=== PATIENT | male | born 1955 | race Hispanic/Latino ===

== ENCOUNTER 2016-10-02 07:50 | Inpatient (IN) | payer BC ==
[2016-10-02 08:05] VITALS: BMI 21.2
[2016-10-02] MEDS ORDERED: Vancomycin 1gm in NS 250ml 1 GM/250 ML BAG IVPB STA (08:24)
--- NOTE | 2016-10-02 08:43 | ED PDOC ---
Arrival/HPI - General Chief Complaint: Lower Extremity Problem/Injury Time Seen by Provider: 10/02/16 07:59 Historian: Patient - History of Present Illness Narrative History of Present Illness (Text): 10/02/16 08:13 A 61 year old male presents to the emergency department for evaluation of a non healing ulcer to the right foot. Patient reports the ulcer has been worsening and has become more painful. Patient was seen by customer solutions teammate, who told patient the right foot will need amputation. Patient denies any fever, chest pain, shortness of breath or any other complaints at this time. PMD: Dr. Gonzalez Chemical Production Machine Operator: Dr. Albert Time/Duration: Other Symptom Onset: Gradual Symptom Course: Worsening Quality: Other Activities at Onset: Rest Context: Home Past Medical History - Provider Review Nursing Documentation Reviewed: Yes - Infectious Disease Hx of Infectious Diseases: None - Cardiac Hx Cardiac Disorders: Yes - Pulmonary Hx Respiratory Disorders: Yes (SMOKED CIGARETTES 1/2 PPD X 50 YRS. QUIT) - Neurological Hx Neurological Disorder: No - HEENT Hx HEENT Disorder: Yes Other/Comment: wears glasses - Renal Hx Renal Disorder: No - Endocrine/Metabolic Hx Endocrine Disorders: No - Hematological/Oncological Hx Blood Transfusions: Yes Hx Blood Transfusion Reaction: No - Integumentary Hx Dermatological Disorder: Yes (RIGHT LEG INNER LATERAL BYPASS GRAFT WITH DRYING SKIN.) Other/Comment: 06-11-16 RIGHT KHANNA BONE WITH WORSENING,INCRESILY PAINFU; WOUND WITH SKIN GRAFT FROM SHARK.WAS REMOVED TODAY . AREA WITH SLOUGH. LEFT LEG FOOT DROP,KHANNA BONE WITH BROWNISH SKIN DISCOLORATION,PLAQUES. - Musculoskeletal/Rheumatological Hx Musculoskeletal Disorders: Yes (OSTEOMYELITIS TO RIGHT LEG /TIB/FIB 06-11-16) Hx Falls: Yes Hx Osteomyelitis: Yes (TIB/FIB RIGHT LEG 06-11-16) Hx Unsteady Gait: Yes (L FOOT DROP WHEELCHAIR,SPLINT TO L FOOT) - Gastrointestinal Hx Gastrointestinal Disorders: Yes (CONSTIPATION) - Genitourinary/Gynecological Hx Genitourinary Disorders: No - Psychiatric Hx Psychophysiologic Disorder: Yes (SMOKED CIGARETTES FOR 50 YSR QUIT) Hx Emotional Abuse: No Hx Physical Abuse: No Hx Substance Use: No - Surgical History Hx Amputation: Yes Hx Orthopedic Surgery: Yes Other/Comment: ACHILLES TENDON RELEASE-LEFT FOOT. - Anesthesia Hx Anesthesia Reactions: No Hx Malignant Hyperthermia: No - Suicidal Assessment Feels Threatened In Home Enviroment: No Family/Social History - Physician Review Nursing Documentation Reviewed: Yes Family/Social History: Unknown Family HX Smoking Status: Former Smoker Hx Alcohol Use: No Hx Substance Use: No Allergies/Home Meds Allergies/Adverse Reactions: Allergies No Known Allergies Allergy (Verified 06/11/16 17:45) Home Medications: Home Meds Medication Instructions Recorded Confirmed Apixaban [Eliquis] 5 mg PO BID 03/11/16 10/02/16 Multivit,Iron,Min 5/Folic Acid 1 tab PO DAILY 03/11/16 10/02/16 [Strovite Forte] Atorvastatin [Lipitor] 80 mg PO QPM 04/10/16 10/02/16 Aspirin [Ecotrin] 81 mg PO DAILY 10/02/16 10/02/16 Linezolid 600 mg in D5W 300 ml 1 IV Q12 10/02/16 [Zyvox 600mg/300ml D5W] levoFLOXacin 500 mg in D5W 100 ml IV DAILY 10/02/16 10/02/16 [Levaquin 500MG] Review of Systems - Physician Review All systems were reviewed & negative as marked: Yes - Review of Systems Constitutional: absent: Fevers Respiratory: absent: SOB Cardiovascular: absent: Chest Pain Skin: Ulcer (worsening ulcer to the right foot) Physical Exam Vital Signs Reviewed: Yes Vital Signs Temp Pulse Resp BP Pulse Ox 10/02/16 09:50 79 18 143/68 98 10/02/16 08:04 97.8 F 83 18 145/71 98 Temperature: Afebrile Blood Pressure: Normal Pulse: Regular Respiratory Rate: Normal Appearance: Positive for: Well-Appearing, Non-Toxic, Comfortable Pain Distress: None Mental Status: Positive for: Alert and Oriented X 3 - Systems Exam Head: Present: Atraumatic, Normocephalic Pupils: Present: PERRL Extroacular Muscles: Present: EOMI Conjunctiva: Present: Normal Mouth: Present: Moist Mucous Membranes Neck: Present: Normal Range of Motion Respiratory/Chest: Present: Clear to Auscultation, Good Air Exchange. No: Respiratory Distress, Accessory Muscle Use Cardiovascular: Present: Regular Rate and Rhythm, Normal S1, S2. No: Murmurs Abdomen: Present: Normal Bowel Sounds. No: Tenderness, Distention, Peritoneal Signs Back: Present: Normal Inspection Upper Extremity: Present: Normal Inspection. No: Cyanosis, Edema Lower Extremity: Present: Other (1 cm wound to the left dorsal 2nd toe; 6in by 1in deep wound to the right khanna; 3in by 1in superfical wound to the lateral side of right lower extremity ). No: Edema Neurological: Present: GCS=15, CN II-XII Intact, Speech Normal Skin: Present: Warm, Dry, Normal Color. No: Rashes Psychiatric: Present: Alert, Oriented x 3, Normal Insight, Normal Concentration Medical Decision Making ED Course and Treatment: 10/02/16 08:13 Impression: A 61 year old male with worsening ulcer to the right foot. Differential Diagnosis include but are not limited to: gangrene Plan: -- Labs -- Vancomycin -- Reassess and disposition Prior Visits: Notes and results from previous visits were reviewed. The patient last presented to the emergency department on 06/11/16 for evaluation of a non- healing ulcer. Progress Notes: 10/02/16 09:[address] Tirso Gonzalez, who is aware and agrees with the plan to admit the patient to Med/Surg under his service for gangrene of the right lower extremity. He notes to consult Dr. Moreira and Dr. Albert. I have discussed the results and plan with the patient, who expresses understanding. Patient given the opportunity to ask question, all questions were answered and there is agreement with the plan to be admitted to the hospital. 10/02/16 09:[address] Moreira, who is aware. - Lab Interpretations Lab Results: 10/02/16 08:10 10/02/16 08:10 Lab Results 10/02/16 08:10: Sodium 139, Potassium 4.2, Chloride 103, Carbon Dioxide 22, Anion Gap 18, BUN 18, Creatinine 1.1, Est GFR ( Amer) > 60, Est GFR (Non- Af Amer) > 60, Random Glucose 100, Calcium 9.5, Phosphorus 3.5, Magnesium 1.9, Total Bilirubin 0.7, AST 111 H, ALT 111 H, Alkaline Phosphatase 274 H, Total Protein 7.9, Albumin 3.8, Globulin 4.1, Albumin/Globulin Ratio 0.9 L 10/02/16 08:10: PT 11.4, INR 1.06, APTT 35.5 H 10/02/16 08:10: WBC 12.6 H, RBC 3.60, Hgb 11.7 L, Hct 34.0 L, MCV 94.4, MCH 32.5 , MCHC 34.4, RDW 13.5, Plt Count 258, MPV 10.1, Gran % 56.7, Lymph % (Auto) 19.3 L, Moca % (Auto) 8.4 H, Eos % (Auto) 15.0 H, Baso % (Auto) 0.6, Gran # 7.13 H, Lymph # 2.4, Moca # 1.1 H, Eos # 1.9 H, Baso # 0.08 I have reviewed the lab results: Yes - Medication Orders Current Medication Orders: Atorvastatin Calcium (Lipitor) 80 mg PO DIN [facility] Famotidine (Pepcid) 20 mg PO BID [facility] Last Admin: 10/02/16 10:41 Dose: 20 mg Gabapentin (Neurontin) 400 mg PO TID [facility] PRN Reason: Protocol Last Admin: 10/02/16 15:02 Dose: Not Given Non-Admin Reason: Patient in OR/Vascular Heparin Sodium (Porcine) (Heparin) 5,000 units SC Q8 [facility] PRN Reason: Protocol Last Admin: 10/02/16 15:01 Dose: Not Given Non-Admin Reason: Patient in OR/Vascular Discontinued Medications Fentanyl (Fentanyl) Confirm Administered Dose 100 mcg .ROUTE .STK-MED ONE Stop: 10/02/16 15:14 Vancomycin HCl (Vancomycin 1gm) 1 gm in 250 mls @ 167 mls/hr IVPB STAT STA PRN Reason: Protocol Stop: 10/02/16 09:53 Last Admin: 10/02/16 09:35 Dose: 167 mls/hr Nitroglycerin/Dextrose (Nitroglycerin 50 Mg/250 Ml D5w) Confirm Administered Dose 50 mg in 250 mls @ ud IV .STK-MED ONE Stop: 10/02/16 15:14 Heparin Sodium (Porcine) (Heparin 1000 Units/500 Ml Ns) Confirm Administered Dose 1,500 mls @ ud IV .STK-MED ONE Stop: 10/02/16 15:15 Iodixanol (Visipaque 320 Mg/Ml 100 Ml) Confirm Administered Dose 100 ml IV .STK- MED ONE Stop: 10/02/16 15:14 Iodixanol (Visipaque 320 Mg/Ml 200 Ml) Confirm Administered Dose 200 ml IV .STK- MED ONE Stop: 10/02/16 15:14 Lidocaine HCl (Lidocaine 2% 20ml Vial) Confirm Administered Dose 20 ml .ROUTE .STK-MED ONE Stop: 10/02/16 15:13 Midazolam HCl (Versed Inj) Confirm Administered Dose 2 mg .ROUTE .STK-MED ONE Stop: 10/02/16 15:14 - Scribe Statement The provider has reviewed the documentation as recorded by the Benny Mae Provider Scribe Attestation: All medical record entries made by the Scribkaya were at my direction and personally dictated by me. I have reviewed the chart and agree that the record accurately reflects my personal performance of the history, physical exam, medical decision making, and the department course for this patient. I have also personally directed, reviewed, and agree with the discharge instructions and disposition. Disposition/Present on Arrival - Present on Arrival Any Indicators Present on Arrival: No History of DVT/PE: No History of Uncontrolled Diabetes: No Urinary Catheter: No History of Decub. Ulcer: No History Surgical Site Infection Following: Orthopedic Procedures, None - Disposition Have Diagnosis and Disposition been Completed?: Yes Diagnosis: Gangrene Disposition: HOSPITALIZED Disposition Time: 09:16 Patient Plan: Admission Condition: GOOD
[2016-10-02 08:50] LABS: ADD MANUAL DIFF? NO
[2016-10-02 08:56] LABS: BASO # 0.08 K/mm3 (0.0-2.0); BASO % 0.6 % (0.0-3.0); EOS # 1.9 (0.0-0.7); GRAN # 7.13 (1.4-6.5); GRAN % 56.7 % (50.0-68.0); LYMPH # 2.4 (1.2-3.4); LYMPH % 19.3 % (22.0-35.0); MEAN CELL VOLUME 94.4 fL (80.0-105.0); MEAN CORPUSCULAR HEMOGLOBIN 32.5 pg (25.0-35.0); MEAN CORPUSCULAR HGB CONC 34.4 g/dl (31.0-37.0); MEAN PLATELET VOLUME 10.1 fl (7.0-11.0); MONO # 1.1 (0.1-0.6); MONO % 8.4 % (1.0-6.0); PLATELET COUNT 258 10^3/uL (120.0-450.0); RED CELL DISTRIBUTION WIDTH 13.5 % (11.5-14.5); WHITE BLOOD COUNT 12.6 10^3/ul (4.5-11.0)
[2016-10-02 09:06] LABS: ALB/GLOB RATIO 0.9 (1.1-1.8); ALKALINE PHOSPHATASE 274 U/L (38-133); ALT/SGPT 111 U/L (7-56); AST/SGOT 111 U/L (15-59); BILIRUBIN,TOTAL 0.7 mg/dL (0.2-1.3); BLOOD UREA NITROGEN 18 mg/dL (7-21); CALCIUM 9.5 mg/dL (8.4-10.5); CARBON DIOXIDE 22 mmol/L (21-33); CHLORIDE 103 mmol/L (98-107); GFR AFRICAN-AMERICAN > 60; GLUCOSE,RANDOM 100 mg/dL (70-110); MAGNESIUM 1.9 mg/dL (1.7-2.2); PHOSPHOROUS 3.5 mg/dL (2.5-4.5); POTASSIUM 4.2 mmol/L (3.6-5.0); SODIUM 139 mmol/L (132-148); TOTAL PROTEIN 7.9 g/dL (5.8-8.3)
--- NOTE | 2016-10-02 09:15 | CP.PCM.CON ---
History of Present Illness - History of Present Illness History of Present Illness: Dr. Chidi Shrestha Consult Note for Dr. Nicholson This patient is a 61yo M w/ an extensive PAD/PVD history known to Dr. 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 This patient has a non-healing ulcer on this right foot that will likely need amputation, for which he is on long Linezolid for as treatment. He has had multiple stents and bypass operations in the past. The patient has no current complaints; denies any fevers/chills, PRUITT, CP, SOB, abdominal pain, N/V/D, dysuria/freq/urg, or lower extremity pain that is out of proportion to his normal "vein" pain. 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 Ambulates with wheelchair. ADL and IADL's on own, other than visiting nurse for bandage changes. Former smoker, 1-2 packs per day for 50 years; 50-100pack year history The current plan is for CTA of the LLE as per Dr. Ramin Snowden, and for Surgery on Friday 10/[address] Nicholson. The patient should be NPO until after the CTA. Review of Systems - Constitutional Constitutional: As Per HPI Past Patient History - Infectious Disease Hx of Infectious Diseases: None - Past Social History Smoking Status: Former Smoker - CARDIAC Hx Cardiac Disorders: Yes - PULMONARY Hx Respiratory Disorders: Yes (SMOKED CIGARETTES 1/2 PPD X 50 YRS. QUIT) - NEUROLOGICAL Hx Neurological Disorder: No - HEENT Hx HEENT Problems: Yes Other/Comment: wears glasses - RENAL Hx Chronic Kidney Disease: No - ENDOCRINE/METABOLIC Hx Endocrine Disorders: No - HEMATOLOGICAL/ONCOLOGICAL Hx Blood Transfusions: Yes Hx Blood Transfusion Reaction: No - INTEGUMENTARY Hx Dermatological Problems: Yes (RIGHT LEG INNER LATERAL BYPASS GRAFT WITH DRYING SKIN.) Other/Comment: 06-11-16 RIGHT PAGE BONE WITH WORSENING,INCRESILY PAINFU; WOUND WITH SKIN GRAFT FROM SHARK.WAS REMOVED TODAY . AREA WITH SLOUGH. LEFT LEG FOOT DROP,PAGE BONE WITH BROWNISH SKIN DISCOLORATION,PLAQUES. - MUSCULOSKELETAL/RHEUMATOLOGICAL Hx Musculoskeletal Disorders: Yes (OSTEOMYELITIS TO RIGHT LEG /TIB/FIB 06-11-16) Hx Falls: Yes Hx Osteomyelitis: Yes (TIB/FIB RIGHT LEG 06-11-16) Hx Unsteady Gait: Yes (L FOOT DROP WHEELCHAIR,SPLINT TO L FOOT) - GASTROINTESTINAL Hx Gastrointestinal Disorders: Yes (CONSTIPATION) - GENITOURINARY/GYNECOLOGICAL Hx Genitourinary Disorders: No - PSYCHIATRIC Hx Psychophysiologic Disorder: Yes (SMOKED CIGARETTES FOR 50 YSR QUIT) Hx Emotional Abuse: No Hx Physical Abuse: No Hx Substance Use: No - SURGICAL HISTORY Hx Amputation: Yes Hx Orthopedic Surgery: Yes Other/Comment: ACHILLES TENDON RELEASE-LEFT FOOT. - ANESTHESIA Hx Anesthesia Reactions: No Hx Malignant Hyperthermia: No Meds Allergies/Adverse Reactions: Allergies Allergy/AdvReac Type Severity Reaction Status Date / Time No Known Allergies Allergy Verified 06/11/16 17:45 - Medications Medications: Current Medications Vancomycin HCl (Vancomycin 1gm) 1 gm in 250 mls @ 167 mls/hr IVPB STAT STA PRN Reason: Protocol Stop: 10/02/16 09:53 Physical Exam - Constitutional Appears: Well, Non-toxic - Head Exam Head Exam: ATRAUMATIC - Eye Exam Eye Exam: EOMI, Normal appearance Additional comments: wearing glasses - ENT Exam ENT Exam: Mucous Membranes Moist - Neck Exam Neck exam: Positive for: Full Rom. Negative for: Lymphadenopathy - Respiratory Exam Respiratory Exam: Clear to Auscultation Bilateral, NORMAL BREATHING PATTERN. absent: Rales, Rhonchi, Wheezes - Cardiovascular Exam Cardiovascular Exam: REGULAR RHYTHM - GI/Abdominal Exam GI & Abdominal Exam: Normal Bowel Sounds, Soft. absent: Tenderness - Rectal Exam Rectal Exam: Deferred - Extremities Exam Extremities exam: Negative for: calf tenderness Additional comments: RLE covered in bandage that has just been changed Patient has intact sensation on both lower extrem b/l Patient cannot move toes on either b/l extrem; poor foot hygiene and onchomycosis noted on LLE nails Pulses on LLE palpable Pulses non-palpable on RLE - Back Exam Back exam: NORMAL INSPECTION. absent: CVA tenderness (L), CVA tenderness (R) - Neurological Exam Neurological exam: Alert, CN II-XII Intact, Oriented x3 - Psychiatric Exam Psychiatric exam: Normal Affect - Skin Skin Exam: Warm Results - Vital Signs Recent Vital Signs: Last Vital Signs Temp 97.8 F 10/02/16 08:04 Pulse 83 10/02/16 08:04 Resp 18 10/02/16 08:04 BP 145/71 10/02/16 08:04 Pulse Ox 98 10/02/16 08:04 - Labs Result Diagrams: 10/02/16 08:10 Labs: Laboratory Results - last 24 hr 10/02/16 08:10 Sodium 139 Potassium 4.2 Chloride 103 Carbon Dioxide 22 Anion Gap 18 BUN 18 Creatinine 1.1 Est GFR ( Amer) > 60 Est GFR (Non-Af Amer) > 60 Random Glucose 100 Calcium 9.5 Phosphorus 3.5 Magnesium 1.9 Total Bilirubin 0.7 AST 111 H ALT 111 H Alkaline Phosphatase 274 H Total Protein 7.9 Albumin 3.8 Globulin 4.1 Albumin/Globulin Ratio 0.9 L Assessment & Plan - Assessment and Plan (Free Text) Assessment: 61yo M coming in for PAD/PVD -Will order routine pre-op labs -CTA today as per Dr. Snowden; NPO until after procedure; heart healthy diet after procedure -pain control -Surgery planned for Friday 10/[address] Nicholson -Will continue with home meds for now Will discuss with Dr. Bharat Shrestha PGY1 Surgery Note for Dr. Nicholson
[2016-10-02 09:16] LABS: INR 1.06 (0.93-1.08); PARTIAL THROMBOPLASTIN TIME 35.5 Seconds (23.7-30.8)
[2016-10-02 11:04] LABS: VENOUS BLOOD GAS BASE EXCESS -1.1 mmol/L (0.0-2.0); VENOUS BLOOD PH 7.37 (7.32-7.43)
--- NOTE | 2016-10-02 11:44 | HP ---
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 Albert) for evaluation for possible BKA. The patient denies fevers, chills or rigors, but does endorse fatigue. Otherwise, he states he feels okay and is looking forward to undergoing the BKA to finally resolve his ongoing issues with his right lower extremity. PAST MEDICAL HISTORY: As per HPI. PAST SURGICAL HISTORY: As per HPI. MEDICATIONS: Lipitor 80 mg p.o. daily, aspirin 81 mg p.o. daily, Eliquis 5 mg p.o. b.i.d., Pepcid 20 mg p.o. b.i.d., gabapentin 400 mg p.o. t.i.d., Percocet 5 /325 mg 2 tabs p.o. q. 6 hours p.r.n. pain, Colace 100 mg p.o. b.i.d. ALLERGIES: No known drug allergies. FAMILY HISTORY: Noncontributory. SOCIAL HISTORY: The patient reports a former [id number] smoking history, but quit approximately 2 years ago. He reports social alcohol use and denies illicit drug abuse. REVIEW OF SYSTEMS: A 14-point is negative except as per HPI. PHYSICAL EXAMINATION: VITAL SIGNS: Temperature 97.8, pulse 79, blood pressure 143/68, respiratory rate 18, oxygen saturation 98% on room air. GENERAL: Frail, cachectic man, appearing his stated age, lying in bed, in no apparent distress. HEENT: PERRL. EOMI. No scleral icterus, no conjunctival pallor. NECK: No JVD, no bruits. LUNGS: Clear to auscultation. CARDIOVASCULAR: Regular rate and rhythm. Normal S1 and S2. ABDOMEN: Normoactive bowel sounds, soft, nontender, nondistended. EXTREMITIES: No edema. NEUROLOGIC: Awake, alert and oriented x 3. No focal motor deficits. LABORATORY DATA: WBC 12.6 with 57% neutrophils, hemoglobin 11.7, hematocrit 34 , platelets 258. Chemistry reviewed and unremarkable. AST 111, ALT 111. ASSESSMENT: The patient is a 61-year-old man with past medical history of severe peripheral vascular disease/peripheral arterial disease, status post interventional radiology revascularization, status post endovascular catheter- directed tissue plasminogen activator, status post amputation of the right foot digits with multiple prior admissions for cellulitis, dry gangrene and osteomyelitis, who presented to [facility] for evaluation for right below knee amputation. PLAN: 1. Chronic nonhealing ulcer of the right lower extremity. Input from Dr. Albert noted and appreciated. Input from Dr. Nicholson also noted and appreciated. The patient is to be evaluated for right below knee amputation. Dr. Moreira of infectious disease has also been consulted for perioperative antimicrobial management. Dr. Snowden has also been consulted for preoperative angiogram. The patient is otherwise medically optimized for his surgical procedure and may proceed without any further cardiac workup. He is a moderate risk patient for a moderate risk procedure. 2. Severe peripheral vascular disease/peripheral arterial disease. Continue with Lipitor 80 mg p.o. daily. Will hold aspirin 81 mg p.o. daily and Eliquis 5 mg p.o. b.i.d. given increased risk of bleed in anticipation of right below knee amputation. As above, Dr. Snowden has been consulted for preoperative angiogram. 3. Transaminitis, etiology secondary to fatty liver infiltration as well as concurrent statin use. LFTs remain stable. Will continue to monitor daily. 4. Prophylaxis. Continue with Pepcid for gastrointestinal prophylaxis and heparin 5000 units subQ q. 8 hours for deep venous thrombosis prophylaxis. CODE STATUS: Full code. Gume Gonzalez MD cc: [id number] TT: 10/02/2016 11:44:24 en MTDD
[2016-10-02] MEDS ORDERED: Lidocaine 2% Inj (20ml) ONE (15:12)
[2016-10-02] MEDS ORDERED: Nitroglycerin 50mg in D5W 50 MG/250 ML BOTTLE IV ONE (15:13)
[2016-10-02] MEDS ORDERED: Iodixanol 320 MG/ML 200 ML BOTTLE IV ONE (15:13)
[2016-10-02] MEDS ORDERED: Iodixanol 320 MG/ML 100 ML BOTTLE IV ONE (15:13)
[2016-10-02] MEDS ORDERED: Midazolam 2 MG/2 ML VIAL ONE ×2 (15:13→16:08)
[2016-10-02] MEDS ORDERED: Oxycodone/Acetaminophen 5/325 mg Tab ONE (17:20)
[2016-10-02] MEDS: Oxycodone/Acetaminophen 10/325 mg Tab PO PRN ×2 (17:20→21:51)
--- NOTE | 2016-10-02 18:42 | CON ---
DATE: 10/02/2016 The patient seen in room 373, bed 1. CHIEF COMPLAINT: Leg infection times months. HISTORY OF PRESENT ILLNESS: This is a 61-year-old male with peripheral vascular disease, long time s moker, acute kidney injury, history of right foot gangrene, history of debridement and multiple surge crys and history of fem-pop bypass with history of grafting which failed, now admitted for right belo w-the-knee amputation. Infectious consultation requested. REVIEW OF SYSTEMS: Reveals the patient has no fevers, no chills, no nausea, no vomiting and no chest pain. PAST MEDICAL HISTORY: Significant for severe peripheral vascular disease, renal failure, osteomyelit is, and longtime smoker. PAST SURGICAL HISTORY: Significant for left leg surgery bypass, patient also had grafting which fail ed. ALLERGIES: The patient has no known allergies. MEDICATIONS AT HOME: Reviewed. PHYSICAL EXAMINATION: GENERAL: The patient is in bed with a temperature of 97, blood pressure is 130/70, respiratory rate of 18, heart rate of 80. HEENT: Unremarkable. NECK: Supple. LUNGS: Have decreased breath sounds. HEART: Normal S1, S2. ABDOMEN: Soft, nontender. EXTREMITIES: Examination of the right leg reveals the patient has a right leg with open wound and mu ltiple open ulcers and exposed bone and gangrene. LABORATORY EXAMINATION: Reveals a white count of 12,600, hemoglobin is 11 and platelets of 258. Coa gulation is noted. Chemistries reveal the BUN of 18, creatinine of 1.1. LFTs are elevated, alk phos phatase is elevated. Microbiology not available from the past. The patient did have coag negative s taph from the left foot and had Wendy albicans and right leg corynebacterium. The patient was given a dose of vancomycin and Dr. Gume Gonzalez's history and physical examinatio n is noted. ASSESSMENT AND PLAN: This is a 61-year-old male with no known allergies, severe peripheral vascular disease, extensive peripheral artery disease, long time smoker, who has had multiple surgeries on his leg and has gangrene and now admitted for right [id number] amputation for Thursday. His leg has c hronic changes, no indication for antibiotic choice at this point, although patient does have leukocy tosis. Examination of leg is consistent with chronic changes and would recommend standard perioperat corby antibiotics. We will follow with you. The patient does have leukocytosis with a white count of 12,600. Chidi Moreira MD cc: [id number] TT: 10/02/2016 18:41:12 Confirmation # [id number] Dictation # [id number] jn
--- NOTE | 2016-10-02 18:48 | VASCULAR ---
PROCEDURE: Abdominal aortogram and bilateral lower extremity runoff. HISTORY: Severe peripheral vascular disease. Scheduled for left femoral - bypass. Left foot ischemia. Nonhealing right tibial ulceration. Previous iliac stents with thrombosis. PHYSICIAN(S): Ramin Snowden MD. TECHNIQUE: The relative risks and indications of the procedure were explained to the patient and consent obtained. The patient was hydrated prior to the procedure and the appropriate labs drawn. The patient was placed supine on the arteriogram table and the left groin prepped and draped in the usual sterile fashion. Conscious sedation and monitoring were provided throughout the procedure by a nurse. Via a left common femoral artery approach, a 5 Palestinian sheath was placed in the right groin. Through the sheath and over a guidewire, a 5 Palestinian flush catheter was placed in the abdominal aorta at the level of the renal arteries and a PA DSA abdominal aortogram performed. The catheter was pulled down to the aortic bifurcation and bilateral oblique DSA pelvic arteriograms performed. Overlapping bilateral lower extremity DSA arteriograms were obtained from the inguinal ligaments to the ankles. The sheath was removed and hemostasis obtained. The patient tolerated the procedure well. FINDINGS: There are single renal arteries bilaterally which are widely patent and normal in appearance. The nephrograms are symmetric in appearance. The infrarenal abdominal aorta is diffusely disease. There is an aneurysm of the distal abdominal aorta related to the kissing aortic bifurcation stents.. The kissing aortic bifurcation stents are patent. No thrombus is seen. The internal iliac arteries are occluded bilaterally. The external iliac arteries are patent bilaterally. Right lower extremity: The right common femoral artery is patent. The right profunda femoral artery is occluded. There is a right femoral - below knee vein bypass. A critical stenosis of the proximal anastomosis is seen. A severe stenosis of the distal anastomosis is present. There is two-vessel continuous runoff on the right via the posterior tibial and peroneal arteries. The right anterior tibial artery is occluded. Left lower extremity: The left common femoral artery is calcified and patent. The left profunda femoral artery is calcified and hypertrophied. The left SFA is occluded. There is reconstitution of the terminal left SFA. The left popliteal artery is patent and continuous. The left trifurcation is intact. There is 3 vessel tibial runoff on the left. IMPRESSION: 1. Long segment left SFA occlusion. 2. Threatened right femoral- graft. Severe stenoses are noted proximally and distally. 3. Occluded right profunda femoral artery. 4. Patent kissing iliac stents. 5. Distal abdominal aortic aneurysm. This could be sized with ultrasound or CT if clinically indicated.
[2016-10-03 08:35] LABS: ADD MANUAL DIFF? NO
[2016-10-03 08:40] LABS: BASO # 0.05 K/mm3 (0.0-2.0); BASO % 0.5 % (0.0-3.0); EOS # 1.3 (0.0-0.7); EOS % 12.7 % (1.5-5.0); GRAN # 5.67 (1.4-6.5); GRAN % 57.5 % (50.0-68.0); HEMATOCRIT 33.3 % (42.0-52.0); LYMPH # 1.9 (1.2-3.4); LYMPH % 18.9 % (22.0-35.0); MEAN CELL VOLUME 93.3 fL (80.0-105.0); MEAN CORPUSCULAR HEMOGLOBIN 32.5 pg (25.0-35.0); MEAN CORPUSCULAR HGB CONC 34.8 g/dl (31.0-37.0); MEAN PLATELET VOLUME 10.2 fl (7.0-11.0); MONO % 10.4 % (1.0-6.0); PLATELET COUNT 219 10^3/uL (120.0-450.0); RED CELL DISTRIBUTION WIDTH 13.5 % (11.5-14.5); WHITE BLOOD COUNT 9.9 10^3/ul (4.5-11.0)
[2016-10-03] MEDS: Oxycodone/Acetaminophen 10/325 mg Tab PO PRN ×4 (08:50→21:53)
[2016-10-03 08:54] LABS: ALKALINE PHOSPHATASE 255 U/L (38-133); ALT/SGPT 85 U/L (7-56); AST/SGOT 79 U/L (15-59); BILIRUBIN,TOTAL 0.8 mg/dL (0.2-1.3); BLOOD UREA NITROGEN 15 mg/dL (7-21); CALCIUM 9.4 mg/dL (8.4-10.5); CARBON DIOXIDE 27 mmol/L (21-33); CHLORIDE 103 mmol/L (98-107); GFR AFRICAN-AMERICAN > 60; GLUCOSE,RANDOM 89 mg/dL (70-110); POTASSIUM 4.6 mmol/L (3.6-5.0); SODIUM 139 mmol/L (132-148); TOTAL PROTEIN 8.1 g/dL (5.8-8.3)
--- NOTE | 2016-10-03 09:13 | CP.PCM.PN ---
Subjective - Date & Time of Evaluation Date of Evaluation: 10/03/16 Time of Evaluation: 07:15 - Subjective Subjective: Vascular Surgery: Dr Nicholson Pt S&E. No acute complaints overnight. 24 hours events: S/P peripheral angiogram yesterday with Dr Snowden. Found to have long left SFA occlusion as well as threatened right femoral graft. Incidental AAA noted. Cardiology consulted for pre-operative risk assessment. Objective - Vital Signs/Intake and Output Vital Signs (last 24 hours): Temp Pulse Resp BP Pulse Ox 98.4 F 72 20 119/70 100 10/03/16 06:00 10/03/16 06:00 10/03/16 06:00 10/03/16 06:00 10/03/16 06:00 Intake and Output: 10/03/16 10/03/16 06:59 18:59 Intake Total 0 Output Total 300 Balance -300 - Medications Medications: Current Medications Atorvastatin Calcium (Lipitor) 80 mg PO DIN [facility] Last Admin: 10/02/16 18:30 Dose: Not Given Famotidine (Pepcid) 20 mg PO BID [facility] Last Admin: 10/02/16 18:30 Dose: Not Given Gabapentin (Neurontin) 400 mg PO TID [facility] PRN Reason: Protocol Last Admin: 10/02/16 18:30 Dose: Not Given Heparin Sodium (Porcine) (Heparin) 5,000 units SC Q8 [facility] PRN Reason: Protocol Last Admin: 10/03/16 06:45 Dose: 5,000 units Oxycodone/Acetaminophen (Percocet 10/325 Mg Tab) 1 tab PO Q4H PRN PRN Reason: Pain, moderate (4-7) Last Admin: 10/03/16 08:50 Dose: 1 tab - Labs Labs: 10/03/16 07:30 10/03/16 07:30 PT 11.4 Seconds (9.9-11.8) 10/02/16 08:10 INR 1.06 (0.93-1.08) 10/02/16 08:10 APTT 35.5 Seconds (23.7-30.8) H 10/02/16 08:10 - Constitutional Appears: Non-toxic, No Acute Distress - Respiratory Exam Respiratory Exam: absent: Accessory Muscle Use, Respiratory Distress - GI/Abdominal Exam GI & Abdominal Exam: Soft. absent: Tenderness - Extremities Exam Extremities Exam: absent: Calf Tenderness, Pedal Edema Additional comments: Left Extremity Dopplerable pulse on DP, no PT. Unable to palpate. - Neurological Exam Neurological Exam: Alert, Awake, Oriented x3 - Psychiatric Exam Psychiatric exam: Normal Affect, Normal Mood - Skin Skin Exam: Normal Color, Warm Assessment and Plan - Assessment and Plan (Free Text) Assessment: 61M with right leg gangrene 2/2 graft occlusion and left leg ischemia requiring revascularization Plan: Pt needs both left and right leg addressed. Pt would benefit from left leg treatment first as right BKA will be difficult rehab if pt cannot weight bear on left leg Right leg may also possible be revascularized endoscopically plan for angio thursday of right leg left fem-pop bypass on thursday will need pre-operative risk assessment blood cultures x 2 case d/w Dr Nicholson who was present for pt evaluation Jose Mazariegos DO, PGY2
[2016-10-03 09:30] LABS: INR 1.03 (0.93-1.08)
--- NOTE | 2016-10-03 10:12 | PN ---
DATE: 10/03/2016 SUBJECTIVE: The patient seen and examined at bedside on the general medical cramer. No acute events o vernight. He remains afebrile and hemodynamically stable. The patient is status post left lower ext remity aortogram which demonstrated long segment of the left SFA occlusion and severe stenosis to the right femoral graft. Otherwise this morning, the patient states he feels okay, but does report some confusion in terms of the procedure he is scheduled for as initially he was told he was being admitt ed for a right BKA and now he is being told he is going for a left femoral-popliteal bypass. Apart f rom this, however, he states he feels okay and offers no complaints. OBJECTIVE: VITAL SIGNS: Temperature 98.4, pulse 72, blood pressure 119/70, respiratory rate 20, oxygen saturati on 100% on room air. GENERAL: A frail, cachectic man appearing his stated age, lying in bed in no apparent distress. HEENT: PERRL, EOMI. No scleral icterus. No conjunctival pallor. NECK: No JVD, no bruits. LUNGS: Clear to auscultation. CARDIOVASCULAR: Regular rate and rhythm. Normal S1 and S2. ABDOMEN: Normoactive bowel sounds, soft, nontender, nondistended. EXTREMITIES: No edema. NEUROLOGIC: Awake, alert and oriented x 3. No focal motor deficits. LABORATORY DATA: WBC 9.9 with 57% neutrophils, hemoglobin 11.6, hematocrit 33, platelets 219. Chemi stry reviewed and unremarkable. AST 79, ALT 85, alk phos 255. ASSESSMENT: The patient is a 61-year-old man with past medical history of severe peripheral vascular disease/peripheral arterial disease, status post interventional radiology revascularizations, status post endovascular catheter-directed tissue plasminogen activator, status post amputation of the righ t foot digits with multiple prior admissions for cellulitis, dry gangrene and osteomyelitis, who pres ented to [facility] for evaluation for right below-knee amputation and is now scheduled f or possible left femoral-popliteal bypass. PLAN: 1. Chronic nonhealing ulcer of the right lower extremity. Input from Dr. Albert noted and davida cinthya. Input from Dr. Snowden noted and findings of his abdominal aortogram reviewed. The patient is te ntatively scheduled for right BKA with Dr. Albert. 2. Severe PVD/PAD. As above, the aortogram is reviewed and input from Dr. Snowden is noted. The tegan ent is reportedly scheduled for a left fem-pop bypass and Dr. Mayers has been consulted by the surgical team for cardiac clearance. In the interim, we will continue with Lipitor 80 mg p.o. daily, aspirin 81 mg p.o. daily and Eliquis 5 mg p.o. b.i.d. 3. Transaminitis, etiology likely secondary to fatty liver infiltration as well as concurrent statin use. LFTs remain stable. We will continue to monitor daily. 4. Prophylaxis. Continue with Pepcid for GI prophylaxis and heparin 5000 units SC q. 8 hours for DV T prophylaxis. CODE STATUS: Full code. Gume Gonzalez MD cc: [id number] TT: 10/03/2016 10:12:13 Confirmation # [id number] Dictation # [id number] tn
--- NOTE | 2016-10-03 10:25 | CT ---
PROCEDURE: CT Abdomen and Pelvis without intravenous contrast HISTORY: evaluate AAA COMPARISON: None. TECHNIQUE: Without contrast.. Contrast Dose: Radiation dose: Total exam DLP = 575 mGy-cm. This CT exam was performed using one or more of the following dose reduction techniques: Automated exposure control, adjustment of the mA and/or kV according to patient size, and/or use of iterative reconstruction technique. FINDINGS: LOWER THORAX: Unremarkable. LIVER: Unremarkable. No gross lesion or ductal dilatation. GALLBLADDER AND BILE DUCTS: Unremarkable. PANCREAS: Unremarkable. No gross lesion or ductal dilatation. SPLEEN: Unremarkable. ADRENALS: Unremarkable. No mass. KIDNEYS AND URETERS: There is some residual contrast material in the renal collecting systems bilaterally. The patient had a recent angiographic procedure VASCULATURE: The infrarenal abdominal aorta measures 3 cm in diameter. Stents can be seen within the distal portion of the aorta extending into the common iliac arteries. The aorta is heavily calcified. BOWEL: Unremarkable. No obstruction. No gross mural thickening. APPENDIX: Unremarkable. Normal appendix. PERITONEUM: Unremarkable. No free fluid. No free air. LYMPH NODES: Unremarkable. No enlarged lymph nodes. BLADDER: Unremarkable. REPRODUCTIVE: Unremarkable. BONES: No acute fracture. OTHER FINDINGS: None. IMPRESSION: 3 cm infrarenal aortic aneurysm with iliac stents. No acute findings
--- NOTE | 2016-10-03 11:00 | PN ---
DATE: 10/03/2016 The patient is in bed, in no acute distress, nontoxic. No fevers, no chills. PHYSICAL EXAMINATION: VITAL SIGNS: Temperature is 98, blood pressure is 119/70, respiratory rate of 16. HEENT: Unremarkable. NECK: Supple. LUNGS: Have decreased breath sounds. HEART: Normal S1, S2. ABDOMEN: Soft, nontender. LABORATORY DATA: Reveals a white count of 9.9, hemoglobin of 11, platelets of 219. Chemistries reve al the BUN of 15, creatinine of 1.0, alkaline phosphatase is 255. MICROBIOLOGY: Reveals the blood cultures are negative. Foot cultures are ____ pending. CURRENT REVIEW OF MEDICATIONS: Reveals the patient to be off of antibiotics. ASSESSMENT AND PLAN: This is a 61-year-old male seen earlier this morning in ____, bed 1, status per ipheral angiogram yesterday done by Dr. Ramin Snowden; found to have a long left ____ occlusion as well as the threatened right femoral graft and an incidental abdominal aortic aneurysm, with multiple adm issions and surgeries, now with a right ____ gangrene. The patient is scheduled for a below-knee amp utation of the right leg on Thursday morning. Currently off of antibiotics. White count is down to 9. 9. Afebrile. Will continue to keep the patient off of antibiotics. Chidi Moreira MD cc: [id number] TT: 10/03/2016 10:25:30 Confirmation # [id number] Dictation # [id number] mn
--- NOTE | 2016-10-03 12:38 | CON ---
DATE: 10/03/2016 REASON FOR CONSULTATION: Right khanna nonhealing ulcer, left foot ulcer. HISTORY OF PRESENT ILLNESS: The patient is a 61-year-old man who has a long and complicated vascular disease history. He started out with a left foot ulcer in 2016. He was treated with left iliac occ lusion and right iliac stenosis that was diagnosed on the angiogram and also bilateral SFA occlusion. He was treated by Dr. Ramin Snowden with bilateral kissing stents. Shortly after that, he returned w ith bilateral lower extremity ischemia with acute thrombosis of his aorta and iliac. Due to the reilly y in presentation, patient has suffered bilateral footdrop. His thrombosed aorta was treated with th rombolysis successfully. The kissing stent was extended. After this, he developed a right foot ulce r. A right leg angioplasty of his superficial femoral artery and popliteal artery was performed, and the proximal SFA was stented. Shortly after that, he thrombosed his right SFA leading to acute isch emia of his right leg. He was readmitted and the right fem-pop was performed. But due to that ische carmel, he has a khanna ulcer which failed to heal despite hyperbaric, extensive wound care and a cutaneou s muscle flap. He was sent in here for osteomyelitis and possible below-knee amputation. In the cathi ntime, he has also developed a left foot ulcer. SOCIAL HISTORY: The patient was a 5 pack a day smoker until last year when he had his first vascular intervention. 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 REVIEW OF SYSTEMS: Other than stated in the history of present illness, is unremarkable. PHYSICAL EXAMINATION: GENERAL: Showed a well-appearing white male in no acute distress. HEENT: Negative. CHEST: Clear. CARDIAC: Regular rhythm. ABDOMEN: Soft. EXTREMITIES: He has bilateral palpable femoral pulses and no distal pulses. He has a khanna ulcer on his right leg. LABORATORY: He has a hemoglobin of 11.6, WBC of 9.9. Electrolytes are within normal limits. HOSPITAL COURSE: After admission, he underwent an angiogram by Dr. Ramin Snowden which showed patent s tent and infrarenal abdominal aortic aneurysm. On the left side, there is an SFA and popliteal occlu an with reconstitution of the popliteal at above-knee level. On the right side, there is no profun dus artery. There is a high-grade stenosis of the bypass graft, both at its takeoff and at the dista l anastomosis, presumably secondary to intimal hyperplasia. The case was discussed with Dr. Snowden. I felt that the below-knee amputation will not heal with no profundus and a high-grade stenosis in th e bypass graft. The bypass graft must be opened prior to a below-knee amputation. The case was pres ented to the patient and his family. The possibility of wound improvement after the bypass graft is open was also discussed, and this was also discussed with the patient's primary care. We all concurr ed that we should open up the right leg bypass, hold on the below-knee amputation, perform the left f emoral popliteal bypass, and wait a month or 2 to see if the right leg wound will improve. Again, th is was discussed with the patient and his family, and Dr. Gonzalez and Dr. Snowden. He is tentatively scheduled for angiogram and angioplasty on Thursday, and a left femoral popliteal bypass on Thursday. Valencia Nicholson MD cc: [id number] TT: 10/03/2016 12:36:58 Confirmation # [id number] Dictation # [id number] mn
--- NOTE | 2016-10-03 13:40 | CON ---
DATE: 10/03/2016 HISTORY OF PRESENT ILLNESS: The patient is a 61-year-old male who presents with ulcers on the right lower extremity. The patient suffers from severe peripheral vascular disease, is status post amputation of the right l ower extremity. The patient continues to smoke until recently. 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 He denies cardiac issues in the past. He is being treated with Eliquis for questionable reasons. He denies cardiac issues. No chest pain. He is chronically short of breath. SOCIAL HISTORY: He states he recently stopped smoking. REVIEW OF SYSTEMS: A 14-point was reviewed. No cardiac symptomatology is noted. Only pain in the r ight lower extremity. PHYSICAL EXAMINATION: VITAL SIGNS: Blood pressure is 119/70, the heart rate is in 72 and regular. NECK: Negative JVD. LUNGS: Decreased breath sounds bilaterally without rales. HEART: Revealed S1, S2. EXTREMITIES: The right lower extremity is status post amputation. LABORATORY DATA: The EKG is pending. Hemoglobin is 11.6. Chemistries: The LFTs are elevated. His previous echo shows good LV function. IMPRESSION: 1. Severe peripheral vascular disease. 2. Ulcers on the right lower extremity. 3. Status post amputation. 4. Chronic obstructive pulmonary disease. 5. Hypercholesterolemia. Given these findings, we will obtain an EKG today on a stat basis. There are no active cardiac issue s elicited by physical as well as examination. The patient is at increased risk for his surgery of the right lower extremity vasculature primarily f rom his pulmonary status. Ramin Mayers MD cc: [id number] TT: 10/03/2016 13:39:41 Confirmation # [id number] Dictation # [id number] en
[2016-10-03] MEDS: Morphine 2 mg/ml ISec IVP PRN ×2 (15:35→20:36)
--- NOTE | 2016-10-03 16:48 | CARD ---
APPROVED REPORT EKG Measurement Heart [id number] [id number] <Conclusion> Normal sinus rhythm Normal ECG
[2016-10-03] MEDS ORDERED: Iohexol 240 (50 ml) ONE (18:20)
[2016-10-04] MEDS: Morphine 2 mg/ml ISec IVP PRN ×6 (00:43→21:17)
[2016-10-04 06:00] LABS: ADD MANUAL DIFF? NO
[2016-10-04 06:14] LABS: ALB/GLOB RATIO 0.9 (1.1-1.8); ALKALINE PHOSPHATASE 231 U/L (38-133); ALT/SGPT 78 U/L (7-56); AST/SGOT 69 U/L (15-59); BILIRUBIN,TOTAL 0.8 mg/dL (0.2-1.3); BLOOD UREA NITROGEN 18 mg/dL (7-21); CALCIUM 9.3 mg/dL (8.4-10.5); CARBON DIOXIDE 25 mmol/L (21-33); CHLORIDE 102 mmol/L (98-107); GFR AFRICAN-AMERICAN > 60; GLUCOSE,RANDOM 97 mg/dL (70-110); POTASSIUM 4.3 mmol/L (3.6-5.0); SODIUM 137 mmol/L (132-148); TOTAL PROTEIN 7.9 g/dL (5.8-8.3)
[2016-10-04 06:18] LABS: HEMATOCRIT 31.6 % (42.0-52.0); MEAN CELL VOLUME 97.2 fL (80.0-105.0); MEAN CORPUSCULAR HEMOGLOBIN 32.3 pg (25.0-35.0); MEAN CORPUSCULAR HGB CONC 33.2 g/dl (31.0-37.0); WHITE BLOOD COUNT 9.1 10^3/ul (4.5-11.0)
[2016-10-04 06:19] LABS: BASO # 0.07 K/mm3 (0.0-2.0); BASO % 0.8 % (0.0-3.0); EOS # 1.2 (0.0-0.7); EOS % 12.9 % (1.5-5.0); GRAN % 50.4 % (50.0-68.0); LYMPH # 1.9 (1.2-3.4); LYMPH % 21.2 % (22.0-35.0); MEAN PLATELET VOLUME 10.4 fl (7.0-11.0); MONO # 1.3 (0.1-0.6); MONO % 14.7 % (1.0-6.0); PLATELET COUNT 207 10^3/uL (120.0-450.0); RED CELL DISTRIBUTION WIDTH 13.7 % (11.5-14.5)
--- NOTE | 2016-10-04 07:48 | CP.PCM.PN ---
Subjective - Date & Time of Evaluation Date of Evaluation: 10/04/16 Time of Evaluation: 07:15 - Subjective Subjective: Vascular Surgery Dr. Nicholson Pt S&E @bedside. NAEO. pt c/o B/L heel pain since admission. denies F/C, N/C. admits to constipation. tolerating HHD. Objective - Vital Signs/Intake and Output Vital Signs (last 24 hours): Temp Pulse Resp BP Pulse Ox 98.4 F 76 20 114/80 99 10/03/16 16:00 10/03/16 16:00 10/03/16 16:00 10/03/16 16:00 10/03/16 16:00 Intake and Output: 10/04/16 10/04/16 06:59 18:59 Intake Total 120 Output Total 1750 Balance -1630 - Medications Medications: Current Medications Atorvastatin Calcium (Lipitor) 80 mg PO DIN [facility] Last Admin: 10/03/16 17:37 Dose: 80 mg Docusate Sodium (Colace) 100 mg PO BID [facility] Last Admin: 10/03/16 17:37 Dose: 100 mg Famotidine (Pepcid) 20 mg PO BID [facility] Last Admin: 10/03/16 17:37 Dose: 20 mg Gabapentin (Neurontin) 400 mg PO TID [facility] PRN Reason: Protocol Last Admin: 10/03/16 17:37 Dose: 400 mg Heparin Sodium (Porcine) (Heparin) 5,000 units SC Q8 [facility] PRN Reason: Protocol Last Admin: 10/04/16 05:28 Dose: 5,000 units Morphine Sulfate (Morphine) 2 mg IVP Q4H PRN PRN Reason: Pain, severe (8-10) Last Admin: 10/04/16 04:42 Dose: 2 mg - Labs Labs: 10/04/16 05:55 10/04/16 05:55 PT 10.8 Seconds (9.9-11.8) 10/04/16 05:55 INR 1.00 (0.93-1.08) 10/04/16 05:55 APTT 35.5 Seconds (23.7-30.8) H 10/02/16 08:10 - Constitutional Appears: Non-toxic, No Acute Distress - Head Exam Head Exam: NORMAL INSPECTION - Eye Exam Eye Exam: Normal appearance - ENT Exam ENT Exam: Mucous Membranes Moist - Respiratory Exam Respiratory Exam: NORMAL BREATHING PATTERN. absent: Accessory Muscle Use, Respiratory Distress - Cardiovascular Exam Cardiovascular Exam: absent: Bradycardia, Tachycardia - GI/Abdominal Exam GI & Abdominal Exam: Soft. absent: Distended - Extremities Exam Additional comments: transmet of R foot. dressings in place L foot drop - Neurological Exam Neurological Exam: Alert, Awake, Oriented x3 - Psychiatric Exam Psychiatric exam: Normal Affect, Normal Mood - Skin Skin Exam: Dry, Normal Color, Warm Assessment and Plan - Assessment and Plan (Free Text) Assessment: 61 y/o M w/ R leg gangrene 2/2 graft occlusion and left leg ischemia requiring revascularization - cont pain management - cont Colace BID - angio thursday of right leg - left fem-pop bypass on thursday - f/u Cardiac clearance. - Blood Cx negative x 2 Pt discussed w/ Dr Bharat Herat DO PGY1
--- NOTE | 2016-10-04 08:11 | PN ---
DATE: 10/04/2016 SUBJECTIVE: The patient seen and examined at bedside on the general medical cramer. No acute events overnight. He remains afebrile and hemodynamically stable. Yesterday I had an extensive discussion with Dr. Nicholson of vascular surgery regarding the confusion that the patient had in terms of the procedure that he was scheduled for on Thursday (10/06/2016). It was explained that given the patient's severe peripheral vascular disease and the findings noted on his abdominal aortogram demonstrating severe bilateral stenoses, Dr. Nicholson was concerned for poor wound healing should the patient undergo a right BKA. Thus the current plan is to pursue a left-sided femoropopliteal bypass, thereby allowing for a viable left lower extremity that can be weightbearing so that when he does go for his right BKA he will be more mobile and better able to participate in physical therapy. The patient expressed understanding of plan and is in agreement with this plan. Otherwise, this morning, he states he feels okay and reports that his pain is adequately controlled since starting morphine and offers no complaints. OBJECTIVE: VITAL SIGNS: Temperature 98.4, pulse 81, blood pressure 119/75, respiratory rate 20, oxygen saturation 100% on room air. GENERAL: No apparent distress. HEENT: PERRL, EOMI. No scleral icterus. No conjunctival pallor. NECK: No JVD, no bruits. LUNGS: Clear to auscultation. CARDIOVASCULAR: Regular rate and rhythm. Normal S1 and S2. ABDOMEN: Normoactive bowel sounds, soft, nontender, nondistended. EXTREMITIES: No edema. NEUROLOGIC: Awake, alert and oriented x 3. No focal motor deficits. LABORATORY DATA: WBC 9.1 with 50% neutrophils, hemoglobin 10.5, hematocrit 32, platelets 207. Chemistry reviewed and unremarkable. AST 69, ALT 78, alkaline phosphatase 231. Blood cultures with no growth to date. Wound cultures from the right lower extremity demonstrate gram-negative rods with speciation pending. ASSESSMENT: The patient is a 61-year-old man with past medical history of severe peripheral vascular disease/peripheral arterial disease, status post IR revascularization, status post endovascular catheter-directed tissue plasminogen activator, status post amputation of the right foot digits with multiple prior admissions for cellulitis, dry gangrene and osteomyelitis, who presented to [facility] for evaluation of right below knee amputation and is now scheduled for left femoropopliteal bypass. PLAN 1. Severe PVD/PAD. Input from Dr. Ramin Snowden noted and appreciated and aortogram reviewed. As above as per my discussion with Dr. Nicholson the plan is to take the patient for a left-sided femoropopliteal bypass on Thursday (10/06/2016). In the interim, continue with Lipitor 80 mg p.o. daily. Aspirin 81 mg p.o. daily and Eliquis 5 mg p.o. b.i.d. have been placed on hold in anticipation of his OR. 2. Chronic nonhealing right lower extremity ulcer. Input from Dr. Albert noted and appreciated. We will pursue eventual right BKA after the patient undergoes his left-sided bypass. 3. Transaminitis, etiology likely secondary to fatty liver infiltration as well as concurrent statin use. LFTs remain stable. We will continue to monitor CMP daily. 4. Prophylaxis. Continue with Pepcid for GI prophylaxis and heparin 5000 units SC q. 8 hours for DVT prophylaxis. CODE STATUS: Full code. Gume Gonzalez MD cc: [id number] TT: 10/04/2016 08:10:48 Confirmation # [id number] Dictation # [id number] MTDD
--- NOTE | 2016-10-04 08:58 | CP.PCM.PN ---
<MarciGolden H - Last Filed: 10/04/16 09:04> Subjective - Date & Time of Evaluation Date of Evaluation: 10/04/16 Time of Evaluation: 08:00 - Subjective Subjective: 61 y/o male seen bedside with Dr. Olea regarding left foot 2nd digit ulceration and right foot amputation site ulceration. Patient is seen resting in bed in [facility]. Patient is aware of planned procedures next week per vascular surgery. Denies F/C/N/V/SOB. Objective - Vital Signs/Intake and Output Vital Signs (last 24 hours): Temp Pulse Resp BP Pulse Ox 98.4 F 76 20 114/80 99 10/03/16 16:00 10/03/16 16:00 10/03/16 16:00 10/03/16 16:00 10/03/16 16:00 Intake and Output: 10/04/16 10/04/16 06:59 18:59 Intake Total 120 Output Total 1750 Balance -1630 - Medications Medications: Current Medications Atorvastatin Calcium (Lipitor) 80 mg PO DIN [facility] Last Admin: 10/03/16 17:37 Dose: 80 mg Docusate Sodium (Colace) 100 mg PO BID [facility] Last Admin: 10/03/16 17:37 Dose: 100 mg Famotidine (Pepcid) 20 mg PO BID [facility] Last Admin: 10/03/16 17:37 Dose: 20 mg Gabapentin (Neurontin) 400 mg PO TID [facility] PRN Reason: Protocol Last Admin: 10/03/16 17:37 Dose: 400 mg Heparin Sodium (Porcine) (Heparin) 5,000 units SC Q8 [facility] PRN Reason: Protocol Last Admin: 10/04/16 05:28 Dose: 5,000 units Morphine Sulfate (Morphine) 2 mg IVP Q4H PRN PRN Reason: Pain, severe (8-10) Last Admin: 10/04/16 08:31 Dose: 2 mg - Labs Labs: 10/04/16 05:55 10/04/16 05:55 PT 10.8 Seconds (9.9-11.8) 10/04/16 05:55 INR 1.00 (0.93-1.08) 10/04/16 05:55 APTT 35.5 Seconds (23.7-30.8) H 10/02/16 08:10 - Constitutional Appears: No Acute Distress - Extremities Exam Additional comments: LE exam: Derm: Right foot ulceration at amputation site, superficial with granular eschar, no drainage. Left foot ulceration at dorsal aspect of 2nd digit, superficial with granular base, minimal serosanguinous drainage, no purulence. Dressings on leg clean, dry and intact. Vascular: Dp and PT pulses non-palpable, CFT >3sec, temp unremarkable. Neuro: Gross sensation diminished. MSK: Contracted with decreased ROM, strength. - Neurological Exam Neurological Exam: Alert, Awake, Oriented x3 Assessment and Plan - Assessment and Plan (Free Text) Assessment: 61 y/o male with Left foot 2nd digit ulceration, Right foot amputation site ulceration, LE ischemia. Plan: -evaluated and treated bedside with Dr. Olea. -labs, vitals and chart reviewed. -Left foot ulceration cleansed with sterile saline, dressed with optifoam. -Right foot ulceration cleansed with sterile saline, dressed with optifoam. -LE ischemia and gangrene management per vascular surgery, aware of plan for revascularization next week. -will continue to follow while in hospital. <Francisco Olea - Last Filed: 10/07/16 12:05> Objective - Vital Signs/Intake and Output Vital Signs (last 24 hours): Temp Pulse Resp BP Pulse Ox 98.4 F 41 L 18 119/60 100 10/07/16 10:08 10/07/16 10:08 10/07/16 10:08 10/07/16 10:08 10/07/16 10:08 Intake and Output: 10/07/16 10/07/16 06:59 18:59 Intake Total 300 Output Total 1000 Balance -700 - Medications Medications: Current Medications Atorvastatin Calcium (Lipitor) 80 mg PO DIN [facility] Last Admin: 10/06/16 18:10 Dose: 80 mg Docusate Sodium (Colace) 100 mg PO BID [facility] Last Admin: 10/07/16 09:01 Dose: 100 mg Famotidine (Pepcid) 20 mg PO BID [facility] Last Admin: 10/07/16 09:02 Dose: 20 mg Gabapentin (Neurontin) 400 mg PO TID [facility] PRN Reason: Protocol Last Admin: 10/07/16 09:01 Dose: 400 mg Heparin Sodium (Porcine) (Heparin) 5,000 units SC Q8 [facility] PRN Reason: Protocol Last Admin: 10/05/16 13:13 Dose: 5,000 units Sodium Chloride (Sodium Chloride 0.45%) 1,000 mls @ 80 mls/hr IV .[id number] [facility] Last Admin: 10/07/16 09:03 Dose: 80 mls/hr Morphine Sulfate (Morphine) 2 mg IVP Q4H PRN PRN Reason: Pain, severe (8-10) Last Admin: 10/07/16 09:02 Dose: 2 mg Ondansetron HCl (Zofran Inj) 4 mg IVP ONCE PRN PRN Reason: Nausea/Vomiting - Labs Labs: 10/07/16 10:15 10/07/16 10:15 PT 10.7 Seconds (9.9-11.8) 10/05/16 06:00 INR 0.99 (0.93-1.08) 10/05/16 06:00 APTT 35.5 Seconds (23.7-30.8) H 10/02/16 08:10 Attending/Attestation - Attestation I have personally seen and examined this patient.: Yes I have fully participated in the care of the patient.: Yes I have reviewed all pertinent clinical information, including history, physical exam and plan: Yes
--- NOTE | 2016-10-04 11:35 | PN ---
DATE: 10/04/2016 The patient is in bed in no acute distress, nontoxic. PHYSICAL EXAMINATION: VITAL SIGNS: Temperature is 98, blood pressure is 114/80, respiratory rate of 16. HEENT: Unremarkable. NECK: Supple. LUNGS: Have decreased breath sounds. HEART: Normal S1, S2. ABDOMEN: Soft, nontender. No organomegaly, no rebound, no guarding, no masses. LABORATORY DATA: Reveals a white count of 9.1, hemoglobin of 10, platelets of 207. Coagulation is n oted. BUN of 18, creatinine of 1.1. Microbiology is noted. Review of the orders reveals the patien t to be off of antibiotics. ASSESSMENT AND PLAN: This is a 61-year-old male who was seen early this morning with severe peripher al vascular disease secondary to prolonged smoking many years and status post peripheral angiogram th e day before by Dr. Ramin Snowden with occlusion and threatened right femoral graft and central abdomin al aortic aneurysm, multiple admissions, now patient for vascular surgery by Dr. Valencia Nicholson on Thu or Thursday. Awaiting for surgery. Currently off of antibiotics, chronic changes, no evidence of an active infection, necrotic leg. Will follow closely with you. Chidi Moreira MD cc: [id number] TT: 10/04/2016 11:35:13 Confirmation # [id number] Dictation # [id number] [email or web address]
[2016-10-05] MEDS: Morphine 2 mg/ml ISec IVP PRN ×5 (01:07→21:03)
[2016-10-05 06:35] LABS: ALKALINE PHOSPHATASE 239 U/L (38-133); ALT/SGPT 78 U/L (7-56); AST/SGOT 69 U/L (15-59); BILIRUBIN,TOTAL 0.7 mg/dL (0.2-1.3); BLOOD UREA NITROGEN 23 mg/dL (7-21); CALCIUM 9.6 mg/dL (8.4-10.5); CARBON DIOXIDE 27 mmol/L (21-33); CHLORIDE 101 mmol/L (98-107); GFR AFRICAN-AMERICAN > 60; GLUCOSE,RANDOM 111 mg/dL (70-110); POTASSIUM 4.2 mmol/L (3.6-5.0); SODIUM 137 mmol/L (132-148)
[2016-10-05 06:37] LABS: HEMATOCRIT 31.2 % (42.0-52.0); MEAN CELL VOLUME 92.9 fL (80.0-105.0); MEAN CORPUSCULAR HEMOGLOBIN 32.1 pg (25.0-35.0); MEAN CORPUSCULAR HGB CONC 34.6 g/dl (31.0-37.0); MEAN PLATELET VOLUME 9.9 fl (7.0-11.0); PLATELET COUNT 219 10^3/uL (120.0-450.0); RED CELL DISTRIBUTION WIDTH 13.7 % (11.5-14.5); WHITE BLOOD COUNT 10.8 10^3/ul (4.5-11.0)
[2016-10-05 06:42] LABS: ADD MANUAL DIFF? YES
[2016-10-05 07:21] LABS: INR 0.99 (0.93-1.08)
[2016-10-05 09:21] LABS: BASOPHIL 1 % (0.0-1.0); EOSINOPHIL 12 % (0.0-3.0); NEUTROPHIL 42 % (50.0-70.0)
--- NOTE | 2016-10-05 09:35 | PN ---
DATE: 10/05/2016 The patient is in bed, in no acute distress, nontoxic. PHYSICAL EXAMINATION: VITAL SIGNS: Temperature is 97, blood pressure is 112/70, respiratory rate of 16. HEENT: Unremarkable. NECK: Supple. LUNGS: Have decreased breath sounds. HEART: Normal S1, S2. ABDOMEN: Soft, nontender. LABORATORY EXAMINATION: Reveals the white count is 10,000, hemoglobin of 10, platelets of 219. BUN of 23, creatinine of 1.2. LFTs are noted to be improving. Microbiology is noted. The patient has p seudomonas in the right foot culture and patient has negative blood cultures, no growth on blood cult ures. The pseudomonas is a multidrug resistant organism, sensitive to gentamicin and colistin. Currently, the patient is off of antibiotics. ASSESSMENT AND PLAN: A 61-year-old male with severe peripheral vascular disease secondary to many ye ars of smoking, status post peripheral angiogram by Dr. Ramin Snowden with occlusion and a threatened r ight femoral graft and an incidental central abdominal aortic aneurysm and the patient for surgery by Dr. Valencia Nicholson on Thursday or Thursday, possibly amputation, pending on the results of the vascular surgery. Currently, no evidence of an active infection. Would continue to keep the patient in isola tion on multidrug resistant organism, but no active infection of that leg, just chronic changes and i schemia. Chidi Moreira MD cc: [id number] TT: 10/05/2016 09:34:26 Confirmation # [id number] Dictation # [id number] en
--- NOTE | 2016-10-05 10:14 | CP.PCM.PN ---
Subjective - Date & Time of Evaluation Date of Evaluation: 10/05/16 Time of Evaluation: 10:12 - Subjective Subjective: Vascular Surgery Dr. Nicholson Pt S&E @bedside. NAEO. no complaints. heel pain improved. denies F/C. (-) BM. tolerating HHD. Objective - Vital Signs/Intake and Output Vital Signs (last 24 hours): Temp Pulse Resp BP Pulse Ox 98.5 F 87 20 112/75 97 10/04/16 16:22 10/04/16 16:22 10/04/16 16:22 10/04/16 16:22 10/04/16 16:22 Intake and Output: 10/05/16 10/05/16 06:59 18:59 Output Total 850 Balance -850 - Medications Medications: Current Medications Atorvastatin Calcium (Lipitor) 80 mg PO DIN [facility] Last Admin: 10/04/16 17:54 Dose: 80 mg Docusate Sodium (Colace) 100 mg PO BID [facility] Last Admin: 10/05/16 09:50 Dose: 100 mg Famotidine (Pepcid) 20 mg PO BID [facility] Last Admin: 10/05/16 09:50 Dose: 20 mg Gabapentin (Neurontin) 400 mg PO TID [facility] PRN Reason: Protocol Last Admin: 10/05/16 09:50 Dose: 400 mg Heparin Sodium (Porcine) (Heparin) 5,000 units SC Q8 [facility] PRN Reason: Protocol Last Admin: 10/05/16 06:04 Dose: 5,000 units Morphine Sulfate (Morphine) 2 mg IVP Q4H PRN PRN Reason: Pain, severe (8-10) Last Admin: 10/05/16 09:02 Dose: 2 mg - Labs Labs: 10/05/16 06:00 10/05/16 06:00 PT 10.7 Seconds (9.9-11.8) 10/05/16 06:00 INR 0.99 (0.93-1.08) 10/05/16 06:00 APTT 35.5 Seconds (23.7-30.8) H 10/02/16 08:10 - Constitutional Appears: Non-toxic, No Acute Distress - Head Exam Head Exam: NORMAL INSPECTION - Eye Exam Eye Exam: Normal appearance - ENT Exam ENT Exam: Mucous Membranes Moist - Respiratory Exam Respiratory Exam: NORMAL BREATHING PATTERN. absent: Accessory Muscle Use, Respiratory Distress - Cardiovascular Exam Cardiovascular Exam: REGULAR RHYTHM. absent: Bradycardia, Tachycardia - GI/Abdominal Exam GI & Abdominal Exam: Soft. absent: Distended - Extremities Exam Extremities Exam: absent: Pedal Edema, Tenderness Additional comments: R amputation; dressing c/d/i L heel w/ callus and wound L DP palpable - Neurological Exam Neurological Exam: Alert, Awake, Oriented x3 - Psychiatric Exam Psychiatric exam: Normal Affect, Normal Mood - Skin Skin Exam: Dry, Normal Color, Warm Assessment and Plan - Assessment and Plan (Free Text) Assessment: 61 y/o M w/ R leg gangrene 2/2 graft occlusion and left leg ischemia requiring revascularization - NPO@MN except meds - cont pain management - cont Colace BID - Angio Thursday of right leg - left fem-pop bypass on Thursday - Blood Cx negative x 4 Pt discussed w/ Dr Bharat Heart DO PGY1
--- NOTE | 2016-10-05 16:46 | PN ---
DATE: 10/05/2016 SUBJECTIVE: The patient seen and examined at bedside on the general medical cramer. No acute events overnight. He remains afebrile and hemodynamically stable. The patient states that his pain is adequately controlled with his current analgesic regimen. He is presently pending left lower extremity fem- pop bypass with Dr. Nicholson and eventual right-sided BKA with Dr. Albert. This morning again, the patient states he feels okay and denies any specific complaints. OBJECTIVE: VITAL SIGNS: Temperature 97.7, pulse 79, blood pressure 123/73, respiratory rate 18, oxygen saturation 99% on room air. GENERAL: In no apparent distress. HEENT: PERRL, EOMI. No scleral icterus. No conjunctival pallor. NECK: No JVD, no bruits. LUNGS: Clear to auscultation. CARDIOVASCULAR: Regular rate and rhythm, normal S1, S2. ABDOMEN: Normoactive bowel sounds, soft, nontender, nondistended. EXTREMITIES: No edema. NEUROLOGIC: Awake, alert and oriented x 3. No focal motor deficits. LABORATORY DATA: WBC 10.8 with 42% neutrophils, hemoglobin 10.8, hematocrit 31 , platelets 219. Chemistry reviewed and unremarkable. AST 69, ALT 78, alkaline phosphatase 239. ASSESSMENT: The patient is a 61-year-old man with a past medical history of severe peripheral vascular disease/peripheral arterial disease, status post IR revascularization, status post endovascular catheter-directed tissue plasminogen activator, status post amputation of the right foot digits with multiple prior admissions for cellulitis, dry gangrene and osteomyelitis, who presented to [facility] for evaluation of a right below the knee amputation and was now scheduled for a left femoropopliteal bypass. PLAN: 1. Severe PVD/PAD. Input from Dr. Ramin Snowden noted and appreciated and aortogram reviewed. Input from Dr. Nicholson also greatly appreciated. The patient is tentatively scheduled for a left-sided femoropopliteal bypass. In the interim, will continue with Lipitor 80 mg p.o. daily. Will continue to hold aspirin 81 mg p.o. daily and Eliquis 5 mg p.o. b.i.d. in anticipation of OR, given the increased risk of bleeding. 2. Chronic nonhealing right lower extremity ulcer. Input from Dr. Albert noted and appreciated. Will pursue eventual right BKA after the patient undergoes left-sided femoropopliteal bypass. 3. Transaminitis, etiology secondary to fatty liver infiltration as well as concurrent statin use. LFTs remain stable. Continue to monitor CMP daily. 4. Prophylaxis. Continue Pepcid for GI prophylaxis and heparin 5000 units SC q.8 hours for DVT prophylaxis. CODE STATUS: Full code. Gume Gonzalez MD cc: [id number] TT: 10/05/2016 16:46:04 Confirmation # [id number] Dictation # [id number] [email or web address] LEI
[2016-10-06] MEDS: Morphine 2 mg/ml ISec IVP PRN ×4 (00:58→21:31)
[2016-10-06 06:46] LABS: ALB/GLOB RATIO 0.9 (1.1-1.8); ALKALINE PHOSPHATASE 237 U/L (38-133); ALT/SGPT 77 U/L (7-56); AST/SGOT 73 U/L (15-59); BILIRUBIN,TOTAL 0.6 mg/dL (0.2-1.3); BLOOD UREA NITROGEN 27 mg/dL (7-21); CALCIUM 9.7 mg/dL (8.4-10.5); CARBON DIOXIDE 26 mmol/L (21-33); CHLORIDE 101 mmol/L (98-107); GFR AFRICAN-AMERICAN > 60; GLUCOSE,RANDOM 108 mg/dL (70-110); POTASSIUM 4.5 mmol/L (3.6-5.0); SODIUM 138 mmol/L (132-148); TOTAL PROTEIN 8.3 g/dL (5.8-8.3)
[2016-10-06 07:52] LABS: BASO # 0.08 K/mm3 (0.0-2.0); BASO % 0.7 % (0.0-3.0); EOS # 1.5 (0.0-0.7); EOS % 12.5 % (1.5-5.0); GRAN # 5.53 (1.4-6.5); GRAN % 46.2 % (50.0-68.0); HEMATOCRIT 33.2 % (42.0-52.0); LYMPH # 2.6 (1.2-3.4); LYMPH % 21.7 % (22.0-35.0); MEAN CELL VOLUME 97.4 fL (80.0-105.0); MEAN CORPUSCULAR HEMOGLOBIN 32.3 pg (25.0-35.0); MEAN CORPUSCULAR HGB CONC 33.1 g/dl (31.0-37.0); MEAN PLATELET VOLUME 10.9 fl (7.0-11.0); MONO # 2.3 (0.1-0.6); MONO % 18.9 % (1.0-6.0); PLATELET COUNT 254 10^3/uL (120.0-450.0); RED CELL DISTRIBUTION WIDTH 13.9 % (11.5-14.5)
[2016-10-06 07:53] LABS: ADD MANUAL DIFF? NO
--- NOTE | 2016-10-06 08:28 | CON ---
DATE: 10/03/2016 A 61-year-old male well known to the [facility] Wound care team, seen at bedside for cons ultation, evaluation and management of recent ulceration on his left second toe as well as a resolvin g ulceration on his right transmetatarsal amputation site. The patient states that he had agreed to have a right below-knee amputation. However, after consultation with Dr. Nicholson a bypass graft must be opened prior to any below-knee amputation can be performed. He is tentatively scheduled for an jacinto ogram and angioplasty on Thursday followed up by a left fem-pop bypass the following day. PAST MEDICAL HISTORY: Severe peripheral vascular disease, renal failure, osteomyelitis and a lifetim e smoker who quit last year. ALLERGIES: The patient has no known allergies. PAST SURGICAL HISTORY: Includes bilateral leg bypass surgery as well as a right transmetatarsal ampu tation. SOCIAL HISTORY: The patient is , was a former decades long smoker who smoked 5 packs a day an d stopped smoking in 2014. The patient was a heavy drinker, but denies illicit drug use. VITAL SIGNS: Reveal temperature of 98.8, blood pressure of 107/63, pulse rate of 77, respiratory rat e of 20. LABORATORY DATA: Most recent laboratory findings reveal a white count of 9.9, hemoglobin of 11.6, he matocrit of 33.3, platelet count of 219, and ESR of 66. OBJECTIVE: Nonpalpable pedal pulses noted bilaterally and weakly palpable femoral pulses noted bilat erally. The patient has a large full thickness ulceration located on the anterior lateral aspect of his right lower leg. The wound emits serous drainage. There is no purulence. There are no signs of abscess formation. There is a resolving ulceration at the medial aspect of his right transmetatarsa l amputation incision site. There is no drainage. There is no purulence. The area does not probe t o tendon or bone. There is a superficial ulceration located on the left second digit at the dorsal P IPJ that remains granular with no signs of purulence or no probing to bone. ASSESSMENT: The patient's wounds were cleansed with normal sterile saline and dry sterile dressing w as applied. The patient is scheduled for vascular intervention on Thursday followed up for fem-pop byp ass on Thursday in an attempt to provide adequate lower extremity perfusion for below-knee amputation. In the meantime, the patient's wounds will be changed daily. Francisco Olea DPM cc: [id number] TT: 10/03/2016 17:17:46 Confirmation # [id number] Dictation # [id number] cn
--- NOTE | 2016-10-06 09:00 | PN ---
DATE: 10/06/2016 SUBJECTIVE: The patient seen and examined at bedside on the general medical cramer. No acute events o vernight. He remains afebrile and hemodynamically stable. The patient is scheduled for right lower extremity angiogram this morning and tomorrow is scheduled for left lower extremity fem-pop bypass [facility] Dr. Nicholson. Again this morning the patient states he feels well and offers no complaints. OBJECTIVE: VITAL SIGNS: Temperature 97.8, pulse 84, blood pressure 100/68, respiratory rate 20, oxygen saturati on 98% on room air. GENERAL: No apparent distress. HEENT: PERRL. EOMI. No scleral icterus. No conjunctival pallor. NECK: No JVD, no bruits. LUNGS: Clear to auscultation. CARDIOVASCULAR: Regular rate and rhythm. Normal S1 and S2. ABDOMEN: Normoactive bowel sounds, soft, nontender, nondistended. EXTREMITIES: No edema. NEUROLOGIC: Awake, alert and oriented x 3. No focal motor deficits. LABORATORY DATA: WBC 12 with 46% neutrophils, hemoglobin 11, hematocrit 33, platelets 254. Chemistr y reviewed and unremarkable. AST 73, ALT 77, alkaline phosphatase 237. Wound cultures from the righ t foot demonstrate Pseudomonas aeruginosa. Blood cultures with no growth to date. ASSESSMENT: The patient is a 61-year-old man with past medical history of severe peripheral vascular disease/peripheral arterial disease, status post interventional radiology revascularizations, status post endovascular catheter-directed tissue plasminogen activator, status post amputation of the righ t foot digits with multiple prior admissions for cellulitis, dry gangrene and osteomyelitis, who pres ented to for evaluation of right BKA and who is now scheduled for a left femor al popliteal bypass. PLAN: 1. Severe peripheral vascular disease/peripheral arterial disease. Input from Dr. Ramin Snowden noted and appreciated and his aortogram is reviewed. The patient is scheduled for a right lower extremity angiogram/angioplasty this morning, and tomorrow he is scheduled for left-sided femoropopliteal bypas s. In the interim, will continue with Lipitor 80 mg p.o. daily. Will continue to hold aspirin 81 mg p.o. daily and Eliquis 5 mg p.o. b.i.d. in anticipation of OR, given the increased risk of bleeding. 2. Chronic nonhealing right lower extremity ulcer. Input from Dr. Albert noted and appreciated. T he patient is scheduled for right lower extremity angioplasty today prior to pursuing possible right- sided BKA. 3. Transaminitis, etiology secondary to fatty liver infiltration as well as concurrent statin use. LFTs remain stable. Will continue to monitor CMP daily. 4. Prophylaxis. Continue with Pepcid for GI prophylaxis and heparin 5000 units SC q. 8 hours for DV T prophylaxis. CODE STATUS: Full code. Gume Gonzalez MD cc: [id number] TT: 10/06/2016 08:59:41 Confirmation # [id number] Dictation # [id number] mn
[2016-10-06] MEDS ORDERED: Nitroglycerin 50mg in D5W 50 MG/250 ML BOTTLE IV ONE (09:43)
[2016-10-06] MEDS ORDERED: Iodixanol 320 mg/ml 150 ml Bottle IV ONE (09:43)
[2016-10-06] MEDS ORDERED: Iodixanol 320 MG/ML 200 ML BOTTLE IV ONE (09:43)
[2016-10-06] MEDS ORDERED: Lidocaine 2% Inj (20ml) ONE (09:43)
[2016-10-06] MEDS ORDERED: Propofol 10 mg/ml Inj (20 ML) ONE (10:13)
[2016-10-06] MEDS ORDERED: Midazolam 2 MG/2 ML VIAL ONE (10:13)
[2016-10-06] MEDS ORDERED: Phenylephrine 10 mg/ml Inj ONE (10:14)
[2016-10-06] MEDS ORDERED: Vancomycin 500 mg (Oral/Rectal USE) ONE (10:28)
[2016-10-06] MEDS ORDERED: Propofol 10 mg/ml 1,000 MG/100 ML VIAL ONE (11:39)
[2016-10-06] MEDS ORDERED: Protamine 50mg/5mL Inj IV ONE (12:57)
[2016-10-06] MEDS ORDERED: HYDROmorphone 0.5 mg/0.5 ml ISec IVP PRN (13:56)
[2016-10-06] MEDS ORDERED: Sodium Chloride 0.9% 1,000 ML IV SCH (14:00)
--- NOTE | 2016-10-06 14:57 | OP ---
PROCEDURE DATE: 10/06/2016 PREOPERATIVE DIAGNOSES: Bilateral lower extremity ischemia, stenosis right leg femoropopliteal bypas s graft. POSTOPERATIVE DIAGNOSES: Bilateral lower extremity ischemia, stenosis right leg femoropopliteal bypa ss graft. PROCEDURE: Ultrasound left axillary artery, right leg angiogram via left axillary puncture, balloon angioplasty and stenting of the right femoral bypass graft at the femoral anastomosis. SURGEON: Valencia Nicholson MD ANESTHESIA: Local, IV sedation. PROCEDURE NOTE: The patient was brought to the angio suite and placed supine on the angio table. Af ter adequate IV sedation had been accomplished, the left shoulder was extended by placing the left harrison nd under patient's head and the axillary area was prepped with ChloraPrep and draped out as a sterile field. Ultrasound of the axillary artery was performed showing a patent axillary artery. After loc al infiltration with 1% Xylocaine, it was percutaneously punctured with a micropuncture kit and it wa s exchanged to a 5-British sheath. A guidewire was passed down to the right lower quadrant, just dist al to the kissing stent and an Omniflush was passed over the guidewire to that area. Serial angiogra m showed a very tight right femoral anastomotic stenosis and possible stenosis at the distal anastomo sis. After that, the starter wire was exchanged for a stiff angled Glidewire, which was maneuvered with di fficulty across the stenosis into the bypass graft. The patient was then systemically heparinized. The femoral anastomosis stenotic area was serially dilated up to a 6-British balloon. Since the steno tic area measured approximately 1.5 cm, we elected to use an 8 x 40 self-expanded stent that was pass ed over the guidewire and positioned at the stenosis. The stent was opened and ballooned with a 7 mm balloon. There is residual stenosis, however, the area did open up to approximately 5 mm. There is good apposition of the stent, both proximal and distally. After that, an angiogram was performed an d showing there is no stenosis in the distal anastomosis. The ACT was performed and the elevated ACT was corrected with protamine. The axillary artery sheath was pulled when the ACT went below 180. P ressure was held at the axillary puncture site for 20 minutes. There was no further bleeding and the re was a palpable axillary pulse, no hematoma, palpable radial pulse distally. Prior to leaving the angio suite, patient was noted to have good Doppler signal in his dorsalis pedis and posterior tibial area. Valencia Nicholson MD cc: [id number] TT: 10/06/2016 14:56:26 en
--- NOTE | 2016-10-06 15:19 | OP ---
PROCEDURE DATE: 10/06/2016 PREOPERATIVE DIAGNOSES: Peripheral vascular disease, high-grade stenosis, right femoral popliteal bypass graft. POSTOPERATIVE DIAGNOSES: Peripheral vascular disease, high-grade stenosis, right femoral popliteal bypass graft. PROCEDURE: Left axillary artery approach right femoral angiogram, balloon angioplasty of right femoral anastomosis and stenting with an 8 x 40 mm stent. SURGEON: Valencia Nicholson MD ANESTHESIA: Local with IV sedation. COMPLICATIONS: None. ESTIMATED BLOOD LOSS: 100 mL. The patient tolerated the procedure well and was returned to the recovery room in stable condition. Valencia Nicholson MD cc: [id number] TT: 10/06/2016 15:18:01 sn MTDD
--- NOTE | 2016-10-06 18:23 | PN ---
DATE: 10/06/2016 This is a 61-year-old male seen for ulceration to his right lower extremity. The patient is status p ost angioplasty with Dr. Nicholson today. Dr. Nihcolson has opened up a stenosis that caused the patient's byp ass graft, which was then heparinized. She then stated that there was no stenosis in the distal anas tomosis of the bypass graft and she wants to see if the patient's leg will begin to heal now that the stenosis from the bypass graft is open. She stated that she would like to give patient some time be fore doing a BKA on his right lower extremity. She is planning to do a bypass graft to his left lowe r extremity tomorrow morning. VITAL SIGNS: Reviewed. His temperature is 97.7, pulse was 65. His blood pressure is 128/65, respir atory rate is 13 and he is on room air. LABORATORY DATA: The patient's labs were reviewed. White blood cell count is 12 this morning. His H and H is 11 and 33.2 and his platelets showed 254. His ESR is at 66. The patient's chemistry was noted. He has a BUN and creatinine of 27 and 1.0. His liver enzymes are elevated; however, they are decreased since initial presentation. The patient's microbiology shows no growth in his blood cultu res. His wound stain was showing a pseudomonas that was moderate growth and he is presently on IV an tibiotics as per infectious disease receiving ____. The patient did get a dose of vancomycin while h e was in the OR. ID report was reviewed, no evidence of active infection and he would keep the patie nt in isolation on multidrug resistant organism, but no active infection of that leg, just chronic ch anges and ischemia. PHYSICAL EXAMINATION: The patient's leg today shows a foot deformity of the right foot. The TMA wou nd has gone on to heal as has the dorsal foot ulceration which was down to tendon at one point. The anterior leg ulceration; however, it is necrotic. There is some purulent drainage. The whole dorsal aspect of the wound is necrotic tibial bone measuring approximately 10 cm in length. The bone itsel f is necrotic and there is necrotic tissue as well as necrotic muscle in the wound. There is a large ulceration on the posterior calf, which is granular, this is the site of the subcutaneous flap which was done by Dr. Cole. At this point, I am not sure if this leg can be saved with a necrotic tibial bone. I will discuss th e case with Dr. Moreira; is this patient going to need long-term antibiotics for exposed necrotic bone. In the meantime, if the plan is still to trying to save this leg, I will debride it in the OR on Thursday; however, my initial inclination was to do a below knee amputation and at this point, I still think the below knee amputation the patient's best interest. I did speak with the patient and his and I am willing to go along with the rest of the medical team to see what can be done to tr y and save the leg or else a BKA would be warranted. Gabby Albert DPM cc: [id number] TT: 10/06/2016 18:21:46 Confirmation # [id number] Dictation # [id number] jn
--- NOTE | 2016-10-06 22:33 | PN ---
DATE: 10/06/2016 The patient is in bed in no acute distress. PHYSICAL EXAMINATION: VITAL SIGNS: Temperature is 97, blood pressure is 160/70, respiratory rate 16. HEENT: Unremarkable. NECK: Supple. LUNGS: Decreased breath sounds. HEART: Normal S1, S2. ABDOMEN: Soft, nontender. LABORATORY DATA: Reveals a white count of 12,000, hemoglobin of 11, platelets of 254. Chemistries r eveal a BUN of 27, creatinine of 1.1. Microbiology reveals Pseudomonas and Dr. Valencia Nicholson's opera tive note is reviewed. She did axillary artery approach, right femoral angiogram and balloon angiopl asty at the right femoral anastomosis and stenting with an 8 mm x 40 mm stent. ASSESSMENT AND PLAN: A 61-year-old male with severe peripheral vascular disease secondary to many ye ars of smoking, status post peripheral angiogram Dr. Ramin Snowden, right femoral graft and an incidental central abdominal aortic aneurysm. The patient had procedure by Dr. Valencia Nicholson and stenting today and currently off of antibiotics. The patient has chronic changes in the lower extre mity. The case discussed with Dr. Albert. At this point, the patient does have necrotic tissue; ho wever, not infected, but possibility of becoming infected is always . We will follow closely wi th you and follow the patient's leg and reperfusion and will make further recommendations. Chidi Moreira MD cc: [id number] TT: 10/06/2016 22:31:59 Confirmation # [id number] Dictation # [id number] tn
[2016-10-07] MEDS: Morphine 2 mg/ml ISec IVP PRN ×2 (03:22→09:02)
--- NOTE | 2016-10-07 08:25 | PN ---
DATE: 10/07/2016 SUBJECTIVE: The patient seen and examined at bedside on the general medical cramer. No acute events o vernight. He remains afebrile and hemodynamically stable. The patient is pending left lower extremi ty fem-pop bypass with Dr. Nicholson. Otherwise, this morning states he feels well and offers no complain ts. OBJECTIVE: VITAL SIGNS: Temperature 97.8, pulse 74, blood pressure 147/81, respiratory rate 20, oxygen saturati on 99% on room air. GENERAL: No apparent distress. HEENT: PERRL, EOMI. No scleral icterus. No conjunctival pallor. NECK: No JVD, no bruits. LUNGS: Clear to auscultation. CARDIOVASCULAR: Regular rate and rhythm. Normal S1, S2. ABDOMEN: Normoactive bowel sounds, soft, nontender, nondistended. EXTREMITIES: No edema. NEUROLOGIC: Awake, alert and oriented x 3. No focal motor deficits. LABORATORY DATA: Morning labs are pending. ASSESSMENT: The patient is a 61-year-old man with past medical history of severe peripheral vascular disease/peripheral arterial disease, status post interventional radiology revascularization, status post endovascular catheter-directed tissue plasminogen activator, status post amputation of the right foot digits with multiple prior admissions for cellulitis, dry gangrene and osteomyelitis, who prese nted to [facility] for evaluation of right below-knee amputation and who is now scheduled for left femoral popliteal bypass. PLAN: 1. Severe peripheral vascular disease/peripheral arterial disease. Input from Dr. Ramin Snowden noted and appreciated. Input from Dr. Nicholson noted and greatly appreciated. The patient is pending left lo wer extremity fem-pop bypass. Continue with Lipitor 80 mg p.o. daily. Will continue to hold aspirin 81 mg p.o. daily and Eliquis 5 mg p.o. b.i.d. in anticipation of operative procedure. 2. Chronic nonhealing right lower extremity ulcer. Input from Dr. Albert noted and appreciated. T he patient may likely require eventual right-sided BKA. 3. Transaminitis, etiology secondary to fatty liver disease as well as concurrent statin use. LFTs remain stable. Will continue to monitor CMP daily. 4. Prophylaxis. Continue with Pepcid for GI prophylaxis and heparin for DVT prophylaxis. CODE STATUS: Full code. Gume Gonzalez MD cc: [id number] TT: 10/07/2016 08:24:55 Confirmation # [id number] Dictation # [id number] mn
--- NOTE | 2016-10-07 08:25 | RAD ---
HISTORY: pre-op COMPARISON: Comparison is made to the previous study dated 08/06/2016 FINDINGS: LUNGS: No evidence of new infiltrate or consolidation in the lungs. PLEURA: No significant pleural effusion identified, no pneumothorax apparent. CARDIOVASCULAR: Normal. OSSEOUS STRUCTURES: No significant abnormalities. VISUALIZED UPPER ABDOMEN: Normal. OTHER FINDINGS: Left-sided PICC line is seen at appropriate position IMPRESSION: No active disease. No significant interval change.
[2016-10-07] MEDS: Sodium Chloride 0.45% 1,000 ML IV SCH (09:03)
[2016-10-07] MEDS ORDERED: Iohexol 240 (50 ml) ONE (09:06)
[2016-10-07] MEDS ORDERED: Bupivacaine 0.5% Inj(30mL) ONE (09:06)
[2016-10-07] MEDS ORDERED: Heparin 10,000 Units/ml ONE (09:06)
[2016-10-07] MEDS ORDERED: Lidocaine 2% Inj (20ml) ONE (09:33)
[2016-10-07] MEDS ORDERED: Rocuronium 10 mg/ml (5 ml) ONE ×2 (09:33→11:24)
[2016-10-07] MEDS ORDERED: Propofol 10 mg/ml Inj (20 ML) ONE ×3 (09:33→14:53)
[2016-10-07] MEDS ORDERED: Succinylcholine 200 mg/10 ml Inj IV ONE (09:33)
[2016-10-07] MEDS ORDERED: Midazolam 2 MG/2 ML VIAL ONE ×2 (09:33→12:39)
[2016-10-07 10:18] LABS: ADD MANUAL DIFF? NO
[2016-10-07 10:20] LABS: BASO # 0.05 K/mm3 (0.0-2.0); BASO % 0.4 % (0.0-3.0); EOS # 0.7 (0.0-0.7); EOS % 5.8 % (1.5-5.0); GRAN # 7.27 (1.4-6.5); GRAN % 63.2 % (50.0-68.0); HEMATOCRIT 30.4 % (42.0-52.0); LYMPH % 17.7 % (22.0-35.0); MEAN CELL VOLUME 95.3 fL (80.0-105.0); MEAN CORPUSCULAR HEMOGLOBIN 32.3 pg (25.0-35.0); MEAN CORPUSCULAR HGB CONC 33.9 g/dl (31.0-37.0); MEAN PLATELET VOLUME 9.9 fl (7.0-11.0); MONO # 1.5 (0.1-0.6); MONO % 12.9 % (1.0-6.0); PLATELET COUNT 247 10^3/uL (120.0-450.0); RED CELL DISTRIBUTION WIDTH 14.2 % (11.5-14.5); WHITE BLOOD COUNT 11.5 10^3/ul (4.5-11.0)
[2016-10-07 10:31] LABS: ALKALINE PHOSPHATASE 234 U/L (38-133); ALT/SGPT 66 U/L (7-56); AST/SGOT 73 U/L (15-59); BILIRUBIN,TOTAL 0.5 mg/dL (0.2-1.3); BLOOD UREA NITROGEN 18 mg/dL (7-21); CALCIUM 9.2 mg/dL (8.4-10.5); CARBON DIOXIDE 25 mmol/L (21-33); CHLORIDE 105 mmol/L (95-110); GFR AFRICAN-AMERICAN > 60; GLUCOSE,RANDOM 104 mg/dL (70-110); POTASSIUM 4.4 mmol/L (3.6-5.0); SODIUM 139 mmol/L (132-148); TOTAL PROTEIN 7.6 g/dL (5.8-8.3)
[2016-10-07] MEDS ORDERED: Vancomycin 500mg in NS 500 MG/100 ML BAG IVPB ONE (10:33)
[2016-10-07] MEDS ORDERED: Vancomycin 1 g Inj ONE (10:53)
[2016-10-07] MEDS ORDERED: Glycopyrrolate 0.2 mg/ml (2ml vial) ONE (10:55)
[2016-10-07] MEDS ORDERED: Desflurane Inhalation Anesthetic Liq (240 ml) ONE (12:25)
[2016-10-07] MEDS ORDERED: Protamine 50mg/5mL Inj IV ONE (13:15)
--- NOTE | 2016-10-07 13:22 | CP.PCM.PCO ---
<Misty Banuelos - Last Filed: 10/07/16 13:19> Subjective - Physician Review Subjective (Free Text): Patient to OR tomorrow morning at 7:30 am for right leg wound debridement with Dr. Albert. Patient NPO after midnight. Please continue to hold aspirin and eliquis until after procedure tomorrow. 10/07/16 13:22 <Francisco Olea - Last Filed: 10/10/16 11:29> Attending/Attestation - Attestation I have personally seen and examined this patient.: Yes I have fully participated in the care of the patient.: Yes I have reviewed all pertinent clinical information: Yes
[2016-10-07] MEDS ORDERED: Neostigmine Methylsulfate 3mg/3ml Syringe IV ONE (14:29)
[2016-10-07] MEDS ORDERED: HYDROmorphone 0.5 mg/0.5 ml ISec IVP PRN (15:12)
[2016-10-07] MEDS ORDERED: Sodium Chloride 0.9% 1,000 ML IV SCH (15:15)
[2016-10-07] MEDS ORDERED: Morphine 4 mg/ml ISec IVP PRN (15:31)
--- NOTE | 2016-10-07 15:47 | PCM.SURG1 ---
Surgeon's Initial Post Op Note - Surgeon's Notes Surgeon: Bharat Professor Of Music: PGY3 Type of Anesthesia: General Endo Pre-Operative Diagnosis: PVD Operative Findings: dopplerable B/L LE pulses post anastamosis Post-Operative Diagnosis: PVD Operation Performed: L fem-pop bypass with saphenous vein graft Specimen/Specimens Removed: NA Estimated Blood Loss: EBL {In ML}: 50 Blood Products Given: PRBC Drains Used: Yeyo Post-Op Condition: Good Date of Surgery/Procedure: 10/07/16 Time of Surgery/Procedure: 10:00
--- NOTE | 2016-10-07 16:29 | PN ---
DATE: 10/07/2016 Overnight, from his angiogram, the patient has developed a paralytic left arm. Physical examination showed no hematoma at the puncture site. No axillary or arm hematoma. He was u nable to shrug his shoulder, raise his left arm or bend his elbow. In the hand, he has a good grasp but he cannot extend his wrist suggestive of a radial nerve injury. Repeat physical examination is u nchanged. This was discussed with the patient and his . An MRI of his brachial plexus will be o rdered and this was discussed with Dr. Gonzalez, who recommended Dr. Guerrero for neurology consult. PLAN: Physiotherapy and neurology consult. Valencia Nicholson MD cc: [id number] TT: 10/07/2016 16:28:27 Confirmation # [id number] Dictation # [id number] sn
[2016-10-07] MEDS ORDERED: HYDROmorphone 0.5 mg/0.5 ml ISec ONE (16:35)
--- NOTE | 2016-10-07 16:36 | OP ---
PROCEDURE DATE: 10/07/2016 PREOPERATIVE DIAGNOSIS: Left foot ulcer. POSTOPERATIVE DIAGNOSIS: Left foot ulcer. PROCEDURE: Left femoral popliteal bypass graft using reverse greater saphenous vein of the ipsilateral leg. SURGEON: Dr. Valencia Nicholson. SCREEN PRINTING STENCIL PREPARER: Remy Hartmann DO PROCEDURE NOTE: The patient was brought to the OR and placed supine on the OR table. After adequate general anesthesia had been accomplished, the entire left leg and lower abdomen was prepped with ChloraPrep and draped out as a sterile field. An inguinal incision was made over the femoral artery. Incision was taken down through subcutaneous tissue. The inguinal ligament was identified. The femoral artery was dissected out for approximately 1 inch and looped by using vessel loop. The femoral artery has a hard posterior plaque but a soft anterior surface. The saphenofemoral junction was identified. The saphenous vein was dissected out through multiple incisions down to the knee. The branches were ligated with 3-0 silk and divided. The vein was dissected to just below the knee and transected there, reversed and gently dilated with heparinized saline. Next, attention was turned to the popliteal fossa. The vein harvest incision was used to extend downward through the leg fascia. The sartorius muscle was identified and retracted. The popliteal artery was identified and looped by using vessel loop. At that area, the popliteal artery was diffusely calcified and hard to palpation. It was dissected further down to just between the condyle. There, the popliteal artery was softer and a one inch segment of that was dissected out and looped by using vessel loop. The patient was then systemically heparinized. Prior to heparinization, a subsartorial tunnel was created connecting the femoral to the popliteal artery. The reverse greater saphenous vein was used and the saphenous vein to femoral artery anastomosis was performed in an end-to-side fashion using 6-0 Prolene continuous suture. After that was accomplished, the graft was passed via the previously created tunnel to the popliteal artery, which was at the popliteal anastomosis. The vein to popliteal anastomosis was performed in an end-to-side fashion using 6-0 Prolene continuous suture. Upon completion of the anastomosis , all the tourniquet was taken down and there was a palpable pulse in the distal popliteal artery to the anastomosis. On-table angiogram was performed by direct puncture of the vein graft at the femoral side. The graft was patent, not twisted and there is a good distal anastomosis with free flow of contrast into 2 vessels outflow. Good hemostasis was assured. All incisions were closed in layers using 2-0 Monocryl interrupted suture and the 2 groin incisions were closed with 4-0 Monocryl subcuticular suture. All the other incisions were closed with skin aston and the distal thigh incision was closed over a Juve-Cardona drain which was brought out through a separate stab wound. Upon completion of the case, a sterile dressing was placed, the left foot was warm and had a good Doppler signal. Valencia Nicholson MD cc: [id number] TT: 10/07/2016 16:35:27 sn MTDD
[2016-10-07] MEDS ORDERED: HYDROmorphone 0.5 mg/0.5 ml ISec IVP ONE (16:39)
--- NOTE | 2016-10-07 17:14 | CP.PCM.CON ---
<Chuy Weeks - Last Filed: 10/07/16 18:14> History of Present Illness - History of Present Illness History of Present Illness: Chuy Weeks D.O. PGY-1, Internal Medicine Resident, Critical Care Consultation Note 61 year old male with a PMH of PAD/PVD, HLD, and neuropathy currently s/p fem- pop procedure with Dr. Nicholson. After procedure there was an issue with the patient experiencing weakness of the LUE. Patient was seen and examined at bedside in the PACU before coming to the ICU and is currently still somewhat somnolent following his procedure and is unable to provide any history. Currently patient only complains of left lower extremity pain. Unable to obtain more information. PMH: as above PSH: stents in both femoral arteries, fem-pop on RLE SH: former smoker 1-2ppd x 50 years Meds: reviewed Allergies: NKA Review of Systems - Review of Systems Systems not reviewed;Unavailable: Other (somnolent s/p procedure) Past Patient History - Infectious Disease Hx of Infectious Diseases: None - Past Social History Smoking Status: Former Smoker - CARDIAC Hx Cardiac Disorders: Yes - PULMONARY Hx Respiratory Disorders: Yes (SMOKED CIGARETTES 1/2 PPD X 50 YRS. QUIT) - NEUROLOGICAL Hx Neurological Disorder: No - HEENT Hx HEENT Problems: Yes Other/Comment: wears glasses - RENAL Hx Chronic Kidney Disease: No - ENDOCRINE/METABOLIC Hx Endocrine Disorders: No - HEMATOLOGICAL/ONCOLOGICAL Hx Blood Transfusions: Yes Hx Blood Transfusion Reaction: No - INTEGUMENTARY Hx Dermatological Problems: Yes (RIGHT LEG INNER LATERAL BYPASS GRAFT WITH DRYING SKIN.) - MUSCULOSKELETAL/RHEUMATOLOGICAL Hx Musculoskeletal Disorders: Yes (OSTEOMYELITIS TO RIGHT LEG /TIB/FIB 06-11-16) Hx Falls: Yes Hx Osteomyelitis: Yes (TIB/FIB RIGHT LEG 06-11-16) Hx Unsteady Gait: Yes (L FOOT DROP WHEELCHAIR,SPLINT TO L FOOT) - GASTROINTESTINAL Hx Gastrointestinal Disorders: Yes (CONSTIPATION) - GENITOURINARY/GYNECOLOGICAL Hx Genitourinary Disorders: No - PSYCHIATRIC Hx Psychophysiologic Disorder: Yes (SMOKED CIGARETTES FOR 50 YSR QUIT) Hx Emotional Abuse: No Hx Physical Abuse: No Hx Substance Use: No - SURGICAL HISTORY Hx Surgeries: Yes - ANESTHESIA Hx Anesthesia Reactions: No Hx Malignant Hyperthermia: No Meds Allergies/Adverse Reactions: Allergies Allergy/AdvReac Type Severity Reaction Status Date / Time No Known Allergies Allergy Verified 06/11/16 17:45 - Medications Medications: Current Medications Atorvastatin Calcium (Lipitor) 80 mg PO DIN [facility] Last Admin: 10/06/16 18:10 Dose: 80 mg Docusate Sodium (Colace) 100 mg PO BID [facility] Last Admin: 10/07/16 09:01 Dose: 100 mg Famotidine (Pepcid) 20 mg PO BID [facility] Last Admin: 10/07/16 09:02 Dose: 20 mg Gabapentin (Neurontin) 400 mg PO TID [facility] PRN Reason: Protocol Last Admin: 10/07/16 09:01 Dose: 400 mg Heparin Sodium (Porcine) (Heparin) 5,000 units SC Q8 [facility] PRN Reason: Protocol Last Admin: 10/05/16 13:13 Dose: 5,000 units Hydromorphone HCl (Dilaudid) 0.5 mg IVP Q15M PRN PRN Reason: Pain, moderate (4-7) Stop: 10/07/16 17:12 Sodium Chloride (Sodium Chloride 0.45%) 1,000 mls @ 80 mls/hr IV .[id number] [facility] Last Admin: 10/07/16 09:03 Dose: 80 mls/hr Sodium Chloride (Sodium Chloride 0.9%) 1,000 mls @ 75 mls/hr IV .[id number] [facility] Stop: 10/07/16 17:16 Morphine Sulfate (Morphine) 4 mg IVP Q4H PRN PRN Reason: Pain, moderate (4-7) Ondansetron HCl (Zofran Inj) 4 mg IVP ONCE PRN PRN Reason: Nausea/Vomiting Ondansetron HCl (Zofran Inj) 4 mg IVP ONCE PRN PRN Reason: Nausea/Vomiting Ondansetron HCl (Zofran Inj) 4 mg IVP Q4H PRN PRN Reason: Nausea/Vomiting Physical Exam - Constitutional Additional comments: well developed, well nourished, somnolent male resting in bed in [facility], appears somewhat uncomfortable at times and grunting, able to follow simple commands - Head Exam Head Exam: ATRAUMATIC, NORMOCEPHALIC - Eye Exam Eye Exam: EOMI, PERRL. absent: Conjunctival injection, Scleral icterus - ENT Exam ENT Exam: Mucous Membranes Moist, Normal Oropharynx - Neck Exam Additional comments: soft, supple, no LAD, +2 carotids BL - Respiratory Exam Respiratory Exam: Clear to Auscultation Bilateral. absent: Rales, Rhonchi, Wheezes - Cardiovascular Exam Cardiovascular Exam: RRR, +S1, +S2. absent: Gallop, Rubs, Systolic Murmur - GI/Abdominal Exam GI & Abdominal Exam: Normal Bowel Sounds, Soft. absent: Distended, Tenderness - Extremities Exam Extremities exam: Positive for: normal capillary refill (x4), pedal pulses present (doppler-able). Negative for: joint swelling, pedal edema Additional comments: +2 Radial pulses BL, LUE access site, left leg if bandaged, CORBY in place, HEELIFT in place, no hematoma or otherwise noted at left axilla - Neurological Exam Additional comments: somnolent but arousable s/p procedure, follows simple commands, L BI 4-/5, TRI 4 -/5, programs director 2/5, appears somewhat effort related - Skin Skin Exam: Dry, Warm Results - Vital Signs Recent Vital Signs: Last Vital Signs Temp 97.3 F L 10/07/16 16:42 Pulse 77 10/07/16 16:42 Resp 20 10/07/16 16:42 BP 146/77 10/07/16 16:42 Pulse Ox 100 10/07/16 10:08 - Labs Result Diagrams: 10/07/16 17:49 10/07/16 17:49 Labs: Laboratory Results - last 24 hr 10/07/16 10/07/16 10/07/16 10:15 10:15 10:15 WBC 11.5 H RBC 3.19 L Hgb 10.3 L Hct 30.4 L MCV 95.3 MCH 32.3 MCHC 33.9 RDW 14.2 Plt Count 247 MPV 9.9 Gran % 63.2 Lymph % (Auto) 17.7 L [place] % (Auto) 12.9 H Eos % (Auto) 5.8 H Baso % (Auto) 0.4 Gran # 7.27 H Lymph # 2.0 [place] # 1.5 H Eos # 0.7 Baso # 0.05 Sodium 139 Potassium 4.4 Chloride 105 Carbon Dioxide 25 Anion Gap 13 BUN 18 Creatinine 1.0 Est GFR ( Amer) > 60 Est GFR (Non-Af Amer) > 60 Random Glucose 104 Calcium 9.2 Total Bilirubin 0.5 AST 73 H ALT 66 H Alkaline Phosphatase 234 H Total Protein 7.6 Albumin 3.7 Globulin 3.9 Albumin/Globulin Ratio 1.0 L Blood Type AB POSITIVE Antibody Screen Negative Crossmatch See Detail BBK History Checked Patient has bt Assessment & Plan - Assessment and Plan (Free Text) Assessment: 61 year old male with a PMH of PAD/PVD, HLD, and neuropathy currently s/p fem- pop procedure with Dr. Nicholson, who developed weakness of the LUE after procedure. Plan: Neuro - somnolent s/p procedure, LUE weakness noted but there appears to be somewhat effort related, neurochecks q1x24, neurovascular checks q1h, MRI of chest w/ contrast has been ordered to R/O brachial plexus injury, no hematoma or otherwise noted at left axilla, monitoring very closely, gabapentin currently on hold. Cardio - RRR, no M/R/G, hemodynamically stable at this time, pending STAT CBC after procedure, continue to hold ASA and eliquis at this time and will discuss with vascular surgery Dr. Nicholson tomorrow. Pulm - CTAB, no W/R/R, satting well on RA, will monitor. Renal/Fluids/Electrolytes - renal function intact on last CMP, will need careful monitoring after contrast used during procedure, will follow STAT CMP and continue 1/2 NS @ 80ml/hr. GI - continue heart healthy diet, otherwise no concerns, zofran PRN in place for nausea s/p procedure. ID - afebrile, no signs of infection at this time, does have necrotic tissue, being followed by ID Dr. Moreira, note reviewed and appreciated. Hematology - known severe PAD/PVD, on Eliquis and ASA at home which as above are currently on hold, vasculopath secondary to years of tobacco abuse, Endocrine - pending CMP, will replete any electrolytes as needed. Ppx - famotidine/SQH on hold Patient was seen and examined and case was discussed at length with attending physician. - Date & Time Date: 10/07/16 Time: 16:45 <Jong Garay - Last Filed: 10/08/16 16:56> Meds - Medications Medications: Current Medications Ascorbic Acid (Vitamin C 500 Mg Tab) 500 mg PO DAILY [facility] Last Admin: 10/08/16 11:14 Dose: 500 mg Aspirin (Aspirin Chewable) 81 mg PO DAILY [facility] Atorvastatin Calcium (Lipitor) 80 mg PO DIN [facility] Last Admin: 10/06/16 18:10 Dose: 80 mg Docusate Sodium (Colace) 100 mg PO BID [facility] Last Admin: 10/08/16 11:12 Dose: 100 mg Famotidine (Pepcid) 20 mg PO BID [facility] Last Admin: 10/08/16 11:13 Dose: 20 mg Gabapentin (Neurontin) 400 mg PO TID [facility] PRN Reason: Protocol Last Admin: 10/08/16 14:47 Dose: 400 mg Heparin Sodium (Porcine) (Heparin) 5,000 units SC Q8 [facility] PRN Reason: Protocol Last Admin: 10/05/16 13:13 Dose: 5,000 units Hydromorphone HCl (Dilaudid) 1 mg IVP Q3H PRN PRN Reason: Pain, severe (8-10) Last Admin: 10/08/16 14:00 Dose: 1 mg Hydromorphone HCl (Dilaudid) 0.5 mg IVP Q4H PRN PRN Reason: Pain, moderate (4-7) Last Admin: 10/08/16 09:35 Dose: 0.5 mg Sodium Chloride (Sodium Chloride 0.45%) 1,000 mls @ 80 mls/hr IV .[id number] [facility] Last Admin: 10/08/16 04:09 Dose: 80 mls/hr Multivitamins (Thera Tab) 1 tab PO DAILY [facility] Last Admin: 10/08/16 11:13 Dose: 1 tab Ondansetron HCl (Zofran Inj) 4 mg IVP ONCE PRN PRN Reason: Nausea/Vomiting Ondansetron HCl (Zofran Inj) 4 mg IVP Q4H PRN PRN Reason: Nausea/Vomiting Zinc Sulfate (Zinc Sulfate 220 Mg Cap) 220 mg PO DAILY [facility] Last Admin: 10/08/16 11:12 Dose: 220 mg Results - Vital Signs Recent Vital Signs: Last Vital Signs Temp 99 F 10/08/16 00:00 Pulse 107 H 10/08/16 14:45 Resp 35 H 10/08/16 14:45 BP 107/66 10/08/16 14:00 Pulse Ox 100 10/08/16 14:45 - Labs Result Diagrams: 10/08/16 05:40 10/08/16 07:50 Labs: Laboratory Results - last 24 hr 10/07/16 10/07/16 10/07/16 10:15 17:49 17:49 WBC 18.7 H D RBC 3.34 L Hgb 10.8 L Hct 30.5 L MCV 91.3 MCH 32.3 MCHC 35.4 RDW 15.9 H Plt Count 291 MPV 9.9 Gran % 70.3 H Lymph % (Auto) 11.4 L [place] % (Auto) 14.4 H Eos % (Auto) 3.5 Baso % (Auto) 0.4 Gran # 13.14 H Lymph # 2.1 [place] # 2.7 H Eos # 0.7 Baso # 0.07 Neutrophils % (Manual) Lymphocytes % (Manual) Monocytes % (Manual) Eosinophils % (Manual) Platelet Evaluation Poikilocytosis (manual Sodium 138 Potassium 4.3 Chloride 110 H Carbon Dioxide 18 L Anion Gap 14 BUN 17 Creatinine 0.9 Est GFR ( Amer) > 60 Est GFR (Non-Af Amer) > 60 Random Glucose 121 H Calcium 8.9 Magnesium 1.9 Total Bilirubin 0.9 AST 55 ALT 58 H Alkaline Phosphatase 220 H Total Protein 7.2 Albumin 3.3 Globulin 3.9 Albumin/Globulin Ratio 0.8 L Blood Type AB POSITIVE Antibody Screen Negative Crossmatch See Detail BBK History Checked Patient has bt 10/08/16 10/08/16 10/08/16 05:40 07:50 08:00 WBC 12.2 H D RBC 2.91 L Hgb 9.3 L Hct 27.4 L MCV 94.2 MCH 32.0 MCHC 33.9 RDW 16.6 H Plt Count 278 MPV 10.8 Gran % Lymph % (Auto) [place] % (Auto) Eos % (Auto) Baso % (Auto) Gran # Lymph # [place] # Eos # Baso # Neutrophils % (Manual) 66 Lymphocytes % (Manual) 16 L Monocytes % (Manual) 17 H Eosinophils % (Manual) 1 Platelet Evaluation Normal Poikilocytosis (manual Slight Sodium 139 Potassium 4.6 Chloride 104 Carbon Dioxide 21 Anion Gap 19 BUN 16 Creatinine 1.2 Est GFR ( Amer) > 60 Est GFR (Non-Af Amer) > 60 Random Glucose 128 H Calcium 8.9 Magnesium 1.9 Total Bilirubin 0.8 AST 77 H ALT 57 H Alkaline Phosphatase 197 H Total Protein 7.2 Albumin 3.4 Globulin 3.7 Albumin/Globulin Ratio 0.9 L Blood Type Antibody Screen Crossmatch BBK History Checked Addendum Addendum: 10/08/16 16:52 patient was seen, examined and discussed at bedside shoulder to shoulder with Dr. Weeks. His note reflects my exam, assessment and plan, except as below. Meds /Labs/ONE reviewed. 61 yo male with signficant PVD, now s/p angio yesterday via brachial artery and fem-pop bypass today. Patient tolerated procedrue well. Good dopplerable pulses on both DPA. Both feet cramer. Concern for plegia of l. arm. MRI of the brachial plexus as well as head will be ordered. Meanwhile neurology consult, frequent neuro exam, pain control, early mobilization, PT/OT, OOB to chair, pulmonary toilet, chest PT, IS. Maintain euvolemia, euglycemia, normtohermia. DVT/GI prophylaxis ccm time 40 min
[2016-10-07 17:50] LABS: ADD MANUAL DIFF? NO
[2016-10-07 17:52] LABS: BASO # 0.07 K/mm3 (0.0-2.0); BASO % 0.4 % (0.0-3.0); EOS # 0.7 (0.0-0.7); EOS % 3.5 % (1.5-5.0); GRAN # 13.14 (1.4-6.5); GRAN % 70.3 % (50.0-68.0); HEMATOCRIT 30.5 % (42.0-52.0); LYMPH # 2.1 (1.2-3.4); LYMPH % 11.4 % (22.0-35.0); MEAN CELL VOLUME 91.3 fL (80.0-105.0); MEAN CORPUSCULAR HEMOGLOBIN 32.3 pg (25.0-35.0); MEAN CORPUSCULAR HGB CONC 35.4 g/dl (31.0-37.0); MEAN PLATELET VOLUME 9.9 fl (7.0-11.0); MONO # 2.7 (0.1-0.6); MONO % 14.4 % (1.0-6.0); PLATELET COUNT 291 10^3/uL (120.0-450.0); RED CELL DISTRIBUTION WIDTH 15.9 % (11.5-14.5); WHITE BLOOD COUNT 18.7 10^3/ul (4.5-11.0)
[2016-10-07 18:06] LABS: ALB/GLOB RATIO 0.8 (1.1-1.8); ALKALINE PHOSPHATASE 220 U/L (38-133); ALT/SGPT 58 U/L (7-56); AST/SGOT 55 U/L (15-59); BILIRUBIN,TOTAL 0.9 mg/dL (0.2-1.3); BLOOD UREA NITROGEN 17 mg/dL (7-21); CALCIUM 8.9 mg/dL (8.4-10.5); CARBON DIOXIDE 18 mmol/L (21-33); CHLORIDE 110 mmol/L (98-107); GFR AFRICAN-AMERICAN > 60; GLUCOSE,RANDOM 121 mg/dL (70-110); POTASSIUM 4.3 mmol/L (3.6-5.0); SODIUM 138 mmol/L (132-148); TOTAL PROTEIN 7.2 g/dL (5.8-8.3)
--- NOTE | 2016-10-07 18:57 | CON ---
DATE: 10/07/2016 CHIEF COMPLAINT: Upper extremity weakness, left wrist-drop. HISTORY OF PRESENT ILLNESS: This is a 61-year-old man with past medical history of severe peripheral vascular disease, peripheral arterial disease, status post interventional radiological revasculariza tion, status post endovascular catheter-directed tissue plasminogen activator, status post amputation of the right foot digits with multiple prior admissions for cellulitis, dry gangrene, osteomyelitis, presented to the [facility] for right below knee amputation who is now scheduled for a l eft femoral popliteal bypass which he is status post the procedure. After he was in the PACU and was coming to the ICU, it was noted that he was experiencing left upper extremity weakness and pain. He was unable to flex his wrist or extend his wrist. He is having pain lifting up the left upper extre mity. He is on Neurontin for neuropathic pain. An MRI of the brachial plexus has been ordered as we ll as an MRI of the brain given his risk factor for stroke as well. Presently, on examination, he is unable to abduct his arm as well as to lift up his arm up as well as has a left upper extremity wris t-drop. Otherwise, he is alert, oriented to person, place, month and year. He withdraws to noxious stimulus. PAST MEDICAL HISTORY: History of severe peripheral vascular disease, peripheral arterial disease, st atus post interventional radiologic revascularization, status post endovascular catheter-directed tis henry plasminogen activator, status post amputation of right foot digits, multiple admissions for cellu litis, dry gangrene and osteomyelitis. REVIEW OF SYSTEMS: A 14-point review of systems is negative except for the HPI. SOCIAL HISTORY: He smokes 1-2 packs per day for the past 50 years. MEDICATIONS: Reviewed via nurse's reconciliation sheet. ALLERGIES: No known drug allergies. FAMILY HISTORY: Noncontributory. PHYSICAL EXAMINATION: VITAL SIGNS: Temperature 98.1, pulse rate is 99, blood pressure of 146/72, respiratory rate 16. GENERAL: The patient is sitting up in bed in no acute distress. HEENT: Atraumatic, normocephalic. PERRLA. Extraocular muscles intact. NECK: Supple, no JVD, no adenopathy noted. LUNGS: Clear to auscultation. No adventitious sounds. HEART: S1, S2, normal rate and rhythm. No murmurs, rubs, or gallops. ABDOMEN: Soft, nontender, nondistended. Bowel sounds are present. EXTREMITIES: He has 2+ radial pulses bilaterally upper extremity access site. Both legs are in band ages and he has a left foot drop which is old. NEUROLOGIC: The patient is alert, oriented to person, place, month and year. Speech is fluent, with out any errors. Cranial nerves II-XII are intact. MOTOR: Moves all extremities equally except for left upper extremity, unable to lift his upper extre mity and has a left wrist-drop as well as also has a left chronic foot drop, for which he has a histo ry of a splint. SENSORY: Decreased light touch appropriate up to cast bilaterally. Decreased vibration of the toes. DTRs are 2+ throughout, 1 at the knees and absent at the ankles. COORDINATION: [id number] intact with the right, but difficult to do the left, upper extremity we akness. LABORATORY DATA: Sodium is 138, potassium 4.3, chloride of 110, carbon dioxide of 18, BUN 17, creati nine 0.9, random glucose 121. ASSESSMENT AND PLAN: This is a 61-year-old man with past medical history of severe peripheral arteri al disease and peripheral vascular disease, hyperlipidemia, neuropathy, status post femoral popliteal bypass procedure with Dr. Nicholson, weakness of the left upper extremity after the procedure. His left upper extremity weakness and the left upper wrist-drop could be secondary to injury of the brachial p lynn versus a stroke, though unlikely. At this time, recommend: 1. A wrist splint. 2. Physical therapy. 3. An MRI of the brachial plexus as well as MRI of the brain to assess for any acute intracranial ab normalities. 4. Monitor his electrolytes and correct accordingly. 5. Continue with Neurontin 400 mg p.o. t.i.d. for neuropathic pain as well as morphine. 6. Continue with his Lipitor and vascular management. Thank you for this consult. Orlando Guerrero MD cc: [id number] TT: 10/07/2016 18:56:59 Confirmation # [id number] Dictation # [id number] mn
[2016-10-07] MEDS: HYDROmorphone 1 mg/ml ISec IVP PRN ×2 (20:31→23:33)
[2016-10-07 21:09] LABS: MAGNESIUM 1.9 mg/dL (1.7-2.2)
[2016-10-07] MEDS ORDERED: Magnesium Sulfate 2 GM in Sodium Chloride 0.9% 100 ML IVPB ONE (23:11)
[2016-10-08] MEDS: HYDROmorphone 1 mg/ml ISec IVP PRN ×6 (02:34→22:06)
[2016-10-08] MEDS: Sodium Chloride 0.45% 1,000 ML IV SCH ×2 (04:09→22:08)
--- NOTE | 2016-10-08 05:52 | CP.CCUPN ---
<Nelsy Cotto - Last Filed: 10/08/16 12:37> CCU Subjective - Physician Review Events Since Last Encounter (Free Text): 10/08/16 07:26 Pt s/e at bedside this AM. NAEO. Patient is awake and oriented but altered, moaning constantly and only answering questions after multiple verbal promptings. Patient complaining of BL leg pain and Left arm pain and getting 1mg of Dilaudid every 3 hours. Still complaining of left arm numbness and weakness but it was difficult to asses due to poor patient cooperation. Denies any vision changes, headache, vertigo, light headedness, chest pain, SOB, nausea , vomiting, fevers, chills, or any other symptoms. CCU Objective - Vital Signs / Intake & Output Vital Signs (Last 4 hours): Vital Signs Pulse Resp BP Pulse Ox 10/08/16 05:00 95 H 20 118/76 100 10/08/16 04:45 97 H 13 100 10/08/16 04:30 97 H 100 10/08/16 04:18 101 H 14 10/08/16 04:17 101 H 17 10/08/16 04:16 102 H 22 10/08/16 04:15 101 H 17 96 10/08/16 04:00 102 H 14 119/49 L 99 10/08/16 03:51 108 H 15 10/08/16 03:50 109 H 22 10/08/16 03:45 106 H 15 100 10/08/16 03:30 107 H 13 97 10/08/16 03:15 111 H 16 98 10/08/16 03:00 109 H 111/47 L 99 10/08/16 02:45 110 H 15 100 10/08/16 02:30 107 H 16 98 10/08/16 02:15 96 H 18 100 10/08/16 02:07 101 H 17 10/08/16 02:00 111 H 19 126/43 L 95 Intake and Output (Last 8hrs): Intake & Output 10/07/16 10/07/16 10/08/16 14:59 22:59 06:59 Other: Voiding Method Indwelling Catheter - Physical Exam Physical Exam Limitations: Positive for: Altered Mental Status, Uncooperative Head: Positive for: Atraumatic, Normocephalic Pupils: Positive for: PERRL Extroacular Muscles: Positive for: EOMI Conjunctiva: Positive for: Normal Mouth: Positive for: Moist Mucous Membranes, Normal Lips, Normal Tounge Pharnyx: Positive for: Normal. Negative for: Uvular Deviation, Muffled/Hoarse Voice Nose (External): Positive for: Atraumatic Neck: Positive for: Normal Range of Motion Respiratory/Chest: Positive for: Clear to Auscultation, Good Air Exchange. Negative for: Respiratory Distress, Accessory Muscle Use Cardiovascular: Positive for: Regular Rate and Rhythm, Normal S1, S2. Negative for: Murmurs Abdomen: Positive for: Normal Bowel Sounds. Negative for: Tenderness, Distention, Peritoneal Signs Upper Extremity: Positive for: NORMAL PULSES, Capillary Refill < 2s, Other ( Decreased L arm flexion and wrist extension but difficult to assess if it is due to poor effort or neuro deficiency). Negative for: Cyanosis, Edema, Neurovascularly Intact Lower Extremity: Positive for: Other (Lower legs covered in dressings c/d/i. Yeyo drain from left leg with 10cc of sero-sanguinous fluid. Pedal pulses well appreciated with the doppler BL). Negative for: Edema Neurological: Positive for: GCS=15, CN II-XII Intact, Speech Normal. Negative for: Motor Func Grossly Intact (see upper extremity exam) Skin: Positive for: Warm, Dry, Normal Color. Negative for: Rashes Psychiatric: Positive for: Alert, Oriented x 3, Normal Insight, Normal Concentration, Agitated, Lethargic - Medications Active Medications: Active Medications Generic Name Dose Route Start Last Admin Trade Name Freq PRN Reason Stop Dose Admin Atorvastatin Calcium 80 mg 10/02/16 17:00 10/06/16 18:10 Lipitor PO 80 mg DIN FOREST Administration Docusate Sodium 100 mg 10/03/16 18:00 10/07/16 09:01 Colace PO 100 mg BID FOREST Administration Famotidine 20 mg 10/02/16 10:00 10/07/16 09:02 Pepcid PO 20 mg BID FOREST Administration Gabapentin 400 mg 10/02/16 10:00 10/07/16 09:01 Neurontin PO 400 mg TID FOREST Administration Protocol Heparin Sodium (Porcine) 5,000 units 10/02/16 14:00 10/05/16 13:13 Heparin SC 5,000 units Q8 FOREST Administration Protocol Hydromorphone HCl 1 mg 10/07/16 20:13 10/08/16 05:37 Dilaudid IVP 1 mg Q3H PRN Administration Pain, severe (8-10) Hydromorphone HCl 0.5 mg 10/07/16 20:14 Dilaudid IVP Q4H PRN Pain, moderate (4-7) Sodium Chloride 1,000 mls @ 80 mls/hr 10/06/16 14:00 10/08/16 04:09 Sodium Chloride 0.45% IV 80 mls/hr .[id number] FOREST Administration Ondansetron HCl 4 mg 10/06/16 13:58 Zofran Inj IVP ONCE PRN Nausea/Vomiting Ondansetron HCl 4 mg 10/07/16 15:12 Zofran Inj IVP ONCE PRN Nausea/Vomiting Ondansetron HCl 4 mg 10/07/16 15:31 Zofran Inj IVP Q4H PRN Nausea/Vomiting - Patient Studies Lab Studies: Microbiology Studies 10/02/16 20:38 Blood Culture - Final Blood NO GROWTH AFTER 5 DAYS Gram Stain - Final TEST NOT PERFORMED 10/03/16 07:30 Blood Culture - Preliminary Blood NO GROWTH AFTER 4 DAYS 10/03/16 07:20 Blood Culture - Preliminary Blood NO GROWTH AFTER 4 DAYS Lab Studies 10/07/16 10/07/16 10/07/16 Range/Units 17:49 17:49 10:15 WBC 18.7 H D (4.5-11.0) 10^3/ul RBC 3.34 L (3.5-6.1) 10^6/uL Hgb 10.8 L (14.0-18.0) gm/dL Hct 30.5 L (42.0-52.0) % MCV 91.3 (80.0-105.0) fL MCH 32.3 (25.0-35.0) pg MCHC 35.4 (31.0-37.0) g/dl RDW 15.9 H (11.5-14.5) % Plt Count 291 (120.0-450.0) 10^3/uL MPV 9.9 (7.0-11.0) fl Gran % 70.3 H (50.0-68.0) % Lymph % (Auto) 11.4 L (22.0-35.0) % Cross % (Auto) 14.4 H (1.0-6.0) % Eos % (Auto) 3.5 (1.5-5.0) % Baso % (Auto) 0.4 (0.0-3.0) % Gran # 13.14 H (1.4-6.5) Lymph # 2.1 (1.2-3.4) Cross # 2.7 H (0.1-0.6) Eos # 0.7 (0.0-0.7) Baso # 0.07 (0.0-2.0) K/mm3 Sodium 138 (132-148) mmol/L Potassium 4.3 (3.6-5.0) mmol/L Chloride 110 H (95-110) mmol/L Carbon Dioxide 18 L (21-33) mmol/L Anion Gap 14 (10-20) BUN 17 (7-21) mg/dL Creatinine 0.9 (0.5-1.4) mg/dL Est GFR ( Amer) > 60 Est GFR (Non-Af Amer) > 60 Random Glucose 121 H (70-110) mg/dL Calcium 8.9 (8.4-10.5) mg/dL Magnesium 1.9 (1.7-2.2) mg/dL Total Bilirubin 0.9 (0.2-1.3) mg/dL AST 55 (15-59) U/L ALT 58 H (7-56) U/L Alkaline Phosphatase 220 H (38-133) U/L Total Protein 7.2 (5.8-8.3) g/dL Albumin 3.3 (3.0-4.8) g/dL Globulin 3.9 gm/dL Albumin/Globulin Ratio 0.8 L (1.1-1.8) Blood Type AB POSITIVE Antibody Screen Negative Crossmatch See Detail BBK History Checked Patient has bt 10/07/16 10/07/16 Range/Units 10:15 10:15 WBC 11.5 H (4.5-11.0) 10^3/ul RBC 3.19 L (3.5-6.1) 10^6/uL Hgb 10.3 L (14.0-18.0) gm/dL Hct 30.4 L (42.0-52.0) % MCV 95.3 (80.0-105.0) fL MCH 32.3 (25.0-35.0) pg MCHC 33.9 (31.0-37.0) g/dl RDW 14.2 (11.5-14.5) % Plt Count 247 (120.0-450.0) 10^3/uL MPV 9.9 (7.0-11.0) fl Gran % 63.2 (50.0-68.0) % Lymph % (Auto) 17.7 L (22.0-35.0) % Cross % (Auto) 12.9 H (1.0-6.0) % Eos % (Auto) 5.8 H (1.5-5.0) % Baso % (Auto) 0.4 (0.0-3.0) % Gran # 7.27 H (1.4-6.5) Lymph # 2.0 (1.2-3.4) Cross # 1.5 H (0.1-0.6) Eos # 0.7 (0.0-0.7) Baso # 0.05 (0.0-2.0) K/mm3 Sodium 139 (132-148) mmol/L Potassium 4.4 (3.6-5.0) mmol/L Chloride 105 (95-110) mmol/L Carbon Dioxide 25 (21-33) mmol/L Anion Gap 13 (10-20) BUN 18 (7-21) mg/dL Creatinine 1.0 (0.5-1.4) mg/dL Est GFR ( Amer) > 60 Est GFR (Non-Af Amer) > 60 Random Glucose 104 (70-110) mg/dL Calcium 9.2 (8.4-10.5) mg/dL Magnesium (1.7-2.2) mg/dL Total Bilirubin 0.5 (0.2-1.3) mg/dL AST 73 H (15-59) U/L ALT 66 H (7-56) U/L Alkaline Phosphatase 234 H (38-133) U/L Total Protein 7.6 (5.8-8.3) g/dL Albumin 3.7 (3.0-4.8) g/dL Globulin 3.9 gm/dL Albumin/Globulin Ratio 1.0 L (1.1-1.8) Blood Type Antibody Screen Crossmatch BBK History Checked Laboratory Results - last 24 hr 10/07/16 10/07/16 10/07/16 10:15 10:15 10:15 WBC 11.5 H RBC 3.19 L Hgb 10.3 L Hct 30.4 L MCV 95.3 MCH 32.3 MCHC 33.9 RDW 14.2 Plt Count 247 MPV 9.9 Gran % 63.2 Lymph % (Auto) 17.7 L Cross % (Auto) 12.9 H Eos % (Auto) 5.8 H Baso % (Auto) 0.4 Gran # 7.27 H Lymph # 2.0 Cross # 1.5 H Eos # 0.7 Baso # 0.05 Sodium 139 Potassium 4.4 Chloride 105 Carbon Dioxide 25 Anion Gap 13 BUN 18 Creatinine 1.0 Est GFR ( Amer) > 60 Est GFR (Non-Af Amer) > 60 Random Glucose 104 Calcium 9.2 Magnesium Total Bilirubin 0.5 AST 73 H ALT 66 H Alkaline Phosphatase 234 H Total Protein 7.6 Albumin 3.7 Globulin 3.9 Albumin/Globulin Ratio 1.0 L Blood Type AB POSITIVE Antibody Screen Negative Crossmatch See Detail BBK History Checked Patient has bt 10/07/16 10/07/16 17:49 17:49 WBC 18.7 H D RBC 3.34 L Hgb 10.8 L Hct 30.5 L MCV 91.3 MCH 32.3 MCHC 35.4 RDW 15.9 H Plt Count 291 MPV 9.9 Gran % 70.3 H Lymph % (Auto) 11.4 L Cross % (Auto) 14.4 H Eos % (Auto) 3.5 Baso % (Auto) 0.4 Gran # 13.14 H Lymph # 2.1 Cross # 2.7 H Eos # 0.7 Baso # 0.07 Sodium 138 Potassium 4.3 Chloride 110 H Carbon Dioxide 18 L Anion Gap 14 BUN 17 Creatinine 0.9 Est GFR ( Amer) > 60 Est GFR (Non-Af Amer) > 60 Random Glucose 121 H Calcium 8.9 Magnesium 1.9 Total Bilirubin 0.9 AST 55 ALT 58 H Alkaline Phosphatase 220 H Total Protein 7.2 Albumin 3.3 Globulin 3.9 Albumin/Globulin Ratio 0.8 L Blood Type Antibody Screen Crossmatch BBK History Checked Review of Systems - Review of Systems Systems not reviewed;Unavailable: Altered Mental Status All systems: reviewed and no additional remarkable complaints except (as per HPI ) Critical Care Progress Note - Nutrition Nutrition: Nutrition Category Date Time Status Heart Healthy Diet [DIET] Diets 10/07/16 Dinner Ordered Assessment/Plan - Assessment and Plan (Free Text) Assessment: 61 year old male with a PMH of PAD/PVD, HLD, and neuropathy currently POD#1 s/p fem-pop procedure with Dr. Nicholson and POD#2 s/p Right leg angiocath with L L axilla access site who developed left arm/hand weakness and numbness after his angiocath Plan: Neuro - Awake and orientedx3 but somnolent, requiring multiple verbal cues to respond to questions LUE weakness noted but confounded by poor patient effort no hematoma or otherwise noted at left axilla neurochecks q1x24, monitor mental status neurovascular checks q1h MRI of chest w/ contrast has been ordered to R/O brachial plexus injury MRI of the brain ordered to rule out stroke Follow up neurology recs Restart gabapentin Cardio RRR, no M/R/G, hemodynamically stable at this time continue to hold ASA and eliquis pending MRI of the brain results Dr. Nicholson, vascular surgeon on board, follow up recs Pulm - CTAB, no W/R/R, satting well on RA, will monitor. Renal/Fluids/Electrolytes - renal function intact on last CMP, will need careful monitoring after contrast used during procedure, will follow STAT CMP and continue 1/2 NS @ 80ml/hr. GI - continue heart healthy diet, otherwise no concerns, zofran PRN in place for nausea s/p procedure. MSK-Several wounds and contractures of the lower extremities d/t PAD/PVD/ chronic disuse. Podiatry and vascular surgery on board. Going to OR on Thursday with Dr. Albert for L Achilles tendon release ID - afebrile, no signs of infection at this time, does have necrotic tissue, WBC trending down, being followed by ID Dr. Moreira, note reviewed and appreciated. Hematology - known severe PAD/PVD, vasculopath secondary to years of tobacco abuse, on Eliquis and ASA at home currently on hold Plan to restart Eliquis and ASA if ok with Surgery pending MRI results Endocrine - Electrolytes WNL at this time, replete as needed Ppx - famotidine PO. SQH currently on hold pending MRI results Patient was seen and examined and case was discussed at length with attending physician. <Jong Garay B - Last Filed: 10/08/16 17:02> CCU Objective - Vital Signs / Intake & Output Vital Signs (Last 4 hours): Vital Signs Pulse Resp BP Pulse Ox 10/08/16 16:45 108 H 27 H 99 10/08/16 16:30 104 H 27 H 100 10/08/16 16:15 118 H 11 L 95 10/08/16 16:09 119 H 9 L 10/08/16 16:00 102 H 24 111/59 L 90 L 10/08/16 15:45 116 H 22 100 10/08/16 15:30 109 H 16 100 10/08/16 15:15 112 H 15 100 10/08/16 15:00 107 H 16 138/55 L 100 10/08/16 14:45 107 H 35 H 100 10/08/16 14:31 104 H 39 H 100 10/08/16 14:15 109 H 31 H 100 10/08/16 14:00 105 H 107/66 100 10/08/16 13:55 109 H 11 L 10/08/16 13:53 106 H 23 10/08/16 13:52 112 H 24 10/08/16 13:51 101 H 23 10/08/16 13:50 110 H 21 10/08/16 13:49 112 H 17 10/08/16 13:48 112 H 23 10/08/16 13:47 113 H 19 10/08/16 13:45 103 H 25 H 100 10/08/16 13:40 105 H 21 10/08/16 13:39 105 H 20 10/08/16 13:38 107 H 13 10/08/16 13:37 113 H 14 10/08/16 13:30 103 H 23 10/08/16 13:29 106 H 20 10/08/16 13:28 109 H 18 10/08/16 13:24 104 H 38 H 10/08/16 13:23 112 H 24 10/08/16 13:15 105 H 21 100 10/08/16 13:00 103 H 19 132/66 100 Intake and Output (Last 8hrs): Intake & Output 10/08/16 10/08/16 10/08/16 06:59 14:59 22:59 Intake Total 1060 Output Total 600 Balance 460 Intake: IV 1060 Right Hand 1060 Output: Urine 600 2-way Urethral 600 Other: Voiding Method Indwelling Catheter - Medications Active Medications: Active Medications Generic Name Dose Route Start Last Admin Trade Name Freq PRN Reason Stop Dose Admin Ascorbic Acid 500 mg 10/08/16 10:00 10/08/16 11:14 Vitamin C 500 Mg Tab PO 500 mg DAILY FOREST Administration Aspirin 81 mg 10/08/16 14:30 Aspirin Chewable PO DAILY FOREST Atorvastatin Calcium 80 mg 10/02/16 17:00 10/06/16 18:10 Lipitor PO 80 mg DIN FOREST Administration Docusate Sodium 100 mg 10/03/16 18:00 10/08/16 11:12 Colace PO 100 mg BID FOREST Administration Famotidine 20 mg 10/02/16 10:00 10/08/16 11:13 Pepcid PO 20 mg BID FOREST Administration Gabapentin 400 mg 10/02/16 10:00 10/08/16 14:47 Neurontin PO 400 mg TID FOREST Administration Protocol Heparin Sodium (Porcine) 5,000 units 10/02/16 14:00 10/05/16 13:13 Heparin SC 5,000 units Q8 FOREST Administration Protocol Hydromorphone HCl 1 mg 10/07/16 20:13 10/08/16 14:00 Dilaudid IVP 1 mg Q3H PRN Administration Pain, severe (8-10) Hydromorphone HCl 0.5 mg 10/07/16 20:14 10/08/16 09:35 Dilaudid IVP 0.5 mg Q4H PRN Administration Pain, moderate (4-7) Sodium Chloride 1,000 mls @ 80 mls/hr 10/06/16 14:00 10/08/16 04:09 Sodium Chloride 0.45% IV 80 mls/hr .[id number] FOREST Administration Multivitamins 1 tab 10/08/16 10:00 10/08/16 11:13 Thera Tab PO 1 tab DAILY FOREST Administration Ondansetron HCl 4 mg 10/06/16 13:58 Zofran Inj IVP ONCE PRN Nausea/Vomiting Ondansetron HCl 4 mg 10/07/16 15:31 Zofran Inj IVP Q4H PRN Nausea/Vomiting Zinc Sulfate 220 mg 10/08/16 10:00 10/08/16 11:12 Zinc Sulfate 220 Mg Cap PO 220 mg DAILY FOREST Administration - Patient Studies Lab Studies: Microbiology Studies 10/03/16 07:30 Blood Culture - Final Blood NO GROWTH AFTER 5 DAYS Gram Stain - Final TEST NOT PERFORMED 10/03/16 07:20 Blood Culture - Final Blood NO GROWTH AFTER 5 DAYS Gram Stain - Final TEST NOT PERFORMED 10/02/16 20:38 Blood Culture - Final Blood NO GROWTH AFTER 5 DAYS Gram Stain - Final TEST NOT PERFORMED Lab Studies 10/08/16 10/08/16 10/08/16 Range/Units 08:00 07:50 05:40 WBC 12.2 H D (4.5-11.0) 10^3/ul RBC 2.91 L (3.5-6.1) 10^6/uL Hgb 9.3 L (14.0-18.0) gm/dL Hct 27.4 L (42.0-52.0) % MCV 94.2 (80.0-105.0) fL MCH 32.0 (25.0-35.0) pg MCHC 33.9 (31.0-37.0) g/dl RDW 16.6 H (11.5-14.5) % Plt Count 278 (120.0-450.0) 10^3/uL MPV 10.8 (7.0-11.0) fl Gran % (50.0-68.0) % Lymph % (Auto) (22.0-35.0) % Cross % (Auto) (1.0-6.0) % Eos % (Auto) (1.5-5.0) % Baso % (Auto) (0.0-3.0) % Gran # (1.4-6.5) Lymph # (1.2-3.4) Cross # (0.1-0.6) Eos # (0.0-0.7) Baso # (0.0-2.0) K/mm3 Neutrophils % (Manual) 66 (50.0-70.0) % Lymphocytes % (Manual) 16 L (22.0-35.0) % Monocytes % (Manual) 17 H (1.0-6.0) % Eosinophils % (Manual) 1 (0.0-3.0) % Platelet Evaluation Normal (NORMAL) Poikilocytosis (manual Slight Sodium 139 (132-148) mmol/L Potassium 4.6 (3.6-5.0) mmol/L Chloride 104 (98-107) mmol/L Carbon Dioxide 21 (21-33) mmol/L Anion Gap 19 (10-20) BUN 16 (7-21) mg/dL Creatinine 1.2 (0.5-1.4) mg/dL Est GFR ( Amer) > 60 Est GFR (Non-Af Amer) > 60 Random Glucose 128 H (70-110) mg/dL Calcium 8.9 (8.4-10.5) mg/dL Magnesium 1.9 (1.7-2.2) mg/dL Total Bilirubin 0.8 (0.2-1.3) mg/dL AST 77 H (15-59) U/L ALT 57 H (7-56) U/L Alkaline Phosphatase 197 H (38-133) U/L Total Protein 7.2 (5.8-8.3) g/dL Albumin 3.4 (3.0-4.8) g/dL Globulin 3.7 gm/dL Albumin/Globulin Ratio 0.9 L (1.1-1.8) Blood Type Antibody Screen Crossmatch BBK History Checked 10/07/16 10/07/16 10/07/16 Range/Units 17:49 17:49 10:15 WBC 18.7 H D (4.5-11.0) 10^3/ul RBC 3.34 L (3.5-6.1) 10^6/uL Hgb 10.8 L (14.0-18.0) gm/dL Hct 30.5 L (42.0-52.0) % MCV 91.3 (80.0-105.0) fL MCH 32.3 (25.0-35.0) pg MCHC 35.4 (31.0-37.0) g/dl RDW 15.9 H (11.5-14.5) % Plt Count 291 (120.0-450.0) 10^3/uL MPV 9.9 (7.0-11.0) fl Gran % 70.3 H (50.0-68.0) % Lymph % (Auto) 11.4 L (22.0-35.0) % Cross % (Auto) 14.4 H (1.0-6.0) % Eos % (Auto) 3.5 (1.5-5.0) % Baso % (Auto) 0.4 (0.0-3.0) % Gran # 13.14 H (1.4-6.5) Lymph # 2.1 (1.2-3.4) Cross # 2.7 H (0.1-0.6) Eos # 0.7 (0.0-0.7) Baso # 0.07 (0.0-2.0) K/mm3 Neutrophils % (Manual) (50.0-70.0) % Lymphocytes % (Manual) (22.0-35.0) % Monocytes % (Manual) (1.0-6.0) % Eosinophils % (Manual) (0.0-3.0) % Platelet Evaluation (NORMAL) Poikilocytosis (manual Sodium 138 (132-148) mmol/L Potassium 4.3 (3.6-5.0) mmol/L Chloride 110 H (98-107) mmol/L Carbon Dioxide 18 L (21-33) mmol/L Anion Gap 14 (10-20) BUN 17 (7-21) mg/dL Creatinine 0.9 (0.5-1.4) mg/dL Est GFR ( Amer) > 60 Est GFR (Non-Af Amer) > 60 Random Glucose 121 H (70-110) mg/dL Calcium 8.9 (8.4-10.5) mg/dL Magnesium 1.9 (1.7-2.2) mg/dL Total Bilirubin 0.9 (0.2-1.3) mg/dL AST 55 (15-59) U/L ALT 58 H (7-56) U/L Alkaline Phosphatase 220 H (38-133) U/L Total Protein 7.2 (5.8-8.3) g/dL Albumin 3.3 (3.0-4.8) g/dL Globulin 3.9 gm/dL Albumin/Globulin Ratio 0.8 L (1.1-1.8) Blood Type AB POSITIVE Antibody Screen Negative Crossmatch See Detail BBK History Checked Patient has bt Laboratory Results - last 24 hr 10/07/16 10/07/16 10/07/16 10:15 17:49 17:49 WBC 18.7 H D RBC 3.34 L Hgb 10.8 L Hct 30.5 L MCV 91.3 MCH 32.3 MCHC 35.4 RDW 15.9 H Plt Count 291 MPV 9.9 Gran % 70.3 H Lymph % (Auto) 11.4 L Cross % (Auto) 14.4 H Eos % (Auto) 3.5 Baso % (Auto) 0.4 Gran # 13.14 H Lymph # 2.1 Cross # 2.7 H Eos # 0.7 Baso # 0.07 Neutrophils % (Manual) Lymphocytes % (Manual) Monocytes % (Manual) Eosinophils % (Manual) Platelet Evaluation Poikilocytosis (manual Sodium 138 Potassium 4.3 Chloride 110 H Carbon Dioxide 18 L Anion Gap 14 BUN 17 Creatinine 0.9 Est GFR ( Amer) > 60 Est GFR (Non-Af Amer) > 60 Random Glucose 121 H Calcium 8.9 Magnesium 1.9 Total Bilirubin 0.9 AST 55 ALT 58 H Alkaline Phosphatase 220 H Total Protein 7.2 Albumin 3.3 Globulin 3.9 Albumin/Globulin Ratio 0.8 L Blood Type AB POSITIVE Antibody Screen Negative Crossmatch See Detail BBK History Checked Patient has bt 10/08/16 10/08/16 10/08/16 05:40 07:50 08:00 WBC 12.2 H D RBC 2.91 L Hgb 9.3 L Hct 27.4 L MCV 94.2 MCH 32.0 MCHC 33.9 RDW 16.6 H Plt Count 278 MPV 10.8 Gran % Lymph % (Auto) Cross % (Auto) Eos % (Auto) Baso % (Auto) Gran # Lymph # Cross # Eos # Baso # Neutrophils % (Manual) 66 Lymphocytes % (Manual) 16 L Monocytes % (Manual) 17 H Eosinophils % (Manual) 1 Platelet Evaluation Normal Poikilocytosis (manual Slight Sodium 139 Potassium 4.6 Chloride 104 Carbon Dioxide 21 Anion Gap 19 BUN 16 Creatinine 1.2 Est GFR ( Amer) > 60 Est GFR (Non-Af Amer) > 60 Random Glucose 128 H Calcium 8.9 Magnesium 1.9 Total Bilirubin 0.8 AST 77 H ALT 57 H Alkaline Phosphatase 197 H Total Protein 7.2 Albumin 3.4 Globulin 3.7 Albumin/Globulin Ratio 0.9 L Blood Type Antibody Screen Crossmatch BBK History Checked EKG/Cardiology Studies: Cardiology / EKG Studies 10/08/16 12:06 EKG [ELECTROCARDIOGRAM] Stat Comment: Reason For Exam: vpc? PERFORMING PHYSICIAN/PROVIDER:: Lisa FERRARI,Gume Goodson Critical Care Progress Note - Nutrition Nutrition: Nutrition Category Date Time Status Heart Healthy Diet [DIET] Diets 10/07/16 Dinner Ordered Addendum Addendum: 10/08/16 16:56 patient was seen, examined and discussed at bedside shoulder to shoulder with Dr. Cotto. Her note reflects my exam, assessment and plan, except as below, except as below. Meds/Labs/ONE reviewed. 61 yo with miniscule acute stroke visible on MRI brain and negative brachial plexus MRI. Wether or not isolated neurodeficit of the left arm can be attributed to the stroke will be deferred to neuro service. Meanwhile we will restart aspirin, but hold on AC. Will continue with pulmonary toilet, IS, chest PT, early mobilization, PT, pain control, DVT/GI prophylaxis. ccm time 40 min
[2016-10-08 06:20] LABS: HEMATOCRIT 27.4 % (42.0-52.0); MEAN CELL VOLUME 94.2 fL (80.0-105.0); MEAN CORPUSCULAR HGB CONC 33.9 g/dl (31.0-37.0); MEAN PLATELET VOLUME 10.8 fl (7.0-11.0); PLATELET COUNT 278 10^3/uL (120.0-450.0); RED CELL DISTRIBUTION WIDTH 16.6 % (11.5-14.5); WHITE BLOOD COUNT 12.2 10^3/ul (4.5-11.0)
[2016-10-08 06:21] LABS: ADD MANUAL DIFF? YES
[2016-10-08 07:04] LABS: EOSINOPHIL 1 % (0.0-3.0)
[2016-10-08 07:05] LABS: NEUTROPHIL 66 % (50.0-70.0); PLATELET ESTIMATE NORMAL (NORMAL); POIKILOCYTOSIS SLIGHT
--- NOTE | 2016-10-08 07:20 | CP.PCM.PN ---
<BanuelosMisty - Last Filed: 10/08/16 10:09> Subjective - Date & Time of Evaluation Date of Evaluation: 10/08/16 Time of Evaluation: :17 - Subjective Subjective: 61 year old male was seen resting at bedside regarding right lower extremity ulceration. He is speaking in short sentences and moans. Patient is in pain and patient for MRI today, therefore wound debridement is cancelled for today. Objective - Vital Signs/Intake and Output Vital Signs (last 24 hours): Temp Pulse Resp BP Pulse Ox 99 F 95 H 20 118/76 100 10/08/16 00:00 10/08/16 05:00 10/08/16 05:00 10/08/16 05:00 10/08/16 05:00 Intake and Output: 10/08/16 10/08/16 06:59 18:59 Intake Total 1060 Output Total 600 Balance 460 - Medications Medications: Current Medications Atorvastatin Calcium (Lipitor) 80 mg PO DIN [facility] Last Admin: 10/06/16 18:10 Dose: 80 mg Docusate Sodium (Colace) 100 mg PO BID [facility] Last Admin: 10/07/16 09:01 Dose: 100 mg Famotidine (Pepcid) 20 mg PO BID [facility] Last Admin: 10/07/16 09:02 Dose: 20 mg Gabapentin (Neurontin) 400 mg PO TID [facility] PRN Reason: Protocol Last Admin: 10/07/16 09:01 Dose: 400 mg Heparin Sodium (Porcine) (Heparin) 5,000 units SC Q8 [facility] PRN Reason: Protocol Last Admin: 10/05/16 13:13 Dose: 5,000 units Hydromorphone HCl (Dilaudid) 1 mg IVP Q3H PRN PRN Reason: Pain, severe (8-10) Last Admin: 10/08/16 05:37 Dose: 1 mg Hydromorphone HCl (Dilaudid) 0.5 mg IVP Q4H PRN PRN Reason: Pain, moderate (4-7) Sodium Chloride (Sodium Chloride 0.45%) 1,000 mls @ 80 mls/hr IV .[id number] [facility] Last Admin: 10/08/16 04:09 Dose: 80 mls/hr Ondansetron HCl (Zofran Inj) 4 mg IVP ONCE PRN PRN Reason: Nausea/Vomiting Ondansetron HCl (Zofran Inj) 4 mg IVP ONCE PRN PRN Reason: Nausea/Vomiting Ondansetron HCl (Zofran Inj) 4 mg IVP Q4H PRN PRN Reason: Nausea/Vomiting - Labs Labs: 10/08/16 05:40 10/07/16 17:49 PT 10.7 Seconds (9.9-11.8) 10/05/16 06:00 INR 0.99 (0.93-1.08) 10/05/16 06:00 APTT 35.5 Seconds (23.7-30.8) H 10/02/16 08:10 - Constitutional Appears: Chronically Ill - Extremities Exam Additional comments: dressing clean, dry, intact to LE Assessment and Plan - Assessment and Plan (Free Text) Assessment: 61 year old male with right leg chronic non-healing ulcer Plan: Patient was seen and examined in ICU with attending, Dr. Albert chart, labs, vitals reviewed;WBC 12.2 Right leg dressing changed with optifoam Patients heels to be offloaded with offloading boots at all times while in bed Patient to go to OR Thursday at 5 pm for wound debridement of right leg and tendoachilles lengthening of left Patient started on multivitamin, vitamin C and zinc Podiatry will continue to follow patient while in house <Gabby Albert - Last Filed: 11/02/16 16:31> Objective - Vital Signs/Intake and Output Vital Signs (last 24 hours): Temp Pulse Resp BP Pulse Ox 98.2 F 68 20 99/54 L 90 L 10/22/16 16:00 10/22/16 16:00 10/22/16 16:00 10/22/16 16:00 10/22/16 16:00 - Labs Labs: 10/22/16 06:45 10/22/16 06:45 PT 10.7 Seconds (9.9-11.8) 10/13/16 06:00 INR 0.99 (0.93-1.08) 10/13/16 06:00 APTT 30.8 Seconds (23.7-30.8) 10/12/16 22:43 Attending/Attestation - Attestation I have personally seen and examined this patient.: Yes I have fully participated in the care of the patient.: Yes I have reviewed all pertinent clinical information, including history, physical exam and plan: Yes
[2016-10-08] MEDS ORDERED: Bupivacaine 0.5% Inj(30mL) ONE (07:25)
[2016-10-08] MEDS ORDERED: Lidocaine 2% Inj (20ml) ONE (07:25)
--- NOTE | 2016-10-08 07:43 | CP.PCM.PN ---
Subjective - Date & Time of Evaluation Date of Evaluation: 10/08/16 Time of Evaluation: 07:15 - Subjective Subjective: Vascular Surgery Pt S&E, NAEO. Pt required pain meds as scheduled. C/O pain in LEs and L arm. Objective - Vital Signs/Intake and Output Vital Signs (last 24 hours): Temp Pulse Resp BP Pulse Ox 99 F 95 H 20 118/76 100 10/08/16 00:00 10/08/16 05:00 10/08/16 05:00 10/08/16 05:00 10/08/16 05:00 Intake and Output: 10/08/16 10/08/16 06:59 18:59 Intake Total 1060 Output Total 600 Balance 460 - Medications Medications: Current Medications Atorvastatin Calcium (Lipitor) [address] [facility] Last Admin: 10/06/16 18:10 Dose: 80 mg Docusate Sodium (Colace) [address] [facility] Last Admin: 10/07/16 09:01 Dose: 100 mg Famotidine (Pepcid) [address] [facility] Last Admin: 10/07/16 09:02 Dose: 20 mg Gabapentin (Neurontin) [address] [facility] PRN Reason: Protocol Last Admin: 10/07/16 09:01 Dose: 400 mg Heparin Sodium (Porcine) (Heparin) 5,[address] [facility] PRN Reason: Protocol Last Admin: 10/05/16 13:13 Dose: 5,000 units Hydromorphone HCl (Dilaudid) 1 mg IVP Q3H PRN PRN Reason: Pain, severe (8-10) Last Admin: 10/08/16 05:37 Dose: 1 mg Hydromorphone HCl (Dilaudid) 0.5 mg IVP Q4H PRN PRN Reason: Pain, moderate (4-7) Sodium Chloride (Sodium Chloride 0.45%) 1,000 mls @ 80 mls/hr IV .[id number] [facility] Last Admin: 10/08/16 04:09 Dose: 80 mls/hr Ondansetron HCl (Zofran Inj) 4 mg IVP ONCE PRN PRN Reason: Nausea/Vomiting Ondansetron HCl (Zofran Inj) 4 mg IVP ONCE PRN PRN Reason: Nausea/Vomiting Ondansetron HCl (Zofran Inj) 4 mg IVP Q4H PRN PRN Reason: Nausea/Vomiting - Labs Labs: 10/08/16 05:40 10/07/16 17:49 PT 10.7 Seconds (9.9-11.8) 10/05/16 06:00 INR 0.99 (0.93-1.08) 10/05/16 06:00 APTT 35.5 Seconds (23.7-30.8) H 10/02/16 08:10 - Constitutional Appears: Non-toxic, Other (in pain) - Head Exam Head Exam: ATRAUMATIC, NORMOCEPHALIC - Eye Exam Eye Exam: EOMI. absent: Scleral icterus - Respiratory Exam Respiratory Exam: NORMAL BREATHING PATTERN. absent: Respiratory Distress - Cardiovascular Exam Cardiovascular Exam: RRR, +S1, +S2 - GI/Abdominal Exam GI & Abdominal Exam: Soft. absent: Distended, Tenderness - Extremities Exam Extremities Exam: Tenderness (Of LLE). absent: Pedal Edema Additional comments: L axilla without Hematoma. L UE TTP LLE TTP at incision sites B/L LE PT and DP pulses dopplerable. LLE dressing C/D/I - Neurological Exam Neurological Exam: Alert, Awake, Oriented x3 - Skin Skin Exam: Dry, Warm Assessment and Plan - Assessment and Plan (Free Text) Assessment: 61M S/P L Fem-Pop bypass with SV graft POD#1 Plan: Analgesia No pillows under knees Heel protectors on F/U MRIs, if no stroke will resume heparin anti coagulation Therapy for LUE and B/L LE D/W Dr. Bharat Hartmann PGY3
[2016-10-08 08:22] LABS: ALB/GLOB RATIO 0.9 (1.1-1.8); ALKALINE PHOSPHATASE 197 U/L (38-133); ALT/SGPT 57 U/L (7-56); AST/SGOT 77 U/L (15-59); BILIRUBIN,TOTAL 0.8 mg/dL (0.2-1.3); BLOOD UREA NITROGEN 16 mg/dL (7-21); CALCIUM 8.9 mg/dL (8.4-10.5); CARBON DIOXIDE 21 mmol/L (21-33); CHLORIDE 104 mmol/L (95-110); GFR AFRICAN-AMERICAN > 60; GLUCOSE,RANDOM 128 mg/dL (70-110); POTASSIUM 4.6 mmol/L (3.6-5.0); SODIUM 139 mmol/L (132-148); TOTAL PROTEIN 7.2 g/dL (5.8-8.3)
--- NOTE | 2016-10-08 08:53 | PN ---
DATE: 10/08/2016 SUBJECTIVE: The patient seen and examined at bedside in the CCU. No acute events overnight. He rem ains afebrile and hemodynamically stable. The patient is noted to have persistent weakness and decre ased sensation to his left upper extremity, status post left axillary approach during his fem-pop byp ass. The patient has been evaluated by Dr. Guerrero of neurology and has an MRI of the brachial plexus pending. This morning, the patient complains of generalized pain and persistent weakness to his lef t upper extremity, but otherwise denies fevers, chills, or rigors. OBJECTIVE: VITAL SIGNS: Temperature 97.7, pulse 95, blood pressure 100/66, respiratory rate 20, oxygen saturati on 100% on room air. GENERAL: Moderate distress secondary to bilateral lower extremity pain. HEENT: PERRL, EOMI. No scleral icterus. No conjunctival pallor. NECK: No JVD, no bruits. LUNGS: Clear to auscultation. CARDIOVASCULAR: Regular rate and rhythm. Normal S1 and S2. ABDOMEN: Normoactive bowel sounds, soft, nontender, nondistended. EXTREMITIES: Right lower extremity with surgical dressing in place. Left lower extremity with no ed bambi. NEUROLOGIC: Awake, alert and oriented x 3. Motor 5/5 on right, left upper extremity 0/5. Sensation decreased to left hand. LABORATORY DATA: WBC 12.2 with 66% neutrophils, hemoglobin 9.3, hematocrit 27, platelets 278. Chemi stry pending. ASSESSMENT: The patient is a 61-year-old man with past medical history of severe peripheral vascular disease/peripheral arterial disease, status post interventional radiology revascularizations, status post endovascular catheter-directed tissue plasminogen activator, status post amputation of the righ t foot digits with multiple prior admissions for cellulitis, dry gangrene and osteomyelitis, who pres ented to [facility] for evaluation of right below-knee amputation, who is now status post left fem-pop bypass whose post-procedure course was complicated by development of left upper extremi ty paralysis with concern for possible brachial plexus injury. PLAN: 1. Severe PVD/PAD. Input from Dr. Nicholson noted and appreciated. The patient is status post left lowe r extremity fem-pop bypass. Continue with postoperative care as per Dr. Nicholson and the vascular surger y team. Continue with Lipitor 80 mg p.o. daily. We will resume aspirin 81 mg p.o. daily and Eliquis 5 mg p.o. b.i.d. once okay as per vascular surgery. 2. Left upper extremity paralysis. Certainly, there is concern for possible brachial plexus injury. Input from Dr. Guerrero of neurology noted and greatly appreciated. The patient has MRI of the brain and brachial plexus ordered and pending. We will await results. Continue with wrist splint, contin ue with physical therapy. 3. Chronic nonhealing right lower extremity ulcer. Input from Dr. Albert noted and appreciated. Evans herr with local care as per Dr. Albert. The patient will require eventual right-sided BKA. 4. Transaminitis, etiology secondary to fatty liver disease with concurrent statin use. LFTs remain stable. Continue to monitor CMP daily. 5. Prophylaxis. Continue with Pepcid for GI prophylaxis and heparin for DVT prophylaxis. CODE STATUS: Full code. Gume Gonzalez MD cc: [id number] TT: 10/08/2016 08:53:13 Confirmation # [id number] Dictation # [id number] tn
[2016-10-08] MEDS: HYDROmorphone 0.5 mg/0.5 ml ISec IVP PRN ×2 (09:35→20:41)
[2016-10-08] MEDS ORDERED: Gadodiamide 287 MG/ML VIAL (15ML) IV ONE (10:14)
[2016-10-08] MEDS: Multivitamin Therapeutic Tab PO SCH (11:13)
--- NOTE | 2016-10-08 12:44 | MRI ---
PROCEDURE: MRI BRAIN WITHOUT CONTRAST HISTORY: left arm weakness. COMPARISON: None. TECHNIQUE: Multiplanar, multisequence MR images of the brain were obtained without intravenous contrast enhancement. FINDINGS: HEMORRHAGE: None DWI: Small 2 mm cortical infarcts are seen in the left parietal and occipital lobe seen on diffusion image 5 and 12 of series 3. BRAIN PARENCHYMA: No mass effect or edema. No atrophy or chronic microvascular ischemic changes. VENTRICLES: Unremarkable. No hydrocephalus. CRANIUM: Unremarkable. ORBITS: Grossly unremarkable. PARANASAL SINUSES/MASTOIDS: Clear VASCULAR SYSTEM: Skull base flow voids intact. OTHER FINDINGS: None. 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
--- NOTE | 2016-10-08 12:52 | MRI ---
PROCEDURE: MRI of the left brachial plexus with and without contrast HISTORY: Special attention to r/o L brachial plexus injury COMPARISON: TECHNIQUE: MRI of the upper chest and left brachia plexus was performed in multiple planes using multiple pulse sequences. 15 cc of Omniscan were injected. FINDINGS: The brachia plexus is unremarkable. There are no enhancing lesions. There is no adenopathy. Normal fat planes surround the brachia plexus and adjacent vessels. There are no axillary or chest wall lesions. IMPRESSION: Negative study
--- NOTE | 2016-10-08 13:13 | CP.PCM.PN ---
Subjective - Date & Time of Evaluation Date of Evaluation: 10/08/16 Time of Evaluation: 11:30 - Subjective Subjective: [id number] Unit: [id number] : 1955 Loc: CCU Room/Bed: 128-03 Age/Sex: 61 / M ADM Status: ADM IN ADM Date: DIS Date: Progress note: DATE: 10/08/2016 CHIEF COMPLAINT: Upper extremity weakness, left wrist-drop. SUBJECTIVE: Presently, on examination, he is unable to abduct his arm as well as to lift up his arm up as well as has a left upper extremity wrist-drop. Otherwise, he is alert, oriented to person, place, month and year. He withdraws to noxious stimulus. MRI brain showed no acute abnormality. Awaiting result of MRI brachial plexus. PAST MEDICAL HISTORY: History of severe peripheral vascular disease, peripheral arterial disease, status post interventional radiologic revascularization, status post endovascular catheter-directed tissue plasminogen activator, status post amputation of right foot digits, multiple admissions for cellulitis, dry gangrene and osteomyelitis. REVIEW OF SYSTEMS: A 14-point review of systems is negative except for the HPI. SOCIAL HISTORY: He smokes 1-2 packs per day for the past 50 years. MEDICATIONS: Reviewed via nurse's reconciliation sheet. ALLERGIES: No known drug allergies. FAMILY HISTORY: Noncontributory. PHYSICAL EXAMINATION: VITAL SIGNS: REVIEWED. GENERAL: The patient is sitting up in bed in no acute distress. HEENT: Atraumatic, normocephalic. PERRLA. Extraocular muscles intact. NECK: Supple, no JVD, no adenopathy noted. LUNGS: Clear to auscultation. No adventitious sounds. HEART: S1, S2, normal rate and rhythm. No murmurs, rubs, or gallops. ABDOMEN: Soft, nontender, nondistended. Bowel sounds are present. EXTREMITIES: He has 2+ radial pulses bilaterally upper extremity access site. Both legs are in bandages and he has a left foot drop which is old. NEUROLOGIC: The patient is alert, oriented to person, place, month and year. Speech is fluent, without any errors. Cranial nerves II-XII are intact. MOTOR: Moves all extremities equally except for left upper extremity, unable to lift his upper extremity and has a left wrist-drop as well as also has a left chronic foot drop, for which he has a history of a splint. SENSORY: Decreased light touch appropriate up to cast bilaterally. Decreased vibration of the toes. DTRs are 2+ throughout, 1 at the knees and absent at the ankles. COORDINATION: [id number] intact with the right, but difficult to do the left, upper extremity weakness. LABORATORY DATA: Reviewed, ASSESSMENT AND PLAN: This is a 61-year-old man with past medical history of severe peripheral arterial disease and peripheral vascular disease, hyperlipidemia, neuropathy, status post femoral popliteal bypass procedure, weakness of the left upper extremity after the procedure. His left upper extremity weakness and the left upper wrist-drop could be secondary to injury of the brachial plexus. At this time, recommend: 1. A wrist splint. 2. Physical therapy. 3. An MRI of the brachial plexus result pending. Would do an emg/NCV of left upper extremity in 6 weeks. 4. Monitor his electrolytes and correct accordingly. 5. Continue with Neurontin 400 mg p.o. t.i.d. for neuropathic pain as well asmorphine. 6. Continue with his Lipitor and vascular management. Thank you Orlando Guerrero MD Objective - Vital Signs/Intake and Output Vital Signs (last 24 hours): Temp Pulse Resp BP Pulse Ox 99 F 67 20 149/86 99 10/08/16 00:00 10/08/16 09:55 10/08/16 09:55 10/08/16 10:10 10/08/16 09:55 Intake and Output: 10/08/16 10/08/16 06:59 18:59 Intake Total 1060 Output Total 600 Balance 460 - Medications Medications: Current Medications Ascorbic Acid (Vitamin C 500 Mg Tab) 500 mg PO DAILY [facility] Last Admin: 10/08/16 11:14 Dose: 500 mg Atorvastatin Calcium (Lipitor) 80 mg PO DIN [facility] Last Admin: 10/06/16 18:10 Dose: 80 mg Docusate Sodium (Colace) 100 mg PO BID [facility] Last Admin: 10/08/16 11:12 Dose: 100 mg Famotidine (Pepcid) 20 mg PO BID [facility] Last Admin: 10/08/16 11:13 Dose: 20 mg Gabapentin (Neurontin) 400 mg PO TID [facility] PRN Reason: Protocol Last Admin: 10/08/16 11:13 Dose: 400 mg Heparin Sodium (Porcine) (Heparin) 5,000 units SC Q8 [facility] PRN Reason: Protocol Last Admin: 10/05/16 13:13 Dose: 5,000 units Hydromorphone HCl (Dilaudid) 1 mg IVP Q3H PRN PRN Reason: Pain, severe (8-10) Last Admin: 10/08/16 08:18 Dose: 1 mg Hydromorphone HCl (Dilaudid) 0.5 mg IVP Q4H PRN PRN Reason: Pain, moderate (4-7) Last Admin: 10/08/16 09:35 Dose: 0.5 mg Sodium Chloride (Sodium Chloride 0.45%) 1,000 mls @ 80 mls/hr IV .[id number] [facility] Last Admin: 10/08/16 04:09 Dose: 80 mls/hr Multivitamins (Thera Tab) 1 tab PO DAILY [facility] Last Admin: 10/08/16 11:13 Dose: 1 tab Ondansetron HCl (Zofran Inj) 4 mg IVP ONCE PRN PRN Reason: Nausea/Vomiting Ondansetron HCl (Zofran Inj) 4 mg IVP Q4H PRN PRN Reason: Nausea/Vomiting Zinc Sulfate (Zinc Sulfate 220 Mg Cap) 220 mg PO DAILY [facility] Last Admin: 10/08/16 11:12 Dose: 220 mg - Labs Labs: 10/08/16 05:40 10/08/16 07:50 PT 10.7 Seconds (9.9-11.8) 10/05/16 06:00 INR 0.99 (0.93-1.08) 10/05/16 06:00 APTT 35.5 Seconds (23.7-30.8) H 10/02/16 08:10
--- NOTE | 2016-10-08 13:36 | CARD ---
APPROVED REPORT EKG Measurement Heart [id number] <Conclusion> Sinus tachycardia with frequent premature ventricular complexes PRWP NSSTW changes
--- NOTE | 2016-10-08 14:32 | CP.PCM.PCO ---
Assessment & Plan - Assessment and Plan (Free Text) Assessment: ADDENDUM TO NEURO NOTE: MRI CHEST/BRACHIAL PLEXUS SHOWED NO ACUTE ABNORMALITIES AND THE MRI BRAIN SHOWED SMALL CORTICAL INFARCTS IN THE LEFT PARIETAL AND OCCIPITAL LOBE LIKELY FROM HISTORY OF AFIB, BUT THOSE INFARCTS IS NOT CAUSING HIS SYMPTOMS. C/W PT. AND ASA 81 MG PO FOR NOW UNTIL ABLE TO START ANTICOAGULATION. HARSH FERRARI.
--- NOTE | 2016-10-08 15:17 | CP.PCM.PN ---
Subjective - Date & Time of Evaluation Date of Evaluation: 10/08/16 Time of Evaluation: 09:10 - Subjective Subjective: Companining of pain prior to MRI tests on his arm. Afebrile overnight. Objective - Vital Signs/Intake and Output Vital Signs (last 24 hours): Temp Pulse Resp BP Pulse Ox 99 F 95 H 20 118/76 100 10/08/16 00:00 10/08/16 05:00 10/08/16 05:00 10/08/16 05:00 10/08/16 05:00 Intake and Output: 10/08/16 10/08/16 06:59 18:59 Intake Total 1060 Output Total 600 Balance 460 - Medications Medications: Current Medications Atorvastatin Calcium (Lipitor) 80 mg PO DIN [facility] Last Admin: 10/06/16 18:10 Dose: 80 mg Docusate Sodium (Colace) 100 mg PO BID [facility] Last Admin: 10/07/16 09:01 Dose: 100 mg Famotidine (Pepcid) 20 mg PO BID [facility] Last Admin: 10/07/16 09:02 Dose: 20 mg Gabapentin (Neurontin) 400 mg PO TID [facility] PRN Reason: Protocol Last Admin: 10/07/16 09:01 Dose: 400 mg Heparin Sodium (Porcine) (Heparin) 5,000 units SC Q8 [facility] PRN Reason: Protocol Last Admin: 10/05/16 13:13 Dose: 5,000 units Hydromorphone HCl (Dilaudid) 1 mg IVP Q3H PRN PRN Reason: Pain, severe (8-10) Last Admin: 10/08/16 08:18 Dose: 1 mg Hydromorphone HCl (Dilaudid) 0.5 mg IVP Q4H PRN PRN Reason: Pain, moderate (4-7) Sodium Chloride (Sodium Chloride 0.45%) 1,000 mls @ 80 mls/hr IV .[id number] [facility] Last Admin: 10/08/16 04:09 Dose: 80 mls/hr Ondansetron HCl (Zofran Inj) 4 mg IVP ONCE PRN PRN Reason: Nausea/Vomiting Ondansetron HCl (Zofran Inj) 4 mg IVP Q4H PRN PRN Reason: Nausea/Vomiting - Labs Labs: 10/08/16 05:40 10/08/16 07:50 PT 10.7 Seconds (9.9-11.8) 10/05/16 06:00 INR 0.99 (0.93-1.08) 10/05/16 06:00 APTT 35.5 Seconds (23.7-30.8) H 10/02/16 08:10 - Constitutional Appears: Non-toxic, No Acute Distress - Head Exam Head Exam: NORMAL INSPECTION - Neck Exam Neck Exam: absent: Lymphadenopathy, Meningismus - Respiratory Exam Respiratory Exam: Decreased Breath Sounds - Cardiovascular Exam Cardiovascular Exam: +S1, +S2 - GI/Abdominal Exam GI & Abdominal Exam: Soft. absent: Tenderness - Extremities Exam Additional comments: right leg with dressings in place Assessment and Plan - Assessment and Plan (Free Text) Plan: Assessment Right leg dry gangrene and non-healing wound with severe peripheral vascular disease R/O osteomyelitis - planned for debridement on Thursday - bone biopsy to rule out osteomyelitis to be done this week by Podiatry S/P revascularization and S/P fem-pop bypass S/P grafting Plan Discussed with Dr. Albert - will await bone biopsy prior to starting antibiotics if needed - will monitor the patient off antibiotics - will repeat septic work up for Temp >101 F and start antibiotics if this occurs
[2016-10-08] MEDS ORDERED: Vancomycin 1gm in NS 250ml 1 GM/250 ML BAG IVPB STA (23:18)
--- NOTE | 2016-10-08 23:19 | CP.PCM.PCO ---
Physician Communication Note - Physician Communication Note Physician Communication Note: spiked temp 101.4; septic workup sent and empiric Abx started
[2016-10-09] MEDS: HYDROmorphone 1 mg/ml ISec IVP PRN ×5 (02:15→20:24)
[2016-10-09 06:07] LABS: BASO # 0.02 K/mm3 (0.0-2.0); BASO % 0.2 % (0.0-3.0); EOS # 0.2 (0.0-0.7); EOS % 2.3 % (1.5-5.0); GRAN # 5.98 (1.4-6.5); LYMPH # 2.1 (1.2-3.4); LYMPH % 19.9 % (22.0-35.0); MEAN CELL VOLUME 94.8 fL (80.0-105.0); MEAN CORPUSCULAR HGB CONC 33.8 g/dl (31.0-37.0); MEAN PLATELET VOLUME 10.4 fl (7.0-11.0); MONO % 19.6 % (1.0-6.0); PLATELET COUNT 247 10^3/uL (120.0-450.0); RED CELL DISTRIBUTION WIDTH 16.5 % (11.5-14.5); WHITE BLOOD COUNT 10.3 10^3/ul (4.5-11.0)
[2016-10-09 06:21] LABS: HEMATOCRIT 23.7 % (42.0-52.0)
[2016-10-09 07:03] LABS: ADD MANUAL DIFF? NO
[2016-10-09] MEDS: Piperacillin/Tazobact 3.375 gm 100 ML IVPB SCH ×2 (07:44→18:14)
--- NOTE | 2016-10-09 08:57 | CP.PCM.PN ---
Subjective - Date & Time of Evaluation Date of Evaluation: 10/09/16 Time of Evaluation: 07:00 - Subjective Subjective: Progress Note for Vascular Surgery Michael Gillespie PGY-1 Pt was seen and examined at bedside. Pt is feeling improved from yesterday. As per nursing staff, the pt spiked a fever of 101.5 overnight and was subsequently had a septic workup and given tylenol and empiric antibiotics: Zosyn and Vancomycin. CORBY drain in place. Objective - Vital Signs/Intake and Output Vital Signs (last 24 hours): Temp Pulse Resp BP Pulse Ox 99.6 F 92 H 17 127/47 L 98 10/09/16 02:00 10/09/16 05:00 10/09/16 05:00 10/09/16 05:00 10/09/16 05:00 Intake and Output: 10/09/16 10/09/16 06:59 18:59 Intake Total 1060 Output Total 855 Balance 205 - Medications Medications: Current Medications Acetaminophen (Tylenol 325mg Tab) 650 mg PO Q6H PRN PRN Reason: Fever >100.4 F Last Admin: 10/08/16 23:44 Dose: 650 mg Ascorbic Acid (Vitamin C 500 Mg Tab) 500 mg PO DAILY [facility] Last Admin: 10/08/16 11:14 Dose: 500 mg Aspirin (Aspirin Chewable) 81 mg PO DAILY [facility] Last Admin: 10/08/16 18:21 Dose: 81 mg Atorvastatin Calcium (Lipitor) 80 mg PO DIN [facility] Last Admin: 10/08/16 18:22 Dose: 80 mg Docusate Sodium (Colace) 100 mg PO BID [facility] Last Admin: 10/08/16 18:22 Dose: 100 mg Famotidine (Pepcid) 20 mg PO BID [facility] Last Admin: 10/08/16 18:21 Dose: 20 mg Gabapentin (Neurontin) 400 mg PO TID [facility] PRN Reason: Protocol Last Admin: 10/08/16 18:21 Dose: 400 mg Heparin Sodium (Porcine) (Heparin) 5,000 units SC Q8 [facility] PRN Reason: Protocol Last Admin: 10/05/16 13:13 Dose: 5,000 units Hydromorphone HCl (Dilaudid) 1 mg IVP Q3H PRN PRN Reason: Pain, severe (8-10) Last Admin: 10/09/16 06:49 Dose: 1 mg Hydromorphone HCl (Dilaudid) 0.5 mg IVP Q4H PRN PRN Reason: Pain, moderate (4-7) Last Admin: 10/08/16 20:41 Dose: 0.5 mg Sodium Chloride (Sodium Chloride 0.45%) 1,000 mls @ 80 mls/hr IV .[id number] [facility] Last Admin: 10/08/16 22:08 Dose: 80 mls/hr Multivitamins (Thera Tab) 1 tab PO DAILY [facility] Last Admin: 10/08/16 11:13 Dose: 1 tab Ondansetron HCl (Zofran Inj) 4 mg IVP ONCE PRN PRN Reason: Nausea/Vomiting Ondansetron HCl (Zofran Inj) 4 mg IVP Q4H PRN PRN Reason: Nausea/Vomiting Zinc Sulfate (Zinc Sulfate 220 Mg Cap) 220 mg PO DAILY [facility] Last Admin: 10/08/16 11:12 Dose: 220 mg - Labs Labs: 10/09/16 05:30 10/08/16 07:50 PT 10.7 Seconds (9.9-11.8) 10/05/16 06:00 INR 0.99 (0.93-1.08) 10/05/16 06:00 APTT 35.5 Seconds (23.7-30.8) H 10/02/16 08:10 - Constitutional Appears: No Acute Distress - Head Exam Head Exam: ATRAUMATIC, NORMAL INSPECTION, NORMOCEPHALIC - Eye Exam Eye Exam: EOMI, Normal appearance, PERRL Pupil Exam: NORMAL ACCOMODATION, PERRL - ENT Exam ENT Exam: Mucous Membranes Moist, Normal Exam - Neck Exam Neck Exam: Full ROM, Normal Inspection. absent: Lymphadenopathy - Respiratory Exam Respiratory Exam: Clear to Ausculation Bilateral, NORMAL BREATHING PATTERN - Cardiovascular Exam Cardiovascular Exam: REGULAR RHYTHM, +S1, +S2. absent: Murmur - GI/Abdominal Exam GI & Abdominal Exam: Soft, Normal Bowel Sounds. absent: Tenderness - Extremities Exam Extremities Exam: Tenderness Additional comments: LLE - Psychiatric Exam Psychiatric exam: Normal Affect, Normal Mood - Additional Findings Additional findings: BL LE PT and DP pulses present by doppler. LLE dressing C/D/I Assessment and Plan - Assessment and Plan (Free Text) Assessment: 61 M s/p left fem-pop bypass and s. vein graft POD #2. Empiric abx as per ICU team on account of fever of 101.5 overnight Asa as per Neuro recs, will resume AC when indicated Immobilizers in place,CORBY drain 40ml x24hr will remove drain today. PT Wrist splint Continue medical management as per ICU team Seen reviewed and discussed with attending Michael Ku PGY-1
[2016-10-09 09:01] LABS: ALB/GLOB RATIO 0.9 (1.1-1.8); ALKALINE PHOSPHATASE 148 U/L (38-133); ALT/SGPT 51 U/L (7-56); AST/SGOT 63 U/L (15-59); BILIRUBIN,TOTAL 0.9 mg/dL (0.2-1.3); BLOOD UREA NITROGEN 18 mg/dL (7-21); CALCIUM 8.6 mg/dL (8.4-10.5); CARBON DIOXIDE 22 mmol/L (21-33); CHLORIDE 104 mmol/L (98-107); GFR AFRICAN-AMERICAN > 60; GLUCOSE,RANDOM 114 mg/dL (70-110); MAGNESIUM 2.2 mg/dL (1.7-2.2); SODIUM 134 mmol/L (132-148); TOTAL PROTEIN 6.8 g/dL (5.8-8.3)
[2016-10-09] MEDS: Multivitamin Therapeutic Tab PO SCH (09:04)
--- NOTE | 2016-10-09 10:00 | PN ---
DATE: 10/09/2016 This is a 61-year-old male seen at bedside for followup of bilateral lower extremity drop foot deform ity as well as a right leg ulceration. The patient is seen at bedside. He is in much better spirits than yesterday. He still cannot move h is left arm; however, his fingers are now starting to move. VITAL SIGNS: The [employer] was down. The temperature is not in the computer. LABORATORY DATA: Reviewed. His white blood cell count has come down to 10.3. His H and H are 8 an d 23.7. His platelets are 247. The patient's chemistry shows a BUN and creatinine of 18 and 10. Hi s glucose is 114. His liver enzymes are still elevated, however, coming down. His alk phos is still elevated; that is most likely from the exposed tibia in the leg. The patient's both feet are nice and warm. He has had angioplasty with opening of his bypass on his right lower extremity several days ago, and he also has had a fem-pop to his left lower extremity. B oth feet are in drop foot position. All the sores on the foot have gone on to heal on the right side , except for a small ulceration on his heel. His anterior khanna is the focus of the problem at this t johnny. He is scheduled for the OR on Thursday, at which time I will debride the leg. I will put an Inte gra skin graft on top of it and a wound VAC. I will at that time also do a FOZIA on the left lower ext remity and splint him and try to get that foot more in a 90 degree position so that he may have a dave id foot to walk on when he begins walking. The patient's leg was dressed. There is minimal drainage coming from there. The entire area ridge of the tibia is exposed at this time and the tissue is nec rotic in the wound bed. There is no longer any pus coming from the wound. I will do a bone biopsy a t the time of the surgery on Thursday. The patient's dressings were done. His Multi Podus boots were modified to facilitate better offloading. I did speak with Dr. Nicholson yesterday. We are going to put knee immobilizers on both lower extremities. However, his lower extremities will be well padded with cast padding before the knee immobilizers go on to prevent any skin irritation or ulcerations. The patient will be seen in followup. Gabby Albert DPM cc: [id number] TT: 10/09/2016 10:00:04 Confirmation # [id number] Dictation # [id number] mn
--- NOTE | 2016-10-09 11:35 | PN ---
DATE: 10/09/2016 The patient is in bed in no acute distress, nontoxic. PHYSICAL EXAMINATION: VITAL SIGNS: Temperature is 98, T-max yesterday was 101.5, blood pressure is 120/40, respiratory rat e of 18, heart rate of 100. HEENT: Unremarkable. NECK: Supple. LUNGS: Have decreased breath sounds. HEART: Normal S1, S2. ABDOMEN: Soft, nontender. LABORATORY DATA: Reveals a white count of 10,000, hemoglobin of 8 and platelets of 247. Coagulation is noted. Chemistries reveal a BUN of 18, creatinine of 1.0. Microbiology reveals the patient's cu ltures are noted. Review of the orders reveals the patient to be off of antibiotics. The patient wa s given a dose of vancomycin by Dr. Alfredo Harris. Dr. Albert's note is reviewed. The patient had an MR I of the brain, a small 2 mm cortical infarction in left parietal and occipital lobe is noted. Dr. Mecca johnson's note is reviewed. Dr. Alfredo Harris's communication report is reviewed. The patient had a chest MR I, a negative study. Dr. Guerrero's note is reviewed. ASSESSMENT AND PLAN: This is a 61-year-old male with a right dry gangrene and nonhealing wound, sotero re peripheral vascular disease, must rule out underlying osteomyelitis. The patient is for surgery, status post revascularization. Currently off of antibiotics. Awaiting for bone pathology and cultur es. We will follow closely with you. Chidi Moreira MD cc: [id number] TT: 10/09/2016 11:34:46 Confirmation # [id number] Dictation # [id number] antonietta
[2016-10-09] MEDS: Sodium Chloride 0.45% 1,000 ML IV SCH (11:51)
--- NOTE | 2016-10-09 13:39 | CP.CCUPN ---
<Nelsy oCtto - Last Filed: 10/09/16 18:12> CCU Subjective - Physician Review Events Since Last Encounter (Free Text): Pt s/e at bedside in the ICU this AM. Patient had a fever of 101.4 last night and concurrent tachycardia of 121. Sepsis workup was sent and patient was given one time doses of vancomycin and zosyn and tylenol. Fever and tachycardia resolved and his VS are stable currently. Patient states that his pain in his legs BL is unchanged since yesterday but that he is less drowsy this AM. Still experiencing numbness and weakness in right arm but possibly improved since yesterday. TP is palpable BL feet L>R CCU Objective - Vital Signs / Intake & Output Intake and Output (Last 8hrs): Intake & Output 10/08/16 10/09/16 10/09/16 22:59 06:59 14:59 Intake Total 520 1060 Output Total 785 855 Balance -265 205 Weight 77.383 kg Intake: IV 960 Right Hand 960 Oral 520 100 Output: Drainage 35 5 Knee 35 5 Urine 750 850 2-way Urethral 750 850 Other: Voiding Method Indwelling Catheter - Physical Exam Head: Positive for: Atraumatic, Normocephalic Pupils: Negative for: Pinpoint Extroacular Muscles: Positive for: EOMI Conjunctiva: Positive for: Normal Mouth: Positive for: Moist Mucous Membranes, Normal Lips, Normal Tounge Nose (External): Positive for: Atraumatic Neck: Positive for: Normal Range of Motion Respiratory/Chest: Positive for: Clear to Auscultation, Good Air Exchange. Negative for: Respiratory Distress, Accessory Muscle Use Cardiovascular: Positive for: Regular Rate and Rhythm, Normal S1, S2. Negative for: Murmurs Abdomen: Positive for: Normal Bowel Sounds. Negative for: Tenderness, Distention, Peritoneal Signs, Rebound, Guarding Breast/Axillary: Negative for: Discoloration, Swelling, Tender to Palpation Upper Extremity: Positive for: Edema (Trace non-pitting edema in the L hand), NORMAL PULSES, Capillary Refill < 2s. Negative for: Cyanosis, Normal ROM ( decreased motor function in left arm in extension of wrist and flexion of the fingers and at the elbow), Neurovascularly Intact Lower Extremity: Positive for: Capillary Refill < 2 s, Other (Lower legs covered in dressings c/d/i with BL knee stabilizers. PT palpable BL L>R). Negative for: Edema Neurological: Positive for: GCS=15, Speech Normal. Negative for: Motor Func Grossly Intact (see upper extremity exam) Skin: Positive for: Warm, Dry, Normal Color. Negative for: Rashes Psychiatric: Positive for: Alert, Oriented x 3, Normal Insight, Normal Concentration - Medications Active Medications: Active Medications Generic Name Dose Route Start Last Admin Trade Name Freq PRN Reason Stop Dose Admin Acetaminophen 650 mg 10/08/16 23:17 10/08/16 23:44 Tylenol 325mg Tab PO 650 mg Q6H PRN Administration Fever >100.4 F Ascorbic Acid 500 mg 10/08/16 10:00 10/09/16 09:04 Vitamin C 500 Mg Tab PO 500 mg DAILY FOREST Administration Aspirin 81 mg 10/08/16 14:30 10/09/16 09:04 Aspirin Chewable PO 81 mg DAILY FOREST Administration Atorvastatin Calcium 80 mg 10/02/16 17:00 10/08/16 18:22 Lipitor PO 80 mg DIN FOREST Administration Docusate Sodium 100 mg 10/03/16 18:00 10/09/16 09:04 Colace PO 100 mg BID FOREST Administration Famotidine 20 mg 10/02/16 10:00 10/09/16 09:03 Pepcid PO 20 mg BID FOREST Administration Gabapentin 400 mg 10/02/16 10:00 10/09/16 09:03 Neurontin PO 400 mg TID FOREST Administration Protocol Heparin Sodium (Porcine) 5,000 units 10/02/16 14:00 10/05/16 13:13 Heparin SC 5,000 units Q8 FOREST Administration Protocol Hydromorphone HCl 1 mg 10/07/16 20:13 10/09/16 10:04 Dilaudid IVP 1 mg Q3H PRN Administration Pain, severe (8-10) Hydromorphone HCl 0.5 mg 10/07/16 20:14 10/08/16 20:41 Dilaudid IVP 0.5 mg Q4H PRN Administration Pain, moderate (4-7) Sodium Chloride 1,000 mls @ 80 mls/hr 10/06/16 14:00 10/09/16 11:51 Sodium Chloride 0.45% IV 80 mls/hr .[id number] FOREST Administration Multivitamins 1 tab 10/08/16 10:00 10/09/16 09:04 Thera Tab PO 1 tab DAILY FOREST Administration Ondansetron HCl 4 mg 10/06/16 13:58 Zofran Inj IVP ONCE PRN Nausea/Vomiting Ondansetron HCl 4 mg 10/07/16 15:31 Zofran Inj IVP Q4H PRN Nausea/Vomiting Zinc Sulfate 220 mg 10/08/16 10:00 10/09/16 09:04 Zinc Sulfate 220 Mg Cap PO 220 mg DAILY FOREST Administration - Patient Studies Lab Studies: Microbiology Studies 10/07/16 22:17 MRSA Culture (Admit) - Final Nose MRSA NOT DETECTED Lab Studies 10/09/16 10/09/16 10/08/16 Range/Units 08:40 05:30 08:00 WBC 10.3 (4.5-11.0) 10^3/ul RBC 2.50 L (3.5-6.1) 10^6/uL Hgb 8.0 L (14.0-18.0) gm/dL Hct 23.7 L (42.0-52.0) % MCV 94.8 (80.0-105.0) fL MCH 32.0 (25.0-35.0) pg MCHC 33.8 (31.0-37.0) g/dl RDW 16.5 H (11.5-14.5) % Plt Count 247 (120.0-450.0) 10^3/uL MPV 10.4 (7.0-11.0) fl Gran % 58.0 (50.0-68.0) % Lymph % (Auto) 19.9 L (22.0-35.0) % [place] % (Auto) 19.6 H (1.0-6.0) % Eos % (Auto) 2.3 (1.5-5.0) % Baso % (Auto) 0.2 (0.0-3.0) % Gran # 5.98 (1.4-6.5) Lymph # 2.1 (1.2-3.4) [place] # 2.0 H (0.1-0.6) Eos # 0.2 (0.0-0.7) Baso # 0.02 (0.0-2.0) K/mm3 Sodium 134 (132-148) mmol/L Potassium 4.0 (3.6-5.0) mmol/L Chloride 104 (98-107) mmol/L Carbon Dioxide 22 (21-33) mmol/L Anion Gap 12 (10-20) BUN 18 (7-21) mg/dL Creatinine 1.0 (0.5-1.4) mg/dL Est GFR ( Amer) > 60 Est GFR (Non-Af Amer) > 60 Random Glucose 114 H (70-110) mg/dL Calcium 8.6 (8.4-10.5) mg/dL Magnesium 2.2 1.9 (1.7-2.2) mg/dL Total Bilirubin 0.9 (0.2-1.3) mg/dL AST 63 H (15-59) U/L ALT 51 (7-56) U/L Alkaline Phosphatase 148 H (38-133) U/L Total Protein 6.8 (5.8-8.3) g/dL Albumin 3.2 (3.0-4.8) g/dL Globulin 3.7 gm/dL Albumin/Globulin Ratio 0.9 L (1.1-1.8) Laboratory Results - last 24 hr 10/08/16 10/09/16 10/09/16 08:00 05:30 08:40 WBC 10.3 RBC 2.50 L Hgb 8.0 L Hct 23.7 L MCV 94.8 MCH 32.0 MCHC 33.8 RDW 16.5 H Plt Count 247 MPV 10.4 Gran % 58.0 Lymph % (Auto) 19.9 L [place] % (Auto) 19.6 H Eos % (Auto) 2.3 Baso % (Auto) 0.2 Gran # 5.98 Lymph # 2.1 [place] # 2.0 H Eos # 0.2 Baso # 0.02 Sodium 134 Potassium 4.0 Chloride 104 Carbon Dioxide 22 Anion Gap 12 BUN 18 Creatinine 1.0 Est GFR ( Amer) > 60 Est GFR (Non-Af Amer) > 60 Random Glucose 114 H Calcium 8.6 Magnesium 1.9 2.2 Total Bilirubin 0.9 AST 63 H ALT 51 Alkaline Phosphatase 148 H Total Protein 6.8 Albumin 3.2 Globulin 3.7 Albumin/Globulin Ratio 0.9 L Review of Systems - Constitutional Constitutional: absent: Fever, Chills - EENT Eyes: absent: Change in Vision Nose/Mouth/Throat: UNREMARKABLE - Cardiovascular Cardiovascular: absent: Chest Pain, Chest Pain at Rest, Dyspnea - Respiratory Respiratory: UNREMARKABLE. absent: Cough, Dyspnea - Gastrointestinal Gastrointestinal: UNREMARKABLE - Musculoskeletal Musculoskeletal: As Par HPI - Integumentary Integumentary: UNREMARKABLE - Neurological Neurological: As Per HPI Critical Care Progress Note - Nutrition Nutrition: Nutrition Category Date Time Status Heart Healthy Diet [DIET] Diets 10/07/16 Dinner Ordered Assessment/Plan - Assessment and Plan (Free Text) Assessment: 61 year old male with a PMH of PAD/PVD, HLD, and neuropathy currently POD#2 s/p fem-pop procedure with Dr. Nicholson and POD#3 s/p Right leg angiocath with L L axilla access site who developed left arm/hand weakness and numbness after his angiocath Plan: Neuro - Awake and orientedx3, somnolence resolved LUE weakness noted but mildly improved since yesterday no hematoma or otherwise noted at left axilla MRI of chest w/ contrast showed no brachial plexus injury MRI of the brain showed small infarct in the L parietal lobe--likely unrelated to L arm paralysis Follow up neurology recs Home gabapentin neurochecks q1x24, monitor mental status neurovascular checks q1h Physical therapy Cardio RRR, no M/R/G, hemodynamically stable at this time 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 Albert, restart ASA 81 Home atorvastatin Continue to monitor vitals and EKG Pulm - CTAB, no W/R/R, satting well on RA, will monitor. Renal/Fluids/Electrolytes - renal function intact on CMP this AM. Will continue to monitor and supplement PRN GI - continue heart healthy diet, otherwise no concerns, zofran PRN in place for nausea s/p procedure. MSK-Several wounds and contractures of the lower extremities d/t PAD/PVD/ chronic disuse. Podiatry and vascular surgery on board. Going to OR on Thursday with Dr. Albert for L Achilles tendon release ID - On contact precautions for wound culture positive for psuedomonas aeriginosa. Febrile overnight, resolved with one time dose of tylenol, zosyn, and vancomycin. WBC trended down to WNL. Followed by ID Dr. Moreira, note reviewed and appreciated. Hematology - known severe PAD/PVD, vasculopath secondary to years of tobacco abuse, on Eliquis and ASA at home. Continue ASA, hold Eliquis with brain infarct and OR on Thursday Ppx - famotidine PO. SQH Dispo: Transfer to telemetry. Please contact ICU team again for further questions or concerns Patient was seen and examined and case was discussed at length with attending physician. <Jong Garay - Last Filed: 10/14/16 20:05> CCU Objective - Vital Signs / Intake & Output Vital Signs (Last 4 hours): Vital Signs Temp Pulse Resp BP 10/14/16 19:17 98.5 F 76 18 117/64 Intake and Output (Last 8hrs): Intake & Output 10/14/16 10/14/16 10/14/16 06:59 14:59 22:59 Intake Total 60 820 Output Total 700 400 Balance -640 420 Weight 157 lb Intake: Oral 60 820 Output: Urine 700 400 2-way Urethral 700 400 Other: # Bowel Movements 1 0 - Medications Active Medications: Active Medications Generic Name Dose Route Start Last Admin Trade Name Freq PRN Reason Stop Dose Admin Acetaminophen 650 mg 10/08/16 23:17 10/14/16 18:16 Tylenol 325mg Tab PO 650 mg Q6H PRN Administration Fever >100.4 F Ascorbic Acid 500 mg 10/08/16 10:00 10/14/16 11:47 Vitamin C 500 Mg Tab PO 500 mg DAILY FOREST Administration Aspirin 81 mg 10/08/16 14:30 10/14/16 11:48 Aspirin Chewable PO 81 mg DAILY FOREST Administration Atorvastatin Calcium 80 mg 10/02/16 17:00 10/14/16 18:12 Lipitor PO 80 mg DIN FOREST Administration Docusate Sodium 100 mg 10/03/16 18:00 10/14/16 18:12 Colace PO 100 mg BID FOREST Administration Famotidine 20 mg 10/02/16 10:00 10/14/16 18:12 Pepcid PO 20 mg BID FOREST Administration Gabapentin 400 mg 10/02/16 10:00 10/14/16 15:41 Neurontin PO 400 mg TID FOREST Administration Protocol Heparin Sodium (Porcine) 5,000 units 10/02/16 14:00 10/14/16 15:41 Heparin SC 5,000 units Q8 FOREST Administration Protocol Hydromorphone HCl 1 mg 10/14/16 11:54 10/14/16 16:11 Dilaudid IVP 1 mg Q4H PRN Administration Pain, severe (8-10) Multivitamins 1 tab 10/08/16 10:00 10/14/16 11:47 Thera Tab PO 1 tab DAILY FOREST Administration Ondansetron HCl 4 mg 10/07/16 15:31 Zofran Inj IVP Q4H PRN Nausea/Vomiting Ondansetron HCl 4 mg 10/13/16 18:06 Zofran Inj IVP ONCE PRN Nausea/Vomiting Zinc Sulfate 220 mg 10/08/16 10:00 10/14/16 11:48 Zinc Sulfate 220 Mg Cap PO 220 mg DAILY FOREST Administration - Patient Studies Lab Studies: Microbiology Studies 10/12/16 05:15 Urine Culture - Final Urine,Clean Catch Enterobacter Aerogenes 10/09/16 00:05 Blood Culture - Final Blood-Venous NO GROWTH AFTER 5 DAYS Gram Stain - Final TEST NOT PERFORMED 10/08/16 23:50 Blood Culture - Final Blood-Venous NO GROWTH AFTER 5 DAYS Gram Stain - Final TEST NOT PERFORMED Lab Studies 10/14/16 10/14/16 Range/Units 06:00 06:00 WBC 10.1 (4.5-11.0) 10^3/ul RBC 2.86 L (3.5-6.1) 10^6/uL Hgb 8.9 L (14.0-18.0) gm/dL Hct 27.2 L (42.0-52.0) % MCV 95.1 (80.0-105.0) fL MCH 31.1 (25.0-35.0) pg MCHC 32.7 (31.0-37.0) g/dl RDW 16.2 H (11.5-14.5) % Plt Count 547 H (120.0-450.0) 10^3/uL MPV 9.6 (7.0-11.0) fl Gran % 66.1 (50.0-68.0) % Lymph % (Auto) 17.4 L (22.0-35.0) % [place] % (Auto) 10.1 H (1.0-6.0) % Eos % (Auto) 5.8 H (1.5-5.0) % Baso % (Auto) 0.6 (0.0-3.0) % Gran # 6.67 H (1.4-6.5) Lymph # 1.8 (1.2-3.4) [place] # 1.0 H (0.1-0.6) Eos # 0.6 (0.0-0.7) Baso # 0.06 (0.0-2.0) K/mm3 Sodium 137 (132-148) mmol/L Potassium 4.0 (3.6-5.0) mmol/L Chloride 101 (95-110) mmol/L Carbon Dioxide 25 (21-33) mmol/L Anion Gap 15 (10-20) BUN 13 (7-21) mg/dL Creatinine 0.8 (0.5-1.4) mg/dL Est GFR ( Amer) > 60 Est GFR (Non-Af Amer) > 60 Random Glucose 99 (70-110) mg/dL Calcium 9.0 (8.4-10.5) mg/dL Total Bilirubin 0.6 (0.2-1.3) mg/dL AST 72 H (15-59) U/L ALT 64 H (7-56) U/L Alkaline Phosphatase 226 H (38-133) U/L Total Protein 7.0 (5.8-8.3) g/dL Albumin 3.3 (3.0-4.8) g/dL Globulin 3.8 gm/dL Albumin/Globulin Ratio 0.9 L (1.1-1.8) Laboratory Results - last 24 hr 10/14/16 10/14/16 06:00 06:00 WBC 10.1 RBC 2.86 L Hgb 8.9 L Hct 27.2 L MCV 95.1 MCH 31.1 MCHC 32.7 RDW 16.2 H Plt Count 547 H MPV 9.6 Gran % 66.1 Lymph % (Auto) 17.4 L [place] % (Auto) 10.1 H Eos % (Auto) 5.8 H Baso % (Auto) 0.6 Gran # 6.67 H Lymph # 1.8 [place] # 1.0 H Eos # 0.6 Baso # 0.06 Sodium 137 Potassium 4.0 Chloride 101 Carbon Dioxide 25 Anion Gap 15 BUN 13 Creatinine 0.8 Est GFR ( Amer) > 60 Est GFR (Non-Af Amer) > 60 Random Glucose 99 Calcium 9.0 Total Bilirubin 0.6 AST 72 H ALT 64 H Alkaline Phosphatase 226 H Total Protein 7.0 Albumin 3.3 Globulin 3.8 Albumin/Globulin Ratio 0.9 L Critical Care Progress Note - Nutrition Nutrition: Nutrition Category Date Time Status Heart Healthy Diet [DIET] Diets 10/13/16 Dinner Ordered Addendum Addendum: 10/14/16 20:02 patient was seen, examined and discussed with Dr. Cotto at bedside. Her note reflects my exam, assessment and plan, except as below. Meds/Labs/ONE reviewed. 61 yo s/p fem/pop bypass. Doing well, hemodynamically and respiratory thur[place] stable. dopplerable ps on both DPA, ok to downgrade to tele ccm time 40 min,
--- NOTE | 2016-10-09 16:16 | PN ---
DATE: 10/09/2016 SUBJECTIVE: The patient currently is in the CCU. There have been no acute events overnight. Of not e is that the patient this morning is able to move his fingers on the left hand. PHYSICAL EXAMINATION: GENERAL: The patient is afebrile, pulse rate of 95. His blood pressure is not recorded. HEENT: PERRLA, EOMI. NECK: Supple with a full range of motion and no bruits. LUNGS: Clear to auscultation and percussion bilaterally. HEART: Shows a regular rate and rhythm with no murmurs, rubs, or gallops. ABDOMEN: Soft, it is nontender. Bowel sounds are normoactive. 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 NEUROLOGIC: Left arm is paralyzed, but the patient is able to move the fingers on the left hand. LABORATORY DATA: At this time, RBC of 2.5, hemoglobin and hematocrit of 8.0 and 23.7. Chemistry is normal with the exception of a glucose of 114 and AST of 63, which is down from 77. ALT normal, maria e line phosphatase of 148. We will monitor hemoglobin and hematocrit. Currently, the problem list is leg on the right, ga ngrene on the right, and trauma/inflammation to the left brachial plexus. Avinash Gonzalez MD cc: [id number] TT: 10/09/2016 16:16:08 Confirmation # [id number] Dictation # [id number] dn
[2016-10-09] MEDS: HYDROmorphone 0.5 mg/0.5 ml ISec IVP PRN ×2 (18:15→23:12)
--- NOTE | 2016-10-09 19:09 | PN ---
DATE: 10/09/2016 SUBJECTIVE: Left upper extremity weakness and left wrist drop. The patient seen and examined at [facility]. He still has left wrist drop, but now his left arm and forearm is placed in a splint. He has b ilateral left footdrop, which is chronic. He is status post femoral popliteal bypass procedure. He is currently more awake, in less pain than before. No acute events overnight. He also had 2 small c ortical infarcts in the left parietal and occipital area. He cannot be on anticoagulation for now si nce he has to have another procedure; therefore, he was put on aspirin. He is on gabapentin and Dila udid for pain control. PAST MEDICAL HISTORY: History of severe peripheral arterial disease and peripheral vascular disease, hyperlipidemia, neuropathy, status post recent femoral popliteal bypass procedure. REVIEW OF SYSTEMS: A 14-point review of systems is negative except for the HPI. FAMILY HISTORY: Noncontributory. SOCIAL HISTORY: Smokes 1-2 packs per day for the past 50 years. CURRENT MEDICATIONS: Reviewed via nurse's reconciliation sheet. PHYSICAL EXAMINATION: VITAL SIGNS: Temperature 98, pulse rate tachycardic at 145, blood pressure 114/49, respiratory rate 16, blood pressure 142/89, oxygen saturation 96% on room air. GENERAL: The patient is sitting up in bed in a wrist splint. HEENT: Atraumatic, normocephalic. PERRLA. Extraocular muscles intact. NECK: Supple, no JVD, no adenopathy noted. LUNGS: Clear to auscultation. No adventitious sounds. HEART: S1, S2 tachycardic. No murmurs, rubs, or gallops. ABDOMEN: Soft, nontender, nondistended. Bowel sounds present. EXTREMITIES: 2+ radial pulses bilateral upper extremities, both legs are in bandages and has bilater al footdrop. NEUROLOGIC: The patient is alert, oriented to person, place, month and year. Speech is fluent, with out any errors. Cranial nerves II through XII are intact. MOTOR: Moves all extremities except for left upper extremity weakness as well as the left wrist drop and has bilateral chronic foot drop, worse on the left. SENSORY: Decreased light touch and pinprick up to the calves bilaterally. Decreased vibration at th e knees. DEEP TENDON REFLEXES: 2+ throughout, 1 at the ankles, 1 at the knees and absent at the ankles. COORDINATION: [id number] intact, but difficult to do on the left due to left upper extremity wea kness. LABORATORY DATA: Sodium is 134, potassium 4, chloride 104, carbon dioxide 22, BUN of 18, creatinine 1.1, random glucose 114. ASSESSMENT AND PLAN: A 61-year-old man with past medical history of peripheral arterial disease, per ipheral vascular disease, hyperlipidemia, neuropathy, status post femoral popliteal bypass procedure and, prior to bypass procedure, had line placed in and had left upper extremity weakness, and a lso status post 2 small cortical infarcts in the left parietal and left occipital area, likely chappell hed versus AFib related. His left upper extremity weakness is likely due to over traction and trauma to the brachial plexus. The MRI of the brachial plexus is negative and small cortical infarcts, lik beverley embolic in nature, could not put on any anticoagulation for now since patient is having possible procedure. He is on aspirin 81 mg p.o. daily. At this time continue with: 1. Wrist splint. 2. Physical therapy. 3. Anticoagulation when it seems feasible as per vascular. 4. Continue with Neurontin 400 mg p.o. t.i.d. for neuropathic pain as well as Dilaudid. 5. Continue with Lipitor for his dyslipidemia and aspirin for stroke prevention. Continue with curr ent present medical management. Thank you for this followup. He will need an EMG, nerve conduction, of left upper extremity in about 6-8 weeks. Therefore, continue with current physical therapy. We will sign off and please reconsul t if necessary.. Orlando Guerrero MD cc: [phone] TT: 10/09/2016 19:08:22 Confirmation # [id number] Dictation # [id number] antonietta
[2016-10-10] MEDS: Sodium Chloride 0.45% 1,000 ML IV SCH ×3 (02:22→19:04)
[2016-10-10] MEDS: HYDROmorphone 1 mg/ml ISec IVP PRN ×6 (03:08→23:33)
[2016-10-10 05:49] LABS: ADD MANUAL DIFF? NO
[2016-10-10 06:18] LABS: BASO # 0.04 K/mm3 (0.0-2.0); BASO % 0.4 % (0.0-3.0); EOS # 0.8 (0.0-0.7); GRAN # 6.08 (1.4-6.5); GRAN % 57.1 % (50.0-68.0); HEMATOCRIT 25.3 % (42.0-52.0); LYMPH # 2.2 (1.2-3.4); LYMPH % 20.6 % (22.0-35.0); MEAN CELL VOLUME 94.8 fL (80.0-105.0); MEAN CORPUSCULAR HEMOGLOBIN 31.5 pg (25.0-35.0); MEAN CORPUSCULAR HGB CONC 33.2 g/dl (31.0-37.0); MEAN PLATELET VOLUME 10.4 fl (7.0-11.0); MONO # 1.6 (0.1-0.6); MONO % 14.9 % (1.0-6.0); PLATELET COUNT 290 10^3/uL (120.0-450.0); RED CELL DISTRIBUTION WIDTH 16.2 % (11.5-14.5); WHITE BLOOD COUNT 10.7 10^3/ul (4.5-11.0)
[2016-10-10 06:20] LABS: ALB/GLOB RATIO 0.8 (1.1-1.8); ALKALINE PHOSPHATASE 176 U/L (38-133); ALT/SGPT 45 U/L (7-56); AST/SGOT 60 U/L (15-59); BILIRUBIN,TOTAL 0.7 mg/dL (0.2-1.3); BLOOD UREA NITROGEN 14 mg/dL (7-21); CALCIUM 8.7 mg/dL (8.4-10.5); CARBON DIOXIDE 24 mmol/L (21-33); CHLORIDE 106 mmol/L (98-107); GFR AFRICAN-AMERICAN > 60; GLUCOSE,RANDOM 113 mg/dL (70-110); POTASSIUM 3.7 mmol/L (3.6-5.0); SODIUM 139 mmol/L (132-148); TOTAL PROTEIN 6.7 g/dL (5.8-8.3)
--- NOTE | 2016-10-10 08:23 | PN ---
DATE: 10/09/2016 The patient is awake, alert, without distress. PHYSICAL EXAMINATION: VITAL SIGNS: Blood pressure is 127/47, the heart rate is in the 90s. NECK: Negative JVD. LUNGS: Without rales. HEART: Revealed S1, S2. EXTREMITIES: Both extremities are bandaged. LABORATORIES: Hemoglobin is 8. Chemistries are essentially unchanged. IMPRESSION: 1. Severe peripheral vascular disease. 2. Ulcers on the lower extremity. 3. Chronic obstructive pulmonary disease. 4. History of hypercholesterolemia. Given these findings, the patient is scheduled for surgery on Thursday. Ramin Mayers MD cc: [id number] TT: 10/09/2016 12:26:50 Confirmation # [id number] Dictation # [id number]
--- NOTE | 2016-10-10 09:45 | CP.PCM.PN ---
Subjective - Date & Time of Evaluation Date of Evaluation: 10/10/16 Time of Evaluation: 09:10 - Subjective Subjective: Vascular Surgery Pt S&E, Febrile to 101.1 overnight. Still with L arm weakness and B/L LE pain. Pain is slightly improved. Able to use trapeze to lift torso and turn slightly. No other C/O. Objective - Vital Signs/Intake and Output Vital Signs (last 24 hours): Temp Pulse Resp BP Pulse Ox 97.6 F 105 H 16 114/49 L 99 10/10/16 04:00 10/09/16 16:59 10/09/16 16:59 10/09/16 17:00 10/09/16 15:00 Intake and Output: 10/10/16 10/10/16 06:59 18:59 Intake Total 960 Output Total 1825 Balance -865 - Medications Medications: Current Medications Acetaminophen (Tylenol 325mg Tab) 650 mg PO Q6H PRN PRN Reason: Fever >100.4 F Last Admin: 10/09/16 20:15 Dose: 650 mg Ascorbic Acid (Vitamin C 500 Mg Tab) 500 mg PO DAILY [facility] Last Admin: 10/09/16 09:04 Dose: 500 mg Aspirin (Aspirin Chewable) 81 mg PO DAILY [facility] Last Admin: 10/09/16 09:04 Dose: 81 mg Atorvastatin Calcium (Lipitor) 80 mg PO DIN [facility] Last Admin: 10/09/16 18:05 Dose: 80 mg Docusate Sodium (Colace) 100 mg PO BID [facility] Last Admin: 10/09/16 18:05 Dose: 100 mg Famotidine (Pepcid) 20 mg PO BID [facility] Last Admin: 10/09/16 18:05 Dose: 20 mg Gabapentin (Neurontin) 400 mg PO TID [facility] PRN Reason: Protocol Last Admin: 10/09/16 18:04 Dose: 400 mg Heparin Sodium (Porcine) (Heparin) 5,000 units SC Q8 [facility] PRN Reason: Protocol Last Admin: 10/05/16 13:13 Dose: 5,000 units Hydromorphone HCl (Dilaudid) 1 mg IVP Q3H PRN PRN Reason: Pain, severe (8-10) Last Admin: 10/10/16 06:59 Dose: 1 mg Hydromorphone HCl (Dilaudid) 0.5 mg IVP Q4H PRN PRN Reason: Pain, moderate (4-7) Last Admin: 10/09/16 23:12 Dose: 0.5 mg Sodium Chloride (Sodium Chloride 0.45%) 1,000 mls @ 80 mls/hr IV .[id number] [facility] Last Admin: 10/10/16 02:22 Dose: 80 mls/hr Multivitamins (Thera Tab) 1 tab PO DAILY [facility] Last Admin: 10/09/16 09:04 Dose: 1 tab Ondansetron HCl (Zofran Inj) 4 mg IVP ONCE PRN PRN Reason: Nausea/Vomiting Ondansetron HCl (Zofran Inj) 4 mg IVP Q4H PRN PRN Reason: Nausea/Vomiting Zinc Sulfate (Zinc Sulfate 220 Mg Cap) 220 mg PO DAILY [facility] Last Admin: 10/09/16 09:04 Dose: 220 mg - Labs Labs: 10/10/16 05:30 10/10/16 05:00 PT 10.7 Seconds (9.9-11.8) 10/05/16 06:00 INR 0.99 (0.93-1.08) 10/05/16 06:00 APTT 35.5 Seconds (23.7-30.8) H 10/02/16 08:10 - Constitutional Appears: Non-toxic, No Acute Distress - Head Exam Head Exam: ATRAUMATIC, NORMOCEPHALIC - Eye Exam Eye Exam: EOMI. absent: Scleral icterus - Respiratory Exam Respiratory Exam: NORMAL BREATHING PATTERN. absent: Respiratory Distress - Cardiovascular Exam Cardiovascular Exam: RRR, +S1 - GI/Abdominal Exam GI & Abdominal Exam: Soft. absent: Distended, Tenderness - Extremities Exam Additional comments: BL LE PT and DP pulses present by doppler. LLE dressing C/D/I RLE dressing C/D/I LUE wrist drop, weakness in bicep flexion - Neurological Exam Neurological Exam: Alert, Awake, Oriented x3 - Skin Skin Exam: Dry, Warm Assessment and Plan - Assessment and Plan (Free Text) Assessment: 61 M s/p left fem-pop bypass and s. vein graft POD #3 Plan: ASA per Neuro PT/OT Wrist splint Continue medical management per primary team. Restart heparin Q8, hold Thursday night prior to podiatry procedure Thursday D/W Dr. Bharat Hartmann PGY3
[2016-10-10] MEDS: Multivitamin Therapeutic Tab PO SCH (10:37)
--- NOTE | 2016-10-10 11:07 | PN ---
DATE: 10/10/2016 The patient is in bed, seen earlier today in 128, bed 3. The patient did have fevers yesterday, no f ever this morning. PHYSICAL EXAMINATION: VITAL SIGNS: Temperature is 97, T-max is 101, pulse of 105, respiratory rate 16. It was up to 24 ye sterday and blood pressure is 114/49. HEENT: Unremarkable. NECK: Supple. LUNGS: Have decreased breath sounds. HEART: Normal S1, S2. ABDOMEN: Soft. EXTREMITIES: Examination of the leg is noted. LABORATORY EXAMINATION: Reveals the white count is 10,700, hemoglobin of 8 and platelets of 290. 20 % lymphocytosis with a 7% granulocytosis. Coagulation is noted and BUN of 14, creatinine of 1.0. LF Ts are improving. Microbiology reveals the blood cultures are negative. Nasal MRSA screen is negati ve. Review of the orders reveals the patient to be off of antibiotics. The patient had a chest MRI, to be negative. ASSESSMENT AND PLAN: A 61-year-old male with right dry gangrene, nonhealing wound of the lower extre mity with severe peripheral vascular disease, long time smoker, status post revascularization by Dr. Valencia Nicholson and currently off of antibiotics. Afebrile. Local wound care. Bone biopsy and bone c ultures are scheduled. We will follow closely with you. The patient has chronic changes on the extr emity. No active infection as of now. We will check on the final cultures, determine the etiology o f yesterday's fever. Chidi Moreira MD cc: [id number] TT: 10/10/2016 11:07:19 Confirmation # [id number] Dictation # [id number] tn
--- NOTE | 2016-10-10 11:49 | PN ---
DATE: 10/10/2016 The patient is comfortable in bed. PHYSICAL EXAMINATION: VITAL SIGNS: Blood pressure is 114/49, heart rate is stable. NECK: Negative JVD. LUNGS: Without rales. HEART: Revealed S1, S2. EXTREMITIES: Without edema. Hemoglobin 8.4. Chemistries are unremarkable. IMPRESSION: 1. Severe peripheral vascular disease. 2. Chronic obstructive pulmonary disease. 3. Leg ulcers. 4. Status post bypass. 5. Hypercholesterolemia. Given these findings, the patient is scheduled for debridement on Thursday. The patient is stable for transfer to telemetry. Ramin Mayers MD cc: [id number] TT: 10/10/2016 11:48:04 Confirmation # [id number] Dictation # [id number]
--- NOTE | 2016-10-10 12:19 | CP.PCM.PN ---
<Misty Banuelos - Last Filed: 10/10/16 12:15> Subjective - Date & Time of Evaluation Date of Evaluation: 10/10/16 Time of Evaluation: 12:15 - Subjective Subjective: 61 year old male was seen resting at bedside with attending. Dr. Olea regarding right lower extremity ulcer and b/l LE foot drop. Patient states he is doing better today but does still have pain. He has knee splints and offloading boots to b/l LE. Denies n/v/f/c/sob/cp. Objective - Vital Signs/Intake and Output Vital Signs (last 24 hours): Temp Pulse Resp BP Pulse Ox 97.7 F 105 H 16 114/49 L 99 10/10/16 08:00 10/09/16 16:59 10/09/16 16:59 10/09/16 17:00 10/09/16 15:00 Intake and Output: 10/10/16 10/10/16 06:59 18:59 Intake Total 960 Output Total 1825 Balance -865 - Medications Medications: Current Medications Acetaminophen (Tylenol 325mg Tab) 650 mg PO Q6H PRN PRN Reason: Fever >100.4 F Last Admin: 10/09/16 20:15 Dose: 650 mg Ascorbic Acid (Vitamin C 500 Mg Tab) 500 mg PO DAILY [facility] Last Admin: 10/10/16 10:39 Dose: 500 mg Aspirin (Aspirin Chewable) 81 mg PO DAILY [facility] Last Admin: 10/10/16 10:38 Dose: 81 mg Atorvastatin Calcium (Lipitor) 80 mg PO DIN [facility] Last Admin: 10/09/16 18:05 Dose: 80 mg Docusate Sodium (Colace) 100 mg PO BID [facility] Last Admin: 10/10/16 10:38 Dose: 100 mg Famotidine (Pepcid) 20 mg PO BID [facility] Last Admin: 10/10/16 10:38 Dose: 20 mg Gabapentin (Neurontin) 400 mg PO TID [facility] PRN Reason: Protocol Last Admin: 10/10/16 10:39 Dose: 400 mg Heparin Sodium (Porcine) (Heparin) 5,000 units SC Q8 [facility] PRN Reason: Protocol Last Admin: 10/05/16 13:13 Dose: 5,000 units Hydromorphone HCl (Dilaudid) 1 mg IVP Q3H PRN PRN Reason: Pain, severe (8-10) Last Admin: 10/10/16 10:41 Dose: 1 mg Hydromorphone HCl (Dilaudid) 0.5 mg IVP Q4H PRN PRN Reason: Pain, moderate (4-7) Last Admin: 10/09/16 23:12 Dose: 0.5 mg Sodium Chloride (Sodium Chloride 0.45%) 1,000 mls @ 80 mls/hr IV .[id number] [facility] Last Admin: 10/10/16 02:22 Dose: 80 mls/hr Multivitamins (Thera Tab) 1 tab PO DAILY [facility] Last Admin: 10/10/16 10:37 Dose: 1 tab Ondansetron HCl (Zofran Inj) 4 mg IVP ONCE PRN PRN Reason: Nausea/Vomiting Ondansetron HCl (Zofran Inj) 4 mg IVP Q4H PRN PRN Reason: Nausea/Vomiting Zinc Sulfate (Zinc Sulfate 220 Mg Cap) 220 mg PO DAILY [facility] Last Admin: 10/09/16 09:04 Dose: 220 mg - Labs Labs: 10/10/16 05:30 10/10/16 05:00 PT 10.7 Seconds (9.9-11.8) 10/05/16 06:00 INR 0.99 (0.93-1.08) 10/05/16 06:00 APTT 35.5 Seconds (23.7-30.8) H 10/02/16 08:10 - Constitutional Appears: No Acute Distress, Chronically Ill - Extremities Exam Additional comments: right lower extremity focused exam Vasc: Skin temperature is warm Neuro:Gross sensation diminished Derm: Ulceration noted to the anterior aspect of right khanna measure approximetly 11 cm by 4 cm down to bone, tibia is exposed and wound be is necrotic, mild amount of drainage noted, no malodor noted. left lower extremity knee splint and offloading boots intact - Neurological Exam Neurological Exam: Alert, Awake, Oriented x3 - Psychiatric Exam Psychiatric exam: Normal Affect, Normal Mood Assessment and Plan - Assessment and Plan (Free Text) Assessment: 61 year old male with right lower extremity ulceration and bilateral foot drop Plan: patient examined and evaluated with attending, Dr. Olea chart, labs, vitals reviewed patients RLE was cleansed with normal sterile saline RLE dressed with foam, and webroll, knee immoblizer and offloading shoe re- applied patient to OR Thursday at 5:00 pm for RLE wound debridement, and L FOIZA patient NPO after 8:00 am Thursday morning, tray for 6:30 am patient to wear knee immobilzier and offloading shoe-well padded at all times continue iv abx per ID continue vitamins heparin to be held before surgery podiatry will continue to follow patient while in house <Francisco Olea - Last Filed: 10/11/16 07:41> Objective - Vital Signs/Intake and Output Vital Signs (last 24 hours): Temp Pulse Resp BP Pulse Ox 97.8 F 98 H 20 116/64 96 10/11/16 06:00 10/10/16 19:59 10/10/16 19:59 10/10/16 20:00 10/11/16 06:00 - Medications Medications: Current Medications Acetaminophen (Tylenol 325mg Tab) 650 mg PO Q6H PRN PRN Reason: Fever >100.4 F Last Admin: 10/10/16 20:41 Dose: 650 mg Ascorbic Acid (Vitamin C 500 Mg Tab) 500 mg PO DAILY [facility] Last Admin: 10/10/16 10:39 Dose: 500 mg Aspirin (Aspirin Chewable) 81 mg PO DAILY [facility] Last Admin: 10/10/16 10:38 Dose: 81 mg Atorvastatin Calcium (Lipitor) 80 mg PO DIN [facility] Last Admin: 10/10/16 18:53 Dose: 80 mg Docusate Sodium (Colace) 100 mg PO BID [facility] Last Admin: 10/10/16 18:51 Dose: 100 mg Famotidine (Pepcid) 20 mg PO BID [facility] Last Admin: 10/10/16 18:52 Dose: 20 mg Gabapentin (Neurontin) 400 mg PO TID [facility] PRN Reason: Protocol Last Admin: 10/10/16 18:52 Dose: 400 mg Heparin Sodium (Porcine) (Heparin) 5,000 units SC Q8 [facility] PRN Reason: Protocol Last Admin: 10/11/16 07:00 Dose: 5,000 units Hydromorphone HCl (Dilaudid) 1 mg IVP Q3H PRN PRN Reason: Pain, severe (8-10) Last Admin: 10/11/16 07:09 Dose: 1 mg Hydromorphone HCl (Dilaudid) 0.5 mg IVP Q4H PRN PRN Reason: Pain, moderate (4-7) Last Admin: 10/09/16 23:12 Dose: 0.5 mg Sodium Chloride (Sodium Chloride 0.45%) 1,000 mls @ 80 mls/hr IV .[id number] [facility] Last Admin: 10/10/16 19:04 Dose: Not Given Multivitamins (Thera Tab) 1 tab PO DAILY [facility] Last Admin: 10/10/16 10:37 Dose: 1 tab Ondansetron HCl (Zofran Inj) 4 mg IVP ONCE PRN PRN Reason: Nausea/Vomiting Ondansetron HCl (Zofran Inj) 4 mg IVP Q4H PRN PRN Reason: Nausea/Vomiting Zinc Sulfate (Zinc Sulfate 220 Mg Cap) 220 mg PO DAILY [facility] Last Admin: 10/10/16 10:10 Dose: 220 mg - Labs Labs: 10/11/16 06:30 10/11/16 06:30 PT 10.7 Seconds (9.9-11.8) 10/05/16 06:00 INR 0.99 (0.93-1.08) 10/05/16 06:00 APTT 35.5 Seconds (23.7-30.8) H 10/02/16 08:10 Attending/Attestation - Attestation I have personally seen and examined this patient.: Yes I have fully participated in the care of the patient.: Yes I have reviewed all pertinent clinical information, including history, physical exam and plan: Yes
--- NOTE | 2016-10-10 20:06 | PN ---
DATE: 10/10/2016 The patient is in room 128, bed 03. He has no complaints this morning and there have been no acute e vents overnight. Of note, the patient's left arm is paralyzed, but he is moving his fingers much mor e aggressively than he did yesterday. PHYSICAL EXAMINATION: VITAL SIGNS: Temperature of 97.6 afebrile, pulse rate of 92. HEENT: PERRLA, EOMI with no icterus. NECK: Supple with a full range of motion and no bruits. LUNGS: Clear bilaterally. HEART: With a regular rate and rhythm with no murmurs, rubs, or gallops. ABDOMEN: Soft, it is nontender. Bowel sounds are normoactive. EXTREMITIES: Show amputation of the toes of the right foot. NEUROLOGIC: The patient has a paralysis of the left arm, but he is regaining movement of the fingers of the left hand. LABORATORY DATA: Showed a WBC of 10.7, hemoglobin and hematocrit are now up to 8.4 and 25.3. Chemis try is normal with a random glucose of 113. AST is coming down, it is currently at 60. IMPRESSION: Current problems are arterial embolism and thrombosis of the left lower extremity, gangr laurie of toe, leg wound on the right leg, and paralysis of the left upper extremity. PLAN: We will continue to monitor H and H. Avinash Gonzalez MD cc: [id number] TT: 10/10/2016 20:05:26 Confirmation # [id number] Dictation # [id number] francisco
[2016-10-11] MEDS: HYDROmorphone 1 mg/ml ISec IVP PRN ×4 (04:09→15:05)
[2016-10-11 06:36] LABS: ADD MANUAL DIFF? NO
[2016-10-11 06:50] LABS: ALB/GLOB RATIO 0.8 (1.1-1.8); ALKALINE PHOSPHATASE 228 U/L (38-133); ALT/SGPT 54 U/L (7-56); AST/SGOT 79 U/L (15-59); BILIRUBIN,TOTAL 0.7 mg/dL (0.2-1.3); BLOOD UREA NITROGEN 16 mg/dL (7-21); CALCIUM 8.7 mg/dL (8.4-10.5); CARBON DIOXIDE 25 mmol/L (21-33); CHLORIDE 104 mmol/L (98-107); GFR AFRICAN-AMERICAN > 60; GLUCOSE,RANDOM 105 mg/dL (70-110); POTASSIUM 3.9 mmol/L (3.6-5.0); SODIUM 136 mmol/L (132-148)
[2016-10-11 07:29] LABS: BASO # 0.03 K/mm3 (0.0-2.0); BASO % 0.3 % (0.0-3.0); EOS # 0.8 (0.0-0.7); EOS % 8.2 % (1.5-5.0); GRAN # 5.85 (1.4-6.5); GRAN % 57.4 % (50.0-68.0); HEMATOCRIT 28.3 % (42.0-52.0); LYMPH # 2.1 (1.2-3.4); LYMPH % 20.8 % (22.0-35.0); MEAN CORPUSCULAR HEMOGLOBIN 31.2 pg (25.0-35.0); MEAN CORPUSCULAR HGB CONC 32.9 g/dl (31.0-37.0); MEAN PLATELET VOLUME 10.4 fl (7.0-11.0); MONO # 1.4 (0.1-0.6); MONO % 13.3 % (1.0-6.0); PLATELET COUNT 433 10^3/uL (120.0-450.0); RED CELL DISTRIBUTION WIDTH 16.1 % (11.5-14.5); WHITE BLOOD COUNT 10.2 10^3/ul (4.5-11.0)
--- NOTE | 2016-10-11 08:15 | CP.PCM.PN ---
<Oral Javed - Last Filed: 10/11/16 08:12> Subjective - Date & Time of Evaluation Date of Evaluation: 10/11/16 Time of Evaluation: 08:12 - Subjective Subjective: 61 year old male was seen resting at bedside with attending Dr. Olea concerning right lower extremity ulcer and b/l LE foot drop. Patient was resting comfortably in bed with dressings intact. Patient states he is doing better today but still c/o pain to right lower extremity. He has knee splints and offloading boots to b/l LE. Patient denies of n/v/f/c/sob/cp. Objective - Vital Signs/Intake and Output Vital Signs (last 24 hours): Temp Pulse Resp BP Pulse Ox 97.8 F 98 H 20 116/64 96 10/11/16 06:00 10/10/16 19:59 10/10/16 19:59 10/10/16 20:00 10/11/16 06:00 - Medications Medications: Current Medications Acetaminophen (Tylenol 325mg Tab) 650 mg PO Q6H PRN PRN Reason: Fever >100.4 F Last Admin: 10/10/16 20:41 Dose: 650 mg Ascorbic Acid (Vitamin C 500 Mg Tab) 500 mg PO DAILY [facility] Last Admin: 10/10/16 10:39 Dose: 500 mg Aspirin (Aspirin Chewable) 81 mg PO DAILY [facility] Last Admin: 10/10/16 10:38 Dose: 81 mg Atorvastatin Calcium (Lipitor) 80 mg PO DIN [facility] Last Admin: 10/10/16 18:53 Dose: 80 mg Docusate Sodium (Colace) 100 mg PO BID [facility] Last Admin: 10/10/16 18:51 Dose: 100 mg Famotidine (Pepcid) 20 mg PO BID [facility] Last Admin: 10/10/16 18:52 Dose: 20 mg Gabapentin (Neurontin) 400 mg PO TID [facility] PRN Reason: Protocol Last Admin: 10/10/16 18:52 Dose: 400 mg Heparin Sodium (Porcine) (Heparin) 5,000 units SC Q8 [facility] PRN Reason: Protocol Last Admin: 10/11/16 07:00 Dose: 5,000 units Hydromorphone HCl (Dilaudid) 1 mg IVP Q3H PRN PRN Reason: Pain, severe (8-10) Last Admin: 10/11/16 07:09 Dose: 1 mg Hydromorphone HCl (Dilaudid) 0.5 mg IVP Q4H PRN PRN Reason: Pain, moderate (4-7) Last Admin: 10/09/16 23:12 Dose: 0.5 mg Sodium Chloride (Sodium Chloride 0.45%) 1,000 mls @ 80 mls/hr IV .[id number] [facility] Last Admin: 10/10/16 19:04 Dose: Not Given Multivitamins (Thera Tab) 1 tab PO DAILY [facility] Last Admin: 10/10/16 10:37 Dose: 1 tab Ondansetron HCl (Zofran Inj) 4 mg IVP ONCE PRN PRN Reason: Nausea/Vomiting Ondansetron HCl (Zofran Inj) 4 mg IVP Q4H PRN PRN Reason: Nausea/Vomiting Zinc Sulfate (Zinc Sulfate 220 Mg Cap) 220 mg PO DAILY [facility] Last Admin: 10/10/16 10:10 Dose: 220 mg - Labs Labs: 10/11/16 06:30 10/11/16 06:30 PT 10.7 Seconds (9.9-11.8) 10/05/16 06:00 INR 0.99 (0.93-1.08) 10/05/16 06:00 APTT 35.5 Seconds (23.7-30.8) H 10/02/16 08:10 - Constitutional Appears: Well, Non-toxic, No Acute Distress - Extremities Exam Additional comments: right lower extremity Dressings left intact. left lower extremity knee splint and offloading boots intact - Neurological Exam Neurological Exam: Alert, Awake, Oriented x3 - Psychiatric Exam Psychiatric exam: Normal Affect, Normal Mood - Skin Skin Exam: Normal Color, Warm Assessment and Plan - Assessment and Plan (Free Text) Assessment: 61 year old male with right lower extremity ulceration and bilateral foot drop Plan: patient examined and evaluated with attending, Dr. Olea chart, labs, vitals reviewed Dressing to b/l lower extremities left intact patient to OR Thursday at 5:00 pm for RLE wound debridement, and L FOZIA patient NPO after 8:00 am Thursday morning, tray for 6:30 am patient to wear knee immobilzier and offloading shoe-well padded at all times continue iv abx per ID continue vitamins heparin to be held before surgery podiatry will continue to follow patient while in house <Francisco Olea - Last Filed: 10/11/16 10:42> Objective - Vital Signs/Intake and Output Vital Signs (last 24 hours): Temp Pulse Resp BP Pulse Ox 98 F 98 H 20 116/64 96 10/11/16 07:51 10/10/16 19:59 10/10/16 19:59 10/10/16 20:00 10/11/16 06:00 - Medications Medications: Current Medications Acetaminophen (Tylenol 325mg Tab) 650 mg PO Q6H PRN PRN Reason: Fever >100.4 F Last Admin: 10/10/16 20:41 Dose: 650 mg Ascorbic Acid (Vitamin C 500 Mg Tab) 500 mg PO DAILY [facility] Last Admin: 10/11/16 09:26 Dose: 500 mg Aspirin (Aspirin Chewable) 81 mg PO DAILY [facility] Last Admin: 10/11/16 09:27 Dose: 81 mg Atorvastatin Calcium (Lipitor) 80 mg PO DIN [facility] Last Admin: 10/10/16 18:53 Dose: 80 mg Docusate Sodium (Colace) 100 mg PO BID [facility] Last Admin: 10/11/16 09:27 Dose: 100 mg Famotidine (Pepcid) 20 mg PO BID [facility] Last Admin: 10/11/16 09:28 Dose: 20 mg Gabapentin (Neurontin) 400 mg PO TID [facility] PRN Reason: Protocol Last Admin: 10/11/16 09:26 Dose: 400 mg Heparin Sodium (Porcine) (Heparin) 5,000 units SC Q8 [facility] PRN Reason: Protocol Last Admin: 10/11/16 07:00 Dose: 5,000 units Hydromorphone HCl (Dilaudid) 1 mg IVP Q3H PRN PRN Reason: Pain, severe (8-10) Last Admin: 10/11/16 07:09 Dose: 1 mg Hydromorphone HCl (Dilaudid) 0.5 mg IVP Q4H PRN PRN Reason: Pain, moderate (4-7) Last Admin: 10/09/16 23:12 Dose: 0.5 mg Sodium Chloride (Sodium Chloride 0.45%) 1,000 mls @ 80 mls/hr IV .[id number] [facility] Last Admin: 10/10/16 19:04 Dose: Not Given Multivitamins (Thera Tab) 1 tab PO DAILY [facility] Last Admin: 10/11/16 09:27 Dose: 1 tab Ondansetron HCl (Zofran Inj) 4 mg IVP ONCE PRN PRN Reason: Nausea/Vomiting Ondansetron HCl (Zofran Inj) 4 mg IVP Q4H PRN PRN Reason: Nausea/Vomiting Zinc Sulfate (Zinc Sulfate 220 Mg Cap) 220 mg PO DAILY [facility] Last Admin: 10/11/16 09:26 Dose: 220 mg - Labs Labs: 10/11/16 06:30 10/11/16 06:30 PT 10.7 Seconds (9.9-11.8) 10/05/16 06:00 INR 0.99 (0.93-1.08) 10/05/16 06:00 APTT 35.5 Seconds (23.7-30.8) H 10/02/16 08:10 Attending/Attestation - Attestation I have personally seen and examined this patient.: Yes I have fully participated in the care of the patient.: Yes I have reviewed all pertinent clinical information, including history, physical exam and plan: Yes
[2016-10-11] MEDS: Multivitamin Therapeutic Tab PO SCH (09:27)
--- NOTE | 2016-10-11 10:04 | CP.PCM.PN ---
Subjective - Date & Time of Evaluation Date of Evaluation: 10/11/16 Time of Evaluation: 07:45 - Subjective Subjective: Vascular Surgery: Dr. Nicholson Patient seen and examined this morning. Patient had no complaints. Left leg dressings changed. Surgical incision sites are non-erythematous, clean, dry, intact. However, along peripheral region of island's along the adhesive portion patient developed a few small blisters along adductor region. Patient's leg redressed with 4x4's and curlex w/ no adhesives. Left arm has slight improvement. Pt tolerating diet. No acute events over night. Objective - Vital Signs/Intake and Output Vital Signs (last 24 hours): Temp Pulse Resp BP Pulse Ox 98 F 98 H 20 116/64 96 10/11/16 07:51 10/10/16 19:59 10/10/16 19:59 10/10/16 20:00 10/11/16 06:00 - Medications Medications: Current Medications Acetaminophen (Tylenol 325mg Tab) 650 mg PO Q6H PRN PRN Reason: Fever >100.4 F Last Admin: 10/10/16 20:41 Dose: 650 mg Ascorbic Acid (Vitamin C 500 Mg Tab) 500 mg PO DAILY [facility] Last Admin: 10/11/16 09:26 Dose: 500 mg Aspirin (Aspirin Chewable) 81 mg PO DAILY [facility] Last Admin: 10/11/16 09:27 Dose: 81 mg Atorvastatin Calcium (Lipitor) 80 mg PO DIN [facility] Last Admin: 10/10/16 18:53 Dose: 80 mg Docusate Sodium (Colace) 100 mg PO BID [facility] Last Admin: 10/11/16 09:27 Dose: 100 mg Famotidine (Pepcid) 20 mg PO BID [facility] Last Admin: 10/11/16 09:28 Dose: 20 mg Gabapentin (Neurontin) 400 mg PO TID [facility] PRN Reason: Protocol Last Admin: 10/11/16 09:26 Dose: 400 mg Heparin Sodium (Porcine) (Heparin) 5,000 units SC Q8 [facility] PRN Reason: Protocol Last Admin: 10/11/16 07:00 Dose: 5,000 units Hydromorphone HCl (Dilaudid) 1 mg IVP Q3H PRN PRN Reason: Pain, severe (8-10) Last Admin: 10/11/16 07:09 Dose: 1 mg Hydromorphone HCl (Dilaudid) 0.5 mg IVP Q4H PRN PRN Reason: Pain, moderate (4-7) Last Admin: 10/09/16 23:12 Dose: 0.5 mg Sodium Chloride (Sodium Chloride 0.45%) 1,000 mls @ 80 mls/hr IV .[id number] [facility] Last Admin: 10/10/16 19:04 Dose: Not Given Multivitamins (Thera Tab) 1 tab PO DAILY [facility] Last Admin: 10/11/16 09:27 Dose: 1 tab Ondansetron HCl (Zofran Inj) 4 mg IVP ONCE PRN PRN Reason: Nausea/Vomiting Ondansetron HCl (Zofran Inj) 4 mg IVP Q4H PRN PRN Reason: Nausea/Vomiting Zinc Sulfate (Zinc Sulfate 220 Mg Cap) 220 mg PO DAILY [facility] Last Admin: 10/11/16 09:26 Dose: 220 mg - Labs Labs: 10/11/16 06:30 10/11/16 06:30 PT 10.7 Seconds (9.9-11.8) 10/05/16 06:00 INR 0.99 (0.93-1.08) 10/05/16 06:00 APTT 35.5 Seconds (23.7-30.8) H 10/02/16 08:10 - Constitutional Appears: No Acute Distress - Head Exam Head Exam: NORMOCEPHALIC - Eye Exam Eye Exam: Normal appearance - ENT Exam ENT Exam: Mucous Membranes Moist - Neck Exam Neck Exam: Normal Inspection - Respiratory Exam Respiratory Exam: NORMAL BREATHING PATTERN - Cardiovascular Exam Cardiovascular Exam: +S1, +S2 - GI/Abdominal Exam GI & Abdominal Exam: Soft. absent: Firm, Guarding, Rigid - Extremities Exam Extremities Exam: absent: Pedal Edema Additional comments: Surgical incision sites c/d/i. Small blisters along adductor region 2/2 adhesive Foot is warm. Sensation and Motor intact Left arm patient able to move fingers patient unable to pronate/supinate Unable to flex/extend at the elbow Patient able to adduct/shrug at shoulder - Neurological Exam Neurological Exam: Alert, Awake - Psychiatric Exam Psychiatric exam: Normal Mood - Skin Skin Exam: Dry, Warm Assessment and Plan - Assessment and Plan (Free Text) Assessment: 61 M s/p left fem-pop bypass and s. vein graft POD #4 -Hold Thursday night prior to podiatry procedure Thursday -Do not place adhesives on skin -ASA per Neuro -Continue w/ PT/OT -Wrist splint -Continue medical management per primary team. D/W Dr. Nicholson
--- NOTE | 2016-10-11 10:32 | PN ---
DATE: 10/11/2016 SUBJECTIVE: The patient was seen and examined at bedside in the CCU. No acute events overnight. He remains afebrile and hemodynamically stable. The patient is noted to have continued improvement in his left upper extremity weakness and with increasing motor function. This morning he states he feels okay and is pending wound debridement on Thursday (10/13/2016). OBJECTIVE: VITAL SIGNS: Temperature 98, pulse 84, blood pressure 116/64, respiratory rate 20, oxygen saturation 98% on room air. GENERAL: No apparent distress. HEENT: PERRL, EOMI. No scleral icterus. No conjunctival pallor. NECK: No JVD, no bruits. LUNGS: Clear to auscultation. CARDIOVASCULAR: Regular rate and rhythm. Normal S1 and S2. ABDOMEN: Normoactive bowel sounds, soft, nontender, nondistended. EXTREMITIES: Right lower extremity with surgical dressing in place. Left lower extremity with no edema. NEUROLOGIC: Awake, alert and oriented x 3. Motor 5/5 on right, left upper extremity 0/5, left hand with movement to all fingers. LABORATORY DATA: WBC 10 with 57% neutrophils, hemoglobin 9, hematocrit 28, platelets 433. Chemistry reviewed and unremarkable. Blood cultures with no growth to date. ASSESSMENT: The patient is a 61-year-old man with past medical history of severe peripheral vascular disease/peripheral arterial disease, status post interventional radiology revascularization, status post endovascular catheter- directed tissue plasminogen activator, status post amputation of the right foot digits with multiple prior admissions for cellulitis, dry gangrene and osteomyelitis, who presents to [facility] for evaluation of right below-knee amputation, who is now status post revascularization with vascular surgery and who is pending wound debridement whose post-procedure course was complicated by left upper extremity with concern for possible brachial plexus injury. PLAN: 1. Severe PVD/PAD. Input from Dr. Nicholson noted and appreciated. Input from Dr. Albert noted and appreciated and the patient is scheduled for a repeat wound debridement in 2 days' time. Continue with Lipitor 80 mg p.o. daily and aspirin 81 mg p.o. daily. We will hold Eliquis in anticipation of OR for wound debridement. 2. Left upper extremity paralysis, resolving. Input from Dr. Guerrero of neurology noted and appreciated. 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 Continue with care as per Dr. Guerrero. 3. Chronic nonhealing right lower extremity ulcer. Input from Dr. Albert noted and greatly appreciated and as above, the patient is pending wound debridement in the OR. 4. Transaminitis, etiology secondary to fatty liver disease with concurrent statin use. LFTs remain stable. 5. Prophylaxis. Continue with Pepcid for GI prophylaxis and heparin for DVT prophylaxis. CODE STATUS: Full code. Gume Gonzalez MD cc: [id number] TT: 10/11/2016 10:31:52 Confirmation # [id number] Dictation # [id number] tn MTDD
--- NOTE | 2016-10-11 13:44 | PN ---
DATE: 10/11/2016 The patient is in bed in no acute distress, nontoxic. Awake and alert. PHYSICAL EXAMINATION: VITAL SIGNS: Temperature is 97, blood pressure is 116/60, respiratory rate of 20. HEENT: Unremarkable. NECK: Supple. LUNGS: Have decreased breath sounds. HEART: Normal S1, S2. ABDOMEN: Soft, nontender. LABORATORY DATA: Reveals a white count of 10,000, hemoglobin of 9, platelets of 433. Chemistries re veal the BUN of 16, creatinine of 0.9. Microbiology reveals the cultures are negative. Review of the orders reveals the patient to be off of antibiotics. ASSESSMENT AND PLAN: This is a 61-year-old male with dry gangrene of ____ leg with nonhealing wound status post vascular intervention by Dr. Mary Nicholson in the patient who is a long time smoker with se juan peripheral vascular disease, currently with changes on the leg and for possibility of bone biops y and debridement and bone culture off of antibiotics, afebrile. We will follow closely with you. Chidi Moreira MD cc: [id number] TT: 10/11/2016 13:44:30 Confirmation # [id number] Dictation # [id number] francisco
[2016-10-11] MEDS: HYDROmorphone 0.5 mg/0.5 ml ISec IVP PRN (20:00)
[2016-10-12] MEDS: HYDROmorphone 0.5 mg/0.5 ml ISec IVP PRN ×6 (00:37→21:41)
[2016-10-12 06:03] LABS: ADD MANUAL DIFF? NO
[2016-10-12 06:16] LABS: URINE BILIRUBIN NEGATIVE (NEGATIVE); URINE BLOOD NEGATIVE (NEGATIVE); URINE GLUCOSE (UA) NEGATIVE (NEGATIVE); URINE KETONE NEGATIVE (NEGATIVE); URINE LEUKOCYTE ESTERASE NEGATIVE Leu/uL (NEGATIVE); URINE PROTEIN NEGATIVE mg/dL (<30 mg/dL); URINE UROBILINOGEN 0.2 E.U./dL (<1 E.U./dL)
[2016-10-12 06:17] LABS: URINE APPEARANCE CLEAR (CLEAR); URINE COLOR YELLOW (YELLOW)
[2016-10-12 06:17] LABS: BASO # 0.05 K/mm3 (0.0-2.0); BASO % 0.6 % (0.0-3.0); EOS # 0.8 (0.0-0.7); EOS % 8.7 % (1.5-5.0); GRAN # 5.25 (1.4-6.5); GRAN % 58.8 % (50.0-68.0); HEMATOCRIT 26.3 % (42.0-52.0); LYMPH # 1.8 (1.2-3.4); LYMPH % 19.7 % (22.0-35.0); MEAN CELL VOLUME 94.9 fL (80.0-105.0); MEAN CORPUSCULAR HEMOGLOBIN 31.4 pg (25.0-35.0); MEAN CORPUSCULAR HGB CONC 33.1 g/dl (31.0-37.0); MEAN PLATELET VOLUME 9.8 fl (7.0-11.0); MONO # 1.1 (0.1-0.6); MONO % 12.2 % (1.0-6.0); PLATELET COUNT 453 10^3/uL (120.0-450.0); RED CELL DISTRIBUTION WIDTH 16.1 % (11.5-14.5); WHITE BLOOD COUNT 8.9 10^3/ul (4.5-11.0)
[2016-10-12 06:21] LABS: ALB/GLOB RATIO 0.8 (1.1-1.8); ALKALINE PHOSPHATASE 244 U/L (38-133); ALT/SGPT 69 U/L (7-56); AST/SGOT 88 U/L (15-59); BILIRUBIN,TOTAL 0.7 mg/dL (0.2-1.3); BLOOD UREA NITROGEN 11 mg/dL (7-21); CALCIUM 8.9 mg/dL (8.4-10.5); CARBON DIOXIDE 26 mmol/L (21-33); CHLORIDE 103 mmol/L (98-107); GFR AFRICAN-AMERICAN > 60; GLUCOSE,RANDOM 115 mg/dL (70-110); POTASSIUM 4.2 mmol/L (3.6-5.0); SODIUM 136 mmol/L (132-148); TOTAL PROTEIN 6.7 g/dL (5.8-8.3)
[2016-10-12 06:37] LABS: URINE BACTERIA LARGE (NEG); URINE RBC NEGATIVE /hpf (0-2); URINE WBC 0 - 2 /hpf (0-6)
[2016-10-12] MEDS: Sodium Chloride 0.45% 1,000 ML IV SCH ×3 (08:17→20:05)
--- NOTE | 2016-10-12 08:40 | PN ---
DATE: 10/12/2016 SUBJECTIVE: The patient is in bed in no acute distress, nontoxic. Seen earlier this morning in the ICU. PHYSICAL EXAMINATION: VITAL SIGNS: Temperature is 98. Blood pressure is 106/70, respiratory rate of 20, heart rate of 80. HEENT: Unremarkable. NECK: Supple. LUNGS: Have decreased breath sounds. HEART: Normal S1, S2. ABDOMEN: Soft, nontender. No rebound, no guarding. EXTREMITIES: Examination of the leg is unchanged. LABORATORY EXAMINATION: Reveals the patient's white count of 8.9, hemoglobin of 8.7, and platelets o f 453, BUN of 11, creatinine of 0.8. Microbiology reveals cultures are negative from the blood. Lucius al MRSA is negative. ASSESSMENT AND PLAN: This is a 61-year-old male with dry gangrene of the right leg and nonhealing wo und status post vascular intervention by Dr. Valencia Nicholson in a patient who is a longtime smoker with severe peripheral vascular disease, for possible wound debridement, although at this time chronic ch anges. No evidence of an active infection, and the patient's left upper extremity is noted to be par alysis that is resolving, and brachial plexus unremarkable on MRI. Currently off of antibiotics, afDr. Roosevelt edge for possible wound debridement, and bone biopsy, and bone cultures, and pathology. We will maintain the patient off of antibiotics, afebrile. We will follow closely with you. Chidi Moreira MD cc: [id number] TT: 10/12/2016 08:39:52 Confirmation # [id number] Dictation # [id number] francisco
--- NOTE | 2016-10-12 10:11 | CP.PCM.PN ---
Subjective - Date & Time of Evaluation Date of Evaluation: 10/12/16 Time of Evaluation: 08:00 - Subjective Subjective: Vascular Surgery: Dr. Nicholson Pt seen and examined. No acute overnight events. Pt states he feels ok, pain is well controlled. Denies any complaints at this time. No fevers overnight. Objective - Vital Signs/Intake and Output Vital Signs (last 24 hours): Temp Pulse Resp BP Pulse Ox 98.4 F 82 18 127/57 L 95 10/12/16 08:00 10/12/16 08:11 10/12/16 08:00 10/12/16 08:11 10/12/16 02:00 Intake and Output: 10/12/16 10/12/16 06:59 18:59 Intake Total 1160 Output Total 1500 Balance -340 - Medications Medications: Current Medications Acetaminophen (Tylenol 325mg Tab) 650 mg PO Q6H PRN PRN Reason: Fever >100.4 F Last Admin: 10/10/16 20:41 Dose: 650 mg Ascorbic Acid (Vitamin C 500 Mg Tab) 500 mg PO DAILY [facility] Last Admin: 10/11/16 09:26 Dose: 500 mg Aspirin (Aspirin Chewable) 81 mg PO DAILY [facility] Last Admin: 10/11/16 09:27 Dose: 81 mg Atorvastatin Calcium (Lipitor) 80 mg PO DIN [facility] Last Admin: 10/11/16 17:22 Dose: 80 mg Docusate Sodium (Colace) 100 mg PO BID [facility] Last Admin: 10/11/16 17:22 Dose: 100 mg Famotidine (Pepcid) 20 mg PO BID [facility] Last Admin: 10/11/16 18:26 Dose: 20 mg Gabapentin (Neurontin) 400 mg PO TID [facility] PRN Reason: Protocol Last Admin: 10/11/16 17:25 Dose: 400 mg Heparin Sodium (Porcine) (Heparin) 5,000 units SC Q8 [facility] PRN Reason: Protocol Last Admin: 10/12/16 05:32 Dose: 5,000 units Hydromorphone HCl (Dilaudid) 0.5 mg IVP Q4H PRN PRN Reason: Pain, moderate (4-7) Last Admin: 10/12/16 08:10 Dose: 0.5 mg Sodium Chloride (Sodium Chloride 0.45%) 1,000 mls @ 80 mls/hr IV .[id number] [facility] Last Admin: 10/12/16 08:28 Dose: Not Given Multivitamins (Thera Tab) 1 tab PO DAILY [facility] Last Admin: 10/11/16 09:27 Dose: 1 tab Ondansetron HCl (Zofran Inj) 4 mg IVP ONCE PRN PRN Reason: Nausea/Vomiting Ondansetron HCl (Zofran Inj) 4 mg IVP Q4H PRN PRN Reason: Nausea/Vomiting Zinc Sulfate (Zinc Sulfate 220 Mg Cap) 220 mg PO DAILY [facility] Last Admin: 10/11/16 09:26 Dose: 220 mg - Labs Labs: 10/12/16 05:30 10/12/16 05:30 PT 10.7 Seconds (9.9-11.8) 10/05/16 06:00 INR 0.99 (0.93-1.08) 10/05/16 06:00 APTT 35.5 Seconds (23.7-30.8) H 10/02/16 08:10 - Constitutional Appears: Well, No Acute Distress - Eye Exam Eye Exam: Normal appearance - ENT Exam ENT Exam: Mucous Membranes Moist - Respiratory Exam Respiratory Exam: NORMAL BREATHING PATTERN - Cardiovascular Exam Cardiovascular Exam: RRR - GI/Abdominal Exam GI & Abdominal Exam: Soft. absent: Tenderness - Extremities Exam Additional comments: Left leg incision s/p bypass graft C/D/I, pulses dopplerable in b/l LE. - Neurological Exam Neurological Exam: Alert, Awake, Oriented x3 - Skin Skin Exam: Dry, Warm Assessment and Plan - Assessment and Plan (Free Text) Assessment: 61M s/p Left fem-pop bypass with saphenous vein graft; POD#5 Plan: - Pt scheduled for debridement of R leg wound with podiatry tomorrow - Cont PT/OT - Cont left arm exercises - d/w Dr. Bharat Gomes, PGY-2 Surgery
[2016-10-12] MEDS: Multivitamin Therapeutic Tab PO SCH (10:21)
[2016-10-13] MEDS: HYDROmorphone 0.5 mg/0.5 ml ISec IVP PRN ×5 (01:49→23:47)
[2016-10-13 06:51] LABS: INR 0.99 (0.93-1.08)
--- NOTE | 2016-10-13 07:26 | CP.PCM.PN ---
Subjective - Date & Time of Evaluation Date of Evaluation: 10/13/16 Time of Evaluation: 07:15 - Subjective Subjective: Vascular Surgery Pt S&E, KATJA. He is working with PT. Pain controlled. Going to OR with podiatry today. Objective - Vital Signs/Intake and Output Vital Signs (last 24 hours): Temp Pulse Resp BP Pulse Ox 98.4 F 78 20 116/66 96 10/13/16 06:00 10/13/16 06:00 10/13/16 06:00 10/13/16 06:00 10/13/16 06:00 Intake and Output: 10/13/16 10/13/16 06:59 18:59 Intake Total 1160 Output Total 1700 Balance -540 - Medications Medications: Current Medications Acetaminophen (Tylenol 325mg Tab) 650 mg PO Q6H PRN PRN Reason: Fever >100.4 F Last Admin: 10/10/16 20:41 Dose: 650 mg Ascorbic Acid (Vitamin C 500 Mg Tab) 500 mg PO DAILY [facility] Last Admin: 10/12/16 10:21 Dose: 500 mg Aspirin (Aspirin Chewable) 81 mg PO DAILY [facility] Last Admin: 10/12/16 10:22 Dose: 81 mg Atorvastatin Calcium (Lipitor) 80 mg PO DIN [facility] Last Admin: 10/12/16 16:54 Dose: 80 mg Docusate Sodium (Colace) 100 mg PO BID [facility] Last Admin: 10/12/16 16:59 Dose: 100 mg Famotidine (Pepcid) 20 mg PO BID [facility] Last Admin: 10/12/16 18:05 Dose: 20 mg Gabapentin (Neurontin) 400 mg PO TID [facility] PRN Reason: Protocol Last Admin: 10/12/16 17:44 Dose: Not Given Heparin Sodium (Porcine) (Heparin) 5,000 units SC Q8 [facility] PRN Reason: Protocol Last Admin: 10/13/16 05:04 Dose: Not Given Hydromorphone HCl (Dilaudid) 0.5 mg IVP Q4H PRN PRN Reason: Pain, moderate (4-7) Last Admin: 10/13/16 05:50 Dose: 0.5 mg Sodium Chloride (Sodium Chloride 0.45%) 1,000 mls @ 80 mls/hr IV .[id number] [facility] Last Admin: 10/12/16 20:05 Dose: 80 mls/hr Multivitamins (Thera Tab) 1 tab PO DAILY [facility] Last Admin: 10/12/16 10:21 Dose: 1 tab Ondansetron HCl (Zofran Inj) 4 mg IVP ONCE PRN PRN Reason: Nausea/Vomiting Ondansetron HCl (Zofran Inj) 4 mg IVP Q4H PRN PRN Reason: Nausea/Vomiting Zinc Sulfate (Zinc Sulfate 220 Mg Cap) 220 mg PO DAILY [facility] Last Admin: 10/12/16 10:22 Dose: 220 mg - Labs Labs: 10/12/16 05:30 10/12/16 05:30 PT 10.7 Seconds (9.9-11.8) 10/13/16 06:00 INR 0.99 (0.93-1.08) 10/13/16 06:00 APTT 30.8 Seconds (23.7-30.8) 10/12/16 22:43 - Constitutional Appears: Non-toxic, No Acute Distress - Head Exam Head Exam: ATRAUMATIC, NORMOCEPHALIC - Eye Exam Eye Exam: EOMI - Respiratory Exam Respiratory Exam: NORMAL BREATHING PATTERN. absent: Respiratory Distress - GI/Abdominal Exam GI & Abdominal Exam: Soft. absent: Distended, Tenderness - Extremities Exam Additional comments: Dressings on Left leg incisions s/p bypass graft C/D/I Skin tear on L thigh from tape Odor from R Leg wound - Neurological Exam Neurological Exam: Alert, Awake - Skin Skin Exam: Dry, Warm Assessment and Plan - Assessment and Plan (Free Text) Assessment: 61M s/p Left fem-pop bypass with saphenous vein graft; POD#6 Plan: Pt scheduled for debridement of R leg wound with podiatry today Cont PT/OT Cont left arm exercises Will D/W Dr. Bharat Hartmann PGY3
--- NOTE | 2016-10-13 08:19 | PN ---
DATE: 10/13/2016 SUBJECTIVE: The patient seen and examined at bedside on the telemetry cramer. No acute events overnight. He remains afebrile and hemodynamically stable. This morning, he is pending wound debridement with Dr. Albert in the OR. Otherwise, he feels okay, but continues to report decreased movement to the left upper extremity (which is improving) and otherwise offers no complaints. OBJECTIVE: VITAL SIGNS: Temperature 98.4, pulse 78, blood pressure 116/66, respiratory rate 20, oxygen saturation 96% on room air. GENERAL: No apparent distress. HEENT: PERRL, EOMI. No scleral icterus. No conjunctival pallor. NECK: No JVD, no bruits. LUNGS: Clear to auscultation. CARDIOVASCULAR: Regular rate and rhythm. Normal S1 and S2. ABDOMEN: Normoactive bowel sounds, soft, nontender, nondistended. EXTREMITIES: Right lower extremity with surgical dressing in place. Left lower extremity with no edema. NEUROLOGIC: Awake, alert and oriented x 3. Motor 5/5 on right, 1/5 on left upper extremity. LABORATORY DATA: Morning labs are pending. ASSESSMENT: The patient is a 61-year-old man with past medical history of severe peripheral vascular disease/peripheral arterial disease, status post interventional radiology vascularization, status post endovascular catheter- directed tissue plasminogen activator, status post amputation of the right foot digits with multiple prior admissions for cellulitis, dry gangrene and osteomyelitis, who presented to [facility] for evaluation of right below knee amputation, who is now status post revascularization with vascular surgery and presently pending wound debridement of his right lower extremity. PLAN: 1. Severe peripheral vascular disease/peripheral arterial disease. Input from Dr. Nicholson and Dr. Albert noted and appreciated. The patient is scheduled for wound debridement this morning. Continue with Lipitor 80 mg p.o. daily and aspirin 81 mg p.o. daily. Continue to hold Eliquis given planned wound debridement. 2. Left upper extremity paralysis, resolving. Input from Dr. Guerrero of neurology noted and appreciated. Continue with physical therapy. 3. Chronic nonhealing right lower extremity ulcer. Input from Dr. Albert noted and greatly appreciated. As above, patient is pending wound debridement this morning. 4. Transaminitis. Etiology secondary to fatty liver disease with concurrent statin use. Continue to monitor CMP daily. 5. Prophylaxis. Continue with Pepcid for gastrointestinal prophylaxis and heparin for deep venous thrombosis prophylaxis. CODE STATUS: Full code. Gume Gonzalez MD cc: [id number] TT: 10/13/2016 08:19:21 Confirmation # [id number] Dictation # [id number] en MTDD
[2016-10-13] MEDS: Multivitamin Therapeutic Tab PO SCH (10:09)
--- NOTE | 2016-10-13 15:57 | CP.PCM.PN ---
<Misty Banuelos - Last Filed: 10/13/16 19:59> Subjective - Date & Time of Evaluation Date of Evaluation: 10/13/16 Time of Evaluation: 15:54 - Subjective Subjective: 61 year old male was seen resting in bed regarding right leg wound. Today, he is going for a wound debridement with application of intregra graft on the right and tendoachilles lengthening on the left with attending Dr. Albert. NPO status confirmed. Patient denies any acute events overnight. He understands the procedure he will be having today. Denies n/f/c/v/d/sob. Objective - Vital Signs/Intake and Output Vital Signs (last 24 hours): Temp Pulse Resp BP Pulse Ox 98.3 F 80 18 126/54 L 96 10/13/16 12:00 10/13/16 12:00 10/13/16 12:00 10/13/16 12:00 10/13/16 06:00 Intake and Output: 10/13/16 10/13/16 06:59 18:59 Intake Total 1160 100 Output Total 1700 1700 Balance -540 -1600 - Medications Medications: Current Medications Acetaminophen (Tylenol 325mg Tab) 650 mg PO Q6H PRN PRN Reason: Fever >100.4 F Last Admin: 10/10/16 20:41 Dose: 650 mg Ascorbic Acid (Vitamin C 500 Mg Tab) 500 mg PO DAILY [facility] Last Admin: 10/13/16 10:09 Dose: 500 mg Aspirin (Aspirin Chewable) 81 mg PO DAILY [facility] Last Admin: 10/13/16 10:07 Dose: 81 mg Atorvastatin Calcium (Lipitor) 80 mg PO DIN [facility] Last Admin: 10/12/16 16:54 Dose: 80 mg Docusate Sodium (Colace) 100 mg PO BID [facility] Last Admin: 10/13/16 10:07 Dose: 100 mg Famotidine (Pepcid) 20 mg PO BID [facility] Last Admin: 10/13/16 10:09 Dose: 20 mg Gabapentin (Neurontin) 400 mg PO TID [facility] PRN Reason: Protocol Last Admin: 10/13/16 13:47 Dose: 400 mg Heparin Sodium (Porcine) (Heparin) 5,000 units SC Q8 [facility] PRN Reason: Protocol Last Admin: 10/13/16 05:04 Dose: Not Given Hydromorphone HCl (Dilaudid) 0.5 mg IVP Q4H PRN PRN Reason: Pain, moderate (4-7) Last Admin: 10/13/16 13:47 Dose: 0.5 mg Multivitamins (Thera Tab) 1 tab PO DAILY [facility] Last Admin: 10/13/16 10:09 Dose: 1 tab Ondansetron HCl (Zofran Inj) 4 mg IVP Q4H PRN PRN Reason: Nausea/Vomiting Zinc Sulfate (Zinc Sulfate 220 Mg Cap) 220 mg PO DAILY [facility] Last Admin: 10/13/16 10:09 Dose: 220 mg - Labs Labs: 10/12/16 05:30 10/12/16 05:30 PT 10.7 Seconds (9.9-11.8) 10/13/16 06:00 INR 0.99 (0.93-1.08) 10/13/16 06:00 APTT 30.8 Seconds (23.7-30.8) 10/12/16 22:43 - Constitutional Appears: Chronically Ill - Extremities Exam Additional comments: dressing intact to lower extremities b/l - Neurological Exam Neurological Exam: Alert, Awake, Oriented x3 - Psychiatric Exam Psychiatric exam: Normal Affect, Normal Mood Assessment and Plan - Assessment and Plan (Free Text) Assessment: 60 year old male with non-healing right leg ulcer and drop foot on the left Plan: Patient evaluated and seen at bedside Discussed with attending Dr. Albert NPO status confirmed Explained to patient risks, benefits, complications of procedure No guarantees were made Consent signed and in chart Podiatry will continue to follow patient while in house <Gabby Albert - Last Filed: 11/02/16 16:34> Objective - Vital Signs/Intake and Output Vital Signs (last 24 hours): Temp Pulse Resp BP Pulse Ox 98.2 F 68 20 99/54 L 90 L 10/22/16 16:00 10/22/16 16:00 10/22/16 16:00 10/22/16 16:00 10/22/16 16:00 - Labs Labs: 10/22/16 06:45 10/22/16 06:45 PT 10.7 Seconds (9.9-11.8) 10/13/16 06:00 INR 0.99 (0.93-1.08) 10/13/16 06:00 APTT 30.8 Seconds (23.7-30.8) 10/12/16 22:43
--- NOTE | 2016-10-13 16:09 | PN ---
DATE: 10/13/2016 SUBJECTIVE: The patient is in bed, comfortable, awaiting to go to the OR for debridement of the woun d in the lower extremity. PHYSICAL EXAMINATION: VITAL SIGNS: Blood pressure is 126/54. Heart rate is in the 80s. NECK: Negative JVD. LUNGS: Without rales. HEART: Reveals S1, S2. EXTREMITIES: Bandaged. LABORATORY DATA: Hemoglobin is 8.7. Chemistries were not done today. IMPRESSION: 1. Severe peripheral vascular disease. 2. Foot ulcers. 3. Status post peripheral vascular surgery. 4. Hypercholesterolemia. 5. Chronic obstructive pulmonary disease. PLAN: Given these findings, patient is hemodynamically stable for his planned procedure today. Ramin Mayers MD cc: [id number] TT: 10/13/2016 16:07:56 Confirmation # [id number] Dictation # [id number]
[2016-10-13] MEDS ORDERED: Lidocaine 2% Inj (20ml) ONE (16:35)
[2016-10-13] MEDS ORDERED: Propofol 10 mg/ml Inj (20 ML) ONE (16:41)
[2016-10-13] MEDS ORDERED: Ketamine 10 mg/ml Inj (20 ml) ONE (16:49)
[2016-10-13] MEDS ORDERED: Succinylcholine 200 mg/10 ml Inj IV ONE (16:59)
[2016-10-13] MEDS ORDERED: Etomidate 20 mg/10ml Inj IV ONE (17:00)
[2016-10-13] MEDS ORDERED: Bupivacaine 0.5% Inj(30mL) ONE (17:19)
--- NOTE | 2016-10-13 17:22 | CP.PCM.PN ---
Subjective - Date & Time of Evaluation Date of Evaluation: 10/13/16 Time of Evaluation: 11:15 - Subjective Subjective: Patient is for debridement today and bone biopsy. No fevers overnight. Still having left hand weakness but slowly getting better. Objective - Vital Signs/Intake and Output Vital Signs (last 24 hours): Temp Pulse Resp BP Pulse Ox 98.4 F 78 20 116/66 96 10/13/16 06:00 10/13/16 06:00 10/13/16 06:00 10/13/16 06:00 10/13/16 06:00 Intake and Output: 10/13/16 10/13/16 06:59 18:59 Intake Total 1160 Output Total 1700 Balance -540 - Medications Medications: Current Medications Acetaminophen (Tylenol 325mg Tab) 650 mg PO Q6H PRN PRN Reason: Fever >100.4 F Last Admin: 10/10/16 20:41 Dose: 650 mg Ascorbic Acid (Vitamin C 500 Mg Tab) 500 mg PO DAILY [facility] Last Admin: 10/12/16 10:21 Dose: 500 mg Aspirin (Aspirin Chewable) 81 mg PO DAILY [facility] Last Admin: 10/12/16 10:22 Dose: 81 mg Atorvastatin Calcium (Lipitor) 80 mg PO DIN [facility] Last Admin: 10/12/16 16:54 Dose: 80 mg Docusate Sodium (Colace) 100 mg PO BID [facility] Last Admin: 10/12/16 16:59 Dose: 100 mg Famotidine (Pepcid) 20 mg PO BID [facility] Last Admin: 10/12/16 18:05 Dose: 20 mg Gabapentin (Neurontin) 400 mg PO TID [facility] PRN Reason: Protocol Last Admin: 10/12/16 17:44 Dose: Not Given Heparin Sodium (Porcine) (Heparin) 5,000 units SC Q8 [facility] PRN Reason: Protocol Last Admin: 10/13/16 05:04 Dose: Not Given Hydromorphone HCl (Dilaudid) 0.5 mg IVP Q4H PRN PRN Reason: Pain, moderate (4-7) Last Admin: 10/13/16 05:50 Dose: 0.5 mg Multivitamins (Thera Tab) 1 tab PO DAILY [facility] Last Admin: 10/12/16 10:21 Dose: 1 tab Ondansetron HCl (Zofran Inj) 4 mg IVP Q4H PRN PRN Reason: Nausea/Vomiting Zinc Sulfate (Zinc Sulfate 220 Mg Cap) 220 mg PO DAILY [facility] Last Admin: 10/12/16 10:22 Dose: 220 mg - Labs Labs: 10/12/16 05:30 10/12/16 05:30 PT 10.7 Seconds (9.9-11.8) 10/13/16 06:00 INR 0.99 (0.93-1.08) 10/13/16 06:00 APTT 30.8 Seconds (23.7-30.8) 10/12/16 22:43 - Constitutional Appears: Non-toxic, No Acute Distress - Head Exam Head Exam: NORMAL INSPECTION - ENT Exam ENT Exam: Mucous Membranes Moist - Neck Exam Neck Exam: absent: Lymphadenopathy, Meningismus - Respiratory Exam Respiratory Exam: Decreased Breath Sounds - Cardiovascular Exam Cardiovascular Exam: +S1, +S2 - GI/Abdominal Exam GI & Abdominal Exam: Soft. absent: Tenderness - Extremities Exam Additional comments: both lower extremities with dressings in place Assessment and Plan - Assessment and Plan (Free Text) Plan: Assessment Right leg dry gangrene and non-healing wound with severe peripheral vascular disease R/O osteomyelitis - planned for debridement today and bone biopsy to rule out osteomyelitis to be done this week by Podiatry S/P revascularization and S/P fem-pop bypass S/P grafting Plan Discussed with Dr. Albert - will await bone biopsy prior to starting antibiotics if needed - will continue to monitor the patient off antibiotics - will repeat septic work up for Temp >101 F and start antibiotics if this occurs
[2016-10-13] MEDS ORDERED: Vancomycin 1 g Inj ONE (17:29)
[2016-10-13] MEDS ORDERED: Desflurane Inhalation Anesthetic Liq (240 ml) ONE (17:31)
[2016-10-13] MEDS ORDERED: HYDROmorphone 1 mg/ml ISec IVP PRN (18:06)
[2016-10-13] MEDS ORDERED: Sodium Chloride 0.9% 1,000 ML IV SCH (18:15)
--- NOTE | 2016-10-13 19:36 | PCM.SURG1 ---
Surgeon's Initial Post Op Note - Surgeon's Notes Surgeon: Dr. Albert DPM Professor Of Biology: Dr. Banuelos DPM PGY-1 Type of Anesthesia: General Endo Pre-Operative Diagnosis: right leg chronic non-healing wound with osteomyelitis , left drop foot Operative Findings: see dictation Post-Operative Diagnosis: same Operation Performed: right wound debridement with bone biopsy, antibiotic beads , and application of integra graft, left tendo achilles lengthening Specimen/Specimens Removed: bone, wound culture Estimated Blood Loss: EBL {In ML}: 15 Blood Products Given: N/A Drains Used: No Drains Post-Op Condition: Good Date of Surgery/Procedure: 10/13/16 Time of Surgery/Procedure: 17:10
[2016-10-13] MEDS ORDERED: HYDROmorphone 0.5 mg/0.5 ml ISec ONE (19:51)
--- NOTE | 2016-10-13 20:56 | OP ---
PROCEDURE DATE: 10/13/2016 SURGEON: Dr. Gabby Albert. FLOOR COVERER APPRENTICE: Misty Banuelos DPM. ANESTHESIOLOGIST: Dr. Roblero. ANESTHESIA: General. PREOPERATIVE DIAGNOSIS: Right chronic nonhealing wound with osteomyelitis and left drop foot. POSTOPERATIVE DIAGNOSIS: Right chronic nonhealing wound with osteomyelitis and left drop foot. PROCEDURE PERFORMED: Debridement of chronic non-healing wound to right anterior khanna with bone biopsy , antibiotic beads and application of Integra graft on the right and tendon Achilles lengthening on the left. PROCEDURE: Right debridement of chronic nonhealing wound with bone biopsy and application of antibiotic beads and Integra graft. Left tendon Achilles lengthening. INDICATIONS: The patient is a 61-year-old male with the above diagnosis. The patient has exhausted all conservative treatment at this time and now requires surgical intervention. The patient signed a consent after careful explanation of risks, benefits, complications and alternatives for surgical procedure. No guarantees were given nor implied. N.p.o. status was confirmed prior to taking the patient to the OR. PREPARATION: The patient was brought into the operating room and placed on the operating room table in a supine position. Time-out was performed for identification of the correct patient and procedure. After induction of general anesthesia, the right and left leg were then prepped and draped in a normal sterile fashion and the procedure began. PROCEDURE 1: Attention was directed to the anterior aspect of the right lower extremity where the chronic nonhealing wound is located. The wound measures approximately 11 cm x 4 cm x 3 cm with exposed bone. Utilizing pickups and a # 15 blade, necrotic tissue was removed from the ulceration site. A bone biopsy was taken using a rongeur and a bone cutter and the specimen was passed off the field and sent for pathology and culture. Next, utilizing VersaJet, all nonviable necrotic and fibrotic tissue was non-excisionally debrided using a setting 10. Next, utilizing a yumiko, the bone was debrided of all nonviable bone. On the back table, the antibiotic beads were mixed with vancomycin powder and set to dry. The beads were then placed into the wound. Next, an Integra flowable matrix was placed in the wound, followed by an Integra mesh bilayer wound matrix that was stapled into place to secure the graft. The remaining portion of the graft was then used and placed over the right heel over the ulceration site. The wounds were then dressed with Adaptic. The heel was dressed with an Allevyn foam, ABD and Kerlix and the anterior khanna was then dressed with a wound VAC, ABD and Kerlix. The left foot was redraped and attention was directed for procedure 2. PROCEDURE 2: Tendon Achilles lengthening of the left. Attention was directed to the posterior aspect of the left leg to the Achilles tendon. Three incisions were made, the first approixmetly 2 cm from the insertion of the achilles tendon, and the other two approximately 3 cm apart. The most proximal and most distal incisions were made medial to the Achilles tendon and the intermediate incision was made lateral to the tendon. Utilizing a #15 blade, an incision was made deepened until the fibers of the Achilles tendon were cut. The ankle was then dorsiflexed to 90 degree and correction was noted to be excellent. The incision sites were closed with 4-0 nylon. The foot was then dressed with sterile 4 x 4s, ABD and Allevyn foam to the heel. Cast padding was then applied. Fiberglass cast tape was then applied and lastly knee immobilizers were placed bilaterally with cast padding underneath as well as heel offloading pads. POSTOPERATIVE CONDITION: The patient tolerated the anesthesia and procedure well and was escorted to the recovery room with vital signs stable and neurovascular status intact bilaterally. The patient will be continued to follow while in-house. MISTY BANUELOS DPM Gabby Albert DPM cc: [id number] TT: 10/13/2016 20:55:47 sn LEI
--- NOTE | 2016-10-14 00:10 | CP.PCM.PN ---
Subjective - Date & Time of Evaluation Date of Evaluation: 10/14/16 Time of Evaluation: 00:10 - Subjective Subjective: S:Patient was seen at bedside. He complained of pain in left foot. Mild pain for past half hour. No other complaints at this time. Denies chest pain, sob, paraesthesia. Medical record was reviewed. O:VSS. Not in acute distress. LUNGS:Normal breathing pattern. LEFT FOOT: No edema. A:Left foot pain. P:Tylenol 650 mg PO x 1. Objective - Vital Signs/Intake and Output Vital Signs (last 24 hours): Temp Pulse Resp BP Pulse Ox 98.2 F 74 17 144/71 98 10/13/16 20:15 10/13/16 22:00 10/13/16 20:15 10/13/16 20:15 10/13/16 20:15 Intake and Output: 10/13/16 10/14/16 18:59 06:59 Intake Total 100 Output Total 1700 Balance -1600 - Medications Medications: Current Medications Acetaminophen (Tylenol 325mg Tab) 650 mg PO Q6H PRN PRN Reason: Fever >100.4 F Last Admin: 10/10/16 20:41 Dose: 650 mg Ascorbic Acid (Vitamin C 500 Mg Tab) 500 mg PO DAILY [facility] Last Admin: 10/13/16 10:09 Dose: 500 mg Aspirin (Aspirin Chewable) 81 mg PO DAILY [facility] Last Admin: 10/13/16 10:07 Dose: 81 mg Atorvastatin Calcium (Lipitor) 80 mg PO DIN [facility] Last Admin: 10/13/16 18:30 Dose: Not Given Docusate Sodium (Colace) 100 mg PO BID [facility] Last Admin: 10/13/16 18:30 Dose: Not Given Famotidine (Pepcid) 20 mg PO BID [facility] Last Admin: 10/13/16 18:31 Dose: Not Given Gabapentin (Neurontin) 400 mg PO TID [facility] PRN Reason: Protocol Last Admin: 10/13/16 18:31 Dose: Not Given Heparin Sodium (Porcine) (Heparin) 5,000 units SC Q8 [facility] PRN Reason: Protocol Last Admin: 10/13/16 05:04 Dose: Not Given Hydromorphone HCl (Dilaudid) 0.5 mg IVP Q4H PRN PRN Reason: Pain, moderate (4-7) Last Admin: 10/13/16 23:47 Dose: 0.5 mg Multivitamins (Thera Tab) 1 tab PO DAILY [facility] Last Admin: 10/13/16 10:09 Dose: 1 tab Ondansetron HCl (Zofran Inj) 4 mg IVP Q4H PRN PRN Reason: Nausea/Vomiting Ondansetron HCl (Zofran Inj) 4 mg IVP ONCE PRN PRN Reason: Nausea/Vomiting Zinc Sulfate (Zinc Sulfate 220 Mg Cap) 220 mg PO DAILY [facility] Last Admin: 10/13/16 10:09 Dose: 220 mg - Labs Labs: 10/12/16 05:30 10/12/16 05:30 PT 10.7 Seconds (9.9-11.8) 10/13/16 06:00 INR 0.99 (0.93-1.08) 10/13/16 06:00 APTT 30.8 Seconds (23.7-30.8) 10/12/16 22:43
[2016-10-14] MEDS: HYDROmorphone 0.5 mg/0.5 ml ISec IVP PRN ×2 (03:45→07:56)
[2016-10-14 06:10] LABS: ADD MANUAL DIFF? NO
[2016-10-14 06:20] LABS: BASO # 0.06 K/mm3 (0.0-2.0); BASO % 0.6 % (0.0-3.0); EOS # 0.6 (0.0-0.7); EOS % 5.8 % (1.5-5.0); GRAN # 6.67 (1.4-6.5); GRAN % 66.1 % (50.0-68.0); HEMATOCRIT 27.2 % (42.0-52.0); LYMPH # 1.8 (1.2-3.4); LYMPH % 17.4 % (22.0-35.0); MEAN CELL VOLUME 95.1 fL (80.0-105.0); MEAN CORPUSCULAR HEMOGLOBIN 31.1 pg (25.0-35.0); MEAN CORPUSCULAR HGB CONC 32.7 g/dl (31.0-37.0); MEAN PLATELET VOLUME 9.6 fl (7.0-11.0); MONO % 10.1 % (1.0-6.0); PLATELET COUNT 547 10^3/uL (120.0-450.0); RED CELL DISTRIBUTION WIDTH 16.2 % (11.5-14.5); WHITE BLOOD COUNT 10.1 10^3/ul (4.5-11.0)
[2016-10-14 06:39] LABS: ALB/GLOB RATIO 0.9 (1.1-1.8); ALKALINE PHOSPHATASE 226 U/L (38-133); ALT/SGPT 64 U/L (7-56); AST/SGOT 72 U/L (15-59); BILIRUBIN,TOTAL 0.6 mg/dL (0.2-1.3); BLOOD UREA NITROGEN 13 mg/dL (7-21); CARBON DIOXIDE 25 mmol/L (21-33); CHLORIDE 101 mmol/L (95-110); GFR AFRICAN-AMERICAN > 60; GLUCOSE,RANDOM 99 mg/dL (70-110); SODIUM 137 mmol/L (132-148)
--- NOTE | 2016-10-14 07:38 | CP.PCM.PN ---
Subjective - Date & Time of Evaluation Date of Evaluation: 10/14/16 Time of Evaluation: 07:00 - Subjective Subjective: Vascular Surgery Progress Note for Michael Gillespie PGY-1 Pt was seen and examined at bedside. Pt is s/p wound debridement with bone bx by podiatry. Pain is controlled. No acute events overnight. Denied fever, chills , n/v. Objective - Vital Signs/Intake and Output Vital Signs (last 24 hours): Temp Pulse Resp BP Pulse Ox 97.4 F L 91 H 19 111/51 L 98 10/14/16 06:00 10/14/16 06:00 10/14/16 06:00 10/14/16 06:00 10/14/16 06:00 Intake and Output: 10/14/16 10/14/16 06:59 18:59 Intake Total 60 Output Total 700 Balance -640 - Medications Medications: Current Medications Acetaminophen (Tylenol 325mg Tab) 650 mg PO Q6H PRN PRN Reason: Fever >100.4 F Last Admin: 10/10/16 20:41 Dose: 650 mg Ascorbic Acid (Vitamin C 500 Mg Tab) 500 mg PO DAILY [facility] Last Admin: 10/13/16 10:09 Dose: 500 mg Aspirin (Aspirin Chewable) 81 mg PO DAILY [facility] Last Admin: 10/13/16 10:07 Dose: 81 mg Atorvastatin Calcium (Lipitor) 80 mg PO DIN [facility] Last Admin: 10/13/16 18:30 Dose: Not Given Docusate Sodium (Colace) 100 mg PO BID [facility] Last Admin: 10/13/16 18:30 Dose: Not Given Famotidine (Pepcid) 20 mg PO BID [facility] Last Admin: 10/13/16 18:31 Dose: Not Given Gabapentin (Neurontin) 400 mg PO TID [facility] PRN Reason: Protocol Last Admin: 10/13/16 18:31 Dose: Not Given Heparin Sodium (Porcine) (Heparin) 5,000 units SC Q8 [facility] PRN Reason: Protocol Last Admin: 10/13/16 05:04 Dose: Not Given Hydromorphone HCl (Dilaudid) 0.5 mg IVP Q4H PRN PRN Reason: Pain, moderate (4-7) Last Admin: 10/14/16 03:45 Dose: 0.5 mg Multivitamins (Thera Tab) 1 tab PO DAILY [facility] Last Admin: 10/13/16 10:09 Dose: 1 tab Ondansetron HCl (Zofran Inj) 4 mg IVP Q4H PRN PRN Reason: Nausea/Vomiting Ondansetron HCl (Zofran Inj) 4 mg IVP ONCE PRN PRN Reason: Nausea/Vomiting Zinc Sulfate (Zinc Sulfate 220 Mg Cap) 220 mg PO DAILY [facility] Last Admin: 10/13/16 10:09 Dose: 220 mg - Labs Labs: 10/14/16 06:00 10/14/16 06:00 PT 10.7 Seconds (9.9-11.8) 10/13/16 06:00 INR 0.99 (0.93-1.08) 10/13/16 06:00 APTT 30.8 Seconds (23.7-30.8) 10/12/16 22:43 - Constitutional Appears: Well, No Acute Distress - Head Exam Head Exam: ATRAUMATIC, NORMAL INSPECTION, NORMOCEPHALIC - Eye Exam Eye Exam: EOMI, Normal appearance, PERRL Pupil Exam: NORMAL ACCOMODATION, PERRL - ENT Exam ENT Exam: Mucous Membranes Moist, Normal Exam - Neck Exam Neck Exam: Full ROM, Normal Inspection. absent: Lymphadenopathy - Respiratory Exam Respiratory Exam: Clear to Ausculation Bilateral, NORMAL BREATHING PATTERN - Cardiovascular Exam Cardiovascular Exam: REGULAR RHYTHM, +S1, +S2. absent: Murmur - GI/Abdominal Exam GI & Abdominal Exam: Soft, Normal Bowel Sounds. absent: Tenderness - Extremities Exam Extremities Exam: Tenderness ( Dressings on Left leg incisions s/p bypass graft C/D/I. Integra graft) - Neurological Exam Neurological Exam: Alert, Awake, CN II-XII Intact, Oriented x3 - Psychiatric Exam Psychiatric exam: Normal Affect, Normal Mood - Skin Skin Exam: Dry, Intact, Normal Color, Warm Assessment and Plan - Assessment and Plan (Free Text) Assessment: 61 M s/p Left fem-pop bypass with saphenous vein graft; POD#7 and s/p wound debridement with bone bx and left tendon achilles lengthening POD#1 - Cont PT/OT for left leg/arm - Pain control - Cont left arm exercises - Further management as per podiatry - Continue to monitor Seen, reviewed and discussed with attending Michael Ku, PGY-1
--- NOTE | 2016-10-14 08:28 | PN ---
DATE: 10/14/2016 SUBJECTIVE: The patient was seen and examined at bedside on the telemetry cramer. No acute events overnight. He remains afebrile and hemodynamically stable status post OR wound debridement of his right lower extremity. This morning he states he feels okay and notes continued improvement in his left upper extremity weakness. Otherwise, he offers no specific complaints. OBJECTIVE: VITAL SIGNS: Temperature 97.4, pulse 91, blood pressure 111/51, respiratory rate 19, oxygen saturation 98% on room air. GENERAL: Thin, frail man appearing older than his stated age, lying in bed, in no apparent distress. HEENT: PERRL, EOMI. No scleral icterus. No conjunctival pallor. NECK: No JVD, no bruits. LUNGS: Clear to auscultation. CARDIOVASCULAR: Regular rate and rhythm, normal S1 and S2. ABDOMEN: Normoactive bowel sounds, soft, nontender, nondistended. EXTREMITIES: Right lower extremity with surgical dressing in place. SKIN: Left lower extremity with cast in place. Left upper extremity with splint in place. NEUROLOGIC: Awake, alert and oriented x 3. Motor 5/5 on right, 4/5 in left lower extremity, 1/5 in left upper extremity. LABORATORY DATA: WBC 10 with 66% neutrophils, hemoglobin 9, hematocrit 27, platelets 547. Chemistry reviewed and unremarkable. AST 72, ALT 64, alkaline phosphatase 226. 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 PLAN: 1. Severe peripheral vascular disease/peripheral arterial disease. Continue with care as per Dr. Nicholson and the vascular surgery team. Continue with Lipitor 80 mg p.o. daily and aspirin 81 mg p.o. daily. We will resume Eliquis once okay from surgical standpoint. 2. Left upper extremity paralysis/weakness, improving. Input from Dr. Guerrero of neurology noted and appreciated. Continue with physical therapy. 3. Chronic nonhealing right lower extremity ulcer, status post OR wound debridement. Continue with care as per Dr. Albert. Continue with physical therapy/occupational therapy. 4. Transaminitis, etiology secondary to fatty liver disease as well as concurrent statin use. LFTs remain stable. Continue to monitor daily. 5. Prophylaxis. Continue Pepcid for gastrointestinal prophylaxis and heparin for deep venous thrombosis prophylaxis. CODE STATUS: Full code. Gume Gonzalez MD cc: [id number] TT: 10/14/2016 08:27:58 Confirmation # [id number] Dictation # [id number] en MTDD
[2016-10-14] MEDS: Multivitamin Therapeutic Tab PO SCH (11:47)
[2016-10-14] MEDS: HYDROmorphone 1 mg/ml ISec IVP PRN ×3 (12:08→20:08)
--- NOTE | 2016-10-14 13:31 | PN ---
DATE: 10/14/2016 The patient tolerated his debridement well. PHYSICAL EXAMINATION: VITAL SIGNS: Blood pressure is 111/51, heart rate in the 90s. The patient is afebrile. NECK: Negative JVD. LUNGS: Without rales. HEART: Reveals S1, S2. EXTREMITIES: Both are bandaged. LABORATORIES: Hemoglobin is 8.9. Chemistries are unremarkable. IMPRESSION: 1. Severe peripheral vascular disease. 2. Foot ulcers. 3. Status post debridement. 4. Chronic obstructive pulmonary disease. 5. Hypercholesterolemia. PLAN: Given these findings, the patient is hemodynamically stable. We will continue to follow on te lemetry for 24 hours. Ramin Mayers MD cc: [id number] TT: 10/14/2016 13:30:54 Confirmation # [id number] Dictation # [id number] tn
--- NOTE | 2016-10-14 14:49 | CP.PCM.PN ---
<LakishaMisty - Last Filed: 10/14/16 14:44> Subjective - Date & Time of Evaluation Date of Evaluation: 10/14/16 Time of Evaluation: 14:44 - Subjective Subjective: 61 year old male was seen resting comfortably at bedside with attending, Dr. Olea 1 day s/p right wound debridment with graft application and left FOZIA. Patient denies any pain. Dressing clean, dry, intact to LE b/l. Denies any n/v /f/c/sob/cp. Objective - Vital Signs/Intake and Output Vital Signs (last 24 hours): Temp Pulse Resp BP Pulse Ox 97.4 F L 91 H 19 111/51 L 98 10/14/16 06:00 10/14/16 06:00 10/14/16 06:00 10/14/16 06:00 10/14/16 06:00 Intake and Output: 10/14/16 10/14/16 06:59 18:59 Intake Total 60 820 Output Total 700 400 Balance -640 420 - Medications Medications: Current Medications Acetaminophen (Tylenol 325mg Tab) 650 mg PO Q6H PRN PRN Reason: Fever >100.4 F Last Admin: 10/10/16 20:41 Dose: 650 mg Ascorbic Acid (Vitamin C 500 Mg Tab) 500 mg PO DAILY [facility] Last Admin: 10/14/16 11:47 Dose: 500 mg Aspirin (Aspirin Chewable) 81 mg PO DAILY [facility] Last Admin: 10/14/16 11:48 Dose: 81 mg Atorvastatin Calcium (Lipitor) 80 mg PO DIN [facility] Last Admin: 10/13/16 18:30 Dose: Not Given Docusate Sodium (Colace) 100 mg PO BID [facility] Last Admin: 10/14/16 11:47 Dose: 100 mg Famotidine (Pepcid) 20 mg PO BID [facility] Last Admin: 10/14/16 11:47 Dose: 20 mg Gabapentin (Neurontin) 400 mg PO TID [facility] PRN Reason: Protocol Last Admin: 10/14/16 11:48 Dose: 400 mg Heparin Sodium (Porcine) (Heparin) 5,000 units SC Q8 [facility] PRN Reason: Protocol Last Admin: 10/13/16 05:04 Dose: Not Given Hydromorphone HCl (Dilaudid) 1 mg IVP Q4H PRN PRN Reason: Pain, severe (8-10) Last Admin: 10/14/16 12:08 Dose: 1 mg Multivitamins (Thera Tab) 1 tab PO DAILY [facility] Last Admin: 10/14/16 11:47 Dose: 1 tab Ondansetron HCl (Zofran Inj) 4 mg IVP Q4H PRN PRN Reason: Nausea/Vomiting Ondansetron HCl (Zofran Inj) 4 mg IVP ONCE PRN PRN Reason: Nausea/Vomiting Zinc Sulfate (Zinc Sulfate 220 Mg Cap) 220 mg PO DAILY [facility] Last Admin: 10/14/16 11:48 Dose: 220 mg - Labs Labs: 10/14/16 06:00 10/14/16 06:00 PT 10.7 Seconds (9.9-11.8) 10/13/16 06:00 INR 0.99 (0.93-1.08) 10/13/16 06:00 APTT 30.8 Seconds (23.7-30.8) 10/12/16 22:43 - Constitutional Appears: No Acute Distress, Chronically Ill - Extremities Exam Additional comments: dressings clean, dry, intact to b/l LE wound vac on 125mmHg continuous - Neurological Exam Neurological Exam: Alert, Awake, Oriented x3 - Psychiatric Exam Psychiatric exam: Normal Affect, Normal Mood Assessment and Plan - Assessment and Plan (Free Text) Assessment: 61 year old male 1 day s/p right wound debridement with graft application and left FOZIA Plan: Patient evaluated and seen at bedside with attending, Dr. Olea chart, vitals, labs reviewed dressing to LE to remain C/D/I wound vac to remain on 125 mmHg continuous path, C&S pending Podiatry will continue to follow patient while in house <Francisco Olea - Last Filed: 10/17/16 11:08> Objective - Vital Signs/Intake and Output Vital Signs (last 24 hours): Temp Pulse Resp BP Pulse Ox 98.2 F 79 22 108/66 97 10/17/16 07:30 10/17/16 07:30 10/17/16 07:30 10/17/16 07:30 10/17/16 07:30 Intake and Output: 10/17/16 10/17/16 06:59 18:59 Intake Total 720 Output Total 1100 Balance -380 - Medications Medications: Current Medications Acetaminophen (Tylenol 325mg Tab) 650 mg PO Q6H PRN PRN Reason: Fever >100.4 F Last Admin: 10/14/16 18:16 Dose: 650 mg Ascorbic Acid (Vitamin C 500 Mg Tab) 500 mg PO DAILY [facility] Last Admin: 10/17/16 09:06 Dose: 500 mg Aspirin (Aspirin Chewable) 81 mg PO DAILY [facility] Last Admin: 10/17/16 09:06 Dose: 81 mg Atorvastatin Calcium (Lipitor) 80 mg PO DIN [facility] Last Admin: 10/15/16 19:44 Dose: 80 mg Docusate Sodium (Colace) 100 mg PO BID [facility] Last Admin: 10/17/16 09:06 Dose: 100 mg Famotidine (Pepcid) 20 mg PO BID [facility] Last Admin: 10/17/16 09:06 Dose: 20 mg Gabapentin (Neurontin) 400 mg PO TID [facility] PRN Reason: Protocol Last Admin: 10/17/16 09:06 Dose: 400 mg Heparin Sodium (Porcine) (Heparin) 5,000 units SC Q8 [facility] PRN Reason: Protocol Last Admin: 10/17/16 05:30 Dose: 5,000 units Hydromorphone HCl (Dilaudid) 1 mg IVP Q4H PRN PRN Reason: Pain, severe (8-10) Last Admin: 10/17/16 09:05 Dose: 1 mg Cefepime HCl (Maxipime 2gm) 2 gm in 100 mls @ 100 mls/hr IVPB Q8 [facility] PRN Reason: Protocol Stop: 11/14/16 09:31 Last Admin: 10/17/16 10:33 Dose: 100 mls/hr Multivitamins (Thera Tab) 1 tab PO DAILY [facility] Last Admin: 10/17/16 09:06 Dose: 1 tab Ondansetron HCl (Zofran Inj) 4 mg IVP Q4H PRN PRN Reason: Nausea/Vomiting Ondansetron HCl (Zofran Inj) 4 mg IVP ONCE PRN PRN Reason: Nausea/Vomiting Zinc Sulfate (Zinc Sulfate 220 Mg Cap) 220 mg PO DAILY [facility] Last Admin: 10/17/16 09:06 Dose: 220 mg - Labs Labs: 10/17/16 07:00 10/17/16 07:00 PT 10.7 Seconds (9.9-11.8) 10/13/16 06:00 INR 0.99 (0.93-1.08) 10/13/16 06:00 APTT 30.8 Seconds (23.7-30.8) 10/12/16 22:43 Attending/Attestation - Attestation I have personally seen and examined this patient.: Yes I have fully participated in the care of the patient.: Yes I have reviewed all pertinent clinical information, including history, physical exam and plan: Yes
--- NOTE | 2016-10-14 18:42 | CP.PCM.PN ---
Subjective - Date & Time of Evaluation Date of Evaluation: 10/14/16 Time of Evaluation: 11:35 - Subjective Subjective: Comfortable, had debridement and bone biopsy done yesterday. Objective - Vital Signs/Intake and Output Vital Signs (last 24 hours): Temp Pulse Resp BP Pulse Ox 97.4 F L 96 H 19 111/51 L 98 10/14/16 06:00 10/14/16 14:00 10/14/16 06:00 10/14/16 06:00 10/14/16 06:00 Intake and Output: 10/14/16 10/14/16 06:59 18:59 Intake Total 60 820 Output Total 700 400 Balance -640 420 - Medications Medications: Current Medications Acetaminophen (Tylenol 325mg Tab) 650 mg PO Q6H PRN PRN Reason: Fever >100.4 F Last Admin: 10/14/16 18:16 Dose: 650 mg Ascorbic Acid (Vitamin C 500 Mg Tab) 500 mg PO DAILY [facility] Last Admin: 10/14/16 11:47 Dose: 500 mg Aspirin (Aspirin Chewable) 81 mg PO DAILY [facility] Last Admin: 10/14/16 11:48 Dose: 81 mg Atorvastatin Calcium (Lipitor) 80 mg PO DIN [facility] Last Admin: 10/14/16 18:12 Dose: 80 mg Docusate Sodium (Colace) 100 mg PO BID [facility] Last Admin: 10/14/16 18:12 Dose: 100 mg Famotidine (Pepcid) 20 mg PO BID [facility] Last Admin: 10/14/16 18:12 Dose: 20 mg Gabapentin (Neurontin) 400 mg PO TID [facility] PRN Reason: Protocol Last Admin: 10/14/16 15:41 Dose: 400 mg Heparin Sodium (Porcine) (Heparin) 5,000 units SC Q8 [facility] PRN Reason: Protocol Last Admin: 10/14/16 15:41 Dose: 5,000 units Hydromorphone HCl (Dilaudid) 1 mg IVP Q4H PRN PRN Reason: Pain, severe (8-10) Last Admin: 10/14/16 16:11 Dose: 1 mg Multivitamins (Thera Tab) 1 tab PO DAILY [facility] Last Admin: 10/14/16 11:47 Dose: 1 tab Ondansetron HCl (Zofran Inj) 4 mg IVP Q4H PRN PRN Reason: Nausea/Vomiting Ondansetron HCl (Zofran Inj) 4 mg IVP ONCE PRN PRN Reason: Nausea/Vomiting Zinc Sulfate (Zinc Sulfate 220 Mg Cap) 220 mg PO DAILY [facility] Last Admin: 10/14/16 11:48 Dose: 220 mg - Labs Labs: 10/14/16 06:00 10/14/16 06:00 PT 10.7 Seconds (9.9-11.8) 10/13/16 06:00 INR 0.99 (0.93-1.08) 10/13/16 06:00 APTT 30.8 Seconds (23.7-30.8) 10/12/16 22:43 - Constitutional Appears: Non-toxic, No Acute Distress - Head Exam Head Exam: NORMAL INSPECTION - ENT Exam ENT Exam: Mucous Membranes Moist - Neck Exam Neck Exam: absent: Lymphadenopathy, Meningismus - Respiratory Exam Respiratory Exam: Decreased Breath Sounds - Cardiovascular Exam Cardiovascular Exam: +S1, +S2 - GI/Abdominal Exam GI & Abdominal Exam: Soft. absent: Tenderness Assessment and Plan - Assessment and Plan (Free Text) Plan: Assessment Right leg dry gangrene and non-healing wound with severe peripheral vascular disease R/O osteomyelitis - S/P debridement and bone biopsy to rule out osteomyelitis POD #1 S/P revascularization and S/P fem-pop bypass S/P grafting Plan Discussed with Dr. Albert - will await bone biopsy and culture results prior to starting antibiotics if needed - will continue to monitor the patient off antibiotics - will repeat septic work up for Temp >101 F and start antibiotics if this occurs
[2016-10-15 06:43] LABS: ADD MANUAL DIFF? NO
[2016-10-15 07:04] LABS: BASO # 0.07 K/mm3 (0.0-2.0); BASO % 0.8 % (0.0-3.0); EOS # 0.7 (0.0-0.7); EOS % 7.4 % (1.5-5.0); GRAN # 5.66 (1.4-6.5); GRAN % 62.9 % (50.0-68.0); HEMATOCRIT 27.2 % (42.0-52.0); LYMPH # 1.6 (1.2-3.4); LYMPH % 18.1 % (22.0-35.0); MEAN CELL VOLUME 95.8 fL (80.0-105.0); MEAN CORPUSCULAR HGB CONC 32.4 g/dl (31.0-37.0); MEAN PLATELET VOLUME 9.9 fl (7.0-11.0); MONO % 10.8 % (1.0-6.0); PLATELET COUNT 579 10^3/uL (120.0-450.0); RED CELL DISTRIBUTION WIDTH 16.6 % (11.5-14.5)
[2016-10-15] MEDS: HYDROmorphone 1 mg/ml ISec IVP PRN ×5 (07:05→23:52)
[2016-10-15 07:25] LABS: ALB/GLOB RATIO 0.8 (1.1-1.8); ALKALINE PHOSPHATASE 203 U/L (38-133); ALT/SGPT 59 U/L (7-56); AST/SGOT 93 U/L (15-59); BILIRUBIN,TOTAL 0.7 mg/dL (0.2-1.3); BLOOD UREA NITROGEN 15 mg/dL (7-21); CALCIUM 9.1 mg/dL (8.4-10.5); CARBON DIOXIDE 27 mmol/L (21-33); CHLORIDE 102 mmol/L (98-107); GFR AFRICAN-AMERICAN > 60; GLUCOSE,RANDOM 113 mg/dL (70-110); POTASSIUM 3.8 mmol/L (3.6-5.0); SODIUM 138 mmol/L (132-148); TOTAL PROTEIN 7.1 g/dL (5.8-8.3)
--- NOTE | 2016-10-15 08:36 | PN ---
DATE: 10/15/2016 SUBJECTIVE: The patient seen and examined at bedside on the telemetry cramer. No acute events overnight. He remains afebrile and hemodynamically stable. This morning, he denies any specific complaints. OBJECTIVE: VITAL SIGNS: Temperature 97.7, pulse 74, blood pressure 122/62, respiratory rate 19, oxygen saturation 97% on room air. GENERAL: Thin, frail man lying in bed, in no apparent distress. HEENT: PERRL. EOMI. No scleral icterus. No conjunctival pallor. NECK: No JVD, no bruits. LUNGS: Clear to auscultation. CARDIOVASCULAR: Regular rate and rhythm. Normal S1 and S2. ABDOMEN: Normoactive bowel sounds, soft, nontender, nondistended. EXTREMITIES: Right lower extremity with surgical dressing in place., left lower extremity with cast in place. NEUROLOGIC: Awake, alert and oriented x 3. Motor 5/5 on right, 4/5 in left lower extremity, 1/5 in left upper extremity. LABORATORY DATA: Morning labs are pending. ASSESSMENT: The patient is a 61-year-old man with past medical history of severe peripheral vascular disease/peripheral arterial disease, status post interventional radiology vascularization, status post endovascular catheter- directed tissue plasminogen activator, status post amputation of the right foot digits, with multiple prior admissions for cellulitis, dry gangrene and osteomyelitis, who presented to [facility] for evaluation of right below-knee amputation, who is now status post left lower extremity revascularization, status post left lower extremity Achilles tendon release and status post right lower extremity wound debridement in the operating room with bone biopsy. PLAN: 1. Severe PVD/PAD. Continue with care as per Dr. Nicholson and the vascular surgery team. Continue with Lipitor 80 mg p.o. daily and aspirin 81 mg p.o. daily. 2. Left upper extremity paralysis/weakness, improving. Continue with physical therapy. Continue with care as per Dr. Guerrero. 3. Chronic nonhealing right lower extremity ulcer, status post OR wound debridement. Continue with care as per Dr. Albert. Continue with PT/OT. 4. Transaminitis, etiology secondary to fatty liver disease with concurrent statin use. LFTs have been stable. Continue to monitor CMP daily. 5. Prophylaxis. Continue with Pepcid for GI prophylaxis and heparin for DVT prophylaxis. CODE STATUS: Full code. Gume Gonzalez MD cc: [id number] TT: 10/15/2016 08:35:30 Confirmation # [id number] Dictation # [id number] mn MTDD
--- NOTE | 2016-10-15 09:14 | PN ---
DATE: 10/15/2016 This is a 61-year-old male seen for bilateral foot and right leg ulcerations and he is status post de bridement of his right leg with debridement of bone, soft tissue with application of antibiotic bone beads as well as an Integra skin graft. He also had a heel ulcer which the remainder of the Integra was placed on top of on that right leg. The patient also had a FOZIA of the left lower extremity and w as placed in a cast during the time of surgery. A wound VAC had been placed over the right leg ulcer during the time of surgery. The patient also is status post angioplasty to the right lower extremit y and a bypass to the left lower extremity, all done on this admission. [facility]. He is alert, oriented. He is starting to feel better. VITAL SIGNS: Show a temperature of 97.7, the pulse is 74. MEDICATIONS: Noted on the JUL. He is on vitamin for wound healing. He is taking a multivitamin, vi tamin C as well as zinc. He is not on any antibiotics as per infectious disease. LABORATORY DATA: We are pending the bone biopsy and the bone culture from the tibia during the proce dur done Thursday night. His labs are reviewed. His white blood cell count is 9, the H and H is 8.8 and 27.2 and the platelets are 579. Chemistry shows BUN and creatinine of 15 and 0.8. His glucose i s 113. Sodium and potassium is 138 and 3.8. His AST and ALT are elevated and his alk phos is also e levated. The patient's microbiology shows a urine culture of enterobacter. His leg cultures and arabella t would be bone cultures are pending at this time. His pathology for biopsy is also pending. Clinically, his dressings clean, dry and intact. The wound VAC is working. There is no drainage in the canister. The patient's is to bring in some more VAC sponge and we will most likely change the dressing tomorrow. There are no signs of infection around that wound VAC. The skin is clean. T he edema is much improved and there is no calor or as noted above, any drainage coming from this woun d. His left heel and foot are comfortable in a below-knee fiberglass cast and the foot is at 90 degr ees and he is not complaining of any pain under the cast. ASSESSMENT: Peripheral vascular disease, status post surgeries as noted above. PLAN OF TREATMENT: I did get the okay for physical therapy to stand this patient on his cast. He do es have a drop foot on his right lower extremity. If we deem that the limb salvageable, he will need another FOZIA on that side, however, I am going to wait and see whether or not the leg responds to any wound care. The patient will be seen and followed. Gabby Albert DPM cc: [id number] TT: 10/15/2016 09:13:58 Confirmation # [id number] Dictation # [id number] steffi
[2016-10-15] MEDS: Multivitamin Therapeutic Tab PO SCH (10:17)
--- NOTE | 2016-10-15 12:26 | PN ---
DATE: 10/15/2016 CARDIOLOGY FOLLOWUP PHYSICAL EXAMINATION: GENERAL: The patient is asymptomatic. VITAL SIGNS: Blood pressure is 122/62. The heart rate is in the 70s, normal sinus rhythm. NECK: Negative JVD. LUNGS: Without rales. HEART: Reveals S1, S2. EXTREMITIES: Remain bandaged. LABORATORY DATA: The hemoglobin is 8.8. Chemistries are unchanged. IMPRESSION: 1. Severe peripheral vascular disease. 2. Ulcers on the lower extremities. 3. Chronic obstructive pulmonary disease. 4. Hypercholesterolemia. PLAN: Given these findings, we will discontinue telemetry today. The patient has tolerated his proc edures well. Ramin Mayers MD cc: [id number] TT: 10/15/2016 11:05:25 Confirmation # [id number] Dictation # [id number] jn
--- NOTE | 2016-10-15 23:50 | CP.PCM.PN ---
Subjective - Date & Time of Evaluation Date of Evaluation: 10/15/16 Time of Evaluation: 11:45 - Subjective Subjective: Comfortable, not in distress. Objective - Vital Signs/Intake and Output Vital Signs (last 24 hours): Temp Pulse Resp BP Pulse Ox 98.2 F 76 20 125/79 100 10/15/16 16:00 10/15/16 16:00 10/15/16 16:00 10/15/16 16:00 10/15/16 16:00 Intake and Output: 10/15/16 10/16/16 18:59 06:59 Intake Total 540 Output Total 200 Balance 340 - Medications Medications: Current Medications Acetaminophen (Tylenol 325mg Tab) 650 mg PO Q6H PRN PRN Reason: Fever >100.4 F Last Admin: 10/14/16 18:16 Dose: 650 mg Ascorbic Acid (Vitamin C 500 Mg Tab) 500 mg PO DAILY [facility] Last Admin: 10/15/16 10:17 Dose: 500 mg Aspirin (Aspirin Chewable) 81 mg PO DAILY [facility] Last Admin: 10/15/16 10:17 Dose: 81 mg Atorvastatin Calcium (Lipitor) 80 mg PO DIN [facility] Last Admin: 10/15/16 19:44 Dose: 80 mg Docusate Sodium (Colace) 100 mg PO BID [facility] Last Admin: 10/15/16 19:44 Dose: 100 mg Famotidine (Pepcid) 20 mg PO BID [facility] Last Admin: 10/15/16 19:46 Dose: 20 mg Gabapentin (Neurontin) 400 mg PO TID [facility] PRN Reason: Protocol Last Admin: 10/15/16 19:45 Dose: 400 mg Heparin Sodium (Porcine) (Heparin) 5,000 units SC Q8 [facility] PRN Reason: Protocol Last Admin: 10/15/16 22:26 Dose: 5,000 units Hydromorphone HCl (Dilaudid) 1 mg IVP Q4H PRN PRN Reason: Pain, severe (8-10) Last Admin: 10/15/16 19:46 Dose: 1 mg Meropenem 1g/NS 100mL IVPB (Meropenem 1g/Ns 100ml Ivpb) 100 mls @ 100 mls/hr IVPB Q8 [facility] PRN Reason: Protocol Stop: 10/23/16 06:01 Multivitamins (Thera Tab) 1 tab PO DAILY [facility] Last Admin: 10/15/16 10:17 Dose: 1 tab Ondansetron HCl (Zofran Inj) 4 mg IVP Q4H PRN PRN Reason: Nausea/Vomiting Ondansetron HCl (Zofran Inj) 4 mg IVP ONCE PRN PRN Reason: Nausea/Vomiting Zinc Sulfate (Zinc Sulfate 220 Mg Cap) 220 mg PO DAILY [facility] Last Admin: 10/15/16 10:20 Dose: 220 mg - Labs Labs: 10/15/16 06:10 10/15/16 06:10 PT 10.7 Seconds (9.9-11.8) 10/13/16 06:00 INR 0.99 (0.93-1.08) 10/13/16 06:00 APTT 30.8 Seconds (23.7-30.8) 10/12/16 22:43 - Constitutional Appears: Non-toxic, No Acute Distress - Head Exam Head Exam: NORMAL INSPECTION - ENT Exam ENT Exam: Mucous Membranes Moist - Neck Exam Neck Exam: absent: Lymphadenopathy, Meningismus - Respiratory Exam Respiratory Exam: Decreased Breath Sounds - Cardiovascular Exam Cardiovascular Exam: +S1, +S2 - GI/Abdominal Exam GI & Abdominal Exam: Soft. absent: Tenderness - Extremities Exam Additional comments: right leg with dressings in place Assessment and Plan - Assessment and Plan (Free Text) Plan: Assessment Right leg dry gangrene and non-healing wound with severe peripheral vascular disease R/O osteomyelitis - S/P debridement and bone biopsy to rule out osteomyelitis POD #2 - showing acute osteomyelitis, growing gram negative bacilli S/P revascularization and S/P fem-pop bypass S/P grafting Plan we have started MErrem pending identification and sensitivities of the gram negative bacilli in the bone - patient will need 4-6 weeks of antibiotics
--- NOTE | 2016-10-16 18:14 | PN ---
DATE: 10/16/2016 HISTORY OF PRESENT ILLNESS: The patient is seen while change of dressings by Dr. Albert's team. Th e patient is in pain, but afebrile overnight. Had debridement done as well as bone biopsy a couple d ays ago and has tolerated the procedure. OBJECTIVE: VITAL SIGNS: The patient has been afebrile, heart rate of 88, respiratory rate of 20. HEAD AND NECK: Normocephalic, atraumatic. HEART: S1 and S2 are normal. LUNGS: Decreased breath sounds bilaterally. ABDOMEN: Soft, nontender, nondistended. EXTREMITIES: The patient has dressings in place over the right lower extremity. LABORATORY DATA: Unfortunately, we are unable to review the patient's labs, but we were able to get from pathology that the bone biopsy shows acute focal osteomyelitis. At the same time, from [employer], we were able to get bone cultures, which are showing gram-negative bacilli. ASSESSMENT: We have a 61-year-old male with severe peripheral vascular disease, history of osteomyel itis in the past, coming in with right leg gangrene and acute osteomyelitis status post debridement a nd bone biopsy, growing gram-negative bacilli from bone cultures. PLAN: We have started the patient on meropenem pending the identification of sensitivities gram-nega tive bacilli the bone culture. As discussed with Dr. Albert, we will have to plan on prolonging the antibiotic course for this patient because of the osteomyelitis and while on the prolonged course of antibiotics, the patient will need weekly ESR, CRP, CBC and CMP at the very least, and this will dep end on what kind of antibiotic we will end up getting for this patient, depending on the final cultur e results from the bone. Nitish Abdalla M.D. cc: [id number] TT: 10/16/2016 18:13:34 Confirmation # [id number] Dictation # [id number] ln
[2016-10-16] MEDS: HYDROmorphone 1 mg/ml ISec IVP PRN (20:25)
--- NOTE | 2016-10-16 20:32 | PN ---
DATE: 10/16/2016 SUBJECTIVE: The patient seen and examined at bedside on the telemetry cramer. No acute events overnig ht. He remains afebrile and hemodynamically stable. This morning, he states he feels okay and denies any complaints. OBJECTIVE: VITAL SIGNS: Temperature 97.4, pulse 76, blood pressure 124/70, respiratory rate 19, oxygen saturati on 99% on room air. GENERAL: Thin, frail man lying in bed in no apparent distress. HEENT: PERRL, EOMI. No scleral icterus. No conjunctival pallor. NECK: No JVD, no bruits. LUNGS: Clear to auscultation. CARDIOVASCULAR: Regular rate and rhythm, normal S1 and S2. ABDOMEN: Normoactive bowel sounds, soft, nontender, nondistended. EXTREMITIES: Right lower extremity with surgical dressing in place. SKIN: Left lower extremity with cast in place. NEUROLOGIC: Awake, alert and oriented x 3. Motor 5/5 on right, 4/5 on left lower extremity, 1/5 on left upper extremity. LABORATORY DATA: Morning labs are pending. ASSESSMENT: The patient is a 61-year-old man with past medical history of severe peripheral vascular disease/peripheral arterial disease, status post interventional radiology revascularization, status post endovascular catheter-directed TPA, status post amputation of the right foot digits with multipl e prior admissions for cellulitis, dry gangrene and osteomyelitis, who presented to [facility] for evaluation for right below-knee amputation, who is now status post left fem-pop bypass and left Achilles tendon release, as well as status post right lower extremity wound debridement with cul tures confirming osteomyelitis with gram-negative rods. PLAN: 1. Severe PVD/PAD. Continue with care as per Dr. Nicholson and the vascular surgery team and Dr. Albert and the podiatric team. Continue with Lipitor 80 mg p.o. daily and aspirin 81 mg p.o. daily. 2. Left upper extremity paralysis/weakness, improving. Continue with physical therapy and care as p er Dr. Guerrero. 3. Osteomyelitis, right lower extremity. Wound culture demonstrates gram-negative rods. Input from Dr. Abdalla noted and appreciated. The patient has been started on meropenem 1 gram IV q. 8 hours. 4. Transaminitis, etiology secondary to fatty liver disease with concurrent statin use. LFTs remain stable. Continue to monitor CMP daily. 5. Prophylaxis. Continue Pepcid for GI prophylaxis and heparin for DVT prophylaxis. CODE STATUS: Full code. Gume Gonzalez MD cc: [id number] TT: 10/16/2016 20:31:51 Confirmation # [id number] Dictation # [id number] rn
[2016-10-16] MEDS: Meropenem 1g/NS 100mL IVPB 1 GM/100 ML PIGGYBACK IVPB SCH (21:14)
[2016-10-17] MEDS: HYDROmorphone 1 mg/ml ISec IVP PRN ×6 (01:27→21:24)
[2016-10-17] MEDS: Meropenem 1g/NS 100mL IVPB 1 GM/100 ML PIGGYBACK IVPB SCH (05:32)
[2016-10-17 07:14] LABS: ADD MANUAL DIFF? NO
[2016-10-17 07:23] LABS: BASO # 0.06 K/mm3 (0.0-2.0); BASO % 0.6 % (0.0-3.0); EOS # 0.8 (0.0-0.7); EOS % 7.7 % (1.5-5.0); GRAN # 6.53 (1.4-6.5); GRAN % 65.6 % (50.0-68.0); HEMATOCRIT 29.6 % (42.0-52.0); LYMPH # 1.3 (1.2-3.4); LYMPH % 13.4 % (22.0-35.0); MEAN CELL VOLUME 96.1 fL (80.0-105.0); MEAN CORPUSCULAR HEMOGLOBIN 31.8 pg (25.0-35.0); MEAN CORPUSCULAR HGB CONC 33.1 g/dl (31.0-37.0); MEAN PLATELET VOLUME 9.7 fl (7.0-11.0); MONO # 1.3 (0.1-0.6); MONO % 12.7 % (1.0-6.0); PLATELET COUNT 615 10^3/uL (120.0-450.0); RED CELL DISTRIBUTION WIDTH 16.8 % (11.5-14.5)
[2016-10-17 08:09] LABS: ALB/GLOB RATIO 0.9 (1.1-1.8); ALKALINE PHOSPHATASE 228 U/L (38-133); ALT/SGPT 50 U/L (7-56); AST/SGOT 61 U/L (15-59); BILIRUBIN,TOTAL 0.7 mg/dL (0.2-1.3); BLOOD UREA NITROGEN 17 mg/dL (7-21); CALCIUM 9.2 mg/dL (8.4-10.5); CARBON DIOXIDE 26 mmol/L (21-33); CHLORIDE 100 mmol/L (98-107); GFR AFRICAN-AMERICAN > 60; GLUCOSE,RANDOM 105 mg/dL (70-110); POTASSIUM 4.8 mmol/L (3.6-5.0); SODIUM 136 mmol/L (132-148); TOTAL PROTEIN 7.7 g/dL (5.8-8.3)
--- NOTE | 2016-10-17 08:17 | PN ---
DATE: 10/16/2016 SUBJECTIVE: This is a 61-year-old male patient seen at bedside this morning with Dr. Albert present for followup of right leg chronic ulceration. The patient is seen resting comfortably in bed at time of visit. He does complain of some pain to the right knee overnight. Says that it feels stiff. Denies any pain to the right leg. He denies fever, nausea, vomiting, chills, shortness of breath or chest pain. Denies any acute overnight events. Denies any other pedal complaints at this time. Says that his dropped off the wound VAC supplies for the dressing change today. LOWER EXTREMITY EXAMINATION: LEFT: The below knee cast appears clean, dry and intact to the left leg. Capillary refill time is less than 3 seconds to digits x 5. There is no drainage noted to the dressing. RIGHT: Dressing appears clean, dry and intact. Upon removal of the dressing and wound VAC, the ulceration to the right leg appears granular in nature to the base with slight serous drainage noted. No purulence, no malodor, no acute signs of infection. Antibiotic beads appear to be in place to the wound bed. Skin graft also appears to be intact. There is also an ulceration noted to the right heel with slight serous drainage. No purulence, no malodor noted. NEUROLOGIC: Pedal sensation is grossly diminished bilateral. ORTHO: No tenderness noted on palpation of wounds of either leg. ASSESSMENT: This is a 64-year-old male patient with chronic ulceration of right leg and s/p Achilles tendon lengthening on the left leg. PLAN: The patient seen and evaluated with Dr. Albert present. Chart reviewed. Wound VAC removed from the right lower extremity. Wound bed mechanically cleansed with sterile 4 x 4 gauze, Adaptic applied to the wound bed. Wound VAC reapplied to the leg ulceration and set to continuous mode at 125 mmHg with no leaks detected. Adaptic applied to the right heel ulceration and lower extremity dressed with ABDs and DSD. To the left lower extremity, the lateral distal aspect of the cast was windowed at the 5th digit area to allow for relief of pressure to the 5th toe to avoid any ulcerations to that digit. Wound VAC will stay in place until Thursday at which point, it will be changed again. Dressing is to be left clean, dry and intact over the weekend. Podiatry will continue to follow while he remains in-house. JEFFREY TOWNSEND DPM Gabby Albert DPM cc: [id number] TT: 10/16/2016 12:46:11 Confirmation # [id number] Dictation # [id number] rn MTDD
[2016-10-17] MEDS: Multivitamin Therapeutic Tab PO SCH (09:06)
--- NOTE | 2016-10-17 09:24 | PN ---
DATE: 10/17/2016 The patient is without discomfort. He is currently on pain medication. PHYSICAL EXAMINATION: VITAL SIGNS: Blood pressure 108/66, heart rate is in the 70s. NECK: Negative JVD. LUNGS: Without rales. HEART: Revealed S1, S2. EXTREMITIES: Are bandaged. LABORATORIES: Hemoglobin is 9.8. Chemistries: BUN and creatinine are unremarkable. IMPRESSION: 1. Status post peripheral vascular surgery. 2. Foot ulcers. 3. Chronic obstructive pulmonary disease. 4. Anemia. PLAN: Given these findings, the patient is hemodynamically stable. No further cardiac workup is ind icated at this time. Ramin Mayers MD cc: [id number] TT: 10/17/2016 09:23:35 Confirmation # [id number] Dictation # [id number] mn
--- NOTE | 2016-10-17 09:52 | PN ---
DATE: 10/17/2016 The patient is lying in bed, room 568, bed 1. He has no complaints. There have been no acute events overnight. PHYSICAL EXAMINATION: VITAL SIGNS: This morning are a temperature of 98.2, rate of 79. HEENT: PERRLA, EOMI. NECK: Supple. LUNGS: Clear bilaterally. HEART: With a regular rate and rhythm. No murmurs, rubs, or gallops. ABDOMEN: Benign. EXTREMITIES: Amputation of the toes of the right foot. According to the patient, the right pretibia l lesion is healing well. NEUROLOGIC: He has movement of the fingers of the left arm as well as shoulder of the left arm. LABORATORY VALUES: RBC 3.08, hemoglobin and hematocrit are 9.8 and 29.6. SMA-23 is within normal li mits. The AST is down to 61 and random glucose is 105. Continue current regimen. DIAGNOSES: At this time is injury to the left brachial plexus, arterial embolism and thrombosis of r ight lower extremity, gangrene of toes, right leg wound and diabetes. Avinash Gonzalez MD cc: [id number] TT: 10/17/2016 09:50:57 Confirmation # [id number] Dictation # [id number] en
[2016-10-17] MEDS: Cefepime IV 2 gm in NS 2 GM/100 ML BAG IVPB SCH ×3 (10:33→22:00)
[2016-10-17 12:38] LABS: HEMATOCRIT 31.5 % (42.0-52.0); MEAN CELL VOLUME 97.8 fL (80.0-105.0); MEAN CORPUSCULAR HEMOGLOBIN 31.4 pg (25.0-35.0); MEAN CORPUSCULAR HGB CONC 32.1 g/dl (31.0-37.0); MEAN PLATELET VOLUME 10.2 fl (7.0-11.0); RED CELL DISTRIBUTION WIDTH 16.7 % (11.5-14.5); WHITE BLOOD COUNT 9.2 10^3/ul (4.5-11.0)
--- NOTE | 2016-10-17 12:57 | CP.PCM.PN ---
Subjective - Date & Time of Evaluation Date of Evaluation: 10/17/16 Time of Evaluation: 11:30 - Subjective Subjective: Discussed plan with attending Dr. Albert. Patient is stable for D/C to [facility] to receive IV antibiotics -Dressing instructions: -Left: has below knee cast to the left lower extremity which is to be kept clean , dry, intact. -Right leg: has a wound vac in place which was last change 10/17/16. Will need to be changed again Thursday10/20/16 and every 3 days thereafter. Adaptic to be applied directly to wound then wound vac on top. Settings: continuous 125mmHg. -Right heel: to be cleansed with saline and adaptic. Dress w/ DSD + foam ( change daily) -Pt to follow up at wound care center Objective - Vital Signs/Intake and Output Vital Signs (last 24 hours): Temp Pulse Resp BP Pulse Ox 98.2 F 79 22 108/66 97 10/17/16 07:30 10/17/16 07:30 10/17/16 07:30 10/17/16 07:30 10/17/16 07:30 Intake and Output: 10/17/16 10/17/16 06:59 18:59 Intake Total 720 Output Total 1100 Balance -380 - Medications Medications: Current Medications Acetaminophen (Tylenol 325mg Tab) 650 mg PO Q6H PRN PRN Reason: Fever >100.4 F Last Admin: 10/14/16 18:16 Dose: 650 mg Ascorbic Acid (Vitamin C 500 Mg Tab) 500 mg PO DAILY [facility] Last Admin: 10/17/16 09:06 Dose: 500 mg Aspirin (Aspirin Chewable) 81 mg PO DAILY [facility] Last Admin: 10/17/16 09:06 Dose: 81 mg Atorvastatin Calcium (Lipitor) 80 mg PO DIN [facility] Last Admin: 10/15/16 19:44 Dose: 80 mg Docusate Sodium (Colace) 100 mg PO BID [facility] Last Admin: 10/17/16 09:06 Dose: 100 mg Famotidine (Pepcid) 20 mg PO BID [facility] Last Admin: 10/17/16 09:06 Dose: 20 mg Gabapentin (Neurontin) 400 mg PO TID [facility] PRN Reason: Protocol Last Admin: 10/17/16 09:06 Dose: 400 mg Heparin Sodium (Porcine) (Heparin) 5,000 units SC Q8 [facility] PRN Reason: Protocol Last Admin: 10/17/16 05:30 Dose: 5,000 units Hydromorphone HCl (Dilaudid) 1 mg IVP Q4H PRN PRN Reason: Pain, severe (8-10) Last Admin: 10/17/16 09:05 Dose: 1 mg Cefepime HCl (Maxipime 2gm) 2 gm in 100 mls @ 100 mls/hr IVPB Q8 [facility] PRN Reason: Protocol Stop: 11/14/16 09:31 Last Admin: 10/17/16 10:33 Dose: 100 mls/hr Multivitamins (Thera Tab) 1 tab PO DAILY [facility] Last Admin: 10/17/16 09:06 Dose: 1 tab Ondansetron HCl (Zofran Inj) 4 mg IVP Q4H PRN PRN Reason: Nausea/Vomiting Ondansetron HCl (Zofran Inj) 4 mg IVP ONCE PRN PRN Reason: Nausea/Vomiting Zinc Sulfate (Zinc Sulfate 220 Mg Cap) 220 mg PO DAILY [facility] Last Admin: 10/17/16 09:06 Dose: 220 mg - Labs Labs: 10/17/16 07:00 10/17/16 07:00 PT 10.7 Seconds (9.9-11.8) 10/13/16 06:00 INR 0.99 (0.93-1.08) 10/13/16 06:00 APTT 30.8 Seconds (23.7-30.8) 10/12/16 22:43
--- NOTE | 2016-10-17 21:58 | CP.PCM.PN ---
Subjective - Date & Time of Evaluation Date of Evaluation: 10/17/16 Time of Evaluation: 10:25 - Subjective Subjective: Comfortable in bed, not in distress, afebrile. Objective - Vital Signs/Intake and Output Vital Signs (last 24 hours): Temp Pulse Resp BP Pulse Ox 97 F L 84 20 114/68 98 10/17/16 16:00 10/17/16 16:00 10/17/16 16:00 10/17/16 16:00 10/17/16 16:00 Intake and Output: 10/17/16 10/18/16 18:59 06:59 Intake Total 600 Output Total 500 Balance 100 - Medications Medications: Current Medications Acetaminophen (Tylenol 325mg Tab) 650 mg PO Q6H PRN PRN Reason: Fever >100.4 F Last Admin: 10/14/16 18:16 Dose: 650 mg Ascorbic Acid (Vitamin C 500 Mg Tab) 500 mg PO DAILY [facility] Last Admin: 10/17/16 09:06 Dose: 500 mg Aspirin (Aspirin Chewable) 81 mg PO DAILY [facility] Last Admin: 10/17/16 09:06 Dose: 81 mg Atorvastatin Calcium (Lipitor) 80 mg PO DIN [facility] Last Admin: 10/17/16 17:16 Dose: 80 mg Docusate Sodium (Colace) 100 mg PO BID [facility] Last Admin: 10/17/16 17:16 Dose: 100 mg Famotidine (Pepcid) 20 mg PO BID [facility] Last Admin: 10/17/16 17:16 Dose: 20 mg Gabapentin (Neurontin) 400 mg PO TID [facility] PRN Reason: Protocol Last Admin: 10/17/16 17:16 Dose: 400 mg Heparin Sodium (Porcine) (Heparin) 5,000 units SC Q8 [facility] PRN Reason: Protocol Last Admin: 10/17/16 21:24 Dose: 5,000 units Hydromorphone HCl (Dilaudid) 1 mg IVP Q4H PRN PRN Reason: Pain, severe (8-10) Last Admin: 10/17/16 21:24 Dose: 1 mg Cefepime HCl (Maxipime 2gm) 2 gm in 100 mls @ 100 mls/hr IVPB Q8 [facility] PRN Reason: Protocol Stop: 11/14/16 09:31 Last Admin: 10/17/16 13:00 Dose: 100 mls/hr Multivitamins (Thera Tab) 1 tab PO DAILY [facility] Last Admin: 10/17/16 09:06 Dose: 1 tab Ondansetron HCl (Zofran Inj) 4 mg IVP Q4H PRN PRN Reason: Nausea/Vomiting Ondansetron HCl (Zofran Inj) 4 mg IVP ONCE PRN PRN Reason: Nausea/Vomiting Zinc Sulfate (Zinc Sulfate 220 Mg Cap) 220 mg PO DAILY [facility] Last Admin: 10/17/16 09:06 Dose: 220 mg - Labs Labs: 10/17/16 07:00 10/17/16 07:00 PT 10.7 Seconds (9.9-11.8) 10/13/16 06:00 INR 0.99 (0.93-1.08) 10/13/16 06:00 APTT 30.8 Seconds (23.7-30.8) 10/12/16 22:43 - Constitutional Appears: Non-toxic, No Acute Distress - Head Exam Head Exam: NORMAL INSPECTION - Neck Exam Neck Exam: absent: Lymphadenopathy, Meningismus - Respiratory Exam Respiratory Exam: Decreased Breath Sounds - Cardiovascular Exam Cardiovascular Exam: +S1, +S2 - GI/Abdominal Exam GI & Abdominal Exam: Soft. absent: Tenderness - Extremities Exam Additional comments: right leg with dressings in place Assessment and Plan - Assessment and Plan (Free Text) Plan: Assessment Right leg dry gangrene and non-healing wound with severe peripheral vascular disease, with acute osteomyelitis - S/P debridement and bone biopsy to rule out osteomyelitis POD #4 - growing Pesudomonas S/P revascularization and S/P fem-pop bypass S/P grafting Plan changed antibiotics to Cefepime based on susceptibility profile of the Pseudomonas - will need at least 6 weeks of antibiotics with weekly ESR, CRP, CBC, CMP
[2016-10-18] MEDS: HYDROmorphone 1 mg/ml ISec IVP PRN ×6 (01:48→23:04)
[2016-10-18] MEDS: Cefepime IV 2 gm in NS 2 GM/100 ML BAG IVPB SCH ×3 (06:26→22:29)
[2016-10-18 07:28] LABS: ADD MANUAL DIFF? NO
[2016-10-18 07:33] LABS: BASO # 0.06 K/mm3 (0.0-2.0); BASO % 0.7 % (0.0-3.0); EOS # 0.6 (0.0-0.7); EOS % 6.9 % (1.5-5.0); GRAN # 5.07 (1.4-6.5); GRAN % 60.7 % (50.0-68.0); HEMATOCRIT 30.2 % (42.0-52.0); LYMPH # 1.7 (1.2-3.4); LYMPH % 19.7 % (22.0-35.0); MEAN CELL VOLUME 96.8 fL (80.0-105.0); MEAN CORPUSCULAR HEMOGLOBIN 31.4 pg (25.0-35.0); MEAN CORPUSCULAR HGB CONC 32.5 g/dl (31.0-37.0); MEAN PLATELET VOLUME 9.7 fl (7.0-11.0); PLATELET COUNT 571 10^3/uL (120.0-450.0); RED CELL DISTRIBUTION WIDTH 16.8 % (11.5-14.5); WHITE BLOOD COUNT 8.4 10^3/ul (4.5-11.0)
[2016-10-18 07:42] LABS: ALB/GLOB RATIO 0.9 (1.1-1.8); ALKALINE PHOSPHATASE 219 U/L (38-133); ALT/SGPT 55 U/L (7-56); AST/SGOT 61 U/L (15-59); BILIRUBIN,TOTAL 0.6 mg/dL (0.2-1.3); BLOOD UREA NITROGEN 20 mg/dL (7-21); CALCIUM 9.3 mg/dL (8.4-10.5); CARBON DIOXIDE 26 mmol/L (21-33); CHLORIDE 102 mmol/L (98-107); GFR AFRICAN-AMERICAN > 60; GLUCOSE,RANDOM 103 mg/dL (70-110); POTASSIUM 4.2 mmol/L (3.6-5.0); SODIUM 136 mmol/L (132-148); TOTAL PROTEIN 7.2 g/dL (5.8-8.3)
[2016-10-18] MEDS: Multivitamin Therapeutic Tab PO SCH (11:04)
--- NOTE | 2016-10-18 11:53 | PN ---
DATE: 10/18/2016 A 61-year-old diabetic male seen at bedside for continued evaluation and management of a severe right diabetic lower leg wound. The patient currently has wound VAC in place and has total contact cast i n place as well. He offers no new complaints. VITAL SIGNS: Reveal temperature of 98, pulse rate of 55, blood pressure 114/69, respiratory rate of 20. LABORATORY DATA: Reveal a white count of 8.4 down from 10 yesterday. Hemoglobin of 9.8, hematocrit of 30, platelet count of 571. Most recent microbiology report of his right leg reveals Pseudomonas a eruginosa growth. The patient's wound VAC canister shows serous drainage that is approximately 15% full. Wound VAC katie ssing is in place and wound VAC is set on continuous suction at 120 mmHg. His cast is intact and juan carlos ws no signs of wear and tear. ASSESSMENT: Diabetic right lower leg wound with a wound VAC and total contact cast in place. PLAN: Wound VAC will be kept in place along with his cast until Thursday, at which time both will be c hanged. The cast and the wound VAC should not be changed until then. The patient will be seen and f ollowed daily. Francisco Olea DPM cc: [id number] TT: 10/18/2016 11:52:11 Confirmation # [id number] Dictation # [id number] antonietta
--- NOTE | 2016-10-18 12:48 | CP.PCM.PN ---
Subjective - Date & Time of Evaluation Date of Evaluation: 10/18/16 Time of Evaluation: 10:30 - Subjective Subjective: Comfortable, afebrile, less pain in the right leg. Objective - Vital Signs/Intake and Output Vital Signs (last 24 hours): Temp Pulse Resp BP Pulse Ox 98 F 55 L 20 114/69 94 L 10/18/16 06:00 10/18/16 06:00 10/18/16 06:00 10/18/16 06:00 10/18/16 06:00 Intake and Output: 10/18/16 10/18/16 06:59 18:59 Intake Total 620 Output Total 700 Balance -80 - Medications Medications: Current Medications Acetaminophen (Tylenol 325mg Tab) 650 mg PO Q6H PRN PRN Reason: Fever >100.4 F Last Admin: 10/14/16 18:16 Dose: 650 mg Ascorbic Acid (Vitamin C 500 Mg Tab) 500 mg PO DAILY [facility] Last Admin: 10/18/16 11:04 Dose: 500 mg Aspirin (Aspirin Chewable) 81 mg PO DAILY [facility] Last Admin: 10/18/16 11:04 Dose: 81 mg Atorvastatin Calcium (Lipitor) 80 mg PO DIN [facility] Last Admin: 10/17/16 17:16 Dose: 80 mg Docusate Sodium (Colace) 100 mg PO BID [facility] Last Admin: 10/18/16 11:03 Dose: 100 mg Famotidine (Pepcid) 20 mg PO BID [facility] Last Admin: 10/18/16 11:04 Dose: 20 mg Gabapentin (Neurontin) 400 mg PO TID [facility] PRN Reason: Protocol Last Admin: 10/18/16 10:55 Dose: 400 mg Heparin Sodium (Porcine) (Heparin) 5,000 units SC Q8 [facility] PRN Reason: Protocol Last Admin: 10/18/16 06:25 Dose: 5,000 units Hydromorphone HCl (Dilaudid) 1 mg IVP Q4H PRN PRN Reason: Pain, severe (8-10) Last Admin: 10/18/16 10:50 Dose: 1 mg Cefepime HCl (Maxipime 2gm) 2 gm in 100 mls @ 100 mls/hr IVPB Q8 [facility] PRN Reason: Protocol Stop: 11/14/16 09:31 Last Admin: 10/18/16 06:26 Dose: 100 mls/hr Multivitamins (Thera Tab) 1 tab PO DAILY [facility] Last Admin: 10/18/16 11:04 Dose: 1 tab Ondansetron HCl (Zofran Inj) 4 mg IVP Q4H PRN PRN Reason: Nausea/Vomiting Ondansetron HCl (Zofran Inj) 4 mg IVP ONCE PRN PRN Reason: Nausea/Vomiting Zinc Sulfate (Zinc Sulfate 220 Mg Cap) 220 mg PO DAILY [facility] Last Admin: 10/18/16 11:04 Dose: 220 mg - Labs Labs: 10/18/16 07:25 10/18/16 07:25 PT 10.7 Seconds (9.9-11.8) 10/13/16 06:00 INR 0.99 (0.93-1.08) 10/13/16 06:00 APTT 30.8 Seconds (23.7-30.8) 10/12/16 22:43 - Constitutional Appears: Non-toxic, No Acute Distress - Head Exam Head Exam: NORMAL INSPECTION - ENT Exam ENT Exam: Mucous Membranes Moist - Neck Exam Neck Exam: absent: Lymphadenopathy, Meningismus - Respiratory Exam Respiratory Exam: Decreased Breath Sounds - Cardiovascular Exam Cardiovascular Exam: +S1, +S2 - GI/Abdominal Exam GI & Abdominal Exam: Soft. absent: Tenderness Assessment and Plan - Assessment and Plan (Free Text) Plan: Assessment Right leg dry gangrene and non-healing wound with severe peripheral vascular disease, with acute osteomyelitis - S/P debridement and bone biopsy to rule out osteomyelitis POD #5 - growing Pseudomonas S/P revascularization and S/P fem-pop bypass S/P grafting Plan continue Cefepime based on susceptibility profile of the Pseudomonas - will need at least 6 weeks of antibiotics with weekly ESR, CRP, CBC, CMP discussed with Dr. Albert previously
--- NOTE | 2016-10-18 14:57 | PN ---
DATE: 10/18/2016 SUBJECTIVE: The patient seen and examined at bedside on the general medical cramer. No acute events o vernight. He remains afebrile and hemodynamically stable. This morning, the patient states he feels okay and offers no complaints. OBJECTIVE: VITAL SIGNS: Temperature 98, pulse 55, blood pressure 114/69, respiratory rate 20, oxygen saturation 94% on room air. GENERAL: Thin, frail man lying in bed in no apparent distress. HEENT: PERRL. EOMI. No scleral icterus. No conjunctival pallor. NECK: No JVD, no bruits. LUNGS: Clear to auscultation. CARDIOVASCULAR: Regular rate and rhythm. Normal S1 and S2. ABDOMEN: Normoactive bowel sounds, soft, nontender, nondistended. EXTREMITIES: Right lower extremity with surgical dressing in place and left lower extremity with oliva t in place. NEUROLOGIC: Awake, alert and oriented x 3. Motor 5/5 on right, 4/5 on left lower extremity, 1/5 on left upper extremity. LABORATORY DATA: WBC 8.4 with 61% neutrophils, hemoglobin 9.8, hematocrit 30, platelets 571. Chemis try reviewed and unremarkable. ASSESSMENT: The patient is a 61-year-old man with past medical history of severe peripheral vascular disease/peripheral arterial disease, status post interventional radiology revascularization, status post endovascular catheter-directed tissue plasminogen activator, status post amputation of the right foot digits with multiple prior admissions for cellulitis, dry gangrene and osteomyelitis, who prese nts to [facility] for evaluation of right below-knee amputation who is now status post le ft fem-pop bypass and left Achilles tendon release as well as status post right lower extremity wound debridement with cultures demonstrating pseudomonas. PLAN: 1. Osteomyelitis of right lower extremity with wound culture demonstrating pseudomonas. Input from Malachi Abdalla noted and appreciated. The patient will require at least 6-8 weeks of IV antibiotics. The patient remains on Cefepime 2 grams IV q. 8 hours. 2. Severe peripheral vascular disease/peripheral arterial disease. Continue with postoperative care as per Dr. Nicholson and the vascular surgery team and Dr. Albert and the podiatric team. Continue with Lipitor 80 mg p.o. daily and aspirin 81 mg p.o. daily. 3. Left upper extremity paralysis/weakness, improving. Input from Dr. Guerrero noted and appreciated. Continue with physical therapy. 4. Transaminitis, etiology likely secondary to fatty liver disease as well as concurrent statin use. LFTs remain stable. Continue to monitor CMP daily. 5. Prophylaxis. Continue with Pepcid for GI prophylaxis and heparin for DVT prophylaxis. CODE STATUS: Full code. Gume Gonzalez MD cc: [id number] TT: 10/18/2016 14:56:10 Confirmation # [id number] Dictation # [id number] rn
[2016-10-19] MEDS: HYDROmorphone 1 mg/ml ISec IVP PRN ×5 (03:12→20:08)
[2016-10-19] MEDS: Cefepime IV 2 gm in NS 2 GM/100 ML BAG IVPB SCH ×3 (05:30→21:44)
[2016-10-19 07:23] LABS: ADD MANUAL DIFF? NO
[2016-10-19 07:38] LABS: BASO # 0.07 K/mm3 (0.0-2.0); BASO % 0.8 % (0.0-3.0); EOS # 0.6 (0.0-0.7); EOS % 7.2 % (1.5-5.0); GRAN # 5.03 (1.4-6.5); LYMPH # 2.1 (1.2-3.4); LYMPH % 23.9 % (22.0-35.0); MEAN CELL VOLUME 96.2 fL (80.0-105.0); MEAN CORPUSCULAR HEMOGLOBIN 31.1 pg (25.0-35.0); MEAN CORPUSCULAR HGB CONC 32.3 g/dl (31.0-37.0); MEAN PLATELET VOLUME 9.8 fl (7.0-11.0); MONO # 0.9 (0.1-0.6); MONO % 10.1 % (1.0-6.0); PLATELET COUNT 530 10^3/uL (120.0-450.0); RED CELL DISTRIBUTION WIDTH 16.6 % (11.5-14.5); WHITE BLOOD COUNT 8.7 10^3/ul (4.5-11.0)
[2016-10-19 07:41] LABS: ALB/GLOB RATIO 0.9 (1.1-1.8); ALKALINE PHOSPHATASE 227 U/L (38-133); ALT/SGPT 57 U/L (7-56); AST/SGOT 66 U/L (15-59); BILIRUBIN,TOTAL 0.6 mg/dL (0.2-1.3); BLOOD UREA NITROGEN 23 mg/dL (7-21); CALCIUM 9.2 mg/dL (8.4-10.5); CARBON DIOXIDE 25 mmol/L (21-33); CHLORIDE 103 mmol/L (98-107); GFR AFRICAN-AMERICAN > 60; GLUCOSE,RANDOM 102 mg/dL (70-110); POTASSIUM 4.1 mmol/L (3.6-5.0); SODIUM 136 mmol/L (132-148); TOTAL PROTEIN 7.1 g/dL (5.8-8.3)
[2016-10-19] MEDS: Multivitamin Therapeutic Tab PO SCH (10:13)
--- NOTE | 2016-10-19 19:58 | CP.PCM.PN ---
Subjective - Date & Time of Evaluation Date of Evaluation: 10/19/16 Time of Evaluation: 11:40 - Subjective Subjective: Comfortable in bed, not in distress, afebrile. Objective - Vital Signs/Intake and Output Vital Signs (last 24 hours): Temp Pulse Resp BP Pulse Ox 97.7 F 62 18 110/60 95 10/19/16 16:24 10/19/16 16:24 10/19/16 16:24 10/19/16 16:24 10/19/16 08:00 Intake and Output: 10/19/16 10/20/16 18:59 06:59 Intake Total 820 Output Total 800 Balance 20 - Medications Medications: Current Medications Acetaminophen (Tylenol 325mg Tab) 650 mg PO Q6H PRN PRN Reason: Fever >100.4 F Last Admin: 10/14/16 18:16 Dose: 650 mg Ascorbic Acid (Vitamin C 500 Mg Tab) 500 mg PO DAILY [facility] Last Admin: 10/19/16 10:13 Dose: 500 mg Aspirin (Aspirin Chewable) 81 mg PO DAILY [facility] Last Admin: 10/19/16 10:13 Dose: 81 mg Atorvastatin Calcium (Lipitor) 80 mg PO DIN [facility] Last Admin: 10/19/16 18:55 Dose: 80 mg Docusate Sodium (Colace) 100 mg PO BID [facility] Last Admin: 10/19/16 18:55 Dose: 100 mg Famotidine (Pepcid) 20 mg PO BID [facility] Last Admin: 10/19/16 18:55 Dose: 20 mg Gabapentin (Neurontin) 400 mg PO TID [facility] PRN Reason: Protocol Last Admin: 10/19/16 18:55 Dose: 400 mg Heparin Sodium (Porcine) (Heparin) 5,000 units SC Q8 [facility] PRN Reason: Protocol Last Admin: 10/19/16 15:05 Dose: 5,000 units Hydromorphone HCl (Dilaudid) 1 mg IVP Q4H PRN PRN Reason: Pain, severe (8-10) Last Admin: 10/19/16 15:57 Dose: 1 mg Cefepime HCl (Maxipime 2gm) 2 gm in 100 mls @ 100 mls/hr IVPB Q8 [facility] PRN Reason: Protocol Stop: 11/14/16 09:31 Last Admin: 10/19/16 15:06 Dose: 100 mls/hr Multivitamins (Thera Tab) 1 tab PO DAILY [facility] Last Admin: 10/19/16 10:13 Dose: 1 tab Ondansetron HCl (Zofran Inj) 4 mg IVP Q4H PRN PRN Reason: Nausea/Vomiting Ondansetron HCl (Zofran Inj) 4 mg IVP ONCE PRN PRN Reason: Nausea/Vomiting Zinc Sulfate (Zinc Sulfate 220 Mg Cap) 220 mg PO DAILY [facility] Last Admin: 10/19/16 10:13 Dose: 220 mg - Labs Labs: 10/19/16 07:00 10/19/16 07:00 PT 10.7 Seconds (9.9-11.8) 10/13/16 06:00 INR 0.99 (0.93-1.08) 10/13/16 06:00 APTT 30.8 Seconds (23.7-30.8) 10/12/16 22:43 - Constitutional Appears: Non-toxic, No Acute Distress - Head Exam Head Exam: NORMAL INSPECTION - ENT Exam ENT Exam: Mucous Membranes Moist - Neck Exam Neck Exam: absent: Lymphadenopathy, Meningismus - Respiratory Exam Respiratory Exam: Decreased Breath Sounds - Cardiovascular Exam Cardiovascular Exam: +S1, +S2 - GI/Abdominal Exam GI & Abdominal Exam: Soft. absent: Tenderness Assessment and Plan - Assessment and Plan (Free Text) Assessment: Assessment Right leg dry gangrene and non-healing wound with severe peripheral vascular disease, with acute osteomyelitis - S/P debridement and bone biopsy to rule out osteomyelitis POD #6 - growing Pseudomonas S/P revascularization and S/P fem-pop bypass S/P grafting Plan continue Cefepime based on susceptibility profile of the Pseudomonas - will need at least 6 weeks of antibiotics with weekly ESR, CRP, CBC, CMP discussed with Dr. Albert previously will continue to monitor clinically
[2016-10-20] MEDS: HYDROmorphone 1 mg/ml ISec IVP PRN ×6 (00:20→21:17)
[2016-10-20] MEDS: Cefepime IV 2 gm in NS 2 GM/100 ML BAG IVPB SCH ×3 (06:01→22:28)
[2016-10-20 07:33] LABS: ADD MANUAL DIFF? NO
[2016-10-20 07:39] LABS: BASO # 0.06 K/mm3 (0.0-2.0); BASO % 0.6 % (0.0-3.0); EOS # 0.6 (0.0-0.7); EOS % 6.5 % (1.5-5.0); GRAN # 5.69 (1.4-6.5); GRAN % 59.6 % (50.0-68.0); HEMATOCRIT 31.3 % (42.0-52.0); LYMPH # 2.2 (1.2-3.4); LYMPH % 23.3 % (22.0-35.0); MEAN CELL VOLUME 96.6 fL (80.0-105.0); MEAN CORPUSCULAR HEMOGLOBIN 32.1 pg (25.0-35.0); MEAN CORPUSCULAR HGB CONC 33.2 g/dl (31.0-37.0); MEAN PLATELET VOLUME 9.4 fl (7.0-11.0); PLATELET COUNT 526 10^3/uL (120.0-450.0); RED CELL DISTRIBUTION WIDTH 16.5 % (11.5-14.5); WHITE BLOOD COUNT 9.6 10^3/ul (4.5-11.0)
[2016-10-20 08:14] LABS: ALB/GLOB RATIO 0.9 (1.1-1.8); ALKALINE PHOSPHATASE 239 U/L (38-133); ALT/SGPT 54 U/L (7-56); AST/SGOT 85 U/L (15-59); BILIRUBIN,TOTAL 0.5 mg/dL (0.2-1.3); BLOOD UREA NITROGEN 27 mg/dL (7-21); CALCIUM 9.5 mg/dL (8.4-10.5); CARBON DIOXIDE 26 mmol/L (21-33); CHLORIDE 101 mmol/L (95-110); GFR AFRICAN-AMERICAN > 60; GLUCOSE,RANDOM 106 mg/dL (70-110); POTASSIUM 5.1 mmol/L (3.6-5.0); SODIUM 137 mmol/L (132-148); TOTAL PROTEIN 8.1 g/dL (5.8-8.3)
[2016-10-20] MEDS: Multivitamin Therapeutic Tab PO SCH (09:07)
--- NOTE | 2016-10-20 09:33 | PN ---
DATE: 10/20/2016 SUBJECTIVE: The patient was seen and examined at bedside on the general medical cramer. No acute even ts overnight. He remains afebrile and hemodynamically stable. This morning, the patient states he f eels well and denies any complaints. He continues to endorse improvement in his left upper extremity motor function. OBJECTIVE: VITAL SIGNS: Temperature 97.9, pulse 61, blood pressure 119/61, respiratory rate 18, oxygen saturati on 97% on room air. GENERAL: Thin, frail man, lying in bed, in no apparent distress. HEENT: PERRL, EOMI. No scleral icterus. No conjunctival pallor. NECK: No JVD, no bruits. LUNGS: Clear to auscultation. CARDIOVASCULAR: Regular rate and rhythm. Normal S1 and S2. ABDOMEN: Normoactive bowel sounds, soft, nontender, nondistended. EXTREMITIES: Right lower extremity with surgical dressing in place and left lower extremity with oliva t in place and left upper extremity with splint in place. NEUROLOGIC: Awake, alert and oriented x 3. Motor 5/5 on right, 4/5 on left lower extremity and 1/5 in left upper extremity. Sensation remains intact. LABORATORY DATA: WBC 9.6 with 60% neutrophils, hemoglobin 10, hematocrit 31, platelets 526. Sodium 137, potassium 5.1, chloride 101, bicarb 26, BUN 27, creatinine 1, glucose 106, AST 85, ALT 54, alk p hos 239. ASSESSMENT: The patient is a 61-year-old man with past medical history of severe peripheral vascular disease/peripheral arterial disease, status post interventional radiology revascularization, status post endovascular catheter-directed tissue plasminogen activator, status post amputation of the right foot digits with multiple prior admissions for cellulitis, dry gangrene and osteomyelitis, who prese nted to [facility] for evaluation of right below knee amputation, who is now status post left fem-pop bypass and left Achilles tendon release as well as status post right lower extremity wou nd debridement with bone cultures demonstrating pseudomonas. PLAN: 1. Osteomyelitis of the right lower extremity. Wound cultures reviewed and demonstrate pseudomonas. Input from Dr. Abdalla noted and appreciated, and patient will require 6-8 week course of IV antibiot ics. He is presently on cefepime 2 grams IV q. 8 hours and has a left upper extremity peripherally i nserted central catheter line in place to facilitate long-term antibiotics. 2. Severe peripheral vascular disease/peripheral arterial disease. Continue with postoperative care as per Dr. Nicholson and the vascular surgery team. Continue with Lipitor 80 mg p.o. daily and aspirin 8 1 mg p.o. daily. Input from Dr. Albert noted and greatly appreciated. 3. Left upper extremity paralysis/weakness, improving. Continue with physical therapy. Continue wi th splint. Input from Dr. Guerrero of neurology noted. 4. Transaminitis, etiology secondary to fatty liver disease with concurrent statin use. LFTs remain stable. Continue to monitor CMP daily. 5. Prophylaxis. Continue with Pepcid for gastrointestinal prophylaxis and heparin for deep venous t hrombosis prophylaxis. CODE STATUS: Full code. Gume Gonzalez MD cc: [id number] TT: 10/20/2016 09:32:13 Confirmation # [id number] Dictation # [id number] en
--- NOTE | 2016-10-20 17:58 | PN ---
DATE: 10/20/2016 This a 61-year-old male seen for right leg ulceration, right heel ulceration, and he is status post 1 week FOZIA on his left lower extremity and a bypass approximately 10 days on his left lower extremity. The patient is seen at bedside. Wound VAC is in place and he has no new complaints. VITAL SIGNS: Were reviewed. Temperature is 97.9, pulse is 61. MEDICATIONS: The patient's medications were noted on the JUL. ALLERGIES: He has no known drug allergies. LABORATORY DATA: Also reviewed. His white blood cell count is 9.6, the H and H are 10.4 and 31.3, a nd his platelets are 526. The patient's chemistry shows a potassium of 5.1. The BUN was 27, the cre atinine was 1.0. His liver enzymes are slightly elevated: AST at 85 and his alkaline phosphatase is 239 and that is most likely secondary to the osteomyelitis of the tibia on the right leg. The yola nt's reports were also reviewed. His surgical bone biopsy of the tibia was positive for osteomyeliti s. He is presently on Rocephin for 4-6 weeks as per infectious disease for that infection. The patient's cast was clean, dry and intact. That is not due to be changed until next week. He has no complaints of pain from that leg. His wound VAC was changed. The wound VAC is pulling well. Th ere is very minimal drainage in the canister. The Integra skin graft still remains covering the bone . The antibiotic beads are still in place underneath, are slightly a little soupy secondary to the b alexi starting to dissolve. There is no cellulitis, no signs of any infection. The Integra skin carol t is still on the right heel and no signs of infection from that at this time. 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 PLAN OF TREATMENT: Cast should be changed next week. Continue wound care with Thursday, Thursday and Thursday change of the wound VAC. I did speak to patient. He prefers to go home rather than subacute if his insurance will pay for the antibiotics at home. He will get physical therapy. His is t here to help him at his home. I did speak to the rn case mgr regarding the same. I believe she is going to try and put him in transitional care for 1 week, at which time he can get a little bit more aggressive physical therapy, and then the plan would be to send him home for the remainder of his ant ibiotics. The patient will be seen in followup. Gabby Albert DPM cc: [id number] TT: 10/20/2016 17:57:28 Confirmation # [id number] Dictation # [id number] mn
--- NOTE | 2016-10-20 19:15 | CP.PCM.PN ---
Subjective - Date & Time of Evaluation Date of Evaluation: 10/20/16 Time of Evaluation: 10:15 - Subjective Subjective: Comfortable ,afebrile. Objective - Vital Signs/Intake and Output Vital Signs (last 24 hours): Temp Pulse Resp BP Pulse Ox 97.9 F 61 18 119/61 96 10/20/16 07:30 10/20/16 07:30 10/20/16 07:30 10/20/16 07:30 10/20/16 07:30 Intake and Output: 10/20/16 10/21/16 18:59 06:59 Intake Total 540 Output Total 600 Balance -60 - Medications Medications: Current Medications Acetaminophen (Tylenol 325mg Tab) 650 mg PO Q6H PRN PRN Reason: Fever >100.4 F Last Admin: 10/14/16 18:16 Dose: 650 mg Ascorbic Acid (Vitamin C 500 Mg Tab) 500 mg PO DAILY [facility] Last Admin: 10/20/16 09:07 Dose: 500 mg Aspirin (Aspirin Chewable) 81 mg PO DAILY [facility] Last Admin: 10/20/16 09:05 Dose: 81 mg Atorvastatin Calcium (Lipitor) 80 mg PO DIN [facility] Last Admin: 10/20/16 18:30 Dose: 80 mg Docusate Sodium (Colace) 100 mg PO BID [facility] Last Admin: 10/20/16 18:30 Dose: 100 mg Famotidine (Pepcid) 20 mg PO BID [facility] Last Admin: 10/20/16 18:31 Dose: 20 mg Gabapentin (Neurontin) 400 mg PO TID [facility] PRN Reason: Protocol Last Admin: 10/20/16 18:31 Dose: 400 mg Heparin Sodium (Porcine) (Heparin) 5,000 units SC Q8 [facility] PRN Reason: Protocol Last Admin: 10/20/16 13:14 Dose: 5,000 units Hydromorphone HCl (Dilaudid) 1 mg IVP Q4H PRN PRN Reason: Pain, severe (8-10) Last Admin: 10/20/16 17:14 Dose: 1 mg Cefepime HCl (Maxipime 2gm) 2 gm in 100 mls @ 100 mls/hr IVPB Q8 [facility] PRN Reason: Protocol Stop: 11/14/16 09:31 Last Admin: 10/20/16 13:12 Dose: 100 mls/hr Multivitamins (Thera Tab) 1 tab PO DAILY [facility] Last Admin: 10/20/16 09:07 Dose: 1 tab Ondansetron HCl (Zofran Inj) 4 mg IVP Q4H PRN PRN Reason: Nausea/Vomiting Ondansetron HCl (Zofran Inj) 4 mg IVP ONCE PRN PRN Reason: Nausea/Vomiting Zinc Sulfate (Zinc Sulfate 220 Mg Cap) 220 mg PO DAILY [facility] Last Admin: 10/20/16 09:07 Dose: 220 mg - Labs Labs: 10/20/16 07:10 10/20/16 07:10 PT 10.7 Seconds (9.9-11.8) 10/13/16 06:00 INR 0.99 (0.93-1.08) 10/13/16 06:00 APTT 30.8 Seconds (23.7-30.8) 10/12/16 22:43 - Constitutional Appears: Non-toxic, No Acute Distress - Head Exam Head Exam: NORMAL INSPECTION - ENT Exam ENT Exam: Mucous Membranes Moist - Neck Exam Neck Exam: absent: Lymphadenopathy, Meningismus - Respiratory Exam Respiratory Exam: Decreased Breath Sounds - Cardiovascular Exam Cardiovascular Exam: +S1, +S2 - GI/Abdominal Exam GI & Abdominal Exam: Soft. absent: Tenderness Assessment and Plan - Assessment and Plan (Free Text) Plan: Assessment Right leg dry gangrene and non-healing wound with severe peripheral vascular disease, with acute osteomyelitis - S/P debridement and bone biopsy to rule out osteomyelitis POD #7 - growing Pseudomonas S/P revascularization and S/P fem-pop bypass S/P grafting Plan continue Cefepime based on susceptibility profile of the Pseudomonas - will need at least 6 weeks of antibiotics with weekly ESR, CRP, CBC, CMP discussed with Dr. Albert previously will continue to monitor clinically
[2016-10-21 03:58] LABS: BLOOD UREA NITROGEN 16 mg/dL (7-21); GLUCOSE,RANDOM 108 mg/dL (70-110)
[2016-10-21 03:59] LABS: CALCIUM 9.1 mg/dL (8.4-10.5); CARBON DIOXIDE 25 mmol/L (21-33); CHLORIDE 100 mmol/L (98-107); GFR AFRICAN-AMERICAN > 60; POTASSIUM 4.1 mmol/L (3.6-5.0); SODIUM 137 mmol/L (132-148)
[2016-10-21 04:00] LABS: ALB/GLOB RATIO 0.9 (1.1-1.8); BILIRUBIN,TOTAL 0.7 mg/dL (0.2-1.3); MAGNESIUM 1.9 mg/dL (1.7-2.2); PHOSPHOROUS 2.8 mg/dL (2.5-4.5); TOTAL PROTEIN 7.2 g/dL (5.8-8.3)
[2016-10-21 04:01] LABS: ALKALINE PHOSPHATASE 216 U/L (38-133); ALT/SGPT 56 U/L (7-56); AST/SGOT 83 U/L (15-59)
[2016-10-21] MEDS: HYDROmorphone 1 mg/ml ISec IVP PRN ×5 (04:24→21:40)
[2016-10-21] MEDS: Cefepime IV 2 gm in NS 2 GM/100 ML BAG IVPB SCH ×3 (05:43→21:40)
[2016-10-21 07:09] LABS: ADD MANUAL DIFF? NO
[2016-10-21 07:18] LABS: BASO # 0.08 K/mm3 (0.0-2.0); BASO % 0.7 % (0.0-3.0); EOS # 0.5 (0.0-0.7); EOS % 4.6 % (1.5-5.0); GRAN # 7.45 (1.4-6.5); GRAN % 68.5 % (50.0-68.0); LYMPH % 18.2 % (22.0-35.0); MEAN CELL VOLUME 96.6 fL (80.0-105.0); MEAN CORPUSCULAR HEMOGLOBIN 31.2 pg (25.0-35.0); MEAN CORPUSCULAR HGB CONC 32.3 g/dl (31.0-37.0); MEAN PLATELET VOLUME 9.6 fl (7.0-11.0); MONO # 0.9 (0.1-0.6); PLATELET COUNT 510 10^3/uL (120.0-450.0); RED CELL DISTRIBUTION WIDTH 16.3 % (11.5-14.5); WHITE BLOOD COUNT 10.9 10^3/ul (4.5-11.0)
[2016-10-21 07:22] LABS: ALKALINE PHOSPHATASE 230 U/L (38-133); ALT/SGPT 54 U/L (7-56); AST/SGOT 68 U/L (15-59); BILIRUBIN,TOTAL 0.4 mg/dL (0.2-1.3); BLOOD UREA NITROGEN 23 mg/dL (7-21); CALCIUM 9.4 mg/dL (8.4-10.5); CARBON DIOXIDE 25 mmol/L (21-33); CHLORIDE 104 mmol/L (95-110); GFR AFRICAN-AMERICAN > 60; GLUCOSE,RANDOM 104 mg/dL (70-110); POTASSIUM 4.7 mmol/L (3.6-5.0); SODIUM 137 mmol/L (132-148); TOTAL PROTEIN 7.5 g/dL (5.8-8.3)
[2016-10-21 08:10] VITALS: RESP 20
--- NOTE | 2016-10-21 09:01 | PN ---
DATE: 10/21/2016 SUBJECTIVE: The patient seen and examined at bedside on the general medical cramer. No acute events o vernight. He remains afebrile and hemodynamically stable. The patient reports that his PICC line to his left upper extremity is now functioning properly with good blood return, status post administrat ion of Cathflo. Otherwise, he feels okay and offers no complaints. OBJECTIVE: VITAL SIGNS: Temperature 98, pulse 70, blood pressure 104/64, respiratory rate 20, oxygen saturation 99% on room air. GENERAL: No apparent distress. HEENT: PERRL, EOMI. No scleral icterus. No conjunctival pallor. NECK: No JVD, no bruits. LUNGS: Clear to auscultation. CARDIOVASCULAR: Regular rate and rhythm. Normal S1 and S2. ABDOMEN: Normoactive bowel sounds, soft, nontender, nondistended. EXTREMITIES: Right lower extremity with surgical dressing in place, left lower extremity with cast i n place and left upper extremity with splint in place. NEUROLOGIC: Awake, alert and oriented x 3. Motor 5/5 on right, 4/5 on left lower extremity and 1/5 in left upper extremity. Sensation remains intact. LABORATORY DATA: WBC 10.9 with 68% neutrophils, hemoglobin 10, hematocrit 31, platelets 510. Chemis try reviewed and unremarkable. ASSESSMENT: The patient is a 61-year-old man with past medical history of severe peripheral vascular disease/peripheral arterial disease, status post interventional radiology vascularization, status po st endovascular catheter-directed tissue plasminogen activator, status post amputation of the right f oot digits with multiple prior admissions for cellulitis, dry gangrene and osteomyelitis, who present ed to [facility] for evaluation of right below knee amputation, who is status post left f em-pop bypass and left Achilles tendon release, who was found to have osteomyelitis of the right lowe r extremity wound with cultures demonstrating pseudomonas. PLAN: 1. Osteomyelitis of right lower extremity. Input from Dr. Albert and the podiatric team noted and greatly appreciated. Continue with local wound care as per Dr. Albert. Input from Dr. Abdalla noted and also greatly appreciated and patient will require a minimum of 6 weeks of IV antibiotics. The pa radha is on cefepime 2 grams IV q. 8 hours. He also has a functioning peripherally inserted central catheter line in place to the left upper extremity to facilitate long-term IV antibiotics. 2. Severe peripheral vascular disease/peripheral arterial disease. Continue with postoperative care as per Dr. Nicholson and the vascular surgery team. Continue with Lipitor 80 mg p.o. daily and aspirin 8 1 mg p.o. daily. 3. Left upper extremity paralysis/weakness, improving. Continue with physical therapy and splint. 4. Transaminitis, etiology secondary to fatty liver disease with concurrent statin use. LFTs remain stable. Will continue to monitor daily. 5. Prophylaxis. Continue with Pepcid for gastrointestinal prophylaxis and heparin for deep venous t hrombosis prophylaxis. CODE STATUS: Full code. Gume Gonzalez MD cc: [id number] TT: 10/21/2016 09:00:44 Confirmation # [id number] Dictation # [id number] en
[2016-10-21] MEDS: Multivitamin Therapeutic Tab PO SCH (09:23)
--- NOTE | 2016-10-21 14:03 | PN ---
DATE: 10/21/2016 The patient is comfortable in bed, without shortness of breath, without chest pain. PHYSICAL EXAMINATION: VITAL SIGNS: Blood pressure is 104/64, heart rate is in the 70s. The patient is afebrile. NECK: Negative JVD. LUNGS: Without rales. HEART: Revealed S1, S2. EXTREMITIES: Bandaged. Hemoglobin is 10.0. BUN and creatinine are unremarkable. IMPRESSION: 1. Severe peripheral vascular disease. 2. Leg ulcers. 3. Severe chronic obstructive pulmonary disease. 4. Sepsis. 5. Anemia. Given these findings, the patient is hemodynamically stable. We will continue the IV antibiotics. Ramin Mayers MD cc: [id number] TT: 10/21/2016 14:02:18 Confirmation # [id number] Dictation # [id number] en
--- NOTE | 2016-10-21 15:18 | CP.PCM.PN ---
<Antonia Kelly - Last Filed: 10/21/16 15:14> Subjective - Date & Time of Evaluation Date of Evaluation: 10/21/16 Time of Evaluation: 14:30 - Subjective Subjective: 61 yo male patient seen at bedside today with Dr. Olea present for f/u of right leg ulceration and is 1 week s/p FOZIA of left lower extremity, is 10 days s /p bypass of left lower extremity. Pt seen resting comfortably in bed at time of visit, says the knee pain to the right side is much improved. Pt denies any complaints at this time. Objective - Vital Signs/Intake and Output Vital Signs (last 24 hours): Temp Pulse Resp BP Pulse Ox 98.0 F 70 20 104/64 99 10/21/16 07:30 10/21/16 07:30 10/21/16 07:30 10/21/16 07:30 10/21/16 07:30 Intake and Output: 10/21/16 10/21/16 06:59 18:59 Intake Total 840 Output Total 1350 Balance -510 - Medications Medications: Current Medications Acetaminophen (Tylenol 325mg Tab) 650 mg PO Q6H PRN PRN Reason: Fever >100.4 F Last Admin: 10/14/16 18:16 Dose: 650 mg Ascorbic Acid (Vitamin C 500 Mg Tab) [address] [facility] Last Admin: 10/21/16 09:23 Dose: 500 mg Aspirin (Aspirin Chewable) [address] [facility] Last Admin: 10/21/16 09:22 Dose: 81 mg Atorvastatin Calcium (Lipitor) [address] [facility] Last Admin: 10/20/16 18:30 Dose: 80 mg Docusate Sodium (Colace) [address] [facility] Last Admin: 10/21/16 09:22 Dose: 100 mg Famotidine (Pepcid) [address] [facility] Last Admin: 10/21/16 09:23 Dose: 20 mg Gabapentin (Neurontin) [address] [facility] PRN Reason: Protocol Last Admin: 10/21/16 13:32 Dose: 400 mg Heparin Sodium (Porcine) (Heparin) 5,000 units SC Q8 [facility] PRN Reason: Protocol Last Admin: 10/21/16 13:32 Dose: 5,000 units Hydromorphone HCl (Dilaudid) 1 mg IVP Q4H PRN PRN Reason: Pain, severe (8-10) Last Admin: 10/21/16 13:33 Dose: 1 mg Cefepime HCl (Maxipime 2gm) 2 gm in 100 mls @ 100 mls/hr IVPB Q8 [facility] PRN Reason: Protocol Stop: 11/14/16 09:31 Last Admin: 10/21/16 13:32 Dose: 100 mls/hr Multivitamins (Thera Tab) [address] [facility] Last Admin: 10/21/16 09:23 Dose: 1 tab Ondansetron HCl (Zofran Inj) 4 mg IVP Q4H PRN PRN Reason: Nausea/Vomiting Ondansetron HCl (Zofran Inj) 4 mg IVP ONCE PRN PRN Reason: Nausea/Vomiting Zinc Sulfate (Zinc Sulfate 220 Mg Cap) [address] [facility] Last Admin: 10/21/16 09:23 Dose: 220 mg - Labs Labs: 10/21/16 06:55 10/21/16 06:55 PT 10.7 Seconds (9.9-11.8) 10/13/16 06:00 INR 0.99 (0.93-1.08) 10/13/16 06:00 APTT 30.8 Seconds (23.7-30.8) 10/12/16 22:43 - Constitutional Appears: Non-toxic, No Acute Distress - Extremities Exam Additional comments: LLE: below knee cast appears c/d/i, cap refill < 3 sec to all digits, no tenderness RLE: wound vac appears c/d/i, running on continuous setting @ 125mmHg, minimal drainage noted in cannister. - Neurological Exam Neurological Exam: Alert, Awake, Oriented x3 - Psychiatric Exam Psychiatric exam: Normal Affect, Normal Mood Assessment and Plan - Assessment and Plan (Free Text) Assessment: 61 yo male patient with osteomyelitis of right tibia and stage IV ulceration of heel, 1 week s/p integra skin graft application with placement of antibiotic beads, 1 week s/p FOZIA left lower extremity. Plan: -Pt S&E at bedside with Dr. Olea present -Chart, labs vitals reviewed -Cast to LLE is to be left c/d/i (to be changed next week) -Wound vac left in placed today as was just changed yesterday, will be changed again on Thursday -Awaiting dispo from case management for possible 1 week stay at [facility]CU for more physical therapy with plan to return home thereafter for remainder of IV abx therapy. -Will continue to follow while he remains in house. <Francisco Olea - Last Filed: 10/24/16 13:42> Objective - Vital Signs/Intake and Output Vital Signs (last 24 hours): Temp Pulse Resp BP Pulse Ox 98.2 F 68 20 99/54 L 90 L 10/22/16 16:00 10/22/16 16:00 10/22/16 16:00 10/22/16 16:00 10/22/16 16:00 - Labs Labs: 10/22/16 06:45 10/22/16 06:45 PT 10.7 Seconds (9.9-11.8) 10/13/16 06:00 INR 0.99 (0.93-1.08) 10/13/16 06:00 APTT 30.8 Seconds (23.7-30.8) 10/12/16 22:43 Attending/Attestation - Attestation I have personally seen and examined this patient.: Yes I have fully participated in the care of the patient.: Yes I have reviewed all pertinent clinical information, including history, physical exam and plan: Yes
--- NOTE | 2016-10-21 20:45 | CP.PCM.PN ---
Subjective - Date & Time of Evaluation Date of Evaluation: 10/21/16 Time of Evaluation: 11:35 - Subjective Subjective: Comfortable, afebrile. Objective - Vital Signs/Intake and Output Vital Signs (last 24 hours): Temp Pulse Resp BP Pulse Ox 98.3 F 65 20 115/59 L 95 10/21/16 16:00 10/21/16 16:00 10/21/16 16:00 10/21/16 16:00 10/21/16 16:00 - Medications Medications: Current Medications Acetaminophen (Tylenol 325mg Tab) 650 mg PO Q6H PRN PRN Reason: Fever >100.4 F Last Admin: 10/14/16 18:16 Dose: 650 mg Ascorbic Acid (Vitamin C 500 Mg Tab) 500 mg PO DAILY [facility] Last Admin: 10/21/16 09:23 Dose: 500 mg Aspirin (Aspirin Chewable) 81 mg PO DAILY [facility] Last Admin: 10/21/16 09:22 Dose: 81 mg Atorvastatin Calcium (Lipitor) 80 mg PO DIN [facility] Last Admin: 10/21/16 17:38 Dose: 80 mg Docusate Sodium (Colace) 100 mg PO BID [facility] Last Admin: 10/21/16 17:37 Dose: 100 mg Famotidine (Pepcid) 20 mg PO BID [facility] Last Admin: 10/21/16 17:37 Dose: 20 mg Gabapentin (Neurontin) 400 mg PO TID [facility] PRN Reason: Protocol Last Admin: 10/21/16 17:38 Dose: 400 mg Heparin Sodium (Porcine) (Heparin) 5,000 units SC Q8 [facility] PRN Reason: Protocol Last Admin: 10/21/16 13:32 Dose: 5,000 units Hydromorphone HCl (Dilaudid) 1 mg IVP Q4H PRN PRN Reason: Pain, severe (8-10) Last Admin: 10/21/16 17:37 Dose: 1 mg Cefepime HCl (Maxipime 2gm) 2 gm in 100 mls @ 100 mls/hr IVPB Q8 [facility] PRN Reason: Protocol Stop: 11/14/16 09:31 Last Admin: 10/21/16 13:32 Dose: 100 mls/hr Multivitamins (Thera Tab) 1 tab PO DAILY [facility] Last Admin: 10/21/16 09:23 Dose: 1 tab Ondansetron HCl (Zofran Inj) 4 mg IVP Q4H PRN PRN Reason: Nausea/Vomiting Ondansetron HCl (Zofran Inj) 4 mg IVP ONCE PRN PRN Reason: Nausea/Vomiting Zinc Sulfate (Zinc Sulfate 220 Mg Cap) 220 mg PO DAILY [facility] Last Admin: 10/21/16 09:23 Dose: 220 mg - Labs Labs: 10/21/16 06:55 10/21/16 06:55 PT 10.7 Seconds (9.9-11.8) 10/13/16 06:00 INR 0.99 (0.93-1.08) 10/13/16 06:00 APTT 30.8 Seconds (23.7-30.8) 10/12/16 22:43 - Constitutional Appears: Non-toxic, No Acute Distress - Head Exam Head Exam: NORMAL INSPECTION - ENT Exam ENT Exam: Mucous Membranes Moist - Neck Exam Neck Exam: absent: Lymphadenopathy, Meningismus - Respiratory Exam Respiratory Exam: Decreased Breath Sounds - Cardiovascular Exam Cardiovascular Exam: +S1, +S2 - GI/Abdominal Exam GI & Abdominal Exam: Soft. absent: Tenderness Assessment and Plan - Assessment and Plan (Free Text) Plan: Assessment Right leg dry gangrene and non-healing wound with severe peripheral vascular disease, with acute osteomyelitis - S/P debridement and bone biopsy to rule out osteomyelitis POD #8 - growing Pseudomonas S/P revascularization and S/P fem-pop bypass S/P grafting Plan continue Cefepime based on susceptibility profile of the Pseudomonas - will need at least 6 weeks of antibiotics with weekly ESR, CRP, CBC, CMP discussed with Dr. Albert previously will continue to monitor clinically
[2016-10-22] MEDS: HYDROmorphone 1 mg/ml ISec IVP PRN ×6 (01:38→18:39)
[2016-10-22] MEDS: Cefepime IV 2 gm in NS 2 GM/100 ML BAG IVPB SCH ×2 (06:34→13:39)
[2016-10-22 06:57] LABS: ADD MANUAL DIFF? NO
[2016-10-22 07:18] LABS: BILIRUBIN,TOTAL 0.5 mg/dL (0.2-1.3); GFR AFRICAN-AMERICAN > 60
[2016-10-22 08:07] LABS: BASO # 0.11 K/mm3 (0.0-2.0); EOS # 0.6 (0.0-0.7); GRAN # 7.39 (1.4-6.5); GRAN % 64.2 % (50.0-68.0); LYMPH # 2.2 (1.2-3.4); LYMPH % 18.9 % (22.0-35.0); MEAN CELL VOLUME 97.2 fL (80.0-105.0); MEAN CORPUSCULAR HEMOGLOBIN 31.7 pg (25.0-35.0); MEAN CORPUSCULAR HGB CONC 32.6 g/dl (31.0-37.0); MONO # 1.3 (0.1-0.6); MONO % 10.9 % (1.0-6.0); PLATELET COUNT 504 10^3/uL (120.0-450.0); RED CELL DISTRIBUTION WIDTH 16.4 % (11.5-14.5); WHITE BLOOD COUNT 11.5 10^3/ul (4.5-11.0)
[2016-10-22] MEDS: Multivitamin Therapeutic Tab PO SCH (09:20)
--- NOTE | 2016-10-22 10:15 | PN ---
DATE: 10/22/2016 SUBJECTIVE: The patient seen and examined at bedside on the general medical cramer. No acute events o vernight. He remains afebrile and hemodynamically stable. He continues to demonstrate improvement i n his right lower extremity wound. This morning, he feels well, offers no complaints and is pending disposition. OBJECTIVE: VITAL SIGNS: Temperature 97.8, pulse 67, blood pressure 108/73, respiratory rate 20, oxygen saturati on 99% on room air. GENERAL: No apparent distress. HEENT: PERRL, EOMI. No scleral icterus. No conjunctival pallor. NECK: No JVD, no bruits. LUNGS: Clear to auscultation. CARDIOVASCULAR: Regular rate and rhythm. Normal S1 and S2. ABDOMEN: Normoactive bowel sounds, soft, nontender, nondistended. EXTREMITIES: Right lower extremity with surgical dressing in place. Left lower extremity with cast in place and left upper extremity with splint in place. NEUROLOGIC: Awake, alert and oriented x 3. Motor 5/5 on right, 4-5 on left lower extremity and 1/5 on left upper extremity. Sensation remains intact. LABORATORY DATA: WBC 11.5 with 64% neutrophils, hemoglobin 10, hematocrit 31, platelets 504. Chemis try reviewed and unremarkable. AST 63, ALT 54, alk phos 227. ASSESSMENT: The patient is a 61-year-old man with past medical history of severe peripheral vascular disease/peripheral arterial disease, status post interventional radiology revascularizations, status post endovascular catheter-directed tissue plasminogen activator, status post amputation of the righ t foot digits with multiple prior admissions for cellulitis, dry gangrene and osteomyelitis, who pres ented to [facility] for evaluation of right below-knee amputation and who is now status p ost left fem-pop bypass, left Achilles tendon release and subsequently found to have osteomyelitis of the right lower extremity with cultures demonstrating pseudomonas. PLAN: 1. Osteomyelitis of right lower extremity. Input from Dr. Albert of the podiatric team noted and g reatly appreciated. Continue with local wound care as per Dr. Albert. Input from Dr. Abdalla also gr eatly appreciated and the patient will require a minimum of 6 weeks of IV antibiotics. The patient r emains on cefepime 2 grams IV q. 8 hours. A PICC line is already in place to the left upper extremit y to facilitate long-term IV antibiotics. 2. Severe PVD/PAD. Continue with postoperative care as per Dr. Nicholson of the vascular surgery team. Continue with Lipitor 80 mg p.o. daily and aspirin 81 mg p.o. daily. 3. Left upper extremity paralysis/weakness, improving. Continue with physical therapy. 4. Transaminitis, etiology secondary to fatty liver disease with concurrent statin use. LFTs remain stable. Continue to monitor daily. 5. Prophylaxis. Continue with Pepcid for GI prophylaxis and heparin for DVT prophylaxis. CODE STATUS: Full code. Gume Gonzalez MD cc: [id number] TT: 10/22/2016 10:14:22 Confirmation # [id number] Dictation # [id number] tn
--- NOTE | 2016-10-22 12:13 | CP.PCM.PN ---
<Antonia Kelly - Last Filed: 10/22/16 12:09> Subjective - Date & Time of Evaluation Date of Evaluation: 10/22/16 Time of Evaluation: 11:30 - Subjective Subjective: 61 yo male patient seen at bedside this morning with Dr. Albert present. Pt seen resting comfortably in bed at time of visit, denies any problems at this time. Says the wound vac had a leak overnight but that it is functioning properly now after being reinforced. Says he is being discharged to [facility] today for rehab and IV abx. Denies any pain or discomfort to the lower extremities. Denies any other problems at this time. Objective - Vital Signs/Intake and Output Vital Signs (last 24 hours): Temp Pulse Resp BP Pulse Ox 97.8 F 67 20 108/73 99 10/22/16 07:30 10/22/16 07:30 10/22/16 07:30 10/22/16 07:30 10/22/16 07:30 Intake and Output: 10/22/16 10/22/16 06:59 18:59 Intake Total 960 Output Total 700 Balance 260 - Medications Medications: Current Medications Acetaminophen (Tylenol 325mg Tab) 650 mg PO Q6H PRN PRN Reason: Fever >100.4 F Last Admin: 10/14/16 18:16 Dose: 650 mg Ascorbic Acid (Vitamin C 500 Mg Tab) 500 mg PO DAILY [facility] Last Admin: 10/22/16 09:19 Dose: 500 mg Aspirin (Aspirin Chewable) 81 mg PO DAILY [facility] Last Admin: 10/22/16 09:21 Dose: 81 mg Atorvastatin Calcium (Lipitor) 80 mg PO DIN [facility] Last Admin: 10/21/16 17:38 Dose: 80 mg Docusate Sodium (Colace) 100 mg PO BID [facility] Last Admin: 10/22/16 09:20 Dose: 100 mg Famotidine (Pepcid) 20 mg PO BID [facility] Last Admin: 10/22/16 09:31 Dose: 20 mg Gabapentin (Neurontin) 400 mg PO TID [facility] PRN Reason: Protocol Last Admin: 10/22/16 09:19 Dose: 400 mg Heparin Sodium (Porcine) (Heparin) 5,000 units SC Q8 [facility] PRN Reason: Protocol Last Admin: 10/22/16 06:33 Dose: 5,000 units Hydromorphone HCl (Dilaudid) 1 mg IVP Q4H PRN PRN Reason: Pain, severe (8-10) Last Admin: 10/22/16 10:27 Dose: 1 mg Cefepime HCl (Maxipime 2gm) 2 gm in 100 mls @ 100 mls/hr IVPB Q8 [facility] PRN Reason: Protocol Stop: 11/14/16 09:31 Last Admin: 10/22/16 06:34 Dose: 100 mls/hr Multivitamins (Thera Tab) 1 tab PO DAILY [facility] Last Admin: 10/22/16 09:20 Dose: 1 tab Ondansetron HCl (Zofran Inj) 4 mg IVP Q4H PRN PRN Reason: Nausea/Vomiting Ondansetron HCl (Zofran Inj) 4 mg IVP ONCE PRN PRN Reason: Nausea/Vomiting Zinc Sulfate (Zinc Sulfate 220 Mg Cap) 220 mg PO DAILY [facility] Last Admin: 10/22/16 09:19 Dose: 220 mg - Labs Labs: 10/22/16 06:45 10/22/16 06:45 PT 10.7 Seconds (9.9-11.8) 10/13/16 06:00 INR 0.99 (0.93-1.08) 10/13/16 06:00 APTT 30.8 Seconds (23.7-30.8) 10/12/16 22:43 - Constitutional Appears: Well, Non-toxic, No Acute Distress - Extremities Exam Additional comments: RLE: wound vac is c/d/i to the right leg and running at continuous setting 125 mmHg LLE: below knee cast is c/d/i - Neurological Exam Neurological Exam: Alert, Awake, Oriented x3 - Psychiatric Exam Psychiatric exam: Normal Affect, Normal Mood Assessment and Plan - Assessment and Plan (Free Text) Assessment: 61 yo male patient with OM and ulceration of right lower ext and is 1 week s/p FOZIA left lower extremity Plan: -Pt S&E with Dr. Albert at bedside -Chart reviewed -Patient is for discharge to [facility] today for rehab and IV abx -Wound vac is to be changed M,W,F (not changed today) -Pt is to f/u with Dr. Albert weekly at the office (needs cast change next ) -Dr. Olea to follow patient at [facility] -Stable per podiatry for discharge. <Gabby Albert - Last Filed: 11/02/16 16:42> Objective - Vital Signs/Intake and Output Vital Signs (last 24 hours): Temp Pulse Resp BP Pulse Ox 98.2 F 68 20 99/54 L 90 L 10/22/16 16:00 10/22/16 16:00 10/22/16 16:00 10/22/16 16:00 10/22/16 16:00 - Labs Labs: 10/22/16 06:45 10/22/16 06:45 PT 10.7 Seconds (9.9-11.8) 10/13/16 06:00 INR 0.99 (0.93-1.08) 10/13/16 06:00 APTT 30.8 Seconds (23.7-30.8) 10/12/16 22:43 Attending/Attestation - Attestation I have personally seen and examined this patient.: Yes I have fully participated in the care of the patient.: Yes I have reviewed all pertinent clinical information, including history, physical exam and plan: Yes
[2016-10-22 14:04] LABS: ALB/GLOB RATIO 1.2 (1.1-1.8); ALKALINE PHOSPHATASE 81 U/L (38-133); ALT/SGPT 32 U/L (7-56); AST/SGOT 28 U/L (15-59); BLOOD UREA NITROGEN 15 mg/dL (7-21); CALCIUM 9.3 mg/dL (8.4-10.5); CARBON DIOXIDE 26 mmol/L (21-33); CHLORIDE 106 mmol/L (95-110); GLUCOSE,RANDOM 92 mg/dL (70-110); POTASSIUM 4.2 mmol/L (3.6-5.0); SODIUM 140 mmol/L (132-148); TOTAL PROTEIN 7.1 g/dL (5.8-8.3)
[2016-10-22 16:08] VITALS: BP 99/54; PULSE 68; TEMP 98.2; O2SAT 90
--- NOTE | 2016-10-22 17:24 | PN ---
DATE: 10/22/2016 The patient is in bed, asymptomatic. PHYSICAL EXAMINATION: VITAL SIGNS: Blood pressure is 108/73, the heart rate is in the 60s. The patient is afebrile. NECK: Negative JVD. LUNGS: Without rales. HEART: Reveals S1, S2. EXTREMITIES: Bandage both legs. Hemoglobin is 10.1. Chemistries are unremarkable. ASSESSMENT: 1. Peripheral vascular disease. 2. Foot ulcers. 3. Chronic obstructive pulmonary disease. 4. Anemia. Given these findings, the patient remains hemodynamically stable. Will sign off the case today. Ramin Mayers MD cc: [id number] TT: 10/22/2016 17:23:31 Confirmation # [id number] Dictation # [id number]
--- NOTE | 2016-10-22 18:22 | CP.PCM.PN ---
Subjective - Date & Time of Evaluation Date of Evaluation: 10/22/16 Time of Evaluation: 11:55 - Subjective Subjective: Comfortable, afebrile, not in distress. Objective - Vital Signs/Intake and Output Vital Signs (last 24 hours): Temp Pulse Resp BP Pulse Ox 98.2 F 68 20 99/54 L 90 L 10/22/16 16:00 10/22/16 16:00 10/22/16 16:00 10/22/16 16:00 10/22/16 16:00 Intake and Output: 10/22/16 10/22/16 06:59 18:59 Intake Total 960 400 Output Total 700 200 Balance 260 200 - Medications Medications: Current Medications Acetaminophen (Tylenol 325mg Tab) 650 mg PO Q6H PRN PRN Reason: Fever >100.4 F Last Admin: 10/14/16 18:16 Dose: 650 mg Ascorbic Acid (Vitamin C 500 Mg Tab) 500 mg PO DAILY [facility] Last Admin: 10/22/16 09:19 Dose: 500 mg Aspirin (Aspirin Chewable) 81 mg PO DAILY [facility] Last Admin: 10/22/16 09:21 Dose: 81 mg Atorvastatin Calcium (Lipitor) 80 mg PO DIN [facility] Last Admin: 10/22/16 17:26 Dose: 80 mg Docusate Sodium (Colace) 100 mg PO BID [facility] Last Admin: 10/22/16 09:20 Dose: 100 mg Famotidine (Pepcid) 20 mg PO BID [facility] Last Admin: 10/22/16 17:26 Dose: 20 mg Gabapentin (Neurontin) 400 mg PO TID [facility] PRN Reason: Protocol Last Admin: 10/22/16 13:39 Dose: 400 mg Heparin Sodium (Porcine) (Heparin) 5,000 units SC Q8 [facility] PRN Reason: Protocol Last Admin: 10/22/16 13:39 Dose: 5,000 units Hydromorphone HCl (Dilaudid) 1 mg IVP Q4H PRN PRN Reason: Pain, severe (8-10) Last Admin: 10/22/16 14:28 Dose: 1 mg Cefepime HCl (Maxipime 2gm) 2 gm in 100 mls @ 100 mls/hr IVPB Q8 [facility] PRN Reason: Protocol Stop: 11/14/16 09:31 Last Admin: 10/22/16 13:39 Dose: 100 mls/hr Multivitamins (Thera Tab) 1 tab PO DAILY [facility] Last Admin: 10/22/16 09:20 Dose: 1 tab Ondansetron HCl (Zofran Inj) 4 mg IVP ONCE PRN PRN Reason: Nausea/Vomiting Zinc Sulfate (Zinc Sulfate 220 Mg Cap) 220 mg PO DAILY [facility] Last Admin: 10/22/16 09:19 Dose: 220 mg - Labs Labs: 10/22/16 06:45 10/22/16 06:45 PT 10.7 Seconds (9.9-11.8) 10/13/16 06:00 INR 0.99 (0.93-1.08) 10/13/16 06:00 APTT 30.8 Seconds (23.7-30.8) 10/12/16 22:43 - Constitutional Appears: Non-toxic, No Acute Distress - Head Exam Head Exam: NORMAL INSPECTION - Respiratory Exam Respiratory Exam: Decreased Breath Sounds - Cardiovascular Exam Cardiovascular Exam: +S1, +S2 - GI/Abdominal Exam GI & Abdominal Exam: Soft. absent: Tenderness - Extremities Exam Additional comments: right leg with dressings in place Assessment and Plan - Assessment and Plan (Free Text) Plan: Assessment Right leg dry gangrene and non-healing wound with severe peripheral vascular disease, with acute osteomyelitis - S/P debridement and bone biopsy to rule out osteomyelitis POD #9 - growing Pseudomonas S/P revascularization and S/P fem-pop bypass S/P grafting Plan continue Cefepime based on susceptibility profile of the Pseudomonas - will need at least 6 weeks of antibiotics with weekly ESR, CRP, CBC, CMP - will check ESR, CRP today discussed with Dr. Albert previously will continue to monitor clinically
--- NOTE | 2016-10-28 09:42 | DS ---
ADMITTING DIAGNOSIS: Chronic nonhealing right lower extremity wound with dry gangrene. DISCHARGE DIAGNOSIS: Osteomyelitis of the right lower extremity. 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 CONSULTATIONS: Dr. Moreira (infectious disease), Dr. Nicholson (vascular surgery) , Dr. Albert (podiatry), Dr. Guerrero (neurology), Dr. Snowden (interventional radiology), Dr. Mayers (cardiology). HISTORY OF PRESENT ILLNESS: The patient is a 61-year-old man with past medical history of severe PVD/PAD, status post IR revascularization, status post amputation of the right foot digits with prior admissions for osteomyelitis and dry gangrene, who presented to [facility] Emergency Department at the advice of his biologist for evaluation for possible BKA. HOSPITAL COURSE: Upon admission to the telemetry cramer, the patient was evaluated by Dr. Albert of podiatry and Dr. Ramin Snowden of interventional radiology. He underwent abdominal aortogram with bilateral lower extremity runoffs, which demonstrated persistent peripheral vascular disease. Given his severe PVD/PAD, there was concern for poor wound healing if the patient were to undergo a right-sided BKA. As such, Dr. Nicholson of vascular surgery was consulted , and recommendations were made to proceed with a left lower extremity femoral popliteal bypass, so as to ensure that the patient had a viable left lower extremity for weightbearing, so that he may participate in physical therapy upon completion of his right-sided BKA. The patient was successfully taken to the OR with Dr. Nicholson and the vascular surgery team and underwent successful left lower extremity femoral popliteal bypass. His post-procedure course was complicated by development of left upper extremity paralysis, which was attributed to possible brachial plexus injury, given that his left upper extremity was the access site for his surgical procedure. Dr. Guerrero of neurology evaluated the patient and ordered an MRI of the brain and the brachial plexus, which demonstrated no acute pathology to the brachial plexus. Physical therapy was recommended, and over the next several days, the patient was noted to demonstrate some improvement in his left upper extremity paralysis, and was able to regain some motor function. He was advised that it may take upwards of 6 months to a year for complete resolution of his neurologic dysfunction. After his left lower extremity femoropopliteal bypass, the patient was transferred to the CCU where his stay was unremarkable. He was successfully transferred to the telemetry cramer, and subsequently, taken to the OR with Dr. Albert where he underwent successful wound debridement and bone biopsy of his right lower extremity. Cultures demonstrated osteomyelitis with the culprit being pseudomonas. The patient was started on cefepime, as per Dr. Abdalla of infectious disease, and recommendations were made to complete a 6-8 week course. Given his deconditioned state, arrangements were made for placement to subacute rehab to which the patient was successfully discharged. CONDITION: Fair, improved. DISPOSITION: To [facility] rehab. DISCHARGE MEDICATIONS: Lipitor 80 mg p.o. daily, aspirin 81 mg p.o. daily, Pepcid 20 mg p.o. b.i.d., gabapentin 400 mg p.o. t.i.d., Percocet 5 mg 2 tabs p.o. q. 6 hours p.r.n. pain, Colace 100 mg p.o. b.i.d., and Cefepime 2 grams IV q. 8 hours to complete a 6-week course. DISCHARGE INSTRUCTIONS: The patient was advised to adhere to post-procedure instructions, as per Dr. Albert and the podiatric team, and Dr. Nicholson and the vascular surgery team. FOLLOWUP: The patient will be followed by Dr. Olea while at subacute rehab, and labs will be checked weekly to monitor ESR, CRP, and CPK while on antibiotics. Gume Gonzalez MD cc: [id number] TT: 10/28/2016 09:41:42 jn MTDD
== END 2016-10-22 21:45 | DRG 253 ==
LOC: ED 07:50 → ERH 09:16 → 3RSO 10:57 → 2RSO 18:34 → 3RSO 10-03 00:14 → CCU 10-07 17:34 → 2RSO 10-12 19:24 → 5RNO 10-15 16:44
PROVIDERS: ADMIT Student in an Organized Health Care Education/Training Program; ATTEND Student in an Organized Health Care Education/Training Program
PROC: B4001ZZ Plain Radiography of Abdominal Aorta using Low Osmolar Contrast (ICD-10-PCS; 2016-10-02)
PROC: 047K3DZ Dilation of Right Femoral Artery with Intraluminal Device, Percutaneous Approach (ICD-10-PCS; 2016-10-06)
PROC: 06BQ0ZZ Excision of Left Saphenous Vein, Open Approach (ICD-10-PCS; 2016-10-07)
PROC: 30233N1 Transfusion of Nonautologous Red Blood Cells into Peripheral Vein, Percutaneous Approach (ICD-10-PCS; 2016-10-07)
PROC: 041L09S Bypass Left Femoral Artery to Lower Extremity Vein with Autologous Venous Tissue, Open Approach (ICD-10-PCS; principal; 2016-10-07 10:00)
PROC: 0HRKXK3 Replacement of Right Lower Leg Skin with Nonautologous Tissue Substitute, Full Thickness, External Approach (ICD-10-PCS; 2016-10-13)
PROC: 0L8P0ZZ Division of Left Lower Leg Tendon, Open Approach (ICD-10-PCS; 2016-10-13)
PROC: 0JDN0ZZ Extraction of Right Lower Leg Subcutaneous Tissue and Fascia, Open Approach (ICD-10-PCS; 2016-10-13)
PROC: 3E01329 Introduction of Other Anti-infective into Subcutaneous Tissue, Percutaneous Approach (ICD-10-PCS; 2016-10-13)
PROC: 0QBG0ZX Excision of Right Tibia, Open Approach, Diagnostic (ICD-10-PCS; 2016-10-13 17:00)
DX: T82.858A Stenosis of other vascular prosthetic devices, implants and grafts, initial encounter (principal); M86.161 Other acute osteomyelitis, right tibia and fibula; R64 Cachexia; E11.40 Type 2 diabetes mellitus with diabetic neuropathy, unspecified; E11.52 Type 2 diabetes mellitus with diabetic peripheral angiopathy with gangrene; L97.819 Non-pressure chronic ulcer of other part of right lower leg with unspecified severity; E11.622 Type 2 diabetes mellitus with other skin ulcer; L97.529 Non-pressure chronic ulcer of other part of left foot with unspecified severity; E11.69 Type 2 diabetes mellitus with other specified complication; B96.5 Pseudomonas (aeruginosa) (mallei) (pseudomallei) as the cause of diseases classified elsewhere; G83.24 Monoplegia of upper limb affecting left nondominant side; K76.0 Fatty (change of) liver, not elsewhere classified; E78.5 Hyperlipidemia, unspecified; I71.4 Abdominal aortic aneurysm, without rupture; E78.00 Pure hypercholesterolemia, unspecified; M21.332 Wrist drop, left wrist; M21.372 Foot drop, left foot; D64.9 Anemia, unspecified; J44.9 Chronic obstructive pulmonary disease, unspecified; M21.371 Foot drop, right foot; Y83.2 Surgical operation with anastomosis, bypass or graft as the cause of abnormal reaction of the patient, or of later complication, without mention of misadventure at the time of the procedure; Z79.01 Long term (current) use of anticoagulants; Z79.82 Long term (current) use of aspirin; Z87.891 Personal history of nicotine dependence; Z68.21 Body mass index [BMI] 21.0-21.9, adult

== ENCOUNTER 2016-11-20 06:06 | Day surgery (SDC) | payer BC ==
[2016-11-18 10:56] VITALS: BMI 21.7
[2016-11-20] MEDS ORDERED: Lidocaine 1% Inj (20ml) ONE (07:19)
[2016-11-20] MEDS ORDERED: Bupivacaine 0.5% Inj(30mL) ONE (07:19)
--- NOTE | 2016-11-20 07:20 | CP.PCM.PN ---
Subjective - Date & Time of Evaluation Date of Evaluation: 11/20/16 Time of Evaluation: 07:16 - Subjective Subjective: 61 y/o male seen at bedside in [facility] for pre operative evaluation going to surgery today for right leg nonhealing wound. Patient is going to OR this morning for right leg wound debridement with graft application and antibiotic bead placement by Dr. Albert. Patient confirms NPO status. Patient denies any acute events overnight. Patient denies n/f/v/d/c/sob. Objective - Constitutional Appears: Well, Non-toxic, No Acute Distress - Extremities Exam Additional comments: right leg dressing intact no calf pain or tenderness - Neurological Exam Neurological Exam: Alert, Awake, Oriented x3 - Psychiatric Exam Psychiatric exam: Normal Affect, Normal Mood Assessment and Plan - Assessment and Plan (Free Text) Assessment: 61 y/o male seen at bedside in [facility] going to OR for right leg wound debridement today. Plan: patient seen and evaluated at bedside in [facility] NPO status confirmed consent signed and in the chart all risks, benefits, complications of surgical procedure were explained at length to patient no guarantees were given nor implied all labs and vitals noted in chart medical optimization obtained podiatry will continue to follow patient to follow up with Dr. Albert as outpatient
[2016-11-20] MEDS ORDERED: Propofol 10 mg/ml Inj (20 ML) ONE (07:41)
[2016-11-20] MEDS ORDERED: Midazolam 2 MG/2 ML VIAL ONE (07:42)
[2016-11-20] MEDS ORDERED: Vancomycin 1 g Inj ONE (08:16)
[2016-11-20] MEDS ORDERED: Oxycodone/Acetaminophen 5/325 mg Tab PO PRN ×2 (08:58)
[2016-11-20] MEDS ORDERED: Lactated Ringer's 1,000 ML IV SCH (08:58)
--- NOTE | 2016-11-20 08:58 | PCM.SURG1 ---
Surgeon's Initial Post Op Note - Surgeon's Notes Surgeon: Dr. Albert Supervisor Smoke Control: Dr. Rondon PGY-1 Type of Anesthesia: IV Sedation, Local Anesthesia Administered By: Dr. Richard Pre-Operative Diagnosis: right leg nonhealing wound Operative Findings: see dictation Post-Operative Diagnosis: same Operation Performed: right leg wound debridement, antibiotic bead placement, graft application- oasis graft Specimen/Specimens Removed: none Estimated Blood Loss: EBL {In ML}: 2 Blood Products Given: N/A Drains Used: No Drains Post-Op Condition: Good Date of Surgery/Procedure: 11/20/16 Time of Surgery/Procedure: 07:40
[2016-11-20 09:49] VITALS: BP 123/77; PULSE 79; RESP 20; TEMP 97.5; O2SAT 100
--- NOTE | 2016-11-20 17:45 | OP ---
PROCEDURE DATE: 11/20/2016 SURGEON: Dr. Gabby Albert BULB GROWER: Dr. Nela DPM PRESSURE CONTROL SUPERVISOR: Dr. Richard ANESTHESIA: IV sedation with local. PREOPERATIVE DIAGNOSIS: Right leg nonhealing wound. POSTOPERATIVE DIAGNOSIS: Right leg nonhealing wound. PROCEDURE PERFORMED: Right leg wound debridement with graft application with antibiotic bead placement. INDICATIONS: The patient is a 61-year-old male with the above diagnosis. The patient has exhausted all conservative treatment at this time and now requires surgical intervention. The patient signed the consent after careful explanation of risks, benefits, complications, and alternatives for surgical procedure. No guarantees were given nor implied. PREPARATION: The patient was brought into the operating room and placed on the operating room table in a supine position. Timeout was performed for identification of the correct patient and procedure. The patient received a total of 20 mL of a 1:1 mixture of 1% lidocaine plain and 0.5% Marcaine plain in a local block-type fashion to the right leg around the wound site. Once local anesthesia was achieved, the right leg was then prepped and draped in normal sterile manner and the procedure began. No tourniquet was used during the procedure. PROCEDURE: Attention was then directed to the patient's right leg where an anterior leg wound measuring approximately 9cm x 5 cm x1cm with exposed bone is noted. using the [employer] debrider at _low flow and low pressure____, the wound was then excisionally debrided down to granular tissue and then the wound was copiously flushed with sterile saline. All necrotic and devitalized tissue was excisionally debrided from the anterior right leg at the wound site. The wound was then copiously flushed again with sterile saline. The antibiotic osteoset vancomycin beads from [employer], were placed in the wound on the right leg and then an [place] graft was placed on top of the antibiotic beads on top of the wound and covered with Allevyn pads, tegaderm and dry sterile dressing POSTOPERATIVE CONDITION: The patient tolerated the anesthesia and procedure well and was escorted to the recovery room with vital signs stable and neurovascular status intact to the right leg. The patient is to be partial weightbearing to the right lower extremity and is to follow up with Dr. Albert upon discharge. KRISTI MATTEHWS DPM Gabby Albert DPM cc: [id number] TT: 11/20/2016 17:44:08 [facility] # [id number] dn MTDD
== END 2016-11-20 12:35 ==
LOC: SDS 06:06
PROVIDERS: ATTEND Podiatrist
DX: T81.89XA Other complications of procedures, not elsewhere classified, initial encounter (principal); I73.9 Peripheral vascular disease, unspecified; I96 Gangrene, not elsewhere classified; M86.9 Osteomyelitis, unspecified; E78.5 Hyperlipidemia, unspecified; J44.9 Chronic obstructive pulmonary disease, unspecified; D64.9 Anemia, unspecified; B96.4 Proteus (mirabilis) (morganii) as the cause of diseases classified elsewhere
CPT/HCPCS: 15271; 87070; 87075; 87181; 97597; C1713; J0690; J2250; J2704; J3010; J7120 ×2; Q4124

== ENCOUNTER 2016-11-26 06:35 | Day surgery (SDC) | payer BC ==
[2016-11-18 10:56] VITALS: BMI 21.7
[2016-11-26] MEDS ORDERED: Lidocaine 2% Inj (20ml) ONE (07:19)
[2016-11-26] MEDS ORDERED: Bupivacaine 0.5% Inj(30mL) ONE (07:19)
--- NOTE | 2016-11-26 07:20 | CP.PCM.PN ---
<Ely Rondon - Last Filed: 11/26/16 07:17> Subjective - Date & Time of Evaluation Date of Evaluation: 11/26/16 Time of Evaluation: 07:17 - Subjective Subjective: 61 y/o male seen at bedside in [facility] going to OR for right leg integra graft application by Dr. Albert. Patient confirms NPO status. Patient denies any acute events overnight. Patient has cast to left leg that remains c/d/i. Patient 's dressing to right leg remains c/d/i with no strikethrough. Patient denies any other pedal complaints. Objective - Constitutional Appears: Well, Non-toxic, No Acute Distress - Extremities Exam Additional comments: left leg cast intact right leg dressing c/d/i - Neurological Exam Neurological Exam: Alert, Awake, Oriented x3 Assessment and Plan - Assessment and Plan (Free Text) Assessment: 61 y/o male seen at bedside in [facility] for pre operative evaluation for right leg nonhealing wound Plan: patient seen and evaluated at bedside discussed with attending Dr. Albert labs and vitals reviewed NPO status confirmed medical optimization obtained consent signed and in chart all risks, benefits, complications of surgical procedure explained no guarantees were given nor implied patient will follow up with Dr. Albert as outpatient <Gabby Albert - Last Filed: 12/06/16 14:42> Objective - Vital Signs/Intake and Output Vital Signs (last 24 hours): Temp Pulse Resp BP Pulse Ox 97.5 F L 68 20 108/72 98 11/26/16 10:16 11/26/16 10:16 11/26/16 10:16 11/26/16 10:16 11/26/16 10:16 Attending/Attestation - Attestation I have personally seen and examined this patient.: Yes I have fully participated in the care of the patient.: Yes I have reviewed all pertinent clinical information, including history, physical exam and plan: Yes
[2016-11-26] MEDS ORDERED: Midazolam 2 MG/2 ML VIAL ONE (07:57)
[2016-11-26] MEDS ORDERED: Propofol 10 mg/ml Inj (20 ML) ONE (08:12)
[2016-11-26] MEDS ORDERED: Oxycodone/Acetaminophen 5/325 mg Tab PO PRN ×2 (08:46)
--- NOTE | 2016-11-26 08:46 | PCM.SURG1 ---
Surgeon's Initial Post Op Note - Surgeon's Notes Surgeon: Dr. Albert Physical Trainer: Dr. Rondon PGY-1 Type of Anesthesia: MAC Anesthesia Administered By: Dr. Davison Pre-Operative Diagnosis: right leg nonhealing wound Operative Findings: see dictation. integra skin graft. pankaj wound vac. aston Post-Operative Diagnosis: same as preop Operation Performed: right leg integra skin graft application Specimen/Specimens Removed: none Estimated Blood Loss: EBL {In ML}: 1 Blood Products Given: N/A Drains Used: No Drains Post-Op Condition: Good Date of Surgery/Procedure: 11/26/16 Time of Surgery/Procedure: 07:45
[2016-11-26] MEDS ORDERED: Lactated Ringer's 1,000 ML IV SCH (08:52)
[2016-11-26 09:19] VITALS: O2SAT 98
[2016-11-26 09:41] VITALS: PULSE 68; RESP 20; TEMP 97.5
[2016-11-26 10:18] VITALS: BP 108/72
== END 2016-11-26 11:05 ==
LOC: SDS 06:35
PROVIDERS: ATTEND Podiatrist
DX: L97.819 Non-pressure chronic ulcer of other part of right lower leg with unspecified severity (principal)
CPT/HCPCS: 15271; J2250; J2704; J3010; J7120 ×2; Q4104; Q4124

== ENCOUNTER 2016-12-25 06:29 | Day surgery (SDC) | payer BC ==
[2016-11-18 10:56] VITALS: BMI 21.7
--- NOTE | 2016-12-25 07:10 | CP.SDSHP ---
Same Day Surgery H & P - History Proposed Procedure: Debridement of right leg ulcer with graft application Pre-Op Diagnosis: Non-healing ulcer of right leg - Previous Medical/Surgical History Pain: 6.Severe Pain - Allergies Allergies: Allergies No Known Allergies Allergy (Verified 06/11/16 17:45) - Physical Exam Mental Status: Alert & Oriented x3 - {Optional Preform as Required} Other Pertinent Findings: Dressing to right leg is c/d/i. Gross sensation is intact - Impression Impression: Pt was seen and examined in [facility]. Pt NPO status was confirmed. All pre-op testing and clearance was in the chart. Patient has exhausted all conservative treatment at this time and is sopting for surgical intervention. Pt was explained procedure and post-operative course. All pt's questions were answered to stasification. No guarantees were made. Pt understands all risks, benefits and complications of procedure. Pt will follow up with Dr. Albert - Date & Time Date: 12/25/16 Time: 07:11 Short Stay Discharge - Short Stay Discharge Admitting Diagnosis/Reason for Visit: NON HEALING ULCERATION RT LEG L97.81 Disposition: HOME/ ROUTINE Referrals: Lisa FERRARI,Gume Goodson MD [Primary Care Provider] - Progress Note/Discharge Note with Instructions: Patient is good/stable condition for discharge home. Pt to resume medications per medical reconciliation. Resume regular diet. Please keep dressing clean,dry and intact to surgical site, use plastic bag over bandage for showering. Call clinic if you see signs of infection (redness, swelling, malodor), please make an appointment to see Dr. Albert in clinic within 1 week for post-op check.
--- NOTE | 2016-12-25 07:16 | CP.PCM.PN ---
Subjective - Date & Time of Evaluation Date of Evaluation: 12/25/16 Time of Evaluation: 07:11 - Subjective Subjective: Pt is a 61 year old male who presents to [facility] for non healing ulcer of the right leg. Patient is NAD and AAO x3 He states that the ulcer has been ongoing for 1.5 years. He reports pain 6/10 and states that pain is localized at the anterior khanna. He states he has had continuous treatment of right ulcer with Dr. Albert in the past. NPO status confirmed. He did not eat or drink anything last night. He states he stopped taking Eloquis medication for the past 5 days as instructed. He denies any allergies to drugs or food. He also denies any medical issues but states that he is on a lot of medications including Gabapentin. He denies n/v/sob/cp/chills or f. Dressing c/d/i Objective - Constitutional Appears: Well, Non-toxic, No Acute Distress - Extremities Exam Additional comments: Dressing is clean, dry, intact with no strikethrough noted Gross sensation intact - Neurological Exam Neurological Exam: Alert, Awake, Oriented x3 - Psychiatric Exam Psychiatric exam: Normal Affect, Normal Mood Assessment and Plan - Assessment and Plan (Free Text) Assessment: 61 year old with chronic non healing ulcer to right leg Plan: PT was seen and examined in [facility] Pt NPO status was confirmed All pre-op testing and clearance was in the chart Pt has exhausted all conservative treatment at this time and is opting for surgical intervention Pt was explained procedure and post operative course All pts questions were answered to satisfaction NO guarantees were made Pt understands all risk, benefits and complications of procedure Pt will follow-up With Dr. Albert
[2016-12-25] MEDS ORDERED: Bupivacaine 0.5% Inj(30mL) ONE (07:28)
[2016-12-25] MEDS ORDERED: Lidocaine 2% Inj (20ml) ONE (07:28)
[2016-12-25] MEDS ORDERED: Propofol 10 mg/ml Inj (20 ML) ONE ×2 (07:29→07:57)
[2016-12-25] MEDS ORDERED: Midazolam 2 MG/2 ML VIAL ONE (07:29)
[2016-12-25] MEDS ORDERED: Lidocaine 1% Inj (20ml) ONE (07:43)
--- NOTE | 2016-12-25 08:42 | PCM.SURG1 ---
Surgeon's Initial Post Op Note - Surgeon's Notes Surgeon: Dr. Gabby Albert DPM Enterprise Services Manager: Dr. Sarwat Bellamy DPM, PGY-1 Type of Anesthesia: IV Sedation Anesthesia Administered By: Dr. Khoa Luna Pre-Operative Diagnosis: non healing ulcer of right leg Operative Findings: see dictation. materials: Integra graft, aston, and VISHAL application. injectables: none Post-Operative Diagnosis: same Operation Performed: debridement of right leg ulcer with graft application Specimen/Specimens Removed: none Estimated Blood Loss: EBL {In ML}: 0 Blood Products Given: N/A Drains Used: No Drains Post-Op Condition: Good Date of Surgery/Procedure: 12/25/16 Time of Surgery/Procedure: 08:42
[2016-12-25] MEDS ORDERED: Oxycodone/Acetaminophen 5/325 mg Tab PO PRN ×2 (08:43)
[2016-12-25] MEDS ORDERED: HYDROmorphone 0.5 mg/0.5 ml ISec IVP PRN (08:43)
[2016-12-25] MEDS ORDERED: Sodium Chloride 0.9% 1,000 ML IV SCH (08:45)
[2016-12-25] MEDS ORDERED: HYDROmorphone 0.5 mg/0.5 ml ISec ONE ×2 (08:58→09:11)
[2016-12-25] MEDS ORDERED: HYDROmorphone 0.5 mg/0.5 ml ISec IVP ONE ×2 (09:01→09:15)
[2016-12-25 10:25] VITALS: BP 126/78; PULSE 61; RESP 20; TEMP 97.7; O2SAT 97
--- NOTE | 2016-12-25 20:16 | PCM.OP ---
Operative Report - Operative Report Date of Surgery/Procedure: 12/25/16 Time of Surgery/Procedure: 07:30 Surgeon: Dr. Roosevelt DPM Furniture Lumber Production Worker: Dr. Josesito DPM Anesthesia/Sedation: Dr. Khoa Luna/IV sedation Pre-Operative Diagnosis: non healing ulceration with exposed bone and tendon to the right leg Post-Operative Diagnosis: non healing ulceration with exposed bone and tendon to the right leg Indication for Surgery: The patient is a 61 year-old male with the above diagnoses. The patient has exhausted all conservative treatment at this time and now requires surgical intervention. The patient signed the consent after careful explanation of risks, benefits, complication and alternatives for surgical procedure. No guarantees were given nor implied. NPO status was confirmed prior to taking patient to the OR. Operative Findings: See procedure Procedure/Operation Description: Preparation: The patient was brought in to the operating room in the stretcher. The patient remained in the stretcher. Timeout was performed for identification of the correct patient and procedure. After induction of IV sedation, the right foot and ankle was then prepped and draped in normal sterile manner and the procedure began. No tourniquet was used during the procedure. Procedure: Attention was directed to the anterior aspect of the right lower extremity where the two ulcerations are located. The first, more proximal ulceration is located at the mid shaft of the tibia. The ulcer measures 15 cm x 3 cm x 1 cm with exposed tendon and bone. Wound base is mixed granular and fibrotic.The second, more distal ulceration measures 3 cm x 2 cm x 0.2 cm with a mixed fibrotic, granular base. Attention is drawn to the proximal wound. Using pick-ups and stapler remover, the aston were removed around the integra graft. The integra graft was carefully removed. All fibrous and nonviable tissue was then debrided using a dermal currette to the level of healthy granular tissue from two ulcerations. The wounds were then flushed copiously with saline solution using bulb syringe. Next, an integra graft was placed over the two wounds and aston were used to secure the graft in place. Then xeroform was placed over the dorsum of the right foot and posterior right lower calf. The proximal wound was then dressed with xeroform, kalyn wound vac, ABD, and kerlix. The Kalyn wound vac was reinforced with Tegaderm. The more distal wound was dressed with xeroform, 4x4, ABD, and kerlix. Estimated Blood Loss: none Complications: none Discharge & Condition: Postoperative Condition: The patient tolerated the anesthesia and procedure well and was escorted to the recovery room with vital signs stable and neurovascular status intact to the left leg. Patient will follow up with Dr. Albert in clinic.
== END 2016-12-25 11:40 ==
LOC: SDS 06:29
PROVIDERS: ATTEND Podiatrist
DX: L97.814 Non-pressure chronic ulcer of other part of right lower leg with necrosis of bone (principal)
CPT/HCPCS: 11042; 15271; J0690; J1170; J2250; J2405; J2704; J2765; J3010; J7040; Q4104

== ENCOUNTER 2017-01-26 06:27 | Day surgery (SDC) | payer BC ==
[2016-11-18 10:56] VITALS: BMI 21.7
[2017-01-26] MEDS ORDERED: Lidocaine 2% Inj (20ml) ONE (07:17)
[2017-01-26] MEDS ORDERED: Bupivacaine 0.5% Inj(30mL) ONE (07:17)
[2017-01-26 07:36] LABS: INR 0.96 (0.93-1.08); PARTIAL THROMBOPLASTIN TIME 29.2 Seconds (23.7-30.8)
[2017-01-26 07:41] VITALS: O2SAT 99
[2017-01-26] MEDS ORDERED: Gentamicin 80 mg/2mL Inj. ONE (08:21)
[2017-01-26] MEDS ORDERED: Midazolam 2 MG/2 ML VIAL ONE (08:23)
[2017-01-26] MEDS ORDERED: HYDROmorphone 0.5 mg/0.5 ml ISec IVP PRN (08:58)
[2017-01-26] MEDS ORDERED: Lactated Ringer's 1,000 ML IV SCH (08:58)
--- NOTE | 2017-01-26 09:00 | PCM.SURG1 ---
Surgeon's Initial Post Op Note - Surgeon's Notes Surgeon: Dr. Albert [employer] Business Manager: Dr. Soni Javed Type of Anesthesia: IV Sedation Anesthesia Administered By: Dr. Simmons Pre-Operative Diagnosis: Right leg chronic ulceration Operative Findings: Integra graft application, skin aston Post-Operative Diagnosis: same Operation Performed: Right leg application of Integra graft with aston fixation Specimen/Specimens Removed: none Estimated Blood Loss: EBL {In ML}: 3 Blood Products Given: N/A Drains Used: No Drains Post-Op Condition: Good Date of Surgery/Procedure: 01/26/17 Time of Surgery/Procedure: 08:00
[2017-01-26 09:31] VITALS: PULSE 56
[2017-01-26 10:13] VITALS: BP 138/76; RESP 18; TEMP 97.8
--- NOTE | 2017-01-27 04:17 | OP ---
PROCEDURE DATE: 01/26/2017 SURGEON: Dr. Albert. CHUTE BUILDER: Dr. Oral Javed. ANESTHESIOLOGIST: Dr. Simmons. ANESTHESIA: IV sedation. PREOPERATIVE DIAGNOSIS: Right leg chronic ulceration. POSTOPERATIVE DIAGNOSIS: Right leg wound irrigation and application of INTEGRA graft. NAME OF PROCEDURE: Right leg wound irrigation and INTEGRA graft application. INDICATION: The patient is a 61-year-old male with the above diagnosis. The patient exhausted conservative treatment at this time and now requests surgical intervention. The patient signed the consent after careful explanation of risks, benefits, complications, and alternatives for surgical procedure. No guarantees were given nor implied. NPO status was confirmed prior to taking the patient to the OR. PREPARATION: The patient was brought to the operating room and placed on the operating room table in supine position. After induction of IV sedation, the right lower extremity was then prepped and draped in usual sterile manner and the procedure began. PROCEDURE: Attention was directed to the anterior aspect of the right leg, where an open ulceration measuring approximately 13 cm x 14 cm x 1 cm is noted. Utilizing a pulse lavage of 1 L of normal sterile saline, the wound site was irrigated. Next, INTEGRA graft was prepared in sterile setting as instructed by the freight representative from the [employer]. The graft was laid over the wound to right anterior leg, and the graft was cut with a pair of scissors to fit the size of the wound, covering the entire surface of the wound. A total of 8 skin aston were put on the edge of the graft to fix the graft in place. Next, Xeroform was laid over the INTEGRA graft and the right lower extremity was then dressed with 4 x 4 gauze, ABD, and Kerlix. The attending was present during the entire case. POSTOPERATIVE CONDITION: The patient tolerated the anesthesia and the procedure well and was escorted to the recovery room with vital signs stable and neurovascular status intact to the right lower extremity. This patient will go back to the hospital floor and will be followed by Dr. Albert while the patient remains in the hospital. Oral Javed DPM
== END 2017-01-26 10:45 | disposition home or self-care (01) ==
LOC: SDS 06:27
PROVIDERS: ATTEND Podiatrist
DX: L97.819 Non-pressure chronic ulcer of other part of right lower leg with unspecified severity (principal); I73.9 Peripheral vascular disease, unspecified; I10 Essential (primary) hypertension; Z87.891 Personal history of nicotine dependence
CPT/HCPCS: 15271; 36415; 85610; 85730; J1170; J1580; J2250; J3010; J7120 ×2; Q4104

== ENCOUNTER 2017-04-16 11:58 | Day surgery (SDC) | payer BC ==
[2017-04-16 12:38] VITALS: O2SAT 98
[2017-04-16 13:42] VITALS: BMI 23.0
[2017-04-16] MEDS ORDERED: Lidocaine 2% Inj (20ml) ONE (15:57)
--- NOTE | 2017-04-16 17:20 | CP.PCM.CON ---
History of Present Illness - History of Present Illness History of Present Illness: Infectious Disease Consultation: April 16, 2017 62 yo male with large wound of the lower right leg that has significantly healed over the past few months. The patient still has a small wound left that has been slow to heal. Cultures of the area are growing Proteus. Overall, the patient has done well considering his starting point. The proteus is highly resistant to many antibiotics. The proteus was present in a culture a month ago as well. PMHx: PAD/PVD, HLD, and neuropathy PSHx: stent placements, Rt lower extremity fem-pop Social Hx: Ex-smoker 1-2 PPD x 50years, No illicit drug use, no EtOH Allergies: NKDA Medications: Gabapentin, Atorvastatin, Eliquis Family Hx: none given ROS: No fevers, chills, nausea, vomiting, diarrhea, headaches, dizziness, chest pain , abdominal pain, melena, hematuria, hematemesis, hematochezia, depression, anxiety. Past Patient History - Infectious Disease Hx of Infectious Diseases: None - Past Social History Smoking Status: Former Smoker - CARDIAC Hx Pacemaker: No - PULMONARY Hx Respiratory Disorders: Yes (SMOKED CIGARETTES 1/2 PPD X 50 YRS. QUIT) - NEUROLOGICAL Hx Paralysis: No - HEENT Hx HEENT Problems: Yes Other/Comment: wears glasses - RENAL Hx Chronic Kidney Disease: No - ENDOCRINE/METABOLIC Hx Endocrine Disorders: No - HEMATOLOGICAL/ONCOLOGICAL Hx Blood Transfusions: Yes Hx Blood Transfusion Reaction: No - INTEGUMENTARY Hx Dermatological Problems: Yes (RIGHT LEG INNER LATERAL BYPASS GRAFT WITH DRYING SKIN.) - MUSCULOSKELETAL/RHEUMATOLOGICAL Hx Musculoskeletal Disorders: Yes (OSTEOMYELITIS TO RIGHT LEG /TIB/FIB 06-11-16) - GASTROINTESTINAL Hx Gastrointestinal Disorders: Yes (CONSTIPATION) - GENITOURINARY/GYNECOLOGICAL Hx Genitourinary Disorders: No - PSYCHIATRIC Hx Emotional Abuse: No Hx Physical Abuse: No Hx Substance Use: No - SURGICAL HISTORY Hx Surgeries: Yes (LEFT ACHILLES TENDON REPAIR/APPLICATION OF INTEGRA) - ANESTHESIA Hx Anesthesia Reactions: No Meds Allergies/Adverse Reactions: Allergies Allergy/AdvReac Type Severity Reaction Status Date / Time No Known Allergies Allergy Verified 06/11/16 17:45 Physical Exam - Constitutional Appears: Non-toxic, No Acute Distress, Chronically Ill - Head Exam Head Exam: ATRAUMATIC, NORMOCEPHALIC - Eye Exam Eye Exam: EOMI, PERRL Pupil Exam: NORMAL ACCOMODATION, PERRL - ENT Exam ENT Exam: Mucous Membranes Moist, Normal External Ear Exam, TM's Normal Bilaterally - Neck Exam Neck exam: Positive for: Full Rom, Normal Inspection - Respiratory Exam Respiratory Exam: Clear to Auscultation Bilateral, NORMAL BREATHING PATTERN. absent: Rales, Rhonchi, Wheezes - Cardiovascular Exam Cardiovascular Exam: REGULAR RHYTHM, RRR, +S1, +S2 - GI/Abdominal Exam GI & Abdominal Exam: Normal Bowel Sounds, Soft. absent: Distended, Tenderness - Extremities Exam Extremities exam: Positive for: full ROM, normal inspection - Back Exam Back exam: NORMAL INSPECTION - Neurological Exam Neurological exam: Alert, CN II-XII Intact, Oriented x3 - Psychiatric Exam Psychiatric exam: Normal Affect, Normal Mood - Skin Skin Exam: Intact, Normal Color Results - Vital Signs Recent Vital Signs: Last Vital Signs Temp 98 F 04/16/17 12:29 Pulse 57 L 04/16/17 12:29 Resp 18 04/16/17 12:29 BP 137/73 04/16/17 12:29 Pulse Ox 98 04/16/17 12:29 Assessment & Plan - Assessment and Plan (Free Text) Assessment: 62 yo male with small wound possible fistula in the lower right leg. Proteus that was highly resistant to antibiotics grew out. Considering of a PICC line with 4 weeks of IV Invanz for treatment. Will set up Invanz through Home Health for daily infustion for 1 month. Local wound care. DR. Snowden to place PICC today. I will follow with the patient. Thank you for allowing me to participate in the care of the patient, we will follow with you.
[2017-04-16 17:46] VITALS: PULSE 54; RESP 20; TEMP 98.3
[2017-04-16 17:48] VITALS: BP 130/74
--- NOTE | 2017-04-16 19:25 | VASCULAR ---
PROCEDURE: Ultrasound and fluoroscopically placed left upper extremity PICC line. HISTORY: Left leg osteomyelitis. Long-term IV antibiotics. Needs PICC line PHYSICIAN(S): Ramin Snowden MD. TECHNIQUE: The relative risks and indications of the procedure were explained to the patient and consent obtained. The patient was placed supine on the arteriogram table and the left arm prepped and draped in the usual sterile fashion. A tourniquet was applied to the left axilla. 1% Xylocaine was used to anesthetize the skin and soft tissues at the puncture site above the elbow. The left brachial vein was punctured under direct ultrasound guidance with a micropuncture set. A 0.018 guidewire was advanced centrally and used to measure the length to the SVC/RA junction. A 5 [place] single-lumen PICC line 49 cm long was advanced to the SVC/RA junction. The catheter was flushed and secured. The patient tolerated the procedure well. IMPRESSION: 1. Ultrasound and fluoroscopically placed left upper extremity PICC line. A 5 [place] single-lumen PICC line 49 cm long was advanced to the SVC/RA junction.
== END 2017-04-16 17:30 | disposition home or self-care (01) ==
LOC: OPSURG 11:58
PROVIDERS: ATTEND Radiology Vascular & Interventional Radiology
DX: Z45.2 Encounter for adjustment and management of vascular access device (principal); M86.8X6 Other osteomyelitis, lower leg; L97.919 Non-pressure chronic ulcer of unspecified part of right lower leg with unspecified severity; I73.9 Peripheral vascular disease, unspecified; E78.5 Hyperlipidemia, unspecified; I10 Essential (primary) hypertension; G62.9 Polyneuropathy, unspecified; Z87.891 Personal history of nicotine dependence; Z79.01 Long term (current) use of anticoagulants
CPT/HCPCS: 36569; 76937; 77001; C1751; J1644

== ENCOUNTER 2017-06-17 10:15 | Day surgery (SDC) | payer BC ==
[2017-06-17 11:05] VITALS: O2SAT 97
[2017-06-17 11:09] LABS: BASO # 0.07 K/mm3 (0.0-2.0); BASO % 0.6 % (0.0-3.0); EOS # 1.2 (0.0-0.7); EOS % 10.9 % (1.5-5.0); GRAN # 6.57 (1.4-6.5); GRAN % 60.2 % (50.0-68.0); HEMOGLOBIN 15.2 g/dL (14.0-18.0); LYMPH # 2.3 (1.2-3.4); LYMPH % 21.3 % (22.0-35.0); MEAN CORPUSCULAR HEMOGLOBIN 32.1 pg (25.0-35.0); MEAN CORPUSCULAR HGB CONC 34.5 g/dl (31.0-37.0); MEAN PLATELET VOLUME 10.6 fl (7.0-11.0); MONO # 0.8 (0.1-0.6); RBC 4.74 10^6/uL (3.5-6.1); RED CELL DISTRIBUTION WIDTH 13.9 % (11.5-14.5); WHITE BLOOD COUNT 10.9 10^3/ul (4.5-11.0)
[2017-06-17 11:13] LABS: BLOOD UREA NITROGEN 20 mg/dL (7-21); CALCIUM 10.2 mg/dL (8.4-10.5); GFR AFRICAN-AMERICAN > 60; GFR NON-AFRICAN AMERICAN > 60
[2017-06-17 11:15] LABS: PARTIAL THROMBOPLASTIN TIME 32.2 Seconds (25.1-36.5); PROTHROMBIN TIME 11.5 SECONDS (9.4-12.5)
[2017-06-17] MEDS ORDERED: HEPARIN SODIUM/NS 2,000 ML IV ONE (11:16)
[2017-06-17] MEDS ORDERED: Lidocaine 2% Inj (20ml) ONE (11:16)
[2017-06-17] MEDS ORDERED: Nitroglycerin 50mg in D5W 50 MG/250 ML BOTTLE IV ONE (11:16)
[2017-06-17] MEDS ORDERED: Iodixanol 320 MG/ML 200 ML BOTTLE IV ONE (11:22)
[2017-06-17] MEDS ORDERED: Iodixanol 320 mg/ml 150 ml Bottle IV ONE (11:22)
[2017-06-17] MEDS ORDERED: Midazolam 2 MG/2 ML VIAL ONE (12:01)
[2017-06-17] MEDS ORDERED: Propofol 10 mg/ml 1,000 MG/100 ML VIAL ONE (12:02)
[2017-06-17] MEDS ORDERED: Protamine 50mg/5mL Inj IV ONE (13:36)
[2017-06-17] MEDS ORDERED: Labetalol 5 mg/ml Inj 20ML ONE (13:59)
[2017-06-17] MEDS ORDERED: Sodium Chloride 0.9% 1,000 ML IV SCH (14:30)
--- NOTE | 2017-06-17 14:35 | PCM.SURG1 ---
Surgeon's Initial Post Op Note - Surgeon's Notes Surgeon: Dr. Nicholson Pleater Hand: Diane PGY1 Type of Anesthesia: IV Sedation, Local Anesthesia Administered By: Nithya Pre-Operative Diagnosis: Peripheral vascular disease Operative Findings: see operative report Post-Operative Diagnosis: same Operation Performed: Left Axillary Artery Access; Aortogram; Bilateral Femoral Angiogram; Balloon Angioplasty of R Femoral Popliteal Bypass Specimen/Specimens Removed: none Estimated Blood Loss: EBL {In ML}: 5 Blood Products Given: N/A Drains Used: No Drains Post-Op Condition: Good Date of Surgery/Procedure: 06/17/17 Time of Surgery/Procedure: 14:35
[2017-06-17 15:38] VITALS: RESP 18; TEMP 97.6
[2017-06-17 17:40] VITALS: BP 109/73; PULSE 68
--- NOTE | 2017-06-18 01:51 | OP ---
PROCEDURE DATE: 06/17/2017 PREOPERATIVE DIAGNOSIS: Right leg femoral popliteal artery bypass stenosis. POSTOPERATIVE DIAGNOSES: Right leg femoral popliteal artery bypass stenosis at the below knee portion of the popliteal anastomosis of the reverse greater saphenous vein graft. PROCEDURE:Ultrasound Axillary,Aortogram,bilateral femoral runoff,balloon angioplasty popliteal anastomosis femoral popliteal bypass ANESTHESIA: Local IV sedation. SURGEON: Valencia Nicholson MD DESCRIPTION OF PROCEDURE: The patient was brought to the cardiac bolt labeler and placed supine on the cardiac cath table. After adequate IV sedation was accomplished, the patient was positioned such that, his left arm is extended at 90 degree. An ultrasound of the axilla was performed showing a noncalcified axillary artery and proximal brachial artery. The axilla was then prepped with ChloraPrep and draped out as a sterile field. After local infiltration of 1% Xylocaine, the axillary artery was percutaneously assessed using a micropuncture kit. The micro guidewire was passed into the subclavian artery. It was exchanged for a 0.35 wire. The guidewire was then passed into the abdominal aorta and Omniflush catheter was passed over the guidewire into the abdominal aorta at the level of the renal artery. Aortogram, femoral angiogram was performed showing : a small abdominal aortic aneurysm, patent kissing stent and iliac artery, patent common femoral artery, there is a stent in the right common femoral artery at the area where the reverse greater saphenous vein and femoral popliteal bypass graft originated and they appear to be patent. On the left side, there is also a femoral popliteal reverse greater saphenous vein bypass graft. On the right side, at the distal anastomosis, just at the level of the knee, there appear to be a small stenosis in the popliteal area. After the angiogram, a guidewire was passed via the right kissing stent into the popliteal and a 19-mm 5-Congolese sheath was passed over the guidewire into the superficial femoral area. An 0.18 guidewire was passed via the sheath through the distal popliteal anastomosis. The area of stenosis was easily dilated, opened with a 5 mm x 40 mm balloon. Completion angiogram showed good result with patency of the distal anastomosis and good washout of dye. The heparin was reversed using Protamine. The axillary sheath was removed and pressure held for 20 minutes. A pressure dressing was placed with a sling for the arm. The patient was taken to the recovery room. He tolerated the procedure well and has palpable left radial pulse and good Doppler signal on both feet. Valencia Nicholson MD QUIQUE
== END 2017-06-17 18:25 | disposition home or self-care (01) ==
LOC: SDSVAS 10:15
PROVIDERS: ATTEND Surgery Vascular Surgery
DX: T82.858A Stenosis of other vascular prosthetic devices, implants and grafts, initial encounter (principal); I73.9 Peripheral vascular disease, unspecified; Y83.2 Surgical operation with anastomosis, bypass or graft as the cause of abnormal reaction of the patient, or of later complication, without mention of misadventure at the time of the procedure
CPT/HCPCS: 36415; 37224; 75630; 80048; 85025; 85175; 85610; 85730; 86850; 86900; 99152; 99153; C1725; C1769 ×4; C1887 ×2; C1894; J1644 ×2; J2250; J2704; J2720; J3010; J7040

== ENCOUNTER 2017-11-23 12:10 | Emergency (ER) | payer BC ==
[2017-11-23 12:10] VITALS: BMI 23.0
--- NOTE | 2017-11-23 12:30 | ED PDOC ---
Arrival/HPI - General Chief Complaint: Abnormal Skin Integrity Time Seen by Provider: 11/23/17 12:27 Historian: Patient - History of Present Illness Narrative History of Present Illness (Text): 11/23/17 12:30 62 year old male, currently on Eliquis, presents to the Emergency department accompanied by complaining of external right nostril bleeding since 8:30 am this morning. Patient informs irritating a "pimple like" spot on his external right nostril prior to onset. Patient informs uncontrolled bleeding even after pressure bandage and requests medical evaluation. Patient denies any trauma, fever, chills, nausea, vomiting, diarrhea, abdominal pain, chest pain, shortness of breath or any other complaints. PMD: Dr. Gonzalez Time/Duration: 1-3 hours Symptom Onset: Gradual Symptom Course: Unchanged Quality: Other (Bleeding) Activities at Onset: Light Context: Home Past Medical History - Provider Review Nursing Documentation Reviewed: Yes - Infectious Disease Hx of Infectious Diseases: None - Cardiac Hx Cardiac Disorders: No Hx Pacemaker: No - Pulmonary Hx Respiratory Disorders: Yes (SMOKED CIGARETTES 1/2 PPD X 50 YRS. QUIT) - Neurological Hx Neurological Disorder: No Hx Paralysis: No - HEENT Hx HEENT Disorder: Yes Other/Comment: wears glasses - Renal Hx Renal Disorder: No - Endocrine/Metabolic Hx Endocrine Disorders: No - Hematological/Oncological Hx Blood Transfusions: Yes Hx Blood Transfusion Reaction: No - Integumentary Hx Dermatological Disorder: Yes (RIGHT LEG INNER LATERAL BYPASS GRAFT WITH DRYING SKIN.) - Musculoskeletal/Rheumatological Hx Musculoskeletal Disorders: Yes (OSTEOMYELITIS TO RIGHT LEG /TIB/FIB 06-11-16) - Gastrointestinal Hx Gastrointestinal Disorders: Yes (CONSTIPATION) Hx Constipation: Yes - Genitourinary/Gynecological Hx Genitourinary Disorders: No - Psychiatric Hx Psychophysiologic Disorder: No Hx Emotional Abuse: No Hx Physical Abuse: No Hx Substance Use: No - Surgical History Other/Comment: bypass of lower extremities - Anesthesia Hx Anesthesia: Yes Hx Anesthesia Reactions: No Hx Malignant Hyperthermia: No - Suicidal Assessment Feels Threatened In Home Enviroment: No Family/Social History - Physician Review Nursing Documentation Reviewed: Yes Family/Social History: No Known Family HX Smoking Status: Former Smoker Hx Alcohol Use: No Hx Substance Use: No Allergies/Home Meds Allergies/Adverse Reactions: Allergies No Known Allergies Allergy (Verified 06/11/16 17:45) Home Medications: Home Meds Medication Instructions Recorded Confirmed Apixaban [Eliquis] 5 mg PO BID 12/19/16 11/23/17 Multivitamin [Daily Ace] 1 tab PO DAILY 12/19/16 11/23/17 Review of Systems - Physician Review All systems were reviewed & negative as marked: Yes - Review of Systems Constitutional: absent: Fevers ENT: Other (Active bleeding right external nostril) Respiratory: absent: SOB Cardiovascular: absent: Chest Pain Gastrointestinal: absent: Abdominal Pain, Diarrhea, Nausea, Vomiting Physical Exam - Physical Exam Narrative Physical Exam (Text): 11/23/17 12:40 Gen: VS reviewed, alert, well developed, well nourished, nontoxic, mild distress ENT: normal pharynx, active bleeding on punctate lesion external right nostril Eye: EOMI, PERRL Neck: no JVD, supple, no adenopathy CV: regular rate, regular rhythm, no rubs,no murmur, no gallops, S1, S2, pulses equal and strong Pulm: no distress, clear to auscultation, no wheeze, no rhonchi, breath sounds equal, no rales Abd: soft, nontender, no guarding, no rebound, no rigidity, normal bowel sounds Ext: no edema Skin: good color, no rash, no cyanosis Psych: responds appropriately to questions, normal affect Neuro: oriented x3, CN2-12 intact grossly, motor intact, sensation intact Vital Signs Reviewed: Yes Vital Signs Temp Pulse Resp BP Pulse Ox 11/23/17 13:38 72 17 145/78 98 11/23/17 12:10 98.6 F 74 18 147/81 97 Temperature: Afebrile Blood Pressure: Normal Pulse: Regular Respiratory Rate: Normal Appearance: Positive for: Well-Appearing, Non-Toxic, Comfortable Pain Distress: Mild Mental Status: Positive for: Alert and Oriented X 3 Medical Decision Making ED Course and Treatment: 11/23/17 12:42 Impression: 62 year old male presents to the Emergency department for active bleeding of right external nostril. Plan: -- Silver nitrate -- Reassess and disposition Prior Visits: Notes and results from previous visits were reviewed. Progress Notes: 11/23/17 13:20 patient seen for bleeding lesion on external nose on eliquis. bleeding controlled with chemical cautery, patient informed to continue taking current medications. patient instructed to follow up with ENT or plastics for follow up care. patient informed to follow up with pcp if needs help with referral. - Medication Orders Current Medication Orders: Discontinued Medications Silver Nitrate (Silver Nitrate Topical Stick) 1 swa TOP ONCE ONE Stop: 11/23/17 12:51 - Procedure PROCEDURE NOTE (Text): 11/23/17 13:19 verbal consent obtained for cautery of bleeding nasal lesion. silver nitrate was applied to the lateral apsect of right external notril and bleeding controlled immediately. - Scribe Statement The provider has reviewed the documentation as recorded by the Scribe Jaun Fowler. All medical record entries made by the Scribe were at my direction and personally dictated by me. I have reviewed the chart and agree that the record accurately reflects my personal performance of the history, physical exam, medical decision making, and the department course for this patient. I have also personally directed, reviewed, and agree with the discharge instructions and disposition. Disposition/Present on Arrival - Present on Arrival Any Indicators Present on Arrival: No History of DVT/PE: No History of Uncontrolled Diabetes: No Urinary Catheter: No History of Decub. Ulcer: No History Surgical Site Infection Following: Orthopedic Procedures, None - Disposition Have Diagnosis and Disposition been Completed?: Yes Diagnosis: Hemorrhage of skin lesion Disposition: HOME/ ROUTINE Disposition Time: 21:39 Condition: GOOD Additional Instructions: follow up with either ear, nose. throat doctor or plastic surgeron for the abnormal bloody lesion on the nose. Referrals: Bebo Manuel, [[facility]] - Follow up with primary Forms: [employer] ([place])
[2017-11-23] MEDS ORDERED: Silver Nitrate Topical - Stick TOP ONE (12:50)
[2017-11-23 12:51] VITALS: TEMP 98.6
[2017-11-23 13:42] VITALS: BP 145/78; PULSE 72; RESP 17; O2SAT 98
== END 2017-11-23 13:38 | disposition home or self-care (01) ==
LOC: ED 12:10
DX: R23.3 Spontaneous ecchymoses (principal); Z87.891 Personal history of nicotine dependence; Z79.01 Long term (current) use of anticoagulants

== ENCOUNTER 2017-11-30 10:30 | Day surgery (SDC) | payer BC ==
[2017-11-30 11:12] VITALS: O2SAT 98
[2017-11-30] MEDS ORDERED: Lidocaine 2% Inj (20ml) ONE (12:09)
[2017-11-30] MEDS ORDERED: Iodixanol 320 mg/ml 150 ml Bottle IV ONE (12:10)
[2017-11-30] MEDS ORDERED: Iodixanol 320 MG/ML 200 ML BOTTLE IV ONE (12:10)
[2017-11-30] MEDS ORDERED: Midazolam 2 MG/2 ML VIAL ONE (12:16)
[2017-11-30] MEDS ORDERED: ePHEDrine 50 mg/ml Inj ONE (12:18)
[2017-11-30] MEDS ORDERED: Phenylephrine 10 mg/ml Inj ONE (12:18)
[2017-11-30] MEDS ORDERED: Iodixanol 320 MG/ML 100 ML BOTTLE IV ONE (12:19)
[2017-11-30] MEDS ORDERED: Nitroglycerin 50mg in D5W 50 MG/250 ML BOTTLE IV ONE (12:22)
[2017-11-30] MEDS ORDERED: Etomidate 20 mg/10ml Inj IV ONE ×2 (12:46→14:04)
[2017-11-30] MEDS ORDERED: Protamine 50mg/5mL Inj IV ONE (13:59)
[2017-11-30] MEDS ORDERED: Propofol 10 mg/ml Inj (20 ML) ONE (14:07)
[2017-11-30] MEDS ORDERED: Morphine 2 mg/ml ISec IVP PRN (14:32)
[2017-11-30] MEDS ORDERED: Sodium Chloride 0.9% 1,000 ML IV SCH (14:45)
--- NOTE | 2017-11-30 14:45 | PCM.SURG1 ---
Surgeon's Initial Post Op Note - Surgeon's Notes Surgeon: Dr. Nicholson Rotor Pilot: Dr. Machuca Type of Anesthesia: IV Sedation, Local Anesthesia Administered By: Dr. Machuca Pre-Operative Diagnosis: PAD, stenosis of LLE bypass Operative Findings: PAD, stenosis of LLE bypass Post-Operative Diagnosis: PAD, stenosis of LLE bypass Operation Performed: angiogram with aortofemoral run-off, slective catherization of left axillary artery, balloon angioplasty of proximal/distal openings of LLE bypass and left illiac artery Specimen/Specimens Removed: N/A Estimated Blood Loss: EBL {In ML}: 20 Blood Products Given: N/A Drains Used: No Drains Post-Op Condition: Good Date of Surgery/Procedure: 11/30/17 Time of Surgery/Procedure: 14:45
[2017-11-30 15:55] VITALS: RESP 18; TEMP 97.6
[2017-11-30 17:22] VITALS: BP 148/70; PULSE 59
--- NOTE | 2017-12-01 04:25 | OP ---
PROCEDURE DATE: 11/30/2017 PREOPERATIVE DIAGNOSES: Peripheral vascular disease status post aortic thrombosis, status post aortic kissing stent, bilateral iliac stent, bilateral femoral popliteal bypass graft, recurrent stenosis, left femoral popliteal bypass graft. SURGEON: Valencia Nicholson MD. TEACHER'S ASSISTANT: Karla. ANESTHESIA: Local IV sedation. INDICATIONS: The patient had a long history of peripheral vascular disease status post multiple interventional procedures and surgical procedures here, bilateral femoral popliteal bypass graft using reverse greater saphenous vein. On a routine surveillance, he was found to have stenosis of the left femoral popliteal bypass graft, which is below knee at the anastomosis. He is brought here for aortogram, femoral angiogram, and possible balloon angioplasty. PROCEDURES PERFORMED: An ultrasound of the left axillary artery, aortogram, bilateral femoral runoff - axillary approach, balloon angioplasty of aortoiliac stents, proximal left femoral bypass graft, and angioplasty of the popliteal anastomosis. DESCRIPTION OF PROCEDURE: The patient was brought to the cardiac cath lab tech and placed supine on the table. After adequate IV sedation had been accomplished, the left arm was brought out at 90-degree to the body and secured. The axilla was prepped with Chloraprep and draped out as sterile field. Ultrasound of the proximal brachial artery was performed showing the vessel to be patent and free of atherosclerosis. After local infiltration with 1% Xylocaine, it was percutaneously accessed with a micropuncture kit, and a 5-Wolof sheath passed into the subclavian artery. Using a stiff-angled glide, the Omniflush was passed over it to the suprarenal aorta. Aortogram and bilateral femoral angiogram showed patent aorta with distal aortic aneurysm, stenosis of the left iliac stent and stenosis of the femoral popliteal bypass graft at the femoral area just distal to the anastomosis, and diffuse stenosis of the vein to popliteal artery anastomosis for approximately 30 mm, presumably due to intimal hyperplasia. After completion of the angiogram, we used a stiff-angled glide passed via the left iliac artery into the bypass graft. The patient was systemically heparinized. A 6-Wolof Stickney type of sheath was passed over the glidewire to just above the bilateral kissing iliac stent. The distal anastomosis was ballooned with a 5 x 40 mm balloon across the anastomosis with good result. The proximal femoral anastomosis was ballooned first with a 7-mm balloon and then an 8 x 80 balloon with good result. All the iliac stents were ballooned by an 8 x 80 mm balloon. Completion aortoiliac femoral angiogram showed patency with no hemodynamically significant stenosis of the iliac artery and the femoral popliteal bypass graft. Tibial vessel also looked intact with 2-vessel runoff. After that, the ACT showed it was 248. The sheath was pulled and pressure was held for 20 minutes. Pressure dressing was applied, the hand was warm and pink with normal motor and sensory function, and a palpable radial pulse. Patient tolerated the procedure well and was returned to the recovery room in stable condition. Valencia Nicholson MD MTDMalachi
== END 2017-11-30 17:25 | disposition home or self-care (01) ==
LOC: SDS 10:30
PROVIDERS: ATTEND Surgery Vascular Surgery
DX: T82.858A Stenosis of other vascular prosthetic devices, implants and grafts, initial encounter (principal); I73.9 Peripheral vascular disease, unspecified
CPT/HCPCS: 37221; 37224; 75630; 85175; C1725 ×3; C1760; C1769 ×3; C1887 ×2; C1892; C1894; J1644 ×2; J2250; J2270; J2370; J2704; J2720; J3010; J7030; Q9966; Q9967

== ENCOUNTER 2018-08-30 13:53 | Outpatient (CLI) | payer BC, MEDICARE | END 2018-08-30 13:54 | disposition home or self-care (01) | LOC: RAD 13:54 ==